=== PATIENT | female | born 1950 | race Caucasian/White ===

== ENCOUNTER → 2017-02-17 | Outpatient (CLI) | payer MEDICARE ==
[~2017-02-17] MED LIST: AMOX500C2 PO; BUSP10TA95 PO
--- NOTE | 2017-02-17 11:43 | Diagnostic Imaging Report ---
PROCEDURE: CT chest without contrast. TECHNIQUE: Multiple contiguous axial images were obtained through the chest without the use of intravenous contrast. INDICATION: COPD. COMPARISON: 06/11/2015 exam. FINDINGS: The lungs demonstrate no significant emphysema changes. The heart size is normal. No pericardial or pleural effusion. The thoracic aorta is normal in caliber. No mediastinal mass. No significantly enlarged lymph nodes in the mediastinum or axilla is seen. No definite hilar mass adjacent to the unopacified hilar vessels seen. Sections of the upper abdomen demonstrate no definite abnormality. There is suggestion of an old compression fracture of T12 vertebra. Degenerative changes and scoliosis in the thoracic spine is seen. IMPRESSION: No acute process. Dictated by: Dictated on workstation # [id number]
--- NOTE | 2017-02-19 15:36 | Diagnostic Imaging Report ---
Bilateral screening mammogram. The current study was also evaluated with a Computer Aided Detection (CAD) system. INDICATION: Screening. No current complaints stated on the questionnaire. COMPARISON: 06/11/2015. FINDINGS: The breasts are composed of heterogeneously dense parenchyma which may decrease mammographic sensitivity. There is no mass, architectural distortion or suspicious cluster of calcifications. Allowing for technique and positional differences, no suspicious change is seen. IMPRESSION: No significant change. ACR BI-RADS Category 2: Benign findings. Result letter will be mailed to the patient. Note: At least 10% of breast cancer is not imaged by mammography. Dictated on workstation # [id number]
== END ==
LOC: RAD 10:47
PROVIDERS: ATTEND Family Medicine
DX: J44.9 Chronic obstructive pulmonary disease, unspecified (principal); Z12.31 Encounter for screening mammogram for malignant neoplasm of breast
CPT/HCPCS: 71250; 77067

== ENCOUNTER → 2017-02-26 | Outpatient (CLI) | payer MEDICARE ==
--- NOTE | 2017-03-01 06:38 | ECHOCARDIOGRAPHY REPORT ---
DATE OF SERVICE: 02/26/2017 ORDERING PHYSICIAN: Dr. Duffy. PRIMARY PHYSICIAN: Dr. Robledo. CLINICAL DIAGNOSES: Shortness of breath, hypertension. MEASUREMENTS: LV diameter diastolic 4.3. IVS thickness diastolic 1, LVPW thickness diastolic 0.8. Aortic root 3.1. Left atrium 3.1. DESCRIPTION: Two dimensional echocardiography shows normal global left ventricular systolic function. Left ventricular ejection fraction is approximately 60%. Aortic, mitral and tricuspid valve leaflets show good leaflet excursion. Aortic valve is trileaflet. No significant pericardial effusion. Doppler imaging shows mild aortic and tricuspid regurgitation. There is no Doppler evidence of any significant valvular stenosis. Mitral inflow is suggestive of grade I diastolic dysfunction of the left ventricle. There is no evidence of any significant intracardiac shunt on this transthoracic echocardiographic study. Inferior vena cava appears mildly dilated but does exhibit inspiratory collapse. There is no evidence of significant intracardiac shunt on this transthoracic echocardiographic study. Pulmonary artery systolic pressure is estimated to be approximately 35 mmHg. CONCLUSIONS: 1. Normal global left ventricular ejection fraction approximately 60%. 2. Mild mitral and tricuspid regurgitation. 3. Mild diastolic dysfunction of left ventricle. 4. No evidence of any significant valvular stenosis. 5. Pulmonary artery systolic pressure is estimated at approximately 35 mmHg. Job ID: [id number] DocumentID: [id number] Dictated Date: 02/28/2017 15:15:25 Manager Of Exhibitions And Collections Date: 02/28/2017 19:34:18 Dictated By: GOSIA DUFFY MD, MA, FACP, FACC, MTDD
== END ==
LOC: CARD 13:43
PROVIDERS: ATTEND Internal Medicine Cardiovascular Disease
DX: I10 Essential (primary) hypertension (principal); R06.02 Shortness of breath; Z72.0 Tobacco use
CPT/HCPCS: 93306

== ENCOUNTER → 2017-03-02 | Outpatient (CLI) | payer MEDICARE ==
[~2017-03-02] MED LIST changes: +CATHETER FLUSH 10 ML SYR IV PRN; +REGADENOSON 0.4 MG/5 ML SYR (LEXISCAN) IV ONE
[2017-03-02 09:46] VITALS: BP 152/82
--- NOTE | 2017-03-03 11:31 | STRESS TEST ---
DATE OF SERVICE: 03/02/2017 RESTING AND POST REGADENOSON TECHNETIUM-99M TETROFOSMIN SPECT CT IMAGING ORDERING PHYSICIAN: Dr. Duffy. CLINICAL DIAGNOSES: Shortness of breath, hypertension. Baseline images were carried out after injection of 10.85 mCi of technetium-99m tetrofosmin. This was followed by 0.4 mg regadenoson and 31.3 mCi technetium-99m tetrofosmin for stress imaging. The electrocardiogram showed sinus rhythm with incomplete right bundle branch block throughout the study. The electrocardiogram did not change significantly with the regadenoson infusion. The patient did not report any significant symptoms. Review of images at rest and following stress indicates a small transient anterolateral perfusion defect. Gated images show normal global left ventricular systolic function with normal regional wall motion. Left ventricular ejection fraction is calculated to be 69%. Left ventricular end diastolic volume is 41 mL. TID is absent (0.99). CONCLUSIONS: 1. This study suggests a small amount of anterolateral ischemia. 2. Normal regional wall motion. 3. Normal global left ventricular systolic function with a calculated ejection fraction of 69%. 4. Normal left ventricular cavity size. Job ID: [id number] DocumentID: [id number] Dictated Date: 03/03/2017 09:26:48 Prototype Fabricator Date: 03/03/2017 10:11:56 Dictated By: GOSIA DUFFY MD, MA, FACP, FACC,
== END ==
LOC: CARD 08:07
PROVIDERS: ATTEND Internal Medicine Cardiovascular Disease
DX: I10 Essential (primary) hypertension (principal); R06.02 Shortness of breath; Z72.0 Tobacco use
CPT/HCPCS: 78452; 93017

== ENCOUNTER → 2017-03-03 | Outpatient (CLI) | payer MEDICARE ==
[~2017-03-03] MED LIST changes: -CATHETER FLUSH 10 ML SYR IV PRN; -REGADENOSON 0.4 MG/5 ML SYR (LEXISCAN) IV ONE; +RT-ALBUTEROL SULF 2.5 MG/3 ML PRE-MIX VIAL IH ONE
== END ==
LOC: RT 14:37
PROVIDERS: ATTEND Internal Medicine Cardiovascular Disease
DX: I10 Essential (primary) hypertension (principal); R06.02 Shortness of breath; Z72.0 Tobacco use
CPT/HCPCS: 94060; 94640; 94726; 94729

== ENCOUNTER 2017-03-16 06:59 | Day surgery (SDC) | payer MEDICARE ==
[~2017-03-16 06:59] MED LIST changes: -RT-ALBUTEROL SULF 2.5 MG/3 ML PRE-MIX VIAL IH ONE
[2017-03-16] MEDS ORDERED: HEParin (CATH LAB) 2,000 ML IV ONE (07:14)
[2017-03-16] MEDS ORDERED: NS IV 1000 ML 1,000 ML ONE (07:14)
[2017-03-16] MEDS ORDERED: NS IV 1000 ML 1,000 ML IV SCH ×2 (07:30→14:05)
[2017-03-16] MEDS ORDERED: ESCI10TA55 PO (09:16)
[2017-03-16] MEDS ORDERED: [UNRECOGNIZED DRUG - CODE] PO (09:16)
[2017-03-16] MEDS ORDERED: ASPI-983 PO (09:16)
[2017-03-16] MEDS ORDERED: LEG CRAMPS PO (09:16)
[2017-03-16] MEDS ORDERED: METO-270 PO (09:16)
[2017-03-16] MEDS ORDERED: CHOL20003 PO (09:16)
[2017-03-16] MEDS ORDERED: fentaNYL INJECTION 100 MCG/2 ML AMP ONE (11:56)
[2017-03-16] MEDS ORDERED: diphenhydrAMINE 50 MG/ML INJ (BENADRYL) ONE (11:56)
[2017-03-16] MEDS ORDERED: MIDAZOLAM 5 MG/5 ML (VERSED) VIAL ONE (11:56)
[2017-03-16] MEDS ORDERED: PATIENT MAY USE OWN MEDS, ALL PO SCH (14:15)
[2017-03-16] MEDS ORDERED: ASPI-999 PO (14:16)
[2017-03-16] MEDS ORDERED: ATOR40TA70 PO (14:16)
== END 2017-03-16 17:15 | disposition home or self-care (01) ==
DX: R06.02 Shortness of breath (principal); R94.39 Abnormal result of other cardiovascular function study; I25.10 Atherosclerotic heart disease of native coronary artery without angina pectoris; I10 Essential (primary) hypertension; Z79.899 Other long term (current) drug therapy; Z72.0 Tobacco use

== ENCOUNTER → 2019-02-09 | Outpatient (CLI) | payer MEDICARE ==
[~2019-02-09] MED LIST changes: +ASPI-983 PO; +ASPI-999 PO; +ATOR40TA70 PO; +CHOL20003 PO; +ESCI10TA55 PO; +LEG CRAMPS PO; +METO-387 PO; +[UNRECOGNIZED DRUG - CODE] PO
--- NOTE | 2019-02-09 11:16 | Diagnostic Imaging Report ---
PROCEDURE: MR imaging of the brain without contrast. TECHNIQUE: Multiplanar, multisequence MR imaging of the brain was performed without contrast. INDICATION: Headaches and dizziness. COMPARISON: No prior studies are available for comparison. FINDINGS: Ventricles and sulci are within normal limits. There is fairly significant periventricular and subcortical white matter signal abnormalities noted. This is likely on the basis of chronic microvascular ischemia. No sulcal effacement or midline shift is identified. There is no diffusion restriction. No acute intra-axial or extra-axial hemorrhage is seen. Normal expected flow-voids within the carotid siphons are identified. Corpus callosum is unremarkable. The sella and parasellar structures are unremarkable. IMPRESSION: Changes of chronic microvascular ischemia. The study is otherwise unremarkable. No acute feature is detected. Dictated by: Dictated on workstation # [id number]
== END ==
LOC: RAD 10:33
PROVIDERS: ATTEND Nurse Practitioner Family
DX: I67.82 Cerebral ischemia (principal); G50.0 Trigeminal neuralgia
CPT/HCPCS: 70551

== ENCOUNTER 2019-03-04 08:02 | Emergency (ER) | payer MEDICARE ==
[~2019-03-04] VITALS: Ht 157.5 cm; Wt 63.5 kg
[2019-03-04 09:04] LABS: BASOPHILS # (AUTO) 0.1 10^3/uL (0.0-0.1); BASOPHILS % (AUTO) 1 % (0-10); EOSINOPHILS # (AUTO) 0.4 10^3/uL (0.0-0.3); EOSINOPHILS % (AUTO) 3 % (0-10); HEMATOCRIT 39 % (35-52); HEMOGLOBIN 13.1 G/DL (11.5-16.0); LYMPHOCYTES # (AUTO) 2.8 X 10^3 (1.0-4.0); LYMPHOCYTES % (AUTO) 26 % (12-44); MEAN CORPUSCULAR HEMOGLOBIN 31 PG (25-34); MEAN CORPUSCULAR HGB CONC 33 G/DL (32-36); MEAN CORPUSCULAR VOLUME 94 FL (80-99); MEAN PLATELET VOLUME 9.1 FL (7.4-10.4); MONOCYTES # (AUTO) 0.8 X 10^3 (0.0-1.0); MONOCYTES % (AUTO) 7 % (0-12); NEUTROPHILS # (AUTO) 6.5 X 10^3 (1.8-7.8); NEUTROPHILS % (AUTO) 62 % (42-75); PLATELET COUNT 476 10^3/uL (130-400); WHITE BLOOD COUNT 10.6 10^3/uL (4.3-11.0)
[2019-03-04 09:21] LABS: BUN/CREATININE RATIO 23; CALCIUM 9.5 MG/DL (8.5-10.1); CARBON DIOXIDE 26 MMOL/L (21-32); CHLORIDE 98 MMOL/L (98-107); GFR ESTIMATED > 60; GLUCOSE 96 MG/DL (70-105); POTASSIUM 4.4 MMOL/L (3.6-5.0); SODIUM 133 MMOL/L (135-145)
--- NOTE | 2019-03-04 10:45 | NUR ---
Pt taken warm blanket. No other needs expressed at this time. Will continue to monitor.
--- NOTE | 2019-03-04 12:07 | Diagnostic Imaging Report ---
PROCEDURE: US right lower extremity venous. TECHNIQUE: Multiple real-time grayscale images were obtained over the right lower extremity in various projections. Additional spectral analysis and color Doppler duplex images were also obtained. INDICATION: Pain and swelling. FINDINGS: There is nonocclusive thrombus in the right popliteal vein. There is no flow seen in the proximal peroneal trunk. The more proximal venous system is widely patent. There are no abnormal fluid collections or masses. IMPRESSION: Nonocclusive deep venous thrombosis in the right popliteal vein extending into the peroneal trunk. Dictated by: Dictated on workstation # [id number]
[2019-03-04] MEDS ORDERED: APIXABAN 5 MG (ELIQUIS) TABLET PO ONE (12:45)
--- NOTE | 2019-03-04 12:45 | ED Lower Extremity ---
General Chief Complaint: Lower Extremity Stated Complaint: R LEG PAIN / SWELLING Nursing Triage Note: Pt to ED with c/o burning pain in the R leg for one and a half weeks. R leg tender to the touch. Pt describes pain as burning. Pt denies chest pain. Pt reports hx of blood clots. Nursing Sepsis Screen: No Definite Risk Source: patient Exam Limitations: no limitations History of Present Illness Date Seen by Provider: Mar 04, 2019 Time Seen by Provider: 08:46 Initial Comments This 69-year-old woman presents to the emergency room with complaints of 10 days of pain and swelling in the right calf. She has family history of DVT and is concerned about blood clots. The pain is a burning sensation. She denies any injury, recent travel, recent procedures, or sedentary lifestyle. She denies any shortness of breath or chest pain. She has had recent trigeminal neuralgia. She does smoke. Allergies and Home Medications Allergies Coded Allergies: No Known Drug Allergies (Unverified , 10/15/14) Home Medications Apixaban 5 Mg Tablet, 5 MG PO BID TAKE 2 TABLETS BID X 7 DAYS, THEN 1 TABLET BID Prescribed by: LUC DWYER on 03/04/19 1246 Aspirin 81 Mg Tab.chew, 81 MG PO DAILY Prescribed by: GOSIA ROWE on 03/16/17 1416 Atorvastatin Calcium 40 Mg Tablet, 40 MG PO DAILY Prescribed by: GOSIA ROWE on 03/16/17 1416 Cholecalciferol (Vitamin D3) 2,000 Unit Capsule, 2,000 UNIT PO HS, (Reported) Escitalopram Oxalate 10 Mg Tablet, 10 MG PO HS, (Reported) Metoprolol Succinate 25 Mg Tab.er.24h, 25 MG PO DAILY, (Reported) [Diphen/Phenyl] , 2 TAB PO DAILY, (Reported) [Leg Cramps] , 1 TAB PO DAILY, (Reported) Patient Home Medication List Home Medication List Reviewed: Yes Review of Systems Constitutional: no symptoms reported EENTM: see HPI Respiratory: no symptoms reported Cardiovascular: no symptoms reported Gastrointestinal: no symptoms reported Genitourinary: no symptoms reported : No Musculoskeletal: see HPI Skin: no symptoms reported Psychiatric/Neurological: No Symptoms Reported Past Oteeetj-Eypvjf-Scpuhm Hx Past Med/Social Hx: Reviewed and Corrections made Patient Social History Alcohol Use: Occasionally Uses Recreational Drug Use: No Smoking Status: Current Everyday Smoker Type Used: Electronic/Vapor 2nd Hand Smoke Exposure: Yes Recent Foreign Travel: No Contact w/Someone Who Travel: No Recent Infectious Disease Expo: No Immunizations Up To Date Date of Pneumonia Vaccine: Mar 16, 2014 Past Medical History Surgeries: Yes Hysterectomy Respiratory: Yes (tobaccoism) Cardiac: Yes Neurological: Yes (trigeminal neuralgia) Reproductive Disorders: No Sexually Transmitted Disease: No Gastrointestinal: No Musculoskeletal: No Endocrine: No HEENT: Yes (trigeminal neuralgia) Cancer: No Psychosocial: No Integumentary: No Blood Disorders: No Family Medical History Reviewed and Corrections made DVT/PE Physical Exam Vital Signs Vital Signs - First Documented 03/04/19 08:45 Temp 98.2 Pulse 69 Resp 18 B/P (MAP) 169/87 (114) Pulse Ox 95 O2 Delivery Room Air Capillary Refill : Less Than 3 Seconds Height, Weight, BMI Height: 5'2.00" Weight: 140lbs. 0.0oz. 63.237527nh; 24.1 BMI Method:Stated General Appearance: WD/WN, no apparent distress HEENT: PERRL/EOMI, normal ENT inspection Neck: normal inspection Cardiovascular: regular rate, rhythm, no edema, no murmur Respiratory: lungs clear, normal breath sounds, no respiratory distress, no accessory muscle use Legs: right leg other (tenderness in the right calf. There is a small area of ecchymosis and more concentrated tenderness toward the mid calf. 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4 FL Neutrophils (%) (Auto) 62 42-75 % Lymphocytes (%) (Auto) 26 12-44 % Monocytes (%) (Auto) 7 0-12 % Eosinophils (%) (Auto) 3 0-10 % Basophils (%) (Auto) 1 0-10 % Neutrophils # (Auto) 6.5 1.8-7.8 X 10^3 Lymphocytes # (Auto) 2.8 1.0-4.0 X 10^3 Monocytes # (Auto) 0.8 0.0-1.0 X 10^3 Eosinophils # (Auto) 0.4 H 0.0-0.3 10^3/uL Basophils # (Auto) 0.1 0.0-0.1 10^3/uL D-Dimer 5.38 H 0.00-0.49 UG/ML Sodium Level 133 L 135-145 MMOL/L Potassium Level 4.4 3.6-5.0 MMOL/L Chloride Level 98 98-107 MMOL/L Carbon Dioxide Level 26 21-32 MMOL/L Anion Gap 9 5-14 MMOL/L Blood Urea Nitrogen 18 7-18 MG/DL Creatinine 0.80 0.60-1.30 MG/DL Estimat Glomerular Filtration Rate > 60 BUN/Creatinine Ratio 23 Glucose Level 96 70-105 MG/DL Calcium Level 9.5 8.5-10.1 MG/DL C-Reactive Protein High Sensitivity 0.23 0.00-0.50 MG/DL My Orders Orders - LUC TAY MD Basic Metabolic Panel (03/04/19 08:51) Cbc With Automated Diff (03/04/19 08:51) Hs C Reactive Protein (03/04/19 08:51) Fibrin Degradation Products (03/04/19 08:51) Us Venous Lower Ext Rt (03/04/19 09:53) General/Regular (03/04/19 Lunch) Apixaban Tablet (Eliquis Tablet) (03/04/19 12:45) Vital Signs/I&O 03/04/19 03/04/19 08:45 13:05 Temp 98.2 98.2 Pulse 69 66 Resp 18 18 B/P (MAP) 169/87 (114) 149/81 (103) Pulse Ox 95 94 O2 Delivery Room Air Room Air Blood Pressure Mean: 114 Progress Progress Note : Progress Note D-dimer was significantly elevated. Ultrasound confirmed a DVT. Patient was started on Eliquis. Prescription was provided. Patient was encouraged to stop smoking. Diagnostic Imaging Diagonstic Imaging: Ultrasound Plain Films/CT/US/NM/MRI: leg Comments Ultrasound report reviewed. Please note there was also a [employer] report obtained. The [employer] report noted a nonocclusive thrombus as well as a nonocclusive thrombus. The in-house report only reports the nonocclusive thrombus. See report below: NAME: KURTIS CHONG [facility] REC#: [id number] PT STATUS: DEP ER : [id number] PHYSICIAN: LUC TAY MD ADMIT DATE: 03/04/19/ER Signed Date of Exam: 03/04/19 US VENOUS LOWER EXT RT PROCEDURE: US right lower extremity venous. TECHNIQUE: Multiple real-time grayscale images were obtained over the right lower extremity in various projections. Additional spectral analysis and color Doppler duplex images were also obtained. INDICATION: Pain and swelling. FINDINGS: There is nonocclusive thrombus in the right popliteal vein. There is no flow seen in the proximal peroneal trunk. The more proximal venous system is widely patent. There are no abnormal fluid collections or masses. IMPRESSION: Nonocclusive deep venous thrombosis in the right popliteal vein extending into the peroneal trunk. Dictated by: Dictated on workstation # [id number] Dict: 03/04/19 1204 Trans: 03/04/19 1406 Interpreted by: RODOLFO RODRIGUEZ MD Electronically signed by: RODOLFO RODRIGUEZ MD 03/04/19 1406 Departure Impression Primary Impression: Right leg DVT Qualified Codes: I82.441 - Acute embolism and thrombosis of right tibial vein Disposition: 01 HOME, SELF-CARE Condition: Improved Departure-Patient Inst. Decision time for Depature: 12:43 Referrals: JM MCDONALD MD (PCP/Family) Primary Care Physician Patient Instructions: Deep Vein Thrombosis (Blood Clots in the Legs) Add. Discharge Instructions: Elevate your leg as often as possible. Start your Eliquis this evening around 10:00 or 11:00 PM. Take is close to 12 hours apart as possible. Follow-up with your primary care provider soon as possible. Stop Eliquis and seek medical attention if you have any unusual or uncontrolled bleeding. Avoid activities that could cause serious trauma as risk of bleeding is increased while on Eliquis. Return to the emergency room if you have worsening symptoms or other problems or concerns. All discharge instructions reviewed with patient and/or family. Voiced understanding. Scripts Apixaban (Eliquis) 5 Mg Tablet 5 MG PO BID for 30 Days, #72 TAB TAKE 2 TABLETS BID X 7 DAYS, THEN 1 TABLET BID Prov: LUC TAY MD 03/04/19 Copy Copies To 1: JM MCDONALD MD Copies To 2: GOSIA ROWE MD [facility] LUC TAY MD Mar 04, 2019 12:45
[2019-03-04] MEDS ORDERED: APIX5TAB PO (12:46)
[2019-03-04 13:05] VITALS: BP 149/81
== END 2019-03-04 13:05 | disposition home or self-care (01) ==
LOC: EDUNIT# 08:02 → ER 08:03
DX: I82.401 Acute embolism and thrombosis of unspecified deep veins of right lower extremity (principal); F17.290 Nicotine dependence, other tobacco product, uncomplicated; Z90.710 Acquired absence of both cervix and uterus; Z79.01 Long term (current) use of anticoagulants; Z79.82 Long term (current) use of aspirin
CPT/HCPCS: 36415; 80048; 85025; 85379; 86141

== ENCOUNTER → 2019-04-07 | Outpatient (CLI) | payer MEDICARE ==
[~2019-04-07] MED LIST changes: +APIX5TAB PO
--- NOTE | 2019-04-07 12:10 | Diagnostic Imaging Report ---
Examination: Chest CT without contrast for lung cancer screening. History: 30-fkta-eneg history smoking. Findings: Comparison is 02/17/2017. There is a 3 mm left upper lobe pulmonary nodule (series 2, image 31). No edema or pneumonia. No suspicious nodules. No pleural effusion or pneumothorax. The left ventricle is mildly dilated. There are mild coronary artery calcifications. No axillary, supraclavicular or mediastinal lymphadenopathy. Limited views of the upper abdomen are unremarkable. There are no suspicious osseous lesions. Impression: 1. No suspicious pulmonary nodules. Lung rads category 2. Modifier: None. Dictated by: Dictated on workstation # [id number]
== END ==
LOC: RAD 04-03 13:40
PROVIDERS: ATTEND Family Medicine
DX: Z12.2 Encounter for screening for malignant neoplasm of respiratory organs (principal); F17.210 Nicotine dependence, cigarettes, uncomplicated

== ENCOUNTER → 2019-05-16 | Outpatient (CLI) | payer MEDICARE ==
[~2019-05-16] MED LIST changes: +CATHETER FLUSH 10 ML SYR IV PRN; +REGADENOSON 0.4 MG/5 ML SYR (LEXISCAN) IV ONE
[2019-05-16 08:48] VITALS: BP 135/69
[2019-05-16 09:00] VITALS: BP 126/75
[2019-05-16 09:03] VITALS: BP 166/66
--- NOTE | 2019-05-16 14:04 | STRESS TEST ---
DATE OF SERVICE: 05/16/2019 RESTING AND POST REGADENOSON TECHNETIUM-99M TETROFOSMIN SPECT CT IMAGING ORDERING PHYSICIAN: Dr. Duffy. PRIMARY PHYSICIAN: Dr. Dawn. CLINICAL DIAGNOSES: Coronary artery disease, hypertension, shortness of breath. Baseline images were carried out after injection of 10.95 mCi of technetium-99m Tetrofosmin. This was followed by 0.4 mg of Regadenoson and 29.7 mCi of technetium-99m Tetrofosmin for stress imaging. The electrocardiogram showed sinus rhythm with incomplete right bundle branch block at baseline. The electrocardiogram did not change significantly with Regadenoson infusion. The patient had a feeling of an upset stomach following Regadenoson infusion, which resolved in a few minutes. Overall, the patient tolerated the procedure well. Review of images at rest and following stress does not indicate any significant perfusion defects consistent with significant myocardial ischemia or infarction. Gated images showed normal global left ventricular systolic function with normal regional wall motion. Left ventricular ejection fraction is calculated to be 66%. Left ventricular end diastolic volume is 32 mL. TID is absent (1.09). CONCLUSIONS: 1. No evidence of any significant myocardial ischemia or infarction on this study. 2. Normal regional wall motion. 3. Normal global left ventricular systolic function with a calculated ejection fraction of 66%. Job ID: [id number] DocumentID: [id number] Dictated Date: 05/16/2019 13:30:11 Manager Utilization Management Date: 05/16/2019 14:04:26 Dictated By: GOSIA DUFFY MD, MA, FACP, FACC,
== END ==
LOC: CARD 07:10
PROVIDERS: ATTEND Internal Medicine Cardiovascular Disease
DX: I25.10 Atherosclerotic heart disease of native coronary artery without angina pectoris (principal); I10 Essential (primary) hypertension; G50.0 Trigeminal neuralgia; Z86.718 Personal history of other venous thrombosis and embolism
CPT/HCPCS: 78452; 93017

== ENCOUNTER 2020-04-16 05:42 | Outpatient (RCR) | payer MEDICARE ==
[~2020-04-16 05:42] MED LIST changes: -CATHETER FLUSH 10 ML SYR IV PRN; -METO-387 PO; +MTP25TSR PO; -REGADENOSON 0.4 MG/5 ML SYR (LEXISCAN) IV ONE
[2020-04-16] MEDS ORDERED: APIX2.5T PO (11:42)
[2020-04-16] MEDS ORDERED: METO-333 PO (11:42)
[2020-04-16] MEDS ORDERED: ATOR40TA70 PO (11:42)
[2020-04-16] MEDS ORDERED: CITA20TA9 PO (11:42)
[2020-04-16] MEDS ORDERED: CHOL20003 PO (11:42)
[2020-04-16] MEDS ORDERED: CALC-694 PO (11:42)
[2020-04-16] MEDS ORDERED: GABA-486 PO (11:42)
== END 2020-04-16 11:46 | disposition home or self-care (01) ==
LOC: PREOP 05:42
PROVIDERS: ATTEND Specialist
DX: Z01.818 Encounter for other preprocedural examination (principal); H25.12 Age-related nuclear cataract, left eye; Z20.828 Contact with and (suspected) exposure to other viral communicable diseases
CPT/HCPCS: 87635

== ENCOUNTER 2020-04-19 07:28 | Day surgery (SDC) | payer MEDICARE ==
[~2020-04-19] VITALS: Ht 157 cm; Wt 58.6 kg
[~2020-04-19 07:28] MED LIST changes: +APIX2.5T PO; +CALC-694 PO; +CITA20TA9 PO; +GABA-486 PO; +METO-333 PO
--- OUTSIDE RECORDS SUMMARY | 2020-04-19 07:34 | XMS REPORT | CCD ---
Author Author Michelle Lira Organization Elizabeth Robledo MD, [facility] Address [address] [place] [address] Phone Care Team Providers Care Manager Front Name Role Phone PP Unavailable CCM Unavailable Summary Purpose Interface Exchange Insurance Providers Payer name Policy type / Coverage type Covered constitution party ID Effective Begin Date Effective End Date WPS Medicare Part B Medicare Part B [id number] Unknown Family history Sister Diagnosis Age At Onset Heart Attack Unknown Hyperlipidemia Unknown Hypertension Unknown Daughter Diagnosis Age At Onset Arthritis Unknown Son Diagnosis Age At Onset Depression Unknown Social History Social History Element Codes Description Effective Dates Marital status Unknown M guillermo Kaden 03/03/2017 Number of children Unknown 3 06/06/[address]: 78527098 Current every day smoker 06/06/2015 Number of years using tobacco Unknown 10 - 20 06/06/2015 Number of cigarettes/day Unknown 10 (Half a pack) 06/06/[address]: 684251157 Never drinks alcohol 06/06/2015 Allergies, Adverse Reactions, Alerts Substance Reaction Codes Entered Date Inactivated Date Status * NO KNOWN DRUG EDMUND RGIES Unknown 03/03/2017 No Inactive Date Active Past Medical History Illness Codes Condition Status Onset Date Resolved Date Trigeminal neuralgia ICD-9: 350.1 ICD-10: G50.0 Active 2019 Unknown Headache ICD-9: 784.0 ICD-10: R51 Active 2019 Unknown Essential (primary) hypertension ICD-9: 401.1 ICD-10: I10 Active 03/03/2017 Unknown Varicose veins of le ft lower extremity with pain ICD-9: 454.8 ICD-10: I83.812 Active 06/30/2018 Unknown Generalized anxiety disorder ICD-9: 300.02 ICD-10: F41.1 Active 02/08/2017 Unknown Generalized anxiety disorder ICD-9: 300.00 ICD-10: F41.1 Active 08/05/2015 Unknown Chronic obstructive pulmonary disease with (acute) exacerbation ICD-9: 496 ICD-10: J44.1 Active 02/08/2017 Unknown Other seasonal aller gic rhinitis ICD-9: 477.9 ICD-10: J30.2 Active 08/05/2015 Unknown Encounter for immuni zation ICD-9: V06.6 ICD-10: Z23 Active 07/07/2015 Unknown Encounter for immuni zation ICD-9: V04.81 ICD-10: Z23 Active 07/07/2015 Unknown Encounter for immuni zation ICD-9: V03.82 ICD-10: Z23 Active 07/07/2015 Unknown Rectocele ICD-9: 618.04 ICD-10: N81.6 Active 07/07/2015 Unknown Altered bowel habits ICD-9: 787.99 Active 06/05/2015 Unknown Anxiety ICD-9: 300.00 Active 06/05/2015 Unknow n COPD (chronic obstru ctive pulmonary disease) ICD-9: 496 Active 06/05/2015 Unknown Myalgia ICD-9: 729.1 Active 06/05/2015 Unknow n Tobacco use ICD-9: 305.1 Active 06/05/2015 Unknow n Problems Condition Codes Effectiv e Dates Condition Status Trigeminal neuralgia ICD-9: 350.1 ICD-10: G50.0 2019 Active Headache ICD-9: 784.0 ICD-10: R51 2019 Active Essential (primary) hypertension ICD-9: 401.1 ICD-10: I10 03/03/2017 Active Varicose veins of le ft lower extremity with pain ICD-9: 454.8 ICD-10: I83.812 06/30/2018 Active Generalized anxiety disorder ICD-9: 300.02 ICD-10: F41.1 02/08/2017 Active Generalized anxiety disorder ICD-9: 300.00 ICD-10: F41.1 08/05/2015 Active Chronic obstructive pulmonary disease with (acute) exacerbation ICD-9: 496 ICD-10: J44.1 02/08/2017 Active Other seasonal aller gic rhinitis ICD-9: 477.9 ICD-10: J30.2 08/05/2015 Active Encounter for immuni zation ICD-9: V06.6 ICD-10: Z23 07/07/2015 Active Encounter for immuni zation ICD-9: V04.81 ICD-10: Z23 07/07/2015 Active Encounter for immuni zation ICD-9: V03.82 ICD-10: Z23 07/07/2015 Active Rectocele ICD-9: 618.04 ICD-10: N81.6 07/07/2015 Active Altered bowel habits ICD-9: 787.99 06/05/2015 Active Anxiety ICD-9: 300.00 06/05/2015 Active COPD (chronic obstru ctive pulmonary disease) ICD-9: 496 06/05/2015 Active Myalgia ICD-9: 729.1 06/05/2015 Active Tobacco use ICD-9: 305.1 06/05/2015 Active Medications Medication Codes Instruc tions Start Date Stop Date Sta tus Fill Instructions carbamazepine 100 mg chewable tablet RxNorm: 821698 1 Tablet(s) PO UD 02/14/2019 06/13/2019 Ac tive 1 q am and 2 q pm update RX carbamazepine 100 mg chewable tablet RxNorm: 349734 1 Tablet(s) PO BID 2019 02/13/2019 In active acyclovir 400 mg tablet RxNorm: 414101 1 Tablet(s) PO TID 2019 02/10/2019 Inactive Lipitor 40 mg tablet RxNorm: 282757 1 Tablet(s) PO daily 06/24/2018 06/18/2019 Active citalopram 20 mg tablet RxNorm: 315405 1 Tablet(s) PO daily 04/12/2018 04/06/2019 Active citalopram 10 mg tablet RxNorm: 397467 TAKE ONE TABLET BY MOUTH DAILY 04/11/2018 04/11/2018 In active citalopram 10 mg tablet RxNorm: 159267 TAKE ONE TABLET BY MOUTH DAILY 11/04/2017 04/02/2018 In active citalopram 10 mg tablet RxNorm: 208500 1 Tablet(s) PO daily 04/05/2017 10/31/2017 Inactive buspirone 15 mg tablet RxNorm: 838181 1/2 Tablet(s) PO QAM 03/03/2017 04/04/2017 Inactive Lexapro 10 mg tablet RxNorm: 279013 1 Tablet(s) PO QPM 03/03/2017 04/04/2017 Inactive buspirone 15 mg tablet RxNorm: 652080 TAKE ONE-HALF TABLET BY MOUTH TWO TIMES A DAY 11/23/2016 03/02/2017 Inactive buspirone 15 mg tablet RxNorm: 720996 TAKE ONE-HALF TABLET BY MOUTH TWO TIMES A DAY 06/04/2016 11/22/2016 Inactive buspirone 15 mg tablet RxNorm: 269372 TAKE ONE-HALF TABLET BY MOUTH TWO TIMES A DAY 04/13/2016 06/03/2016 Inactive buspirone 15 mg tablet RxNorm: 919484 TAKE ONE-HALF TABLET BY MOUTH TWO TIMES A DAY 01/13/2016 04/11/2016 Inactive Augmentin 500 mg-125 mg tablet RxNorm: 650002 1 Tablet(s) PO TID 10/22/2015 10/31/2015 Inactive Give with a probiotic Augmentin 500 mg-125 mg tablet RxNorm: 777792 1 Tablet(s) PO TID 10/22/2015 10/21/2015 Inactive Give with a probiotic buspirone 15 mg tablet RxNorm: 123732 1/2 Tablet(s) PO BID 09/17/2015 01/12/2016 Inactive Flonase Allergy Reli ef 50 mcg/actuation nasal spray,suspension RxNorm: 1-2 [place] NASAL daily 07/08/2015 10/05/2015 Inactive Miralax 17 gram oral powder packet RxNorm: 590120 1 packet PO daily 07/08/2015 01/31/2019 Inactive metoprolol succinate ER 25 mg tablet,extended release 24 hr RxNorm: 729564 1 Tablet(s) PO daily No Start Date Active Aspirin Low Dose 81 mg tablet,delayed release RxNorm: 877731 1 Tablet(s) PO daily No Start Date Active Vitamin D3 1,000 uni t tablet RxNorm: 572052 2 Tablet(s) PO daily No Start Date Active Lipitor 40 mg tablet RxNorm: 164437 1 Tablet(s) PO daily No Start Date 06/23/2018 Inactive buspirone 15 mg tablet RxNorm: 788688 1/2 Tablet(s) PO BID No Start Date 09/16/2015 Inactive Medication Administered No Medication Administered data Immunizations Vaccine Codes Date Status Influenza CVX: 141 07/08 completed Pneumococcal (Adult) CVX: 133 07/08/2015 completed Assessments Condition Codes Effectiv e Dates Trigeminal neuralgia ICD-10: G50.0 ICD-9: 350.1 02/14/2019 Headache ICD-10: R51 ICD-9: 784.0 02/06/2019 Varicose veins of left lower extremity with pain ICD-10: I83.812 ICD-9: 454.8 08/08/2018 Essential (primary) hypertension ICD -10: I10 ICD-9: 401.1 08/08/2018 Generalized anxiety disorder ICD-10: F41.1 ICD-9: 300.02 04/12/2018 Generalized anxiety disorder ICD-10: F41.1 ICD-9: 300.00 04/05/2017 Chronic obstructive pulmonary disease wi (acute) exacerbation ICD-10: J44.1 ICD-9: 496 02/08/2017 Other seasonal allergic rhinitis ICD -10: J30.2 ICD-9: 477.9 08/06/2015 Encounter for immunization ICD-10: Z 23 ICD-9: V04.81 07/08/2015 Rectocele ICD-10: N81.6 ICD-9: 618.04 07/08/2015 Encounter for immunization ICD-10: Z 23 ICD-9: V06.6 07/08/2015 Encounter for immunization ICD-10: Z 23 ICD-9: V03.82 07/08/2015 Altered bowel habits ICD-9: 787.99 06/06/2015 Myalgia ICD-9: 729.1 06/2015 Anxiety ICD-9: 300.00 COPD (chronic obstructive pulmonary disease) ICD-9: 496 06/06/2015 Tobacco use ICD-9: 305.1 06/06/2015 Reason For Visit Reason For Visit Effective Dates Notes earache 02/14/2019 earache 02/06/2019 earache 2019 knee pain 08/08/2018 knee pain 06/30/2018 anxiety 04/12/2018 swell ing anxiety 04/05/2017 anxiety 03/03/2017 fatigue 02/08/2017 Buspi frank constipation 08/06/2015 sinus congestion 07/08/2015 fatigue 06/06/2015 Results Observation Observation Code Item Item Code Result Date Comp Metabolic Qkw449 NA 134 mEq/L 2019 Comp Metabolic Tyf189 K 4.2 mEq/L 2019 Comp Metabolic Htx156 CL 99 mEq/L 2019 Comp Metabolic Cts910 CO2 29.0 mEq/L 2019 Comp Metabolic Plr488 AN ION GAP 10 2019 Comp Metabolic Inb043 GL UCOSE 114 mg/dL 2019 Comp Metabolic Wml820 Cr eat 0.8 mg/dL 2019 Comp Metabolic Uxf966 eG FR 81 ml/min/1.73m2 02/01 Comp Metabolic Hem360 BUN 15 mg/dL 2019 Comp Metabolic Shm549 B/ C Ratio 20.0 Ratio 2019 Comp Metabolic Chc303 CA LCIUM 8.8 mg/dL 2019 Comp Metabolic Hwg358 AL K PHOS 61 U/L 2019 Comp Metabolic Uyh872 T(SGOT) 29 U/L 2019 Comp Metabolic Smk558 AL T(SGPT) 25 U/L 2019 Comp Metabolic Gpn973 BI LI T 0.5 mg/dL 2019 Comp Metabolic Wad486 AL BUMIN 4.1 g/dL 2019 Comp Metabolic Spz392 TP RO 6.6 g/dL 2019 Comp Metabolic Usn071 GL OB 2.5 g/dL 2019 Comp Metabolic Gzx579 A/ G Ratio 1.7 Ratio 2019 Comp Metabolic Byu840 Os mo 270 mOsmo 2019 Cbc With Differential Ord2 WBC 8.76 K/ul 2019 Cbc With Differential Ord2 RBC 4.14 M/ul 2019 Cbc With Differential Ord2 HGB 13.1 g/dl 2019 Cbc With Differential Ord2 HCT 40.2 % 2019 Cbc With Differential Ord2 Neut% 60.3 % 2019 Cbc With Differential Ord2 MCV 97.1 fl 2019 Cbc With Differential Ord2 Lymph% 30.6 % 2019 Cbc With Differential Ord2 MCH 31.6 pg 2019 Cbc With Differential Ord2 Boyle% 6.7 % 2019 Cbc With Differential Ord2 MCHC 32.6 pg 2019 Cbc With Differential Ord2 Eos% 1.8 % 2019 Cbc With Differential Ord2 PLT 332 K/ul 2019 Cbc With Differential Ord2 Baso% 0.6 % 2019 Cbc With Differential Ord2 RDW 13.0 % 2019 Cbc With Differential Ord2 Neut ABS# 5.28 K/ul 2019 Cbc With Differential Ord2 Lymph ABS# 2.68 K/ul 2019 Cbc With Differential Ord2 Boyle ABS# 0.6 K/ul 2019 Cbc With Differential Ord2 Eos ABS# 0.2 K/ul 2019 Cbc With Differential Ord2 Baso ABS# 0.1 K/ul 2019 C-Reactive Protein Qnt Crqnt CRP 0.1 mg/dl 2019 Sed Rate Ord21 ESR 9 mm/hr 2019 Comp Metabolic Evq975 NA 139 mEq/L 02/08/2017 Comp Metabolic Dxb709 K 4.2 mEq/L 02/08/2017 Comp Metabolic Nza648 CL 104 mEq/L 02/08/2017 Comp Metabolic Ayw540 CO2 27.0 mEq/L 02/08/2017 Comp Metabolic Grv241 AN ION GAP 12 02/08/2017 Comp Metabolic Dcn169 GL UCOSE 87 mg/dL 02/08/2017 Comp Metabolic Edc410 Cr eat 0.8 mg/dL 02/08/2017 Comp Metabolic Pgi573 eG FR 71 ml/min/1.73m2 02/08 Comp Metabolic Vzo681 BUN 15 mg/dL 02/08/2017 Comp Metabolic Bgj514 B/ C Ratio 17.9 Ratio 02/08/2017 Comp Metabolic Pno551 CA LCIUM 9.1 mg/dL 02/08/2017 Comp Metabolic Vql314 AL K PHOS 60 U/L 02/08/2017 Comp Metabolic Tve885 T(SGOT) 23 U/L 02/08/2017 Comp Metabolic Gna763 AL T(SGPT) 14 U/L 02/08/2017 Comp Metabolic Zbn432 BI LI T 0.3 mg/dL 02/08/2017 Comp Metabolic Pxh405 AL BUMIN 4.1 g/dL 02/08/2017 Comp Metabolic Iyb477 TP RO 6.6 g/dL 02/08/2017 Comp Metabolic Dth586 GL OB 2.5 g/dL 02/08/2017 Comp Metabolic Kav179 A/ G Ratio 1.6 Ratio 02/08/2017 Comp Metabolic Dbj875 Os mo 278 mOsmo 02/08/2017 Cbc With Differential Ord2 WBC 8.60 K/ul 02/08/2017 Cbc With Differential Ord2 RBC 4.00 M/ul 02/08/2017 Cbc With Differential Ord2 HGB 12.9 g/dl 02/08/2017 Cbc With Differential Ord2 HCT 38.8 % 02/08/2017 Cbc With Differential Ord2 Neut% 55.2 % 02/08/2017 Cbc With Differential Ord2 MCV 97.0 fl 02/08/2017 Cbc With Differential Ord2 Lymph% 35.6 % 02/08/2017 Cbc With Differential Ord2 MCH 32.3 pg 02/08/2017 Cbc With Differential Ord2 Boyle% 7.2 % 02/08/2017 Cbc With Differential Ord2 MCHC 33.2 pg 02/08/2017 Cbc With Differential Ord2 Eos% 1.4 % 02/08/2017 Cbc With Differential Ord2 PLT 377 K/ul 02/08/2017 Cbc With Differential Ord2 Baso% 0.6 % 02/08/2017 Cbc With Differential Ord2 RDW 13.0 % 02/08/2017 Cbc With Differential Ord2 Neut ABS# 4.75 K/ul 02/08/2017 Cbc With Differential Ord2 Lymph ABS# 3.06 K/ul 02/08/2017 Cbc With Differential Ord2 Boyle ABS# 0.6 K/ul 02/08/2017 Cbc With Differential Ord2 Eos ABS# 0.1 K/ul 02/08/2017 Cbc With Differential Ord2 Baso ABS# 0.1 K/ul 02/08/2017 Lipid Ord30 CHOL 204 mg/dL 02/08/2017 Lipid Ord30 HDL 64.0 mg/dl 02/08/2017 Lipid Ord30 TRIG 68 mg/dL 02/08/2017 Lipid Ord30 LDL 126 mg/dL 02/08/2017 Lipid Ord30 C/HDL 3.2 Ratio 02/08/2017 Tsh Ord6 hTSH II 1.48 uIU/mL 02/08/2017 Vitamin D 25 Oh Qmn6707 VITAMIN D, 25 HYDROXY 33.86 ng/mL 06/07/2015 Tsh Ord6 hTSH II 1.62 uIU/mL 06/06/2015 Lipid Ord30 CHOL 209 mg/dL 06/06/2015 Lipid Ord30 HDL 67.0 mg/dl 06/06/2015 Lipid Ord30 TRIG 83 mg/dL 06/06/2015 Lipid Ord30 LDL 125 mg/dL 06/06/2015 Lipid Ord30 C/HDL 3.1 Ratio 06/06/2015 Cbc With Differential Ord2 WBC 8.0 K/uL 06/06/2015 Cbc With Differential Ord2 LYM 2.7 K/uL 06/06/2015 Cbc With Differential Ord2 LYM% 33.9 % 06/06/2015 Cbc With Differential Ord2 NEUT/GRAN 4.6 K/uL 06/06/2015 Cbc With Differential Ord2 NEUT/GRAN % 58.1 % 06/06/2015 Cbc With Differential Ord2 MID 0.6 K/uL 06/06/2015 Cbc With Differential Ord2 MID% 8.0 % 06/06/2015 Cbc With Differential Ord2 RBC 4.18 M/uL 06/06/2015 Cbc With Differential Ord2 HGB 13.2 g/dL 06/06/2015 Cbc With Differential Ord2 HCT 40.3 % 06/06/2015 Cbc With Differential Ord2 MCV 96 fL 06/06/2015 Cbc With Differential Ord2 MCH 32 pg 06/06/2015 Cbc With Differential Ord2 MCHC 33 g/dL 06/06/2015 Cbc With Differential Ord2 PLT 402 K/uL 06/06/2015 Cbc With Differential Ord2 RDW 12.8 % 06/06/2015 Comp Metabolic Hog708 NA 134 mEq/L 06/06/2015 Comp Metabolic Egu346 K 4.3 mEq/L 06/06/2015 Comp Metabolic Fqo118 CL 102 mEq/L 06/06/2015 Comp Metabolic Wzu938 CO2 27.0 mEq/L 06/06/2015 Comp Metabolic Bdw657 AN ION GAP 9 06/06/2015 Comp Metabolic Ipo980 GL UCOSE 95 mg/dL 06/06/2015 Comp Metabolic Dbo887 Cr eat 0.8 mg/dL 06/06/2015 Comp Metabolic Fvd301 eG FR 76 ml/min/1.73m2 06/06 Comp Metabolic Ndu543 BUN 14 mg/dL 06/06/2015 Comp Metabolic Dav112 B/ C Ratio 17.5 Ratio 06/06/2015 Comp Metabolic Zad272 CA LCIUM 9.6 mg/dL 06/06/2015 Comp Metabolic Xgo280 AL K PHOS 64 U/L 06/06/2015 Comp Metabolic Mqk837 T(SGOT) 27 U/L 06/06/2015 Comp Metabolic Cyu851 AL T(SGPT) 20 U/L 06/06/2015 Comp Metabolic Xwz727 BI LI T 0.3 mg/dL 06/06/2015 Comp Metabolic Wer329 AL BUMIN 4.3 g/dL 06/06/2015 Comp Metabolic Lux702 TP RO 6.8 g/dL 06/06/2015 Comp Metabolic Uxj039 GL OB 2.5 g/dL 06/06/2015 Comp Metabolic Xac558 A/ G Ratio 1.7 Ratio 06/06/2015 Comp Metabolic Dgq439 Os mo 269 mOsmo 06/06/2015 Review of Systems System Result Effective Dates Eyes eye tearing 019 Eyes No eye discharge Eyes No eye erythema Eyes No eye floaters Ears/Nose/Throat/Neck No dizziness 02/14/2019 Ears/Nose/Throat/Neck No cerumen 02/14/2019 Ears/Nose/Throat/Neck No cancer of h ead and neck 02/14/2019 Ears/Nose/Throat/Neck facial pain 02/14/2019 Ears/Nose/Throat/Neck No facial swelling 02/14/2019 Ears/Nose/Throat/Neck No headache 02/14/2019 Ears/Nose/Throat/Neck No facial weakness 02/14/2019 Ears/Nose/Throat/Neck No hearing loss 02/14/2019 Ears/Nose/Throat/Neck nasal allergies 02/14/2019 Ears/Nose/Throat/Neck nasal discharge 02/14/2019 Ears/Nose/Throat/Neck No epistaxis 02/14/2019 Ears/Nose/Throat/Neck No dysphagia 02/14/2019 Ears/Nose/Throat/Neck No dry mouth 02/14/2019 Ears/Nose/Throat/Neck No dental pain 02/14/2019 Ears/Nose/Throat/Neck No cosmetic deformit y 02/14/2019 Cardiovascular No chest pain/pressure 02/14/2019 Cardiovascular No dyspnea 02/14/2019 Cardiovascular No edema 02/14/2019 Cardiovascular No arrhythmia 02/14/2019 Cardiovascular No exercise intolerance 02/14/2019 Cardiovascular No fatigue 02/14/2019 Respiratory No chest congestion 02/14/2019 Respiratory No chest tightness 02/14/2019 Respiratory No cough Respiratory No dyspnea on exertion 02/14/2019 Gastrointestinal No abdominal pain 02/14/2019 Gastrointestinal No constipation 02/14/2019 Gastrointestinal No diarrhea 02/14/2019 Gastrointestinal No gas and bloating 02/14/2019 Genitourinary/Nephrology No dysuria 02/14/2019 Neurologic No aphasia Neurologic No ataxia Neurologic dizziness Neurologic No dyskinesia or tremor 02/14/2019 Neurologic No gait abnormality 02/14/2019 Neurologic No headache 0 02/14/2019 Neurologic hearing loss 02/14/2019 Neurologic No memory loss 02/14/2019 Neurologic No mental status change 02/14/2019 Neurologic pain, facial 02/14/2019 Neurologic No speech difficulties 02/14/2019 Neurologic No seizure Neurologic No neck pain 02/14/2019 Neurologic No weakness 0 02/14/2019 Neurologic No vision change 02/14/2019 Musculoskeletal No swelling 02/14/2019 Musculoskeletal No bone pain 02/14/2019 Musculoskeletal No joint complaint 02/14/2019 Musculoskeletal No muscle weakness 02/14/2019 Constitutional recent illness 02/06/2019 Constitutional No anorexia 02/06/2019 Constitutional No night sweats 02/06/2019 Constitutional No chills 02/06/2019 Constitutional No diaphoresis 02/06/2019 Constitutional fatigue 0 02/06/2019 Constitutional No fever 02/06/2019 Constitutional insomnia 02/06/2019 Constitutional No malaise 02/06/2019 Constitutional No weight loss 02/06/2019 Constitutional No weight gain 02/06/2019 Eyes No eye discharge Eyes No eye erythema Ears/Nose/Throat/Neck facial pain 02/06/2019 Ears/Nose/Throat/Neck headache 02/06/2019 Cardiovascular No chest pain/pressure 02/06/2019 Respiratory No cough Gastrointestinal No nausea 02/06/2019 Gastrointestinal No vomiting 02/06/2019 Musculoskeletal No joint complaint 02/06/2019 Dermatologic No rash Dermatologic No sores Neurologic No alteration of consciousness 02/06/2019 Neurologic headache 01/25 Neurologic pain, facial 02/06/2019 Psychiatric anxiety 01/25 Constitutional recent illness 2019 Constitutional No anorexia 2019 Constitutional No night sweats 2019 Constitutional No chills 2019 Constitutional No diaphoresis 2019 Constitutional fatigue 0 2019 Constitutional No fever 2019 Constitutional insomnia 2019 Constitutional No malaise 2019 Constitutional No weight loss 2019 Constitutional No weight gain 2019 Eyes No eye discharge Eyes No eye erythema 04/2019 Ears/Nose/Throat/Neck facial pain 2019 Ears/Nose/Throat/Neck headache 2019 Cardiovascular No chest pain/pressure 2019 Respiratory No cough 04/2019 Gastrointestinal No vomiting 2019 Gastrointestinal No nausea 2019 Dermatologic No rash 04/2019 Dermatologic No sores Neurologic No alteration of consciousness 2019 Neurologic headache 04/2019 Neurologic pain, facial 2019 Musculoskeletal No joint complaint 2019 Psychiatric anxiety 04/2019 Constitutional No recent illness 08/08/2018 Constitutional No chills 08/08/2018 Constitutional No diaphoresis 08/08/2018 Constitutional fatigue 1 10/08/2017 Constitutional No fever 08/08/2018 Eyes No eye discharge Eyes No eye erythema 08/2018 Ears/Nose/Throat/Neck No dizziness 08/08/2018 Ears/Nose/Throat/Neck No headache 08/08/2018 Ears/Nose/Throat/Neck No sore throat 08/08/2018 Ears/Nose/Throat/Neck No otalgia 08/08/2018 Cardiovascular No chest pain/pressure 08/08/2018 Cardiovascular No dyspnea 08/08/2018 Cardiovascular No edema 08/08/2018 Respiratory No productive sputum 08/08/2018 Respiratory No chest congestion 08/08/2018 Respiratory cigarette smoking 08/08/2018 Respiratory No cough 08/2018 Gastrointestinal No abdominal pain 08/08/2018 Gastrointestinal constipation 08/08/2018 Gastrointestinal No gas and bloating 08/08/2018 Musculoskeletal joint complaint 08/08/2018 Dermatologic No rash 08/2018 Neurologic No alteration of consciousness 08/08/2018 Hematologic/Lymphatic No abnormal bl eeding and bruising 08/08/2018 Constitutional No recent illness 06/30/2018 Constitutional No chills 06/30/2018 Constitutional No diaphoresis 06/30/2018 Constitutional fatigue 1 Constitutional No fever 06/30/2018 Eyes No eye discharge Eyes No eye erythema 12/2017 Ears/Nose/Throat/Neck No dizziness 06/30/2018 Ears/Nose/Throat/Neck No headache 06/30/2018 Ears/Nose/Throat/Neck nasal allergies 06/30/2018 Ears/Nose/Throat/Neck nasal discharge 06/30/2018 Ears/Nose/Throat/Neck No sore throat 06/30/2018 Ears/Nose/Throat/Neck No otalgia 06/30/2018 Ears/Nose/Throat/Neck sinus congestion 06/30/2018 Cardiovascular No chest pain/pressure 06/30/2018 Cardiovascular No dyspnea 06/30/2018 Cardiovascular No edema 06/30/2018 Respiratory No productive sputum 06/30/2018 Respiratory No chest congestion 06/30/2018 Respiratory cigarette smoking 06/30/2018 Respiratory No cough 12/2017 Gastrointestinal No abdominal pain 06/30/2018 Gastrointestinal constipation 06/30/2018 Gastrointestinal No gas and bloating 06/30/2018 Musculoskeletal joint complaint 06/30/2018 Dermatologic No rash 12/2017 Neurologic No alteration of consciousness 06/30/2018 Hematologic/Lymphatic No abnormal bl eeding and bruising 06/30/2018 Constitutional No recent illness 04/12/2018 Constitutional No anorexia 04/12/2018 Constitutional No night sweats 04/12/2018 Constitutional No chills 04/12/2018 Constitutional No diaphoresis 04/12/2018 Constitutional fatigue 0 04/12/2018 Constitutional No fever 04/12/2018 Constitutional No insomnia 04/12/2018 Constitutional No malaise 04/12/2018 Eyes No eye discharge Eyes No eye erythema Ears/Nose/Throat/Neck No dizziness 04/12/2018 Ears/Nose/Throat/Neck No headache 04/12/2018 Ears/Nose/Throat/Neck nasal allergies 04/12/2018 Ears/Nose/Throat/Neck nasal discharge 04/12/2018 Ears/Nose/Throat/Neck No sore throat 04/12/2018 Ears/Nose/Throat/Neck No otalgia 04/12/2018 Ears/Nose/Throat/Neck sinus congestion 04/12/2018 Cardiovascular No chest pain/pressure 04/12/2018 Cardiovascular No dyspnea 04/12/2018 Cardiovascular No edema 04/12/2018 Respiratory No productive sputum 04/12/2018 Respiratory No chest congestion 04/12/2018 Respiratory cigarette smoking 04/12/2018 Respiratory No cough Gastrointestinal No abdominal pain 04/12/2018 Gastrointestinal constipation 04/12/2018 Gastrointestinal gas and bloating 04/12/2018 Genitourinary/Nephrology No dysuria 04/12/2018 Genitourinary/Nephrology No pelvic pain 04/12/2018 Musculoskeletal joint complaint 04/12/2018 Dermatologic No rash Neurologic No alteration of consciousness 04/12/2018 Psychiatric anxiety 03/27 Psychiatric depression 0 04/12/2018 Endocrine No dry or coarse skin 04/12/2018 Constitutional No recent illness 04/05/2017 Constitutional No anorexia 04/05/2017 Constitutional No night sweats 04/05/2017 Constitutional No chills 04/05/2017 Constitutional No diaphoresis 04/05/2017 Constitutional fatigue 0 04/05/2017 Constitutional No fever 04/05/2017 Constitutional No insomnia 04/05/2017 Constitutional No malaise 04/05/2017 Eyes No eye discharge Eyes No eye erythema 06/2017 Ears/Nose/Throat/Neck No dizziness 04/05/2017 Ears/Nose/Throat/Neck No headache 04/05/2017 Ears/Nose/Throat/Neck nasal allergies 04/05/2017 Ears/Nose/Throat/Neck nasal discharge 04/05/2017 Ears/Nose/Throat/Neck No sore throat 04/05/2017 Ears/Nose/Throat/Neck No otalgia 04/05/2017 Ears/Nose/Throat/Neck sinus congestion 04/05/2017 Cardiovascular No chest pain/pressure 04/05/2017 Cardiovascular No dyspnea 04/05/2017 Cardiovascular No edema 04/05/2017 Respiratory No productive sputum 04/05/2017 Respiratory No chest congestion 04/05/2017 Respiratory cigarette smoking 04/05/2017 Respiratory No cough 06/2017 Gastrointestinal No abdominal pain 04/05/2017 Gastrointestinal constipation 04/05/2017 Gastrointestinal gas and bloating 04/05/2017 Genitourinary/Nephrology No dysuria 04/05/2017 Genitourinary/Nephrology No pelvic pain 04/05/2017 Musculoskeletal No joint complaint 04/05/2017 Dermatologic No rash 06/2017 Neurologic No alteration of consciousness 04/05/2017 Psychiatric anxiety 03/27 Psychiatric depression 0 04/05/2017 Constitutional No recent illness 03/03/2017 Constitutional No anorexia 03/03/2017 Constitutional No night sweats 03/03/2017 Constitutional No chills 03/03/2017 Constitutional No diaphoresis 03/03/2017 Constitutional fatigue 0 03/03/2017 Constitutional No fever 03/03/2017 Constitutional No insomnia 03/03/2017 Constitutional No malaise 03/03/2017 Eyes No eye discharge Eyes No eye erythema 03/2017 Ears/Nose/Throat/Neck No dizziness 03/03/2017 Ears/Nose/Throat/Neck No headache 03/03/2017 Ears/Nose/Throat/Neck nasal allergies 03/03/2017 Ears/Nose/Throat/Neck nasal discharge 03/03/2017 Ears/Nose/Throat/Neck No otalgia 03/03/2017 Ears/Nose/Throat/Neck sinus congestion 03/03/2017 Ears/Nose/Throat/Neck No sore throat 03/03/2017 Cardiovascular No chest pain/pressure 03/03/2017 Cardiovascular No dyspnea 03/03/2017 Cardiovascular No edema 03/03/2017 Respiratory No productive sputum 03/03/2017 Respiratory No chest congestion 03/03/2017 Respiratory cigarette smoking 03/03/2017 Respiratory No cough 03/2017 Gastrointestinal No abdominal pain 03/03/2017 Gastrointestinal constipation 03/03/2017 Gastrointestinal gas and bloating 03/03/2017 Genitourinary/Nephrology No dysuria 03/03/2017 Genitourinary/Nephrology No pelvic pain 03/03/2017 Musculoskeletal No joint complaint 03/03/2017 Dermatologic No rash 03/2017 Neurologic No alteration of consciousness 03/03/2017 Psychiatric anxiety 03/2017 Psychiatric depression 0 03/03/2017 Endocrine No dry or coarse skin 03/03/2017 Constitutional No recent illness 02/08/2017 Constitutional No anorexia 02/08/2017 Constitutional No night sweats 02/08/2017 Constitutional No chills 02/08/2017 Constitutional No diaphoresis 02/08/2017 Constitutional fatigue 0 02/08/2017 Constitutional No fever 02/08/2017 Constitutional insomnia 02/08/2017 Constitutional No malaise 02/08/2017 Eyes No eye discharge Eyes No eye erythema Ears/Nose/Throat/Neck No dizziness 02/08/2017 Ears/Nose/Throat/Neck No headache 02/08/2017 Ears/Nose/Throat/Neck nasal allergies 02/08/2017 Ears/Nose/Throat/Neck nasal discharge 02/08/2017 Cardiovascular No chest pain/pressure 02/08/2017 Cardiovascular No dyspnea 02/08/2017 Cardiovascular No edema 02/08/2017 Respiratory cigarette smoking 02/08/2017 Respiratory cough 2016 Genitourinary/Nephrology No dysuria 02/08/2017 Musculoskeletal myalgias 02/08/2017 Dermatologic No rash Neurologic No alteration of consciousness 02/08/2017 Psychiatric anxiety 01/25 Psychiatric depression 0 02/08/2017 Gastrointestinal No abdominal pain 02/08/2017 Constitutional No recent illness 08/06/2015 Constitutional No anorexia 08/06/2015 Constitutional No night sweats 08/06/2015 Constitutional No chills 08/06/2015 Constitutional No diaphoresis 08/06/2015 Constitutional fatigue 1 10/06/2014 Constitutional No fever 08/06/2015 Constitutional No insomnia 08/06/2015 Constitutional No malaise 08/06/2015 Constitutional No weight loss 08/06/2015 Constitutional No weight gain 08/06/2015 Eyes No eye discharge Eyes No eye erythema 06/2015 Ears/Nose/Throat/Neck No dizziness 08/06/2015 Ears/Nose/Throat/Neck No headache 08/06/2015 Ears/Nose/Throat/Neck nasal allergies 08/06/2015 Ears/Nose/Throat/Neck nasal discharge 08/06/2015 Ears/Nose/Throat/Neck No otalgia 08/06/2015 Ears/Nose/Throat/Neck sinus congestion 08/06/2015 Ears/Nose/Throat/Neck No sore throat 08/06/2015 Cardiovascular No chest pain/pressure 08/06/2015 Cardiovascular No dyspnea 08/06/2015 Cardiovascular No edema 08/06/2015 Respiratory No productive sputum 08/06/2015 Respiratory No chest congestion 08/06/2015 Respiratory cigarette smoking 08/06/2015 Respiratory No cough 06/2015 Gastrointestinal No abdominal pain 08/06/2015 Gastrointestinal gas and bloating 08/06/2015 Genitourinary/Nephrology No dysuria 08/06/2015 Genitourinary/Nephrology No pelvic pain 08/06/2015 Musculoskeletal No joint complaint 08/06/2015 Dermatologic No rash 06/2015 Neurologic No alteration of consciousness 08/06/2015 Psychiatric anxiety 07/28 Psychiatric depression 1 10/06/2014 Endocrine No dry or coarse skin 08/06/2015 Hematologic/Lymphatic No abnormal ec chymoses 08/06/2015 Gastrointestinal constipation 08/06/2015 Constitutional No recent illness 07/08/2015 Constitutional No anorexia 07/08/2015 Constitutional No night sweats 07/08/2015 Constitutional No fatigue 07/08/2015 Constitutional No diaphoresis 07/08/2015 Constitutional No chills 07/08/2015 Constitutional No fever 07/08/2015 Constitutional No insomnia 07/08/2015 Constitutional No malaise 07/08/2015 Constitutional No weight loss 07/08/2015 Constitutional No weight gain 07/08/2015 Eyes No eye erythema 08/2015 Eyes No eye discharge Ears/Nose/Throat/Neck No dizziness 07/08/2015 Ears/Nose/Throat/Neck No headache 07/08/2015 Ears/Nose/Throat/Neck nasal allergies 07/08/2015 Ears/Nose/Throat/Neck nasal discharge 07/08/2015 Ears/Nose/Throat/Neck No otalgia 07/08/2015 Ears/Nose/Throat/Neck sinus congestion 07/08/2015 Ears/Nose/Throat/Neck No sore throat 07/08/2015 Cardiovascular No chest pain/pressure 07/08/2015 Cardiovascular No dyspnea 07/08/2015 Cardiovascular No edema 07/08/2015 Respiratory No productive sputum 07/08/2015 Respiratory No chest congestion 07/08/2015 Respiratory No cough 08/2015 Gastrointestinal No abdominal pain 07/08/2015 Gastrointestinal constipation 07/08/2015 Gastrointestinal diarrhea 07/08/2015 Genitourinary/Nephrology No dysuria 07/08/2015 Genitourinary/Nephrology No pelvic pain 07/08/2015 Musculoskeletal No joint complaint 07/08/2015 Dermatologic No rash 08/2015 Neurologic No alteration of consciousness 07/08/2015 Psychiatric anxiety 06/27 Psychiatric depression 1 Respiratory cigarette smoking 07/08/2015 Endocrine No dry or coarse skin 07/08/2015 Hematologic/Lymphatic No abnormal ec chymoses 07/08/2015 Gastrointestinal gas and bloating 07/08/2015 Constitutional fatigue 0 06/06/2015 Gastrointestinal constipation 06/06/2015 Gastrointestinal diarrhea 06/06/2015 Psychiatric anxiety 05/28 Musculoskeletal myalgias 06/06/2015 Constitutional No recent illness 06/06/2015 Constitutional No anorexia 06/06/2015 Constitutional No night sweats 06/06/2015 Constitutional No chills 06/06/2015 Constitutional No diaphoresis 06/06/2015 Constitutional No fever 06/06/2015 Constitutional insomnia 06/06/2015 Constitutional No malaise 06/06/2015 Constitutional No weight loss 06/06/2015 Constitutional No weight gain 06/06/2015 Constitutional No obesity 06/06/2015 Eyes No eye discharge Eyes No eye erythema 06/2015 Ears/Nose/Throat/Neck No dizziness 06/06/2015 Ears/Nose/Throat/Neck No headache 06/06/2015 Ears/Nose/Throat/Neck nasal allergies 06/06/2015 Ears/Nose/Throat/Neck nasal discharge 06/06/2015 Cardiovascular No chest pain/pressure 06/06/2015 Cardiovascular No dyspnea 06/06/2015 Cardiovascular No edema 06/06/2015 Respiratory cigarette smoking 06/06/2015 Respiratory cough 2014 Genitourinary/Nephrology No dysuria 06/06/2015 Dermatologic No rash 06/2015 Neurologic No alteration of consciousness 06/06/2015 Psychiatric depression 0 06/06/2015 Endocrine No dry or coarse skin 06/06/2015 Hematologic/Lymphatic No abnormal bl eeding and bruising 06/06/2015 Physical Exam Exam Name System Name It em Name Status Result Effective Dates Notes Full Exam - General 1994 Constitutional general appearance Overall: well developed 02/14/2019 None Full Exam - General 1994 Constitutional general appearance Overall: in no acute distress 02/14/2019 None Full Exam - General 1994 Constitutional general appearance Overall: well nourished 02/14/2019 None Full Exam - Cardiology Ears/Nose/Throat teeth/gingiva/palate Teeth: wears dentures 02/14/2019 None Full Exam - Cardiology Ears/Nose/Throat oral mucosa Overall: oral mucosa clear 02/14/2019 None Full Exam - General 1994 Eyes conjunctiva/eyelids Overall: conjunctiva clear 02/14/2019 None Full Exam - General 1994 Eyes conjunctiva/eyelids Overall: cornea clear 02/14/2019 None Full Exam - General 1994 Eyes conjunctiva/eyelids Overall: eyelids normal 02/14/2019 None Full Exam - General 1994 Eyes pupils and irises Overall: pupils equal, round, reactive to light and accomodation 02/14/2019 None Full Exam - General 1994 Ears/Nose/Throat otoscopic exam Overall: external auditory canals clear 02/14/2019 None Full Exam - General 1994 Ears/Nose/Throat otoscopic exam Overall: tympanic membranes clear 02/14/2019 None Full Exam - General 1994 Ears/Nose/Throat oral cavity/pharynx/larynx Overall: oral mucosa clear 02/14/2019 None Full Exam - General 1994 Ears/Nose/Throat oral cavity/pharynx/larynx Overall: oropharyngeal mucosa clear 02/14/2019 None Full Exam - General 1994 Ears/Nose/Throat oral cavity/pharynx/larynx Overall: no masses 02/14/2019 None Full Exam - General 1994 Respiratory auscultation Overall: breath sounds clear bilaterally 02/14/2019 None Full Exam - General 1994 Respiratory respiratory effort/rhythm Overall: no retractions 02/14/2019 None Full Exam - General 1994 Respiratory respiratory effort/rhythm Overall: normal rate 02/14/2019 None Full Exam - General 1994 Cardiovascular extremities Overall: no clubbing 02/14/2019 None Full Exam - General 1994 Cardiovascular auscultation of heart Overall: regular rate 02/14/2019 None Full Exam - General 1994 Cardiovascular auscultation of heart Overall: normal heart sounds 02/14/2019 None Full Exam - General 1994 Cardiovascular auscultation of heart Overall: no murmurs 02/14/2019 None Full Exam - General 1994 Abdomen abdominal exam Overall: no tenderness 02/14/2019 None Full Exam - General 1994 Abdomen abdominal exam Overall: normal bowel sounds 02/14/2019 None Full Exam - General 1994 Lymphatic neck nodes Overall: anterior cervical chain benign 02/14/2019 None Full Exam - General 1994 Lymphatic neck nodes Overall: posterior cervical chain benign 02/14/2019 None Full Exam - General 1994 Musculoskeletal digits and nails Overall: no clubbing 02/14/2019 None Full Exam - General 1994 Integument inspection of skin Overall: few scattered moles, no gross abnormalities 02/14/2019 None Full Exam - General 1994 Neurologic cranial nerves Overall: crainial nerves 2 - 12 grossly intact 02/14/2019 None Full Exam - General 1994 Psychiatric orientation/consciousness Overall: oriented to person, place and time 02/14/2019 None Full Exam - General 1994 Psychiatric mood and affect Mood: anxious 02/14/2019 None Full Exam - General 1994 Constitutional general appearance Overall: well developed 02/06/2019 None Full Exam - General 1994 Constitutional general appearance Overall: well nourished 02/06/2019 None Full Exam - Cardiology Ears/Nose/Throat teeth/gingiva/palate Teeth: wears dentures 02/06/2019 None Full Exam - Cardiology Ears/Nose/Throat oral mucosa Overall: oral mucosa clear 02/06/2019 None Full Exam - General 1994 Eyes conjunctiva/eyelids Overall: conjunctiva clear 02/06/2019 None Full Exam - General 1994 Eyes conjunctiva/eyelids Overall: cornea clear 02/06/2019 None Full Exam - General 1994 Eyes conjunctiva/eyelids Overall: eyelids normal 02/06/2019 None Full Exam - General 1994 Eyes pupils and irises Overall: pupils equal, round, reactive to light and accomodation 02/06/2019 None Full Exam - General 1994 Ears/Nose/Throat otoscopic exam Overall: external auditory canals clear 02/06/2019 None Full Exam - General 1994 Ears/Nose/Throat otoscopic exam Overall: tympanic membranes clear 02/06/2019 None Full Exam - General 1994 Ears/Nose/Throat oral cavity/pharynx/larynx Overall: oral mucosa clear 02/06/2019 None Full Exam - General 1994 Ears/Nose/Throat oral cavity/pharynx/larynx Overall: oropharyngeal mucosa clear 02/06/2019 None Full Exam - General 1994 Ears/Nose/Throat oral cavity/pharynx/larynx Overall: no masses 02/06/2019 None Full Exam - General 1994 Respiratory auscultation Overall: breath sounds clear bilaterally 02/06/2019 None Full Exam - General 1994 Respiratory respiratory effort/rhythm Overall: no retractions 02/06/2019 None Full Exam - General 1994 Respiratory respiratory effort/rhythm Overall: normal rate 02/06/2019 None Full Exam - General 1994 Cardiovascular extremities Overall: no clubbing 02/06/2019 None Full Exam - General 1994 Cardiovascular auscultation of heart Overall: regular rate 02/06/2019 None Full Exam - General 1994 Cardiovascular auscultation of heart Overall: normal heart sounds 02/06/2019 None Full Exam - General 1994 Cardiovascular auscultation of heart Overall: no murmurs 02/06/2019 None Full Exam - General 1994 Abdomen abdominal exam Overall: no tenderness 02/06/2019 None Full Exam - General 1994 Abdomen abdominal exam Overall: normal bowel sounds 02/06/2019 None Full Exam - General 1994 Lymphatic neck nodes Overall: anterior cervical chain benign 02/06/2019 None Full Exam - General 1994 Lymphatic neck nodes Overall: posterior cervical chain benign 02/06/2019 None Full Exam - General 1994 Musculoskeletal digits and nails Overall: no clubbing 02/06/2019 None Full Exam - General 1994 Integument inspection of skin Overall: few scattered moles, no gross abnormalities 02/06/2019 None Full Exam - General 1994 Neurologic cranial nerves Overall: crainial nerves 2 - 12 grossly intact 02/06/2019 None Full Exam - General 1994 Psychiatric orientation/consciousness Overall: oriented to person, place and time 02/06/2019 None Full Exam - General 1994 Psychiatric mood and affect Mood: anxious 02/06/2019 None Full Exam - General 1994 Constitutional general appearance Overall: in no acute distress 02/06/2019 None Full Exam - General 1994 Constitutional general appearance Overall: well developed 2019 None Full Exam - General 1994 Constitutional general appearance Overall: well nourished 2019 None Full Exam - General 1994 Eyes conjunctiva/eyelids Overall: conjunctiva clear 2019 None Full Exam - General 1994 Eyes conjunctiva/eyelids Overall: cornea clear 2019 None Full Exam - General 1994 Eyes conjunctiva/eyelids Overall: eyelids normal 2019 None Full Exam - General 1994 Eyes pupils and irises Overall: pupils equal, round, reactive to light and accomodation 2019 None Full Exam - General 1994 Ears/Nose/Throat otoscopic exam Overall: external auditory canals clear 2019 None Full Exam - General 1994 Ears/Nose/Throat otoscopic exam Overall: tympanic membranes clear 2019 None Full Exam - General 1994 Ears/Nose/Throat oral cavity/pharynx/larynx Overall: oral mucosa clear 2019 None Full Exam - General 1994 Ears/Nose/Throat oral cavity/pharynx/larynx Overall: oropharyngeal mucosa clear 2019 None Full Exam - General 1994 Ears/Nose/Throat oral cavity/pharynx/larynx Overall: no masses 2019 None Full Exam - General 1994 Respiratory auscultation Overall: breath sounds clear bilaterally 2019 None Full Exam - General 1994 Respiratory respiratory effort/rhythm Overall: no retractions 2019 None Full Exam - General 1994 Respiratory respiratory effort/rhythm Overall: normal rate 2019 None Full Exam - General 1994 Cardiovascular extremities Overall: no clubbing 2019 None Full Exam - General 1994 Cardiovascular auscultation of heart Overall: regular rate 2019 None Full Exam - General 1994 Cardiovascular auscultation of heart Overall: normal heart sounds 2019 None Full Exam - General 1994 Cardiovascular auscultation of heart Overall: no murmurs 2019 None Full Exam - General 1994 Abdomen abdominal exam Overall: no tenderness 2019 None Full Exam - General 1994 Abdomen abdominal exam Overall: normal bowel sounds 2019 None Full Exam - General 1994 Lymphatic neck nodes Overall: anterior cervical chain benign 2019 None Full Exam - General 1994 Lymphatic neck nodes Overall: posterior cervical chain benign 2019 None Full Exam - General 1994 Musculoskeletal digits and nails Overall: no clubbing 2019 None Full Exam - General 1994 Integument inspection of skin Overall: few scattered moles, no gross abnormalities 2019 None Full Exam - General 1994 Neurologic cranial nerves Overall: crainial nerves 2 - 12 grossly intact 2019 None Full Exam - General 1994 Psychiatric orientation/consciousness Overall: oriented to person, place and time 2019 None Full Exam - General 1994 Psychiatric mood and affect Mood: anxious 2019 None Full Exam - Cardiology Ears/Nose/Throat oral mucosa Overall: oral mucosa clear 2019 None Full Exam - Cardiology Ears/Nose/Throat teeth/gingiva/palate Teeth: wears dentures 2019 None Full Exam - Cardiology Constitutional general appearance Evidence of Distress: in distress secondary to pain 2019 acute episodes of right sided facial pain lasting a few seconds Full Exam - General 1994 Constitutional general appearance Overall: well developed 08/08/2018 None Full Exam - General 1994 Constitutional general appearance Overall: in no acute distress 08/08/2018 None Full Exam - General 1994 Constitutional general appearance Overall: well nourished 08/08/2018 None Full Exam - General 1994 Eyes pupils and irises Overall: pupils equal, round, reactive to light and accomodation 08/08/2018 None Full Exam - General 1994 Ears/Nose/Throat oral cavity/pharynx/larynx Overall: oral mucosa clear 08/08/2018 None Full Exam - General 1994 Ears/Nose/Throat oral cavity/pharynx/larynx Overall: oropharyngeal mucosa clear 08/08/2018 None Full Exam - General 1994 Ears/Nose/Throat oral cavity/pharynx/larynx Overall: no masses 08/08/2018 None Full Exam - General 1994 Respiratory auscultation Overall: breath sounds clear bilaterally 08/08/2018 None Full Exam - General 1994 Respiratory respiratory effort/rhythm Overall: no retractions 08/08/2018 None Full Exam - General 1994 Respiratory respiratory effort/rhythm Overall: normal rate 08/08/2018 None Full Exam - General 1994 Cardiovascular extremities Overall: no clubbing 08/08/2018 None Full Exam - General 1994 Cardiovascular extremities Other findings: varicose veins 08/08/2018 left leg - medially tende r above knee --Improved Full Exam - General 1994 Cardiovascular auscultation of heart Overall: regular rate 08/08/2018 None Full Exam - General 1994 Cardiovascular auscultation of heart Overall: normal heart sounds 08/08/2018 None Full Exam - General 1994 Cardiovascular auscultation of heart Overall: no murmurs 08/08/2018 None Full Exam - General 1994 Musculoskeletal spine, ribs and pelvis Overall: spine benign 08/08/2018 None Full Exam - General 1994 Musculoskeletal spine, ribs and pelvis Overall: sacroiliac joint benign 08/08/2018 None Full Exam - General 1994 Musculoskeletal spine, ribs and pelvis Overall: good posture 08/08/2018 None Full Exam - General 1994 Musculoskeletal head and neck Overall: head atraumatic 08/08/2018 None Full Exam - General 1994 Musculoskeletal head and neck Overall: cervical spine benign 08/08/2018 None Full Exam - General 1994 Psychiatric orientation/consciousness Overall: oriented to person, place and time 08/08/2018 None Full Exam - General 1994 Psychiatric mood and affect Mood: anxious 08/08/2018 --Improved Full Exam - General 1994 Constitutional general appearance Overall: well developed 06/30/2018 None Full Exam - General 1994 Constitutional general appearance Overall: in no acute distress 06/30/2018 None Full Exam - General 1994 Constitutional general appearance Overall: well nourished 06/30/2018 None Full Exam - General 1994 Eyes pupils and irises Overall: pupils equal, round, reactive to light and accomodation 06/30/2018 None Full Exam - General 1994 Ears/Nose/Throat oral cavity/pharynx/larynx Overall: oral mucosa clear 06/30/2018 None Full Exam - General 1994 Ears/Nose/Throat oral cavity/pharynx/larynx Overall: oropharyngeal mucosa clear 06/30/2018 None Full Exam - General 1994 Ears/Nose/Throat oral cavity/pharynx/larynx Overall: no masses 06/30/2018 None Full Exam - General 1994 Respiratory auscultation Overall: breath sounds clear bilaterally 06/30/2018 None Full Exam - General 1994 Respiratory respiratory effort/rhythm Overall: no retractions 06/30/2018 None Full Exam - General 1994 Respiratory respiratory effort/rhythm Overall: normal rate 06/30/2018 None Full Exam - General 1994 Cardiovascular extremities Overall: no clubbing 06/30/2018 None Full Exam - General 1994 Cardiovascular auscultation of heart Overall: regular rate 06/30/2018 None Full Exam - General 1994 Cardiovascular auscultation of heart Overall: normal heart sounds 06/30/2018 None Full Exam - General 1994 Cardiovascular auscultation of heart Overall: no murmurs 06/30/2018 None Full Exam - General 1994 Musculoskeletal spine, ribs and pelvis Overall: spine benign 06/30/2018 None Full Exam - General 1994 Musculoskeletal spine, ribs and pelvis Overall: sacroiliac joint benign 06/30/2018 None Full Exam - General 1994 Musculoskeletal spine, ribs and pelvis Overall: good posture 06/30/2018 None Full Exam - General 1994 Musculoskeletal head and neck Overall: head atraumatic 06/30/2018 None Full Exam - General 1994 Musculoskeletal head and neck Overall: cervical spine benign 06/30/2018 None Full Exam - General 1994 Psychiatric orientation/consciousness Overall: oriented to person, place and time 06/30/2018 None Full Exam - General 1994 Psychiatric mood and affect Mood: anxious 06/30/2018 None Full Exam - General 1994 Cardiovascular extremities Other findings: varicose veins 06/30/2018 left leg - medially tende r above knee Full Exam - General 1994 Constitutional general appearance Overall: well developed 04/12/2018 None Full Exam - General 1994 Constitutional general appearance Overall: in no acute distress 04/12/2018 None Full Exam - General 1994 Constitutional general appearance Overall: well nourished 04/12/2018 None Full Exam - General 1994 Eyes conjunctiva/eyelids Overall: conjunctiva clear 04/12/2018 None Full Exam - General 1994 Eyes conjunctiva/eyelids Overall: cornea clear 04/12/2018 None Full Exam - General 1994 Eyes conjunctiva/eyelids Overall: eyelids normal 04/12/2018 None Full Exam - General 1994 Eyes pupils and irises Overall: pupils equal, round, reactive to light and accomodation 04/12/2018 None Full Exam - General 1994 Ears/Nose/Throat otoscopic exam Overall: external auditory canals clear 04/12/2018 None Full Exam - General 1994 Ears/Nose/Throat otoscopic exam Overall: tympanic membranes clear 04/12/2018 None Full Exam - General 1994 Ears/Nose/Throat oral cavity/pharynx/larynx Overall: oral mucosa clear 04/12/2018 None Full Exam - General 1994 Ears/Nose/Throat oral cavity/pharynx/larynx Overall: oropharyngeal mucosa clear 04/12/2018 None Full Exam - General 1994 Ears/Nose/Throat oral cavity/pharynx/larynx Overall: no masses 04/12/2018 None Full Exam - General 1994 Respiratory auscultation Overall: breath sounds clear bilaterally 04/12/2018 None Full Exam - General 1994 Respiratory respiratory effort/rhythm Overall: no retractions 04/12/2018 None Full Exam - General 1994 Respiratory respiratory effort/rhythm Overall: normal rate 04/12/2018 None Full Exam - General 1994 Cardiovascular extremities Overall: no clubbing 04/12/2018 None Full Exam - General 1994 Cardiovascular auscultation of heart Overall: regular rate 04/12/2018 None Full Exam - General 1994 Cardiovascular auscultation of heart Overall: normal heart sounds 04/12/2018 None Full Exam - General 1994 Cardiovascular auscultation of heart Overall: no murmurs 04/12/2018 None Full Exam - General 1994 Abdomen abdominal exam Overall: no tenderness 04/12/2018 None Full Exam - General 1994 Abdomen abdominal exam Overall: normal bowel sounds 04/12/2018 None Full Exam - General 1994 Neurologic cranial nerves Overall: crainial nerves 2 - 12 grossly intact 04/12/2018 None Full Exam - General 1994 Psychiatric orientation/consciousness Overall: oriented to person, place and time 04/12/2018 None Full Exam - General 1994 Psychiatric mood and affect Mood: anxious 04/12/2018 None Full Exam - General 1994 Musculoskeletal head and neck Overall: cervical spine benign 04/12/2018 None Full Exam - General 1994 Musculoskeletal head and neck Overall: head atraumatic 04/12/2018 None Full Exam - General 1994 Musculoskeletal spine, ribs and pelvis Overall: good posture 04/12/2018 None Full Exam - General 1994 Musculoskeletal spine, ribs and pelvis Overall: sacroiliac joint benign 04/12/2018 None Full Exam - General 1994 Musculoskeletal spine, ribs and pelvis Overall: spine benign 04/12/2018 None Full Exam - General 1994 Constitutional general appearance Overall: well developed 04/05/2017 None Full Exam - General 1994 Constitutional general appearance Overall: in no acute distress 04/05/2017 None Full Exam - General 1994 Constitutional general appearance Overall: well nourished 04/05/2017 None Full Exam - General 1994 Eyes conjunctiva/eyelids Overall: conjunctiva clear 04/05/2017 None Full Exam - General 1994 Eyes conjunctiva/eyelids Overall: cornea clear 04/05/2017 None Full Exam - General 1994 Eyes conjunctiva/eyelids Overall: eyelids normal 04/05/2017 None Full Exam - General 1994 Eyes pupils and irises Overall: pupils equal, round, reactive to light and accomodation 04/05/2017 None Full Exam - General 1994 Ears/Nose/Throat otoscopic exam Overall: external auditory canals clear 04/05/2017 None Full Exam - General 1994 Ears/Nose/Throat otoscopic exam Overall: tympanic membranes clear 04/05/2017 None Full Exam - General 1994 Ears/Nose/Throat oral cavity/pharynx/larynx Overall: oral mucosa clear 04/05/2017 None Full Exam - General 1994 Ears/Nose/Throat oral cavity/pharynx/larynx Overall: oropharyngeal mucosa clear 04/05/2017 None Full Exam - General 1994 Ears/Nose/Throat oral cavity/pharynx/larynx Overall: no masses 04/05/2017 None Full Exam - General 1994 Respiratory auscultation Overall: breath sounds clear bilaterally 04/05/2017 None Full Exam - General 1994 Respiratory respiratory effort/rhythm Overall: no retractions 04/05/2017 None Full Exam - General 1994 Respiratory respiratory effort/rhythm Overall: normal rate 04/05/2017 None Full Exam - General 1994 Cardiovascular extremities Overall: no clubbing 04/05/2017 None Full Exam - General 1994 Cardiovascular auscultation of heart Overall: regular rate 04/05/2017 None Full Exam - General 1994 Cardiovascular auscultation of heart Overall: normal heart sounds 04/05/2017 None Full Exam - General 1994 Cardiovascular auscultation of heart Overall: no murmurs 04/05/2017 None Full Exam - General 1994 Abdomen abdominal exam Overall: no tenderness 04/05/2017 None Full Exam - General 1994 Abdomen abdominal exam Overall: normal bowel sounds 04/05/2017 None Full Exam - General 1994 Neurologic cranial nerves Overall: crainial nerves 2 - 12 grossly intact 04/05/2017 None Full Exam - General 1994 Psychiatric orientation/consciousness Overall: oriented to person, place and time 04/05/2017 None Full Exam - General 1994 Psychiatric mood and affect Mood: anxious 04/05/2017 None Full Exam - General 1994 Constitutional general appearance Overall: well developed 03/03/2017 None Full Exam - General 1994 Constitutional general appearance Overall: in no acute distress 03/03/2017 None Full Exam - General 1994 Constitutional general appearance Overall: well nourished 03/03/2017 None Full Exam - General 1994 Eyes conjunctiva/eyelids Overall: conjunctiva clear 03/03/2017 None Full Exam - General 1994 Eyes conjunctiva/eyelids Overall: cornea clear 03/03/2017 None Full Exam - General 1994 Eyes conjunctiva/eyelids Overall: eyelids normal 03/03/2017 None Full Exam - General 1994 Eyes pupils and irises Overall: pupils equal, round, reactive to light and accomodation 03/03/2017 None Full Exam - General 1994 Ears/Nose/Throat otoscopic exam Overall: external auditory canals clear 03/03/2017 None Full Exam - General 1994 Ears/Nose/Throat otoscopic exam Overall: tympanic membranes clear 03/03/2017 None Full Exam - General 1994 Ears/Nose/Throat oral cavity/pharynx/larynx Overall: oral mucosa clear 03/03/2017 None Full Exam - General 1994 Ears/Nose/Throat oral cavity/pharynx/larynx Overall: oropharyngeal mucosa clear 03/03/2017 None Full Exam - General 1994 Ears/Nose/Throat oral cavity/pharynx/larynx Overall: no masses 03/03/2017 None Full Exam - General 1994 Respiratory auscultation Overall: breath sounds clear bilaterally 03/03/2017 None Full Exam - General 1994 Respiratory respiratory effort/rhythm Overall: no retractions 03/03/2017 None Full Exam - General 1994 Respiratory respiratory effort/rhythm Overall: normal rate 03/03/2017 None Full Exam - General 1994 Cardiovascular extremities Overall: no clubbing 03/03/2017 None Full Exam - General 1994 Cardiovascular auscultation of heart Overall: regular rate 03/03/2017 None Full Exam - General 1994 Cardiovascular auscultation of heart Overall: normal heart sounds 03/03/2017 None Full Exam - General 1994 Cardiovascular auscultation of heart Overall: no murmurs 03/03/2017 None Full Exam - General 1994 Abdomen abdominal exam Overall: no tenderness 03/03/2017 None Full Exam - General 1994 Abdomen abdominal exam Overall: normal bowel sounds 03/03/2017 None Full Exam - General 1994 Neurologic cranial nerves Overall: crainial nerves 2 - 12 grossly intact 03/03/2017 None Full Exam - General 1994 Psychiatric orientation/consciousness Overall: oriented to person, place and time 03/03/2017 None Full Exam - General 1994 Psychiatric mood and affect Mood: anxious 03/03/2017 None Full Exam - General 1994 Constitutional general appearance Overall: well developed 02/08/2017 None Full Exam - General 1994 Constitutional general appearance Overall: in no acute distress 02/08/2017 None Full Exam - General 1994 Constitutional general appearance Overall: well nourished 02/08/2017 None Full Exam - General 1994 Eyes conjunctiva/eyelids Overall: conjunctiva clear 02/08/2017 None Full Exam - General 1994 Eyes conjunctiva/eyelids Overall: cornea clear 02/08/2017 None Full Exam - General 1994 Eyes conjunctiva/eyelids Overall: eyelids normal 02/08/2017 None Full Exam - General 1994 Eyes pupils and irises Overall: pupils equal, round, reactive to light and accomodation 02/08/2017 None Full Exam - General 1994 Ears/Nose/Throat otoscopic exam Overall: external auditory canals clear 02/08/2017 None Full Exam - General 1994 Ears/Nose/Throat otoscopic exam Overall: tympanic membranes clear 02/08/2017 None Full Exam - General 1994 Ears/Nose/Throat oral cavity/pharynx/larynx Overall: oral mucosa clear 02/08/2017 None Full Exam - General 1994 Ears/Nose/Throat oral cavity/pharynx/larynx Overall: oropharyngeal mucosa clear 02/08/2017 None Full Exam - General 1994 Ears/Nose/Throat oral cavity/pharynx/larynx Overall: no masses 02/08/2017 None Full Exam - General 1994 Respiratory auscultation Overall: breath sounds clear bilaterally 02/08/2017 None Full Exam - General 1994 Respiratory respiratory effort/rhythm Overall: no retractions 02/08/2017 None Full Exam - General 1994 Respiratory respiratory effort/rhythm Overall: normal rate 02/08/2017 None Full Exam - General 1994 Cardiovascular extremities Overall: no clubbing 02/08/2017 None Full Exam - General 1994 Cardiovascular auscultation of heart Overall: regular rate 02/08/2017 None Full Exam - General 1994 Cardiovascular auscultation of heart Overall: normal heart sounds 02/08/2017 None Full Exam - General 1994 Cardiovascular auscultation of heart Overall: no murmurs 02/08/2017 None Full Exam - General 1994 Abdomen abdominal exam Overall: no tenderness 02/08/2017 None Full Exam - General 1994 Abdomen abdominal exam Overall: normal bowel sounds 02/08/2017 None Full Exam - General 1994 Lymphatic neck nodes Overall: anterior cervical chain benign 02/08/2017 None Full Exam - General 1994 Lymphatic neck nodes Overall: posterior cervical chain benign 02/08/2017 None Full Exam - General 1994 Integument inspection of skin Overall: few scattered moles, no gross abnormalities 02/08/2017 None Full Exam - General 1994 Neurologic cranial nerves Overall: crainial nerves 2 - 12 grossly intact 02/08/2017 None Full Exam - General 1994 Psychiatric orientation/consciousness Overall: oriented to person, place and time 02/08/2017 None Full Exam - General 1994 Psychiatric mood and affect Mood: anxious 02/08/2017 None Full Exam - General 1994 Constitutional general appearance Overall: well developed 08/06/2015 None Full Exam - General 1994 Constitutional general appearance Overall: in no acute distress 08/06/2015 None Full Exam - General 1994 Constitutional general appearance Overall: well nourished 08/06/2015 None Full Exam - General 1994 Eyes conjunctiva/eyelids Overall: conjunctiva clear 08/06/2015 None Full Exam - General 1994 Eyes conjunctiva/eyelids Overall: cornea clear 08/06/2015 None Full Exam - General 1994 Eyes conjunctiva/eyelids Overall: eyelids normal 08/06/2015 None Full Exam - General 1994 Eyes pupils and irises Overall: pupils equal, round, reactive to light and accomodation 08/06/2015 None Full Exam - General 1994 Ears/Nose/Throat otoscopic exam Overall: external auditory canals clear 08/06/2015 None Full Exam - General 1994 Ears/Nose/Throat otoscopic exam Overall: tympanic membranes clear 08/06/2015 None Full Exam - General 1994 Ears/Nose/Throat oral cavity/pharynx/larynx Overall: oral mucosa clear 08/06/2015 None Full Exam - General 1994 Ears/Nose/Throat oral cavity/pharynx/larynx Overall: oropharyngeal mucosa clear 08/06/2015 None Full Exam - General 1994 Ears/Nose/Throat oral cavity/pharynx/larynx Overall: no masses 08/06/2015 None Full Exam - General 1994 Respiratory auscultation Overall: breath sounds clear bilaterally 08/06/2015 None Full Exam - General 1994 Respiratory respiratory effort/rhythm Overall: no retractions 08/06/2015 None Full Exam - General 1994 Respiratory respiratory effort/rhythm Overall: normal rate 08/06/2015 None Full Exam - General 1994 Cardiovascular extremities Overall: no clubbing 08/06/2015 None Full Exam - General 1994 Cardiovascular auscultation of heart Overall: regular rate 08/06/2015 None Full Exam - General 1994 Cardiovascular auscultation of heart Overall: normal heart sounds 08/06/2015 None Full Exam - General 1994 Cardiovascular auscultation of heart Overall: no murmurs 08/06/2015 None Full Exam - General 1994 Abdomen abdominal exam Overall: no tenderness 08/06/2015 None Full Exam - General 1994 Abdomen abdominal exam Overall: normal bowel sounds 08/06/2015 None Full Exam - General 1994 Lymphatic neck nodes Overall: anterior cervical chain benign 08/06/2015 None Full Exam - General 1994 Lymphatic neck nodes Overall: posterior cervical chain benign 08/06/2015 None Full Exam - General 1994 Musculoskeletal digits and nails Overall: no clubbing 08/06/2015 None Full Exam - General 1994 Integument inspection of skin Overall: few scattered moles, no gross abnormalities 08/06/2015 None Full Exam - General 1994 Neurologic cranial nerves Overall: crainial nerves 2 - 12 grossly intact 08/06/2015 None Full Exam - General 1994 Psychiatric orientation/consciousness Overall: oriented to person, place and time 08/06/2015 None Full Exam - General 1994 Psychiatric mood and affect Mood: anxious 08/06/2015 None Full Exam - General 1994 Constitutional general appearance Overall: well developed 07/08/2015 None Full Exam - General 1994 Constitutional general appearance Overall: in no acute distress 07/08/2015 None Full Exam - General 1994 Constitutional general appearance Overall: well nourished 07/08/2015 None Full Exam - General 1994 Eyes conjunctiva/eyelids Overall: conjunctiva clear 07/08/2015 None Full Exam - General 1994 Eyes conjunctiva/eyelids Overall: cornea clear 07/08/2015 None Full Exam - General 1994 Eyes conjunctiva/eyelids Overall: eyelids normal 07/08/2015 None Full Exam - General 1994 Eyes pupils and irises Overall: pupils equal, round, reactive to light and accomodation 07/08/2015 None Full Exam - General 1994 Ears/Nose/Throat otoscopic exam Overall: external auditory canals clear 07/08/2015 None Full Exam - General 1994 Ears/Nose/Throat otoscopic exam Overall: tympanic membranes clear 07/08/2015 None Full Exam - General 1994 Ears/Nose/Throat oral cavity/pharynx/larynx Overall: oral mucosa clear 07/08/2015 None Full Exam - General 1994 Ears/Nose/Throat oral cavity/pharynx/larynx Overall: oropharyngeal mucosa clear 07/08/2015 None Full Exam - General 1994 Ears/Nose/Throat oral cavity/pharynx/larynx Overall: no masses 07/08/2015 None Full Exam - General 1994 Respiratory auscultation Overall: breath sounds clear bilaterally 07/08/2015 None Full Exam - General 1994 Respiratory respiratory effort/rhythm Overall: no retractions 07/08/2015 None Full Exam - General 1994 Respiratory respiratory effort/rhythm Overall: normal rate 07/08/2015 None Full Exam - General 1994 Cardiovascular extremities Overall: no clubbing 07/08/2015 None Full Exam - General 1994 Cardiovascular auscultation of heart Overall: regular rate 07/08/2015 None Full Exam - General 1994 Cardiovascular auscultation of heart Overall: normal heart sounds 07/08/2015 None Full Exam - General 1994 Cardiovascular auscultation of heart Overall: no murmurs 07/08/2015 None Full Exam - General 1994 Abdomen abdominal exam Overall: no tenderness 07/08/2015 None Full Exam - General 1994 Abdomen abdominal exam Overall: normal bowel sounds 07/08/2015 None Full Exam - General 1994 Lymphatic neck nodes Overall: anterior cervical chain benign 07/08/2015 None Full Exam - General 1994 Lymphatic neck nodes Overall: posterior cervical chain benign 07/08/2015 None Full Exam - General 1994 Musculoskeletal digits and nails Overall: no clubbing 07/08/2015 None Full Exam - General 1994 Integument inspection of skin Overall: few scattered moles, no gross abnormalities 07/08/2015 None Full Exam - General 1994 Neurologic cranial nerves Overall: crainial nerves 2 - 12 grossly intact 07/08/2015 None Full Exam - General 1994 Psychiatric orientation/consciousness Overall: oriented to person, place and time 07/08/2015 None Full Exam - General 1994 Psychiatric mood and affect Mood: anxious 07/08/2015 None Full Exam - General 1994 Genitourinary labia and vagina Vaginal tone: rectocele 07/08/2015 None Full Exam - General 1994 Constitutional general appearance Overall: well developed 06/06/2015 None Full Exam - General 1994 Constitutional general appearance Overall: in no acute distress 06/06/2015 None Full Exam - General 1994 Constitutional general appearance Overall: well nourished 06/06/2015 None Full Exam - General 1994 Psychiatric orientation/consciousness Overall: oriented to person, place and time 06/06/2015 None Full Exam - General 1994 Psychiatric mood and affect Mood: anxious 06/06/2015 None Full Exam - General 1994 Neurologic cranial nerves Overall: crainial nerves 2 - 12 grossly intact 06/06/2015 None Full Exam - General 1994 Integument inspection of skin Overall: few scattered moles, no gross abnormalities 06/06/2015 None Full Exam - General 1994 Musculoskeletal digits and nails Overall: no clubbing 06/06/2015 None Full Exam - General 1994 Lymphatic neck nodes Overall: anterior cervical chain benign 06/06/2015 None Full Exam - General 1994 Lymphatic neck nodes Overall: posterior cervical chain benign 06/06/2015 None Full Exam - General 1994 Abdomen abdominal exam Overall: no tenderness 06/06/2015 None Full Exam - General 1994 Abdomen abdominal exam Overall: normal bowel sounds 06/06/2015 None Full Exam - General 1994 Cardiovascular auscultation of heart Overall: regular rate 06/06/2015 None Full Exam - General 1994 Cardiovascular auscultation of heart Overall: normal heart sounds 06/06/2015 None Full Exam - General 1994 Cardiovascular auscultation of heart Overall: no murmurs 06/06/2015 None Full Exam - General 1994 Respiratory auscultation Overall: breath sounds clear bilaterally 06/06/2015 None Full Exam - General 1994 Respiratory respiratory effort/rhythm Overall: normal rate 06/06/2015 None Full Exam - General 1994 Respiratory respiratory effort/rhythm Overall: no retractions 06/06/2015 None Full Exam - General 1994 Cardiovascular extremities Overall: no clubbing 06/06/2015 None Full Exam - General 1994 Ears/Nose/Throat otoscopic exam Overall: tympanic membranes clear 06/06/2015 None Full Exam - General 1994 Ears/Nose/Throat otoscopic exam Overall: external auditory canals clear 06/06/2015 None Full Exam - General 1994 Ears/Nose/Throat oral cavity/pharynx/larynx Overall: oropharyngeal mucosa clear 06/06/2015 None Full Exam - General 1994 Ears/Nose/Throat oral cavity/pharynx/larynx Overall: no masses 06/06/2015 None Full Exam - General 1994 Ears/Nose/Throat oral cavity/pharynx/larynx Overall: oral mucosa clear 06/06/2015 None Full Exam - General 1994 Eyes conjunctiva/eyelids Overall: conjunctiva clear 06/06/2015 None Full Exam - General 1994 Eyes conjunctiva/eyelids Overall: eyelids normal 06/06/2015 None Full Exam - General 1994 Eyes conjunctiva/eyelids Overall: cornea clear 06/06/2015 None Full Exam - General 1994 Eyes pupils and irises Overall: pupils equal, round, reactive to light and accomodation 06/06/2015 None Procedures Procedure Codes Date TOBACCO-USE [employer] 3-[address]: 771600519 CPT-4: G0436 04/05/2017 TOBACCO-[employer] 3-[address]: 275205670 CPT-4: G0436 02/08/2017 ADMIN INFLUENZA VIRU S VAC Formatting Model/CDA Sections, Assigned to CPT-4: [id number] 07/08/2015 FLU VACC 4 LILIANA 3 YRS PLUS IM Formatting Model/CDA Sections, Assigned to SNOMED CT: 04481656 CPT-4: [id number] 07/08/2015 PNEUMOCOCCAL VACC 13 LILIANA IM Formatting Model/CDA Sections, Assigned to SNOMED CT: 75502472 CPT-4: [id number] 07/08/2015 TOBACCO-[employer] 3-[address]: 939956681 CPT-4: G0436 06/06/2015 Vital Signs Date Vital 02/14/2019 Blood Pressure 1: 138/82 Code: 8480-6 BMI: 26.7 Code: 49215-9 Heart Rate 1: 78 bpm Height: 5'2" SpO2: 96% Weight: 146 lbs 02/06/2019 Blood Pressure 1: 138/74 Code: 8480-6 BMI: 26.7 Code: 42522-7 Heart Rate 1: 69 bpm Height: 5'2" SpO2: 94% Weight: 146 lbs 2019 Blood Pressure 1: 136/82 Code: 8480-6 BMI: 26.7 Code: 11079-0 Heart Rate 1: 84 bpm Height: 5'2" SpO2: 93% Weight: 146 lbs 08/08/2018 Blood Pressure 1: 148/64 Code: 8480-6 BMI: 26.2 Code: 29431-2 Heart Rate 1: 69 bpm Height: 5'2" SpO2: 98% Weight: 143 lbs 06/30/2018 Blood Pressure 1: 136/76 Code: 8480-6 BMI: 26.2 Code: 28171-4 Heart Rate 1: 74 bpm Height: 5'2" SpO2: 94% Weight: 143 lbs 04/12/2018 Blood Pressure 1: 142/82 Code: 8480-6 BMI: 26.7 Code: 58040-5 Heart Rate 1: 63 bpm Height: 5'2" SpO2: 94% Weight: 146 lbs 04/05/2017 Blood Pressure 1: 124/70 Code: 8480-6 BMI: 24.1 Code: 16801-1 Heart Rate 1: 67 bpm Height: 5'2" SpO2: 94% Weight: 132 lbs 03/03/2017 Blood Pressure 1: 150/78 Code: 8480-6 BMI: 24.5 Code: 45282-3 Heart Rate 1: 58 bpm Height: 5'2" SpO2: 97% Weight: 134 lbs 02/08/2017 Blood Pressure 1: 156/78 Code: 8480-6 BMI: 24.5 Code: 11562-4 Heart Rate 1: 80 bpm Height: 5'2" SpO2: 95% Weight: 134 lbs 08/06/2015 Blood Pressure 1: 148/70 Code: 8480-6 BMI: 25.8 Code: 29263-7 Heart Rate 1: 84 bpm Height: 5'2" SpO2: 94% Weight: 141 lbs 07/08/2015 Blood Pressure 1: 144/62 Code: 8480-6 BMI: 25.1 Code: 18735-9 Heart Rate 1: 84 bpm Height: 5'2" SpO2: 94% Weight: 137 lbs 06/06/2015 Blood Pressure 1: 128/80 Code: 8480-6 BMI: 25.2 Code: 81236-9 Heart Rate 1: 69 bpm Height: 5'2" SpO2: 95% Weight: 138 lbs Functional Status No Functional Status data History of Present Illness Symptom Name Status Resu lt Effective Date Notes Location right ear 02/14/2019 None Quality sharp pain 02/14/2019 None Quality stabbing 02/14/2019 None Onset and Resolution g radual in onset 02/14/2019 None Severity moderate 02/14/2019 None Frequency of Episodes increasing 02/14/2019 None Length of Episodes _ d ays 02/14/2019 None Triggers no known trig gers 02/14/2019 None Onset of Symptom 3 wee ks ago 02/14/2019 None Location right ear 02/06/2019 None Quality sharp pain 02/06/2019 None Quality stabbing 02/06/2019 None Onset and Resolution g radual in onset 02/06/2019 None Severity moderate 02/06/2019 None Frequency of Episodes increasing 02/06/2019 None Length of Episodes _ d ays 02/06/2019 None Triggers no known trig gers 02/06/2019 None Onset of Symptom 2 wee ks ago 02/06/2019 None Location right ear 2019 None Quality stabbing 2019 None Quality sharp pain 2019 None Onset and Resolution g radual in onset 2019 None Onset of Symptom 6 day s ago 2019 None Severity moderate 2019 None Frequency of Episodes increasing 2019 None Length of Episodes _ d ays 2019 None Triggers no known trig gers 2019 None knee pain Location on th e left 08/08/2018 None knee pain Quality interm ittent 08/08/2018 None knee pain Onset of Symptom 1 weeks ago 08/08/2018 None knee pain Frequency of Episodes daily 08/08/2018 None knee pain Pertinent Findings Denies decreased range of motion 08/08/2018 None knee pain Pertinent Findings Denies limping 08/08/2018 None knee pain Pertinent Findings Denies pain with movement 08/08/2018 None knee pain Pertinent Findings Denies swelling 08/08/2018 None knee pain Location on th e left 06/30/2018 None knee pain Quality interm ittent 06/30/2018 None knee pain Onset of Symptom 1 weeks ago 06/30/2018 None knee pain Frequency of Episodes daily 06/30/2018 None knee pain Pertinent Findings Denies decreased range of motion 06/30/2018 None knee pain Pertinent Findings Denies limping 06/30/2018 None knee pain Pertinent Findings Denies pain with movement 06/30/2018 None knee pain Pertinent Findings Denies swelling 06/30/2018 None anxiety Quality intermit tent 04/12/2018 None anxiety Onset and Resolution ongoing 04/12/2018 None anxiety Alleviating Factors medication 04/12/2018 None hip pain Location on the left 04/12/2018 None hip pain Quality catches 04/12/2018 None hip pain Quality popping 04/12/2018 None anxiety Quality intermit tent 04/05/2017 None anxiety Onset and Resolution ongoing 04/05/2017 None anxiety Alleviating Factors medication 04/05/2017 None anxiety Quality intermit tent 03/03/2017 None anxiety Onset and Resolution ongoing 03/03/2017 None anxiety Alleviating Factors medication 03/03/2017 None medication follow up Location oral intake 02/08/2017 None medication follow up Additional Comments medication use 02/08/2017 None medication follow up Additional Comments medication: Buspirone 02/08/2017 None fatigue Limitation on Activities moderately limits activities 02/08/2017 None fatigue Onset of Symptom 6 months ago 02/08/2017 None fatigue Frequency of Episodes weekly 02/08/2017 None fatigue Triggers stress 02/08/2017 None fatigue Pertinent Findings dizziness 02/08/2017 None fatigue Onset and Resolution ongoing 02/08/2017 None constipation Quality int ermittent 08/06/2015 None constipation Onset and Resolution ongoing 08/06/2015 takes a laxative when xiomy lly constipated anxiety Onset and Resolution ongoing 08/06/2015 None constipation Severity mi ld 08/06/2015 None constipation Frequency of Episodes unchanged 08/06/2015 None constipation Triggers no known associated factors 08/06/2015 None constipation Pertinent Findings Denies edema 08/06/2015 None sinus congestion Onset and Resolution ongoing 07/08/2015 None sinus congestion Onset of Symptom 1 years ago 07/08/2015 None sinus congestion Severity moderate 07/08/2015 None sinus congestion Frequency of Episodes daily 07/08/2015 None sinus congestion Timing of Episodes all day long 07/08/2015 None sinus congestion Triggers no known associated factors 07/08/2015 None sinus congestion Pertinent Findings cough 07/08/2015 None sinus congestion Location on both sides 07/08/2015 None sinus congestion Quality fullness 07/08/2015 None constipation Quality int ermittent 07/08/2015 None constipation Onset and Resolution ongoing 07/08/2015 takes a laxative when xiomy lly constipated diarrhea Quality intermi ttent 07/08/2015 None diarrhea Onset and Resolution ongoing 07/08/2015 None anxiety Onset and Resolution ongoing 07/08/2015 None fatigue Limitation on Activities moderately limits activities 06/06/2015 None fatigue Onset of Symptom 6 months ago 06/06/2015 None fatigue Frequency of Episodes weekly 06/06/2015 None fatigue Timing of Episodes no specific time 06/06/2015 None fatigue Triggers stress 06/06/2015 None fatigue Alleviating Factors rest 06/06/2015 None fatigue Exacerbating Factors stress 06/06/2015 None fatigue Pertinent Findings dizziness 06/06/2015 None fatigue Quality improving 06/06/2015 None fatigue Onset and Resolution ongoing 06/06/2015 None anxiety Quality agitation 06/06/2015 None anxiety Onset and Resolution ongoing 06/06/2015 None anxiety Onset of Symptom 3 months ago 06/06/2015 None anxiety Limitation on Activities moderately limits activities 06/06/2015 None anxiety Frequency of Episodes daily 06/06/2015 None anxiety Triggers no know n associated factors 06/06/2015 None anxiety Pertinent Findings restlessness 06/06/2015 None myalgias Location on bot h legs 06/06/2015 None myalgias Onset and Resolution sudden in onset 06/06/2015 None myalgias Onset and Resolution ongoing 06/06/2015 None myalgias Onset of Symptom during adulthood 06/06/2015 None myalgias Frequency of Episodes weekly 06/06/2015 None myalgias Triggers no kno wn associated factors 06/06/2015 None myalgias Pertinent Findings stiffness 06/06/2015 None cough Onset and Resolution ongoing 06/06/2015 None cough Triggers post nasa l drip 06/06/2015 None cough Triggers change of seasons 06/06/2015 None cough Alleviating Factors OTC medications 06/06/2015 None cough Pertinent Findings nasal congestion 06/06/2015 None diarrhea Quality intermi ttent 06/06/2015 None diarrhea Onset and Resolution ongoing 06/06/2015 None constipation Quality int ermittent 06/06/2015 None constipation Onset and Resolution ongoing 06/06/2015 None constipation Triggers no known associated factors 06/06/2015 None constipation Pertinent Findings bloating 06/06/2015 None diarrhea Quality loose 06/06/2015 None diarrhea Triggers no kno wn associated factors 06/06/2015 None Advance Directives No Advance Directive data Encounters Encounter Performer Loca tion Codes Date ([id number]) [id number] EST. P ATIENT, LEVEL III Diagnosis: Trigeminal neuralgia[ICD10: G50.0] Carol Robledo MD, [facility] CPT-4: 43730 02/14/2019 ([id number]) 69279 EST. P ATIENT, LEVEL III Diagnosis: Headache[ICD10: R51] Diagnosis: Trigeminal neuralgia[ICD10: G50.0] Carol Robledo MD, [facility] CPT-4: 59121 02/06/2019 ([id number]) 18661 EST. P ATIENT, LEVEL IV Diagnosis: Headache[ICD10: R51] Diagnosis: Trigeminal neuralgia[ICD10: G50.0] Carol Robledo MD, [facility] CPT-4: 17297 2019 ([id number]) 12865 EST. P ATIENT, LEVEL III Diagnosis: Essential (primary) hypertension[ICD10: I10] Diagnosis: Varicose veins of left lower extremity with pain[ICD10: I83.812] Elizabeth Robledo MD, [facility] CPT-4: 38790 08/08/2018 ([id number]) 93223 EST. P ATIENT, LEVEL III Diagnosis: Varicose veins of left lower extremity with pain[ICD10: I83.812] Elizabeth Robledo MD, [facility] CPT-4: 90195 06/30/2018 ([id number]) 95433 EST. P ATIENT, LEVEL IV Diagnosis: Essential (primary) hypertension[ICD10: I10] Diagnosis: Generalized anxiety disorder[ICD10: F41.1] Elizabeth Robledo MD, C CPT-4: 33507 04/12/2018 ([id number]) 97240 EST. P ATIENT, LEVEL III Diagnosis: Generalized anxiety disorder[ICD10: F41.1] Elizabeth Robledo MD, C CPT-4: 10049 04/05/2017 ([id number]) 38064 EST. P ATIENT, LEVEL III Diagnosis: Generalized anxiety disorder[ICD10: F41.1] Diagnosis: Essential (primary) hypertension[ICD10: I10] Elizabeth Robledo MD, C CPT-4: 79042 03/03/2017 ([id number]) 22975 EST. P ATIENT, LEVEL IV Diagnosis: Generalized anxiety disorder[ICD10: F41.1] Diagnosis: Chronic obstructive pulmonary disease with (acute) exacerbation[ICD10: J44.1] Elizabeth Robledo MD, [facility] CPT-4: 11667 02/08/2017 ([id number]) 34803 EST. P ATIENT, LEVEL III Diagnosis: Generalized anxiety disorder[ICD10: F41.1] Diagnosis: Other seasonal allergic rhinitis[ICD10: J30.2] Carol Robledo MD, [facility] CPT-4: 58323 08/06/2015 ([id number]) 46955 EST. P ATIENT, LEVEL IV Diagnosis: Generalized anxiety disorder[ICD10: F41.1] Diagnosis: Other seasonal allergic rhinitis[ICD10: J30.2] Diagnosis: Rectocele[ICD10: N81.6] Carol Robledo MD, [facility] CPT-4: 71829 07/08/2015 ([id number]) OFFICE [facility] - LEVEL 4 Diagnosis: COPD (chronic obstructive pulmonary disease)[ICD9: 496] Diagnosis: Tobacco use[ICD9: 305.1] Diagnosis: Myalgia[ICD9: 729.1] Diagnosis: Anxiety[ICD9: 300.00] Diagnosis: Altered bowel habits[ICD9: 787.99] Carol Robledo MD, [facility] CPT-4: 84537 06/06/2015 Plan of Care Planned Activity Notes C odes Status Date Visit Plan: Trigeminal neuralgia -s ymptoms improved -still having some pain at night -increase carbamazepine to 2 pills in the evening - monitor symptoms and call if uncontrolled- follow up in 1 month, sooner if needed. 02/14/2019 Appointment: Carol Lira WPtel: [address] [place], [place] [phone] (30 min) Complex 02/14/2019 Patient Education: Patient Medication Summary Completed 02/14/2019 Appointment: Carol Lira WPtel: [address] [place], [place] [phone] (30 min) Complex 02/13/2019 Visit Plan: Headache -secondary to trigeminal neuralgia- symptoms improved -will continue to monitor closely -no change in medications - patient is scheduled for CT scan this week -follow up in 1 week, sooner if needed. 02/06/2019 Appointment: Carol Lira WPtel: [address] [phone] (15 min) Moderate 02/06/2019 Patient Education: Patient Medication Summary Completed 02/06/2019 Visit Plan: Trigeminal neuralgia -f acial pain -will check labs and MRI brain to rule out secondary causes -rx for carbamazepine provided and instructed on use -return on Wednesday -patient verbalized understanding of plan. 2019 Appointment: Carol Lira WPtel: [phone] (30 min) Complex 2019 Patient Education: Patient Medication Summary Completed 2019 Appointment: Elizabeth Robledo WPtel: [facility] (15 min) Moderate 12/27/2018 Visit Plan: Hypertension - well con trolled - continue with current medications, continue with no added salt diet. Pt has been encouraged to exercise daily. The pt has been advised to call the office if there are any acute concerns about change in blood pressure readings at home. Varcose veins of legs - improved with compression. 08/08/2018 Appointment: Elizabeth Robledo WPtel: [address] [facility] (15 min) Moderate 08/08/2018 Patient Education: Patient Medication Summary Completed 08/08/2018 Visit Plan: Varicose Veins - recomm ended thigh-high compression, elevation of lower legs while seated. Pt to consider treatment for varicose veins with vein specialist. Pt advised as follows: full dose aspirin e very day x 1 week and then go back to baby aspirin - if the pain does not improve or if the pain worsens, then call JAKUB so that we can see you 06/30/2018 Appointment: Elizabeth Robledo WPtel: [address] [phone] (15 min) Moderate 06/30/2018 Patient Education: Patient Medication Summary Completed 06/30/2018 Patient Education: Varicose Veins Completed 06/30/2018 Visit Plan: Hypertension - well con trolled - continue with current medications, continue with no added salt diet. Pt has been encouraged to exercise daily. The pt has been advised to call the office if there are any acute concerns about change in blood pressure readings at home. Depression - uncontrolled - Pt has been counseled about the diagnosis of depression, the potential causes, and risks associated with the diagnosis. The pt denies suicidal ideation, or plans. The patient has been counseled about treatment options, and understands the risks associated with treatment of depression, as well as the risks associated with NOT treating the depression. I believe the pt will benefit from medical intervention and an antidepressant has been appropriately prescribed for this patient. Increase citalopram 04/12/2018 Appointment: Elizabeth Robledo WPtel: [facility] (15 min) Moderate 04/12/2018 Patient Education: Patient Medication Summary Completed 04/12/2018 Appointment: Elizabeth Robledo WPtel: [facility] (15 min) Moderate 04/07/2018 Appointment: Elizabeth Robledo WPtel: [address] [place], [place] [address] (15 min) Moderate 05/03/2017 Visit Plan: Anxiety - the patient h as uncontrolled anxiety and will benefit from an SSRI on a daily basis to attempt control of the symptoms of anxiety (tachycardia, overwhelming sensations, stress, insomnia, et c). I also believe that the patient will benefit from very low dose of prn benzodiazepine. Pt is aware of the risks and benefits of treatment with the above medications. 04/05/2017 Appointment: Elizabeth Robledo WPtel: [facility]66[facility] (15 min) Moderate 04/05/2017 Patient Education: Patient Medication Summary Completed 04/05/2017 Patient Education: Smoking and Tobacco Addiction Completed 04/05/2017 Visit Plan: Hypertension - uncontro lled - the patient's medications have been modified as documented in the visit note. The patient has been counseled to cut back on salt in diet for a no added salt diet, low fat d iet, start an exercise program with low weight bearing exercises and higher aerobic activity for heart health. The patient is to check blood pressure readings as an outpatient and either fax, call, or email the readings to the office next week for practitioner to review. The pt is to call for acute concerns. Pt seeing Semiconductor Processing Technician - defer treatment to him at this time as he has an extensive work-up pending. Generalized anxiety disorder - uncontrolled symptoms - decrease the buspirone to 1/2 pill in the morning. start on lexapro 10mg at bedtime 03/03/2017 Appointment: Elizabeth Robledo WPtel: [address] [facility] (15 min) Moderate 03/03/2017 Patient Education: Patient Medication Summary Completed 03/03/2017 Patient Education: Smoking and Tobacco Addiction Completed 03/03/2017 Visit Plan: Hypertension - well con trolled - continue with current medications, continue with no added salt diet. Pt has been encouraged to exercise daily. The pt has been advised to call the office if there are any acute concerns about change in blood pressure readings at home. Anxiety - the patient has uncontrolled anxiety and will benefit from an increased dose of buspar in an attempt control of the symptoms of anxiety (tachycardia, overwhelming sensations, stress, insomnia, etc). Pt is aware of the risks and benefits of treatment with the above medications. COPD - check ct of chest 02/08/2017 Visit Plan: Hypertension - well con trolled - continue with current medications, continue with no added salt diet. Pt has been encouraged to exercise daily. The pt has been advised to call the office if there are any acute concerns about change in blood pressure readings at home. Anxiety - the patient has uncontrolled anxiety and will benefit from an increased dose of buspar in an attempt control of the symptoms of anxiety (tachycardia, overwhelming sensations, stress, insomnia, etc). Pt is aware of the risks and benefits of treatment with the above medications. COPD - check ct of chest 02/08/2017 Appointment: Elizabeth Robledo WPtel: [address] [facility] (15 min) Moderate 02/08/2017 Patient Education: Patient Medication Summary Completed 02/08/2017 Patient Education: Smoking and Tobacco Addiction Completed 02/08/2017 Appointment: Pankaj Carol WPtel: [address] [place], [place] [phone] (15 min) Moderate 04/28/2016 Visit Plan: Chronic anxiety-symptom s fairly well controlled- no change in treatment-instructed patient to call if symptoms become uncontrolled Uvwgqewee-xddpnbv-arr zyrtec or haroon and take daily Gqluwzqgqwgt-obtixmz-bb change in treatment 08/06/2015 Appointment: (30 min) Complex 08/06/2015 Patient Education: Patient Medication Summary Completed 08/06/2015 Visit Plan: Chronic anxiety - the p t has symptoms of chronic anxiety and depression that have been fairly well controlled since the last office visit. The pt has expected periods of exacerbation with abatement of the symptoms with change in situational exposure. No change in current medications. Allergies - chronic - recommended pt to use allergy medication as prescribed. Pt has been counseled as to the appropriate use of the medication. Pt to call if allergy symptoms are not controlled with the medication. If using nasal spray, instructions as follows: Nasal spray- use twice daily, one spray per nostril twice daily, after 30 minutes, rinse out nose with saline spray.. Use opposite hand per nostril to spray in the nasal steroid allergy spray. Rectocele-increase fiber-start miralax and increase po fluids 07/08/2015 Visit Plan: Chronic anxiety - the p t has symptoms of chronic anxiety and depression that have been fairly well controlled since the last office visit. The pt has expected periods of exacerbation with abatement of the symptoms with change in situational exposure. No change in current medications. Allergies - chronic - recommended pt to use allergy medication as prescribed. Pt has been counseled as to the appropriate use of the medication. Pt to call if allergy symptoms are not controlled with the medication. If using nasal spray, instructions as follows: Nasal spray- use twice daily, one spray per nostril twice daily, after 30 minutes, rinse out nose with saline spray.. Use opposite hand per nostril to spray in the nasal steroid allergy spray. Rectocele-increase fiber-start miralax and increase po fluids 07/08/2015 Visit Plan: Chronic anxiety - the p t has symptoms of chronic anxiety and depression that have been fairly well controlled since the last office visit. The pt has expected periods of exacerbation with abatement of the symptoms with change in situational exposure. No change in current medications. Allergies - chronic - recommended pt to use allergy medication as prescribed. Pt has been counseled as to the appropriate use of the medication. Pt to call if allergy symptoms are not controlled with the medication. If using nasal spray, instructions as follows: Nasal spray- use twice daily, one spray per nostril twice daily, after 30 minutes, rinse out nose with saline spray.. Use opposite hand per nostril to spray in the nasal steroid allergy spray. Rectocele-increase fiber-start miralax and increase po fluids 07/08/2015 Appointment: (30 min) Complex 07/08/2015 Patient Education: Patient Medication Summary Completed 07/08/2015 Visit Plan: Tobacco use-scheduled C T scan of chest Constipation/Diarrhea-recommend PROBIOTIC TWICE DAILY Chronic Depression and anxiety - the pt has symptoms of chronic anxiety and depression that have been fairly well controlled since the last office visit. The pt has expected periods of exacerbation with abatement of the symptoms with change in situational exposure. No change in current medications. Myalgias-check labs 06/06/2015 Appointment: (S) New Patient 06/06/2015 Patient Education: Patient Medication Summary Completed 06/06/2015 Patient Education: Smoking and Tobacco Addiction Completed 06/06/2015 Instructions Comment change the buspirone to 15mg - 1/2 pill in the morning, 1/2 pill at noon, and a full pill at night. . Hypertension - well controlled - rayna nue with current medications, continue with no added salt diet. Pt has been encouraged to exercise daily. The pt has been advised to call the office if there are any acute concerns about change in blood pressure readings at home. Anxiety - the patient has uncontrolled anxiety and will benefit from an increased dose of buspar in an attempt control of the symptoms of anxiety (tachycardia, overwhelming sensations, stress, insomnia, etc). Pt is aware of the risks and benefits of treatment with the above medications. COPD - check ct of chest change the buspirone to 15mg - 1/2 pill in the morning, 1/2 pill at noon, and a full pill at night. . Hypertension - well controlled - rayna nue with current medications, continue with no added salt diet. Pt has been encouraged to exercise daily. The pt has been advised to call the office if there are any acute concerns about change in blood pressure readings at home. Anxiety - the patient has uncontrolled anxiety and will benefit from an increased dose of buspar in an attempt control of the symptoms of anxiety (tachycardia, overwhelming sensations, stress, insomnia, etc). Pt is aware of the risks and benefits of treatment with the above medications. COPD - check ct of chest . Chronic anxiety-sy mptoms fairly well controlled-no change in treatment-instructed patient to call if symptoms become uncontrolled Itqcyaetq-fqtcgyc-gft zyrtec or haroon and take daily Kgndmizvxbwy-fjpwury-sr change in treatment PROBIOTIC TWICE SARWAT Y-ALIGN YOU CAN GET HAROON FOR YOUR ALLERGIES MIRALAX DAILY-CUT BACK TO EVERY OTHER DAY FOR DIARRHEA/LOOSE STOOLS INFLUENZA/PNEUMONIA 13 TODAY IN THE OFFICE . Chronic anxiety - the pt has symptoms of chronic anxiety and depression that have been fairly well controlled since the last office visit. The pt has expected periods of exacerbation with abatement of the symptoms with change in situational exposure. No change in current medications. Allergies - chronic - recommended pt to use allergy medication as prescribed. Pt has been counseled as to the appropriate use of the medication. Pt to call if allergy symptoms are not controlled with the medication. If using nasal spray, instructions as follows: Nasal spray- use twice daily, one spray per nostril twice daily, after 30 minutes, rinse out nose with saline spray.. Use opposite hand per nostril to spray in the nasal steroid allergy spray. Rectocele-increase fiber-start miralax and increase po fluids PROBIOTIC TWICE SARWAT Y-ALIGN YOU CAN GET HAROON FOR YOUR ALLERGIES MIRALAX DAILY-CUT BACK TO EVERY OTHER DAY FOR DIARRHEA/LOOSE STOOLS INFLUENZA/PNEUMONIA 13 TODAY IN THE OFFICE . Chronic anxiety - the pt has symptoms of chronic anxiety and depression that have been fairly well controlled since the last office visit. The pt has expected periods of exacerbation with abatement of the symptoms with change in situational exposure. No change in current medications. Allergies - chronic - recommended pt to use allergy medication as prescribed. Pt has been counseled as to the appropriate use of the medication. Pt to call if allergy symptoms are not controlled with the medication. If using nasal spray, instructions as follows: Nasal spray- use twice daily, one spray per nostril twice daily, after 30 minutes, rinse out nose with saline spray.. Use opposite hand per nostril to spray in the nasal steroid allergy spray. Rectocele-increase fiber-start miralax and increase po fluids PROBIOTIC TWICE SARWAT Y-ALIGN YOU CAN GET HAROON FOR YOUR ALLERGIES MIRALAX DAILY-CUT BACK TO EVERY OTHER DAY FOR DIARRHEA/LOOSE STOOLS INFLUENZA/PNEUMONIA 13 TODAY IN THE OFFICE . Chronic anxiety - the pt has symptoms of chronic anxiety and depression that have been fairly well controlled since the last office visit. The pt has expected periods of exacerbation with abatement of the symptoms with change in situational exposure. No change in current medications. Allergies - chronic - recommended pt to use allergy medication as prescribed. Pt has been counseled as to the appropriate use of the medication. Pt to call if allergy symptoms are not controlled with the medication. If using nasal spray, instructions as follows: Nasal spray- use twice daily, one spray per nostril twice daily, after 30 minutes, rinse out nose with saline spray.. Use opposite hand per nostril to spray in the nasal steroid allergy spray. Rectocele-increase fiber-start miralax and increase po fluids . Hypertension - wel l controlled - continue with current medications, continue with no added salt diet. Pt has been encouraged to exercise daily. The pt has been advised to call the office if there are any acute concerns about change in blood pressure readings at home. Depression - uncontrolled - Pt has been counseled about the diagnosis of depression, the potential causes, and risks associated with the diagnosis. The pt denies suicidal ideation, or plans. The patient has been counseled about treatment options, and understands the risks associated with treatment of depression, as well as the risks associated with NOT treating the depression. I believe the pt will benefit from medical intervention and an antidepressant has been appropriately prescribed for this patient. Increase citalopram . Anxiety - the matilda ent has uncontrolled anxiety and will benefit from an SSRI on a daily basis to attempt control of the symptoms of anxiety (tachycardia, overwhelming sensations, stress, insomnia, etc). I also believe that the patient will benefit from very low dose of prn benzodiazepine. Pt is aware of the risks and benefits of treatment with the above medications. RECOMMEND PROBIOTIC TWICE DAILY TO HELP REGULATE STOOLS [employer], [employer] ARE SOME OF THE BRANDS OF PROBIOTICS REPEAT CAT SCAN OF CHEST-ORDER MAMMOGRAM . Tobacco use-scheduled CT scan of chest Constipation/Diarrhea-recommend PROBIOTIC TWICE DAILY Chronic Depression and anxiety - the pt has symptoms of chronic anxiety and depression that have been fairly well controlled since the last office visit. The pt has expected periods of exacerbation with abatement of the symptoms with change in situational exposure. No change in current medications. Myalgias-check labs CHECK LABS MRI BRAIN CARBAMAZEPINE 100MG TWICE DEAILY ACYCLOVIR THREE TIMES DAILY . Trigeminal neuralgia -facial pain -katerin l check labs and MRI brain to rule out secondary causes -rx for carbamazepine provided and instructed on use -return on Wednesday -patient verbalized understanding of plan. . Headache -secondar y to trigeminal neuralgia- symptoms improved -will continue to monitor closely -no change in medications -patient is scheduled for CT scan this week -follow up in 1 week, sooner if needed. . Hypertension - wel l controlled - continue with current medications, continue with no added salt diet. Pt has been encouraged to exercise daily. The pt has been advised to call the office if there are any acute concerns about change in blood pressure readings at home. Varcose veins of legs - improved with compression. full dose aspirin ev juani day x 1 week and then goback to baby aspirin - if the pain does not improve or if the pain worsens, then call JAKUB so that we can see you . Varicose Veins - recommended thigh-hig h compression, elevation of lower legs while seated. Pt to consider treatment for varicose veins with vein specialist. Pt advised as follows: full dose aspirin every day x 1 week and then go back to baby aspirin - if the pain does not improve or if the pain worsens, then call JAKUB so that we can see you decrease the buspiro ne to 1/2 pill in the morning. start on lexapro 10mg at bedtime . Hypertension - uncontrolled - the matilda ent's medications have been modified as documented in the visit note. The patient has been counseled to cut back on salt in diet for a no added salt diet, low fat diet, start an exercise program with low weight bearing exercises and higher aerobic activity for heart health. The patient is to check blood pressure readings as an outpatient and either fax, call, or email the readings to the office next week for practitioner to review. The pt is to call for acute concerns. Pt seeing Semiconductor Processing Technician - defer treatment to him at this time as he has an extensive work-up pending. Generalized anxiety disorder - uncontrolled symptoms - decrease the buspirone to 1/2 pill in the morning. start on lexapro 10mg at bedtime . Trigeminal neuralg ia -symptoms improved -still having some pain at night -increase carbamazepine to 2 pills in the evening -monitor symptoms and call if uncontrolled- follow up in 1 month, sooner if needed.
--- OUTSIDE RECORDS SUMMARY | 2020-04-19 07:35 | XMS REPORT | CCD ---
Author Author Michelle Lira Organization Elizabeth Robledo MD, [facility] Address [address] [place] [address] Phone Care Team Providers Care Sound Effects Person Name Role Phone PP Unavailable CCM Unavailable Summary Purpose Interface Exchange Insurance Providers Payer name Policy type / Coverage type Covered constitution party ID Effective Begin Date Effective End Date WPS Medicare Part B Medicare Part B [id number] Unknown Family history Sister Diagnosis Age At Onset Heart Attack Unknown Hyperlipidemia Unknown Hypertension Unknown Daughter Diagnosis Age At Onset Arthritis Unknown Son Diagnosis Age At Onset Depression Unknown Social History Social History Element Codes Description Effective Dates Marital status Unknown M guillermo Kaden 03/03/2017 Number of children Unknown 3 06/06/[address]: 10970945 Current every day smoker 06/06/2015 Number of years using tobacco Unknown 10 - 20 06/06/2015 Number of cigarettes/day Unknown 10 (Half a pack) 06/06/[address]: 037715817 Never drinks alcohol 06/06/2015 Allergies, Adverse Reactions, [...] Instructions carbamazepine 100 mg chewable tablet RxNorm: 834450 1 Tablet(s) PO UD 02/14/2019 06/13/2019 Ac tive 1 q am and 2 q pm update RX carbamazepine 100 mg chewable tablet RxNorm: 637072 1 Tablet(s) PO BID 2019 02/13/2019 In active acyclovir 400 mg tablet RxNorm: 640022 1 Tablet(s) PO TID 2019 02/10/2019 Inactive Lipitor 40 mg tablet RxNorm: 025508 1 Tablet(s) PO daily 06/24/2018 06/18/2019 Active citalopram 20 mg tablet RxNorm: 242046 1 Tablet(s) PO daily 04/12/2018 04/06/2019 Active citalopram 10 mg tablet RxNorm: 267682 TAKE ONE TABLET BY MOUTH DAILY 04/11/2018 04/11/2018 In active citalopram 10 mg tablet RxNorm: 645535 TAKE ONE TABLET BY MOUTH DAILY 11/04/2017 04/02/2018 In active citalopram 10 mg tablet RxNorm: 762434 1 Tablet(s) PO daily 04/05/2017 10/31/2017 Inactive buspirone 15 mg tablet RxNorm: 553930 1/2 Tablet(s) PO QAM 03/03/2017 04/04/2017 Inactive Lexapro 10 mg tablet RxNorm: 828412 1 Tablet(s) PO QPM 03/03/2017 04/04/2017 Inactive buspirone 15 mg tablet RxNorm: 527903 TAKE ONE-HALF TABLET BY MOUTH TWO TIMES A DAY 11/23/2016 03/02/2017 Inactive buspirone 15 mg tablet RxNorm: 608934 TAKE ONE-HALF TABLET BY MOUTH TWO TIMES A DAY 06/04/2016 11/22/2016 Inactive buspirone 15 mg tablet RxNorm: 122132 TAKE ONE-HALF TABLET BY MOUTH TWO TIMES A DAY 04/13/2016 06/03/2016 Inactive buspirone 15 mg tablet RxNorm: 105026 TAKE ONE-HALF TABLET BY MOUTH TWO TIMES A DAY 01/13/2016 04/11/2016 Inactive Augmentin 500 mg-125 mg tablet RxNorm: 698343 1 Tablet(s) PO TID 10/22/2015 10/31/2015 Inactive Give with a probiotic Augmentin 500 mg-125 mg tablet RxNorm: 082028 1 Tablet(s) PO TID 10/22/2015 10/21/2015 Inactive Give with a probiotic buspirone 15 mg tablet RxNorm: 561380 1/2 Tablet(s) PO BID 09/17/2015 01/12/2016 Inactive Flonase Allergy Reli ef 50 mcg/actuation nasal spray,suspension RxNorm: 1-2 [place] NASAL daily 07/08/2015 10/05/2015 Inactive Miralax 17 gram oral powder packet RxNorm: 785552 1 packet PO daily 07/08/2015 01/31/2019 Inactive metoprolol succinate ER 25 mg tablet,extended release 24 hr RxNorm: 895568 1 Tablet(s) PO daily No Start Date Active Aspirin Low Dose 81 mg tablet,delayed release RxNorm: 274668 1 Tablet(s) PO daily No Start Date Active Vitamin D3 1,000 uni t tablet RxNorm: 128732 2 Tablet(s) PO daily No Start Date Active Lipitor 40 mg tablet RxNorm: 711910 1 Tablet(s) PO daily No Start Date 06/23/2018 Inactive buspirone 15 mg tablet RxNorm: 130366 1/2 Tablet(s) PO BID No Start Date [...] Item Item Code Result Date Comp Metabolic Krq085 NA 134 mEq/L 2019 Comp Metabolic Gnn414 K 4.2 mEq/L 2019 Comp Metabolic Yta995 CL 99 mEq/L 2019 Comp Metabolic Vng195 CO2 29.0 mEq/L 2019 Comp Metabolic Imh414 AN ION GAP 10 2019 Comp Metabolic Epu393 GL UCOSE 114 mg/dL 2019 Comp Metabolic Cnc251 Cr eat 0.8 mg/dL 2019 Comp Metabolic Erm760 eG FR 81 ml/min/1.73m2 02/01 Comp Metabolic Jto997 BUN 15 mg/dL 2019 Comp Metabolic Vww667 B/ C Ratio 20.0 Ratio 2019 Comp Metabolic Whz093 CA LCIUM 8.8 mg/dL 2019 Comp Metabolic Apt483 AL K PHOS 61 U/L 2019 Comp Metabolic Awy813 T(SGOT) 29 U/L 2019 Comp Metabolic Yaq894 AL T(SGPT) 25 U/L 2019 Comp Metabolic Gfo246 BI LI T 0.5 mg/dL 2019 Comp Metabolic Hdy967 AL BUMIN 4.1 g/dL 2019 Comp Metabolic Ekp899 TP RO 6.6 g/dL 2019 Comp Metabolic Tbr954 GL OB 2.5 g/dL 2019 Comp Metabolic Bpn958 A/ G Ratio 1.7 Ratio 2019 Comp Metabolic Fcm700 Os mo 270 mOsmo 2019 Cbc With [...] 31.6 pg 2019 Cbc With Differential Ord2 Estill% 6.7 % 2019 Cbc With Differential Ord2 [...] 2.68 K/ul 2019 Cbc With Differential Ord2 Estill ABS# 0.6 K/ul 2019 Cbc With Differential Ord2 Eos ABS# 0.2 K/ul 2019 Cbc With Differential Ord2 Baso ABS# 0.1 K/ul 2019 C-Reactive Protein Qnt Crqnt CRP 0.1 mg/dl 2019 Sed Rate Ord21 ESR 9 mm/hr 2019 Comp Metabolic Gkv373 NA 139 mEq/L 02/08/2017 Comp Metabolic Cqo390 K 4.2 mEq/L 02/08/2017 Comp Metabolic Lwr771 CL 104 mEq/L 02/08/2017 Comp Metabolic Yub359 CO2 27.0 mEq/L 02/08/2017 Comp Metabolic Hlh720 AN ION GAP 12 02/08/2017 Comp Metabolic Ooj872 GL UCOSE 87 mg/dL 02/08/2017 Comp Metabolic Eiq299 Cr eat 0.8 mg/dL 02/08/2017 Comp Metabolic Rwv366 eG FR 71 ml/min/1.73m2 02/08 Comp Metabolic Nhc465 BUN 15 mg/dL 02/08/2017 Comp Metabolic Mqu034 B/ C Ratio 17.9 Ratio 02/08/2017 Comp Metabolic Vvy948 CA LCIUM 9.1 mg/dL 02/08/2017 Comp Metabolic Yes670 AL K PHOS 60 U/L 02/08/2017 Comp Metabolic Lco669 T(SGOT) 23 U/L 02/08/2017 Comp Metabolic Ugx205 AL T(SGPT) 14 U/L 02/08/2017 Comp Metabolic Eab005 BI LI T 0.3 mg/dL 02/08/2017 Comp Metabolic Smb614 AL BUMIN 4.1 g/dL 02/08/2017 Comp Metabolic Zbt557 TP RO 6.6 g/dL 02/08/2017 Comp Metabolic Ahi773 GL OB 2.5 g/dL 02/08/2017 Comp Metabolic Elb203 A/ G Ratio 1.6 Ratio 02/08/2017 Comp Metabolic Vgm541 Os mo 278 mOsmo 02/08/2017 Cbc With [...] 32.3 pg 02/08/2017 Cbc With Differential Ord2 Estill% 7.2 % 02/08/2017 Cbc With Differential Ord2 [...] 3.06 K/ul 02/08/2017 Cbc With Differential Ord2 Estill ABS# 0.6 K/ul 02/08/2017 Cbc With Differential Ord2 Eos ABS# 0.1 K/ul 02/08/2017 Cbc With Differential Ord2 Baso ABS# 0.1 K/ul 02/08/2017 Lipid Ord30 CHOL 204 mg/dL 02/08/2017 Lipid Ord30 HDL 64.0 mg/dl 02/08/2017 Lipid Ord30 TRIG 68 mg/dL 02/08/2017 Lipid Ord30 LDL 126 mg/dL 02/08/2017 Lipid Ord30 C/HDL 3.2 Ratio 02/08/2017 Tsh Ord6 hTSH II 1.48 uIU/mL 02/08/2017 Vitamin D 25 Oh Qqx6503 VITAMIN D, 25 HYDROXY 33.86 ng/mL 06/07/2015 [...] Ord2 RDW 12.8 % 06/06/2015 Comp Metabolic Iov832 NA 134 mEq/L 06/06/2015 Comp Metabolic Vpr423 K 4.3 mEq/L 06/06/2015 Comp Metabolic Oya463 CL 102 mEq/L 06/06/2015 Comp Metabolic Jsm747 CO2 27.0 mEq/L 06/06/2015 Comp Metabolic Zhg658 AN ION GAP 9 06/06/2015 Comp Metabolic Fnh549 GL UCOSE 95 mg/dL 06/06/2015 Comp Metabolic Sct393 Cr eat 0.8 mg/dL 06/06/2015 Comp Metabolic Wtl293 eG FR 76 ml/min/1.73m2 06/06 Comp Metabolic Mmp665 BUN 14 mg/dL 06/06/2015 Comp Metabolic Euw328 B/ C Ratio 17.5 Ratio 06/06/2015 Comp Metabolic Cdm887 CA LCIUM 9.6 mg/dL 06/06/2015 Comp Metabolic Bzw103 AL K PHOS 64 U/L 06/06/2015 Comp Metabolic Lzx725 T(SGOT) 27 U/L 06/06/2015 Comp Metabolic Got624 AL T(SGPT) 20 U/L 06/06/2015 Comp Metabolic Xnq513 BI LI T 0.3 mg/dL 06/06/2015 Comp Metabolic Lpb652 AL BUMIN 4.3 g/dL 06/06/2015 Comp Metabolic Imx857 TP RO 6.8 g/dL 06/06/2015 Comp Metabolic Qva296 GL OB 2.5 g/dL 06/06/2015 Comp Metabolic Ess718 A/ G Ratio 1.7 Ratio 06/06/2015 Comp Metabolic Pmm671 Os mo 269 mOsmo 06/06/2015 Review of [...] 06/06/2015 None Procedures Procedure Codes Date TOBACCO-USE CORRECTIONAL 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 LIEUTENANT 3-[address]: 598518200 CPT-4: G0436 04/05/2017 TOBACCO-USE CORRECTIONAL SUPERVISOR LIEUTENANT 3-[address]: 636279255 CPT-4: G0436 02/08/2017 ADMIN INFLUENZA VIRU S VAC Formatting Model/CDA Sections, Assigned to CPT-4: E5922Fgohtyx 07/08/2015 FLU VACC 4 LILIANA 3 YRS PLUS IM Formatting Model/CDA Sections, Assigned to SNOMED CT: 87418906 CPT-4: 89271Yfnhxiq 07/08/2015 PNEUMOCOCCAL VACC 13 LILIANA IM Formatting Model/CDA Sections, Assigned to SNOMED CT: 69878860 CPT-4: 05575Taxvkfa 07/08/2015 TOBACCO-USE CORRECTIONAL SUPERVISOR LIEUTENANT 3-[address]: 973460623 CPT-4: G0436 06/06/2015 Vital Signs Date Vital 02/14/2019 Blood Pressure 1: 138/82 Code: 8480-6 BMI: 26.7 Code: 10366-6 Heart Rate 1: 78 bpm Height: 5'2" SpO2: 96% Weight: 146 lbs 02/06/2019 Blood Pressure 1: 138/74 Code: 8480-6 BMI: 26.7 Code: 72009-6 Heart Rate 1: 69 bpm Height: 5'2" SpO2: 94% Weight: 146 lbs 2019 Blood Pressure 1: 136/82 Code: 8480-6 BMI: 26.7 Code: 82187-1 Heart Rate 1: 84 bpm Height: 5'2" SpO2: 93% Weight: 146 lbs 08/08/2018 Blood Pressure 1: 148/64 Code: 8480-6 BMI: 26.2 Code: 24319-4 Heart Rate 1: 69 bpm Height: 5'2" SpO2: 98% Weight: 143 lbs 06/30/2018 Blood Pressure 1: 136/76 Code: 8480-6 BMI: 26.2 Code: 64803-4 Heart Rate 1: 74 bpm Height: 5'2" SpO2: 94% Weight: 143 lbs 04/12/2018 Blood Pressure 1: 142/82 Code: 8480-6 BMI: 26.7 Code: 39574-1 Heart Rate 1: 63 bpm Height: 5'2" SpO2: 94% Weight: 146 lbs 04/05/2017 Blood Pressure 1: 124/70 Code: 8480-6 BMI: 24.1 Code: 73191-1 Heart Rate 1: 67 bpm Height: 5'2" SpO2: 94% Weight: 132 lbs 03/03/2017 Blood Pressure 1: 150/78 Code: 8480-6 BMI: 24.5 Code: 74883-2 Heart Rate 1: 58 bpm Height: 5'2" SpO2: 97% Weight: 134 lbs 02/08/2017 Blood Pressure 1: 156/78 Code: 8480-6 BMI: 24.5 Code: 30152-6 Heart Rate 1: 80 bpm Height: 5'2" SpO2: 95% Weight: 134 lbs 08/06/2015 Blood Pressure 1: 148/70 Code: 8480-6 BMI: 25.8 Code: 09169-1 Heart Rate 1: 84 bpm Height: 5'2" SpO2: 94% Weight: 141 lbs 07/08/2015 Blood Pressure 1: 144/62 Code: 8480-6 BMI: 25.1 Code: 25548-3 Heart Rate 1: 84 bpm Height: 5'2" SpO2: 94% Weight: 137 lbs 06/06/2015 Blood Pressure 1: 128/80 Code: 8480-6 BMI: 25.2 Code: 76050-8 Heart Rate 1: 69 bpm Height: 5'2" [...] Encounters Encounter Performer Loca tion Codes Date ([id number]) [id number] EST. P ATIENT, LEVEL III Diagnosis: Trigeminal neuralgia[ICD10: G50.0] Carol Robledo MD, [facility] CPT-4: 60105 02/14/2019 ([id number]) 76452 EST. P ATIENT, LEVEL III Diagnosis: Headache[ICD10: R51] Diagnosis: Trigeminal neuralgia[ICD10: G50.0] Carol Robledo MD, [facility] CPT-4: 98229 02/06/2019 ([id number]) 34363 EST. P ATIENT, LEVEL IV Diagnosis: Headache[ICD10: R51] Diagnosis: Trigeminal neuralgia[ICD10: G50.0] Carol Robledo MD, [facility] CPT-4: 86291 2019 ([id number]) 71211 EST. P ATIENT, LEVEL III Diagnosis: Essential (primary) hypertension[ICD10: I10] Diagnosis: Varicose veins of left lower extremity with pain[ICD10: I83.812] Elizabeth Robledo MD, [facility] CPT-4: 48850 08/08/2018 ([id number]) 28209 EST. P ATIENT, LEVEL III Diagnosis: Varicose veins of left lower extremity with pain[ICD10: I83.812] Elizabeth Robledo MD, [facility] CPT-4: 94251 06/30/2018 ([id number]) 79848 EST. P ATIENT, LEVEL IV Diagnosis: Essential (primary) hypertension[ICD10: I10] Diagnosis: Generalized anxiety disorder[ICD10: F41.1] Elizabeth Robledo MD, [facility] CPT-4: 63630 04/12/2018 ([id number]) 65818 EST. P ATIENT, LEVEL III Diagnosis: Generalized anxiety disorder[ICD10: F41.1] Elizabeth Robledo MD, [facility] CPT-4: 05561 04/05/2017 ([id number]) 17947 EST. P ATIENT, LEVEL III Diagnosis: Generalized anxiety disorder[ICD10: F41.1] Diagnosis: Essential (primary) hypertension[ICD10: I10] Elizabeth Robledo MD, [facility] CPT-4: 05897 03/03/2017 ([id number]) 56485 EST. P ATIENT, LEVEL IV Diagnosis: Generalized anxiety disorder[ICD10: F41.1] Diagnosis: Chronic obstructive pulmonary disease with (acute) exacerbation[ICD10: J44.1] Elizabeth Robledo MD, [facility] CPT-4: 60766 02/08/2017 ([id number]) 59452 EST. P ATIENT, LEVEL III Diagnosis: Generalized anxiety disorder[ICD10: F41.1] Diagnosis: Other seasonal allergic rhinitis[ICD10: J30.2] [facility] CPT-4: 70398 08/06/2015 ([id number]) 89525 EST. P ATIENT, LEVEL IV Diagnosis: Generalized anxiety disorder[ICD10: F41.1] Diagnosis: Other seasonal allergic rhinitis[ICD10: J30.2] Diagnosis: Rectocele[ICD10: N81.6] [facility] CPT-4: 32996 07/08/2015 ([id number]) OFFICE [facility] - LEVEL 4 Diagnosis: COPD (chronic obstructive pulmonary disease)[ICD9: 496] Diagnosis: Tobacco use[ICD9: 305.1] Diagnosis: Myalgia[ICD9: 729.1] Diagnosis: Anxiety[ICD9: 300.00] Diagnosis: Altered bowel habits[ICD9: 787.99] Carol Robledo MD, [facility] CPT-4: 65265 06/06/2015 Plan of Care Planned Activity Notes C odes Status Date Visit Plan: Trigeminal neuralgia -s ymptoms improved -still having some pain at night -increase carbamazepine to 2 pills in the evening - monitor symptoms and call if uncontrolled- follow up in 1 month, sooner if needed. 02/14/2019 Patient Education: Patient Medication Summary Completed 02/14/2019 Appointment: Carol Lira WPtel: [address] [place], [place] [id number] (30 min) [facility] 02/13/2019 Visit Plan: Headache -secondary to trigeminal neuralgia- symptoms improved -will continue to monitor closely -no change in medications - patient is scheduled for CT scan this week -follow up in 1 week, sooner if needed. 02/06/2019 Appointment: Carol Lira WPtel: [phone] [facility] (15 min) Moderate 02/06/2019 Patient Education: Patient Medication Summary Completed 02/06/2019 Visit Plan: Trigeminal neuralgia -f acial pain -will check labs and MRI brain to rule out secondary causes -rx for carbamazepine provided and instructed on use -return on Wednesday -patient verbalized understanding of plan. 2019 Appointment: Carol Lira WPtel: [facility] (30 min) Complex 2019 Patient Education: Patient Medication Summary Completed 2019 Appointment: Elizabeth Robledo WPtel: [facility] (15 min) Moderate 12/27/2018 Visit Plan: [...] with compression. 08/08/2018 Appointment: Elizabeth Robledo WPtel: [facility] (15 min) Moderate 08/08/2018 Patient Education: [...] see you 06/30/2018 Appointment: Elizabeth Robledo WPtel: [facility] (15 min) Moderate 06/30/2018 Patient Education: [...] Increase citalopram 04/12/2018 Appointment: Elizabeth Robledo WPtel: [phone] [facility] (15 min) Moderate 04/12/2018 Patient Education: Patient Medication Summary Completed 04/12/2018 Appointment: Elizabeth Robledo WPtel: [phone] [facility] (15 min) Moderate 04/07/2018 Appointment: Elizabeth Robledo WPtel: [phone] [facility] (15 min) Moderate 05/03/2017 Visit Plan: Anxiety [...] above medications. 04/05/2017 Appointment: Elizabeth Robledo WPtel: [phone] [facility] (15 min) Moderate 04/05/2017 Patient Education: Patient [...] to call for acute concerns. Pt seeing Policy And Planning Manager - defer treatment to him at this time as he has an extensive work-up pending. Generalized anxiety disorder - uncontrolled symptoms - decrease the buspirone to 1/2 pill in the morning. start on lexapro 10mg at bedtime 03/03/2017 Appointment: [facility]el[phone] [facility] (15 min) Moderate 03/03/2017 Patient Education: Patient [...] 02/08/2017 Visit Plan: Hypertension - well con monikalled - continue with current medications, continue with [...] of chest 02/08/2017 Appointment: [facility]Ptel[facility] [phone] [facility] [place] (15 min) Moderate 02/08/2017 Patient Education: Patient Medication Summary Completed 02/08/2017 Patient Education: Smoking and Tobacco Addiction Completed 02/08/2017 Appointment: [facility]el[phone] [place] (15 min) Moderate 04/28/2016 Visit Plan: Chronic anxiety-symptom s fairly well controlled- no change in treatment-instructed patient to call if symptoms become uncontrolled Dpinnkbhw-hrplony-lec zyrtec or haroon and take daily Ijcezbjlrtcc-lubhnzp-xw change in treatment 08/06/2015 Appointment: (30 min) [...] patient to call if symptoms become uncontrolled Ptewvmxcj-ioshrlr-kvm zyrtec or haroon and take daily Kazbmhoojwof-svsgxdc-do change in treatment PROBIOTIC TWICE SARWAT Y-ALIGN [...] PROBIOTIC TWICE DAILY TO HELP REGULATE STOOLS [employer], [employer], [employer] ARE SOME OF THE BRANDS OF PROBIOTICS [...] to call for acute concerns. Pt seeing Policy And Planning Manager - defer treatment to him at this [...]
--- OUTSIDE RECORDS SUMMARY | 2020-04-19 07:35 | XMS REPORT | CCD ---
Author Author Michelle Lira Organization Elizabeth Robledo MD, [facility] Address [address] [place] [address] Phone Care Team Providers Care Assayer Name Role Phone PP Unavailable CCM Unavailable Summary Purpose Interface Exchange Insurance Providers Payer name Policy type / Coverage type Covered constitution party ID Effective Begin Date Effective End Date WPS Medicare Part B Medicare Part B [id number] Unknown Family history Sister Diagnosis Age At Onset Heart Attack Unknown Hyperlipidemia Unknown Hypertension Unknown Daughter Diagnosis Age At Onset Arthritis Unknown Son Diagnosis Age At Onset Depression Unknown Social History Social History Element Codes Description Effective Dates Marital status Unknown M guillermo Kaden 03/03/2017 Number of children Unknown 3 06/06/[address]: 04197835 Current every day smoker 06/06/2015 Number of years using tobacco Unknown 10 - 20 06/06/2015 Number of cigarettes/day Unknown 10 (Half a pack) 06/06/[address]: 265239694 Never drinks alcohol 06/06/2015 Allergies, Adverse Reactions, Alerts Substance Reaction Codes Entered Date Inactivated Date Status * NO KNOWN DRUG EDMUND RGIES Unknown 03/03/2017 No Inactive Date Active Past Medical History Illness Codes Condition Status Onset Date Resolved Date Headache ICD-9: 784.0 ICD-10: R51 Active 2019 Unknown Trigeminal neuralgia ICD-9: 350.1 ICD-10: G50.0 Active 2019 Unknown Essential (primary) hypertension ICD-9: [...] Condition Codes Effectiv e Dates Condition Status Headache ICD-9: 784.0 ICD-10: R51 2019 Active Trigeminal neuralgia ICD-9: 350.1 ICD-10: G50.0 2019 Active Essential (primary) hypertension ICD-9: 401.1 [...] Instructions carbamazepine 100 mg chewable tablet RxNorm: 996836 1 Tablet(s) PO BID 2019 05/31/2019 Ac tive acyclovir 400 mg tablet RxNorm: 336269 1 Tablet(s) PO TID 2019 02/10/2019 Active Lipitor 40 mg tablet RxNorm: 749780 1 Tablet(s) PO daily 06/24/2018 06/18/2019 Active citalopram 20 mg tablet RxNorm: 263635 1 Tablet(s) PO daily 04/12/2018 04/06/2019 Active citalopram 10 mg tablet RxNorm: 176487 TAKE ONE TABLET BY MOUTH DAILY 04/11/2018 04/11/2018 In active citalopram 10 mg tablet RxNorm: 099066 TAKE ONE TABLET BY MOUTH DAILY 11/04/2017 04/02/2018 In active citalopram 10 mg tablet RxNorm: 376885 1 Tablet(s) PO daily 04/05/2017 10/31/2017 Inactive buspirone 15 mg tablet RxNorm: 950950 1/2 Tablet(s) PO QAM 03/03/2017 04/04/2017 Inactive Lexapro 10 mg tablet RxNorm: 099333 1 Tablet(s) PO QPM 03/03/2017 04/04/2017 Inactive buspirone 15 mg tablet RxNorm: 680354 TAKE ONE-HALF TABLET BY MOUTH TWO TIMES A DAY 11/23/2016 03/02/2017 Inactive buspirone 15 mg tablet RxNorm: 312331 TAKE ONE-HALF TABLET BY MOUTH TWO TIMES A DAY 06/04/2016 11/22/2016 Inactive buspirone 15 mg tablet RxNorm: 777925 TAKE ONE-HALF TABLET BY MOUTH TWO TIMES A DAY 04/13/2016 06/03/2016 Inactive buspirone 15 mg tablet RxNorm: 275227 TAKE ONE-HALF TABLET BY MOUTH TWO TIMES A DAY 01/13/2016 04/11/2016 Inactive Augmentin 500 mg-125 mg tablet RxNorm: 476592 1 Tablet(s) PO TID 10/22/2015 10/31/2015 Inactive Give with a probiotic Augmentin 500 mg-125 mg tablet RxNorm: 549066 1 Tablet(s) PO TID 10/22/2015 10/21/2015 Inactive Give with a probiotic buspirone 15 mg tablet RxNorm: 624759 1/2 Tablet(s) PO BID 09/17/2015 01/12/2016 Inactive Flonase Allergy Reli ef 50 mcg/actuation nasal spray,suspension RxNorm: 1-2 [place] NASAL daily 07/08/2015 10/05/2015 Inactive Miralax 17 gram oral powder packet RxNorm: 328296 1 packet PO daily 07/08/2015 01/31/2019 Inactive metoprolol succinate ER 25 mg tablet,extended release 24 hr RxNorm: 821461 1 Tablet(s) PO daily No Start Date Active Aspirin Low Dose 81 mg tablet,delayed release RxNorm: 291051 1 Tablet(s) PO daily No Start Date Active Vitamin D3 1,000 uni t tablet RxNorm: 870821 2 Tablet(s) PO daily No Start Date Active Lipitor 40 mg tablet RxNorm: 159080 1 Tablet(s) PO daily No Start Date 06/23/2018 Inactive buspirone 15 mg tablet RxNorm: 886343 1/2 Tablet(s) PO BID No Start Date 09/16/2015 Inactive Medication Administered No Medication Administered data Immunizations Vaccine Codes Date Status Influenza CVX: 141 07/08 completed Pneumococcal (Adult) CVX: 133 07/08/2015 completed Assessments Condition Codes Effectiv e Dates Headache ICD-10: R51 ICD-9: 784.0 02/06/2019 Trigeminal neuralgia ICD-10: G50.0 ICD-9: 350.1 02/06/2019 Varicose veins of left lower extremity with pain ICD-10: I83.812 ICD-9: 454.8 08/08/2018 Essential (primary) hypertension ICD -10: I10 ICD-9: 401.1 08/08/2018 Generalized anxiety disorder ICD-10: F41.1 ICD-9: 300.02 04/12/2018 Generalized anxiety disorder ICD-10: F41.1 ICD-9: 300.00 04/05/2017 Chronic obstructive pulmonary disease wi th (acute) exacerbation ICD-10: J44.1 ICD-9: 496 02/08/2017 [...] Reason For Visit Effective Dates Notes earache 02/06/2019 earache 2019 knee pain 08/08/2018 knee pain 06/30/2018 anxiety 04/12/2018 swell ing anxiety 04/05/2017 anxiety 03/03/2017 fatigue 02/08/2017 Buspi frank constipation 08/06/2015 sinus congestion 07/08/2015 fatigue 06/06/2015 Results Observation Observation Code Item Item Code Result Date Comp Metabolic Tpy844 NA 134 mEq/L 2019 Comp Metabolic Zsz022 K 4.2 mEq/L 2019 Comp Metabolic Swi838 CL 99 mEq/L 2019 Comp Metabolic Wrl000 CO2 29.0 mEq/L 2019 Comp Metabolic Wql334 AN ION GAP 10 2019 Comp Metabolic Ygr608 GL UCOSE 114 mg/dL 2019 Comp Metabolic Dox506 Cr eat 0.8 mg/dL 2019 Comp Metabolic Dyc191 eG FR 81 ml/min/1.73m2 02/01 Comp Metabolic Slj443 BUN 15 mg/dL 2019 Comp Metabolic Jcb714 B/ C Ratio 20.0 Ratio 2019 Comp Metabolic Npv025 CA LCIUM 8.8 mg/dL 2019 Comp Metabolic Kqn800 AL K PHOS 61 U/L 2019 Comp Metabolic Pud105 T(SGOT) 29 U/L 2019 Comp Metabolic Uwl868 AL T(SGPT) 25 U/L 2019 Comp Metabolic Aiw335 BI LI T 0.5 mg/dL 2019 Comp Metabolic Qrw117 AL BUMIN 4.1 g/dL 2019 Comp Metabolic Ten595 TP RO 6.6 g/dL 2019 Comp Metabolic Lkr911 GL OB 2.5 g/dL 2019 Comp Metabolic Joh229 A/ G Ratio 1.7 Ratio 2019 Comp Metabolic Ogv512 Os mo 270 mOsmo 2019 Cbc With [...] 31.6 pg 2019 Cbc With Differential Ord2 [place]% 6.7 % 2019 Cbc With Differential Ord2 [...] 2.68 K/ul 2019 Cbc With Differential Ord2 [place] ABS# 0.6 K/ul 2019 Cbc With Differential Ord2 Eos ABS# 0.2 K/ul 2019 Cbc With Differential Ord2 Baso ABS# 0.1 K/ul 2019 C-Reactive Protein Qnt Crqnt CRP 0.1 mg/dl 2019 Sed Rate Ord21 ESR 9 mm/hr 2019 Comp Metabolic Bpo901 NA 139 mEq/L 02/08/2017 Comp Metabolic Uzx939 K 4.2 mEq/L 02/08/2017 Comp Metabolic Hsv470 CL 104 mEq/L 02/08/2017 Comp Metabolic Nwx629 CO2 27.0 mEq/L 02/08/2017 Comp Metabolic Vhr200 AN ION GAP 12 02/08/2017 Comp Metabolic Xfg812 GL UCOSE 87 mg/dL 02/08/2017 Comp Metabolic Pot386 Cr eat 0.8 mg/dL 02/08/2017 Comp Metabolic Nlr186 eG FR 71 ml/min/1.73m2 02/08 Comp Metabolic Tzg033 BUN 15 mg/dL 02/08/2017 Comp Metabolic Tzv437 B/ C Ratio 17.9 Ratio 02/08/2017 Comp Metabolic Kqv931 CA LCIUM 9.1 mg/dL 02/08/2017 Comp Metabolic Vck272 AL K PHOS 60 U/L 02/08/2017 Comp Metabolic Bne325 T(SGOT) 23 U/L 02/08/2017 Comp Metabolic Xhc082 AL T(SGPT) 14 U/L 02/08/2017 Comp Metabolic Mtf001 BI LI T 0.3 mg/dL 02/08/2017 Comp Metabolic Ivk413 AL BUMIN 4.1 g/dL 02/08/2017 Comp Metabolic Gba989 TP RO 6.6 g/dL 02/08/2017 Comp Metabolic Fjn295 GL OB 2.5 g/dL 02/08/2017 Comp Metabolic Yqo183 A/ G Ratio 1.6 Ratio 02/08/2017 Comp Metabolic Gvp098 Os mo 278 mOsmo 02/08/2017 Cbc With [...] 32.3 pg 02/08/2017 Cbc With Differential Ord2 [place]% 7.2 % 02/08/2017 Cbc With Differential Ord2 [...] 3.06 K/ul 02/08/2017 Cbc With Differential Ord2 [place] ABS# 0.6 K/ul 02/08/2017 Cbc With Differential Ord2 Eos ABS# 0.1 K/ul 02/08/2017 Cbc With Differential Ord2 Baso ABS# 0.1 K/ul 02/08/2017 Lipid Ord30 CHOL 204 mg/dL 02/08/2017 Lipid Ord30 HDL 64.0 mg/dl 02/08/2017 Lipid Ord30 TRIG 68 mg/dL 02/08/2017 Lipid Ord30 LDL 126 mg/dL 02/08/2017 Lipid Ord30 C/HDL 3.2 Ratio 02/08/2017 Tsh Ord6 hTSH II 1.48 uIU/mL 02/08/2017 Vitamin D 25 Oh Kxw8066 VITAMIN D, 25 HYDROXY 33.86 ng/mL 06/07/2015 [...] Ord2 RDW 12.8 % 06/06/2015 Comp Metabolic Iet693 NA 134 mEq/L 06/06/2015 Comp Metabolic Zor910 K 4.3 mEq/L 06/06/2015 Comp Metabolic Ssx743 CL 102 mEq/L 06/06/2015 Comp Metabolic Pew416 CO2 27.0 mEq/L 06/06/2015 Comp Metabolic Fgw620 AN ION GAP 9 06/06/2015 Comp Metabolic Erj584 GL UCOSE 95 mg/dL 06/06/2015 Comp Metabolic Eze036 Cr eat 0.8 mg/dL 06/06/2015 Comp Metabolic Caw529 eG FR 76 ml/min/1.73m2 06/06 Comp Metabolic Kzh230 BUN 14 mg/dL 06/06/2015 Comp Metabolic Bgi428 B/ C Ratio 17.5 Ratio 06/06/2015 Comp Metabolic Xmr031 CA LCIUM 9.6 mg/dL 06/06/2015 Comp Metabolic Oir039 AL K PHOS 64 U/L 06/06/2015 Comp Metabolic Hsk271 T(SGOT) 27 U/L 06/06/2015 Comp Metabolic Tog613 AL T(SGPT) 20 U/L 06/06/2015 Comp Metabolic Qka421 BI LI T 0.3 mg/dL 06/06/2015 Comp Metabolic Koq561 AL BUMIN 4.3 g/dL 06/06/2015 Comp Metabolic Zxi468 TP RO 6.8 g/dL 06/06/2015 Comp Metabolic Mzi617 GL OB 2.5 g/dL 06/06/2015 Comp Metabolic Dml697 A/ G Ratio 1.7 Ratio 06/06/2015 Comp Metabolic Ktg920 Os mo 269 mOsmo 06/06/2015 Review of Systems System Result Effective Dates Constitutional recent illness 02/06/2019 Constitutional No anorexia [...] masses 06/06/2015 None Full Exam - General 1995 Ears/Nose/Throat oral cavity/pharynx/larynx Overall: oral mucosa clear [...] 06/06/2015 None Procedures Procedure Codes Date TOBACCO-USE CARVER HAND 3-[address]: 270887494 CPT-4: G0436 04/05/2017 TOBACCO-USE CARVER HAND 3-[address]: 728092408 CPT-4: G0436 02/08/2017 ADMIN INFLUENZA VIRU S VAC Formatting Model/CDA Sections, Assigned to CPT-4: [id number] 07/08/2015 FLU VACC 4 LILIANA 3 YRS PLUS IM Formatting Model/CDA Sections, Assigned to SNOMED CT: 27956738 CPT-4: 89483Wsftlfz 07/08/2015 PNEUMOCOCCAL VACC 13 LILIANA IM Formatting Model/CDA Sections, Assigned to SNOMED CT: 48577415 CPT-4: 97866Wqhblcw 07/08/2015 TOBACCO-USE CARVER HAND 3-[address]: 268018839 CPT-4: G0436 06/06/2015 Vital Signs Date Vital 02/06/2019 Blood Pressure 1: 138/74 Code: 8480-6 BMI: 26.7 Code: 32789-2 Heart Rate 1: 69 bpm Height: 5'2" SpO2: 94% Weight: 146 lbs 2019 Blood Pressure 1: 136/82 Code: 8480-6 BMI: 26.7 Code: 11704-5 Heart Rate 1: 84 bpm Height: 5'2" SpO2: 93% Weight: 146 lbs 08/08/2018 Blood Pressure 1: 148/64 Code: 8480-6 BMI: 26.2 Code: 11171-2 Heart Rate 1: 69 bpm Height: 5'2" SpO2: 98% Weight: 143 lbs 06/30/2018 Blood Pressure 1: 136/76 Code: 8480-6 BMI: 26.2 Code: 99613-5 Heart Rate 1: 74 bpm Height: 5'2" SpO2: 94% Weight: 143 lbs 04/12/2018 Blood Pressure 1: 142/82 Code: 8480-6 BMI: 26.7 Code: 97013-1 Heart Rate 1: 63 bpm Height: 5'2" SpO2: 94% Weight: 146 lbs 04/05/2017 Blood Pressure 1: 124/70 Code: 8480-6 BMI: 24.1 Code: 29540-5 Heart Rate 1: 67 bpm Height: 5'2" SpO2: 94% Weight: 132 lbs 03/03/2017 Blood Pressure 1: 150/78 Code: 8480-6 BMI: 24.5 Code: 62842-7 Heart Rate 1: 58 bpm Height: 5'2" SpO2: 97% Weight: 134 lbs 02/08/2017 Blood Pressure 1: 156/78 Code: 8480-6 BMI: 24.5 Code: 54151-3 Heart Rate 1: 80 bpm Height: 5'2" SpO2: 95% Weight: 134 lbs 08/06/2015 Blood Pressure 1: 148/70 Code: 8480-6 BMI: 25.8 Code: 53253-2 Heart Rate 1: 84 bpm Height: 5'2" SpO2: 94% Weight: 141 lbs 07/08/2015 Blood Pressure 1: 144/62 Code: 8480-6 BMI: 25.1 Code: 45395-1 Heart Rate 1: 84 bpm Height: 5'2" SpO2: 94% Weight: 137 lbs 06/06/2015 Blood Pressure 1: 128/80 Code: 8480-6 BMI: 25.2 Code: 28386-8 Heart Rate 1: 69 bpm Height: 5'2" SpO2: 95% Weight: 138 lbs Functional Status No Functional Status data History of Present Illness Symptom Name Status Resu lt Effective Date Notes Location right ear 02/06/2019 None Quality sharp [...] Encounters Encounter Performer Loca tion Codes Date ([id number]) 88547 EST. P ATIENT, LEVEL III Diagnosis: Headache[ICD10: R51] Diagnosis: Trigeminal neuralgia[ICD10: G50.0] Carol Robledo MD, [facility] CPT-4: 84433 02/06/2019 ([id number]) 30908 EST. P ATIENT, LEVEL IV Diagnosis: Headache[ICD10: R51] Diagnosis: Trigeminal neuralgia[ICD10: G50.0] Carol Robledo MD, [facility] CPT-4: 12776 2019 ([id number]) 13652 EST. P ATIENT, LEVEL III Diagnosis: Essential (primary) hypertension[ICD10: I10] Diagnosis: Varicose veins of left lower extremity with pain[ICD10: I83.812] Elizabeth Robledo MD, [facility] CPT-4: 29199 08/08/2018 ([id number]) 43214 EST. P ATIENT, LEVEL III Diagnosis: Varicose veins of left lower extremity with pain[ICD10: I83.812] Elizabeth Robledo MD, [facility] CPT-4: 16461 06/30/2018 ([id number]) 59856 EST. P ATIENT, LEVEL IV Diagnosis: Essential (primary) hypertension[ICD10: I10] Diagnosis: Generalized anxiety disorder[ICD10: F41.1] Elizabeth Robledo MD, [facility] CPT-4: 64915 04/12/2018 ([id number]) 28109 EST. P ATIENT, LEVEL III Diagnosis: Generalized anxiety disorder[ICD10: F41.1] Elizabeth Robledo MD, C CPT-4: 46789 04/05/2017 ([id number]) 95537 EST. P ATIENT, LEVEL III Diagnosis: Generalized anxiety disorder[ICD10: F41.1] Diagnosis: Essential (primary) hypertension[ICD10: I10] Elizabeth Robledo MD, C CPT-4: 16396 03/03/2017 ([id number]) 28275 EST. P ATIENT, LEVEL IV Diagnosis: Generalized anxiety disorder[ICD10: F41.1] Diagnosis: Chronic obstructive pulmonary disease with (acute) exacerbation[ICD10: J44.1] Elizabeth Robledo MD, [facility] CPT-4: 72242 02/08/2017 ([id number]) 64068 EST. P ATIENT, LEVEL III Diagnosis: Generalized anxiety disorder[ICD10: F41.1] Diagnosis: Other seasonal allergic rhinitis[ICD10: J30.2] Carol Robledo MD, [facility] CPT-4: 17411 08/06/2015 ([id number]) 47159 EST. P ATIENT, LEVEL IV Diagnosis: Generalized anxiety disorder[ICD10: F41.1] Diagnosis: Other seasonal allergic rhinitis[ICD10: J30.2] Diagnosis: Rectocele[ICD10: N81.6] Carol Robledo MD, [facility] CPT-4: 81810 07/08/2015 ([id number]) OFFICE NANCI Russell [facility] LEVEL 4 Diagnosis: COPD (chronic obstructive pulmonary disease)[ICD9: 496] Diagnosis: Tobacco use[ICD9: 305.1] Diagnosis: Myalgia[ICD9: 729.1] Diagnosis: Anxiety[ICD9: 300.00] Diagnosis: Altered bowel habits[ICD9: 787.99] Carol Robledo MD, [facility] CPT-4: 05079 06/06/2015 Plan of Care Planned Activity Notes C odes Status Date Visit Plan: Headache -secondary to trigeminal neuralgia- symptoms improved -will continue to monitor closely -no change in medications - patient is scheduled for CT scan this week -follow up in 1 week, sooner if needed. 02/06/2019 Appointment: Carol Lira WPtel: [address] [place], [place] [phone] (15 min) Moderate 02/06/2019 Patient Education: Patient Medication Summary Completed 02/06/2019 Visit Plan: Trigeminal neuralgia -f acial pain -will check labs and MRI brain to rule out secondary causes -rx for carbamazepine provided and instructed on use -return on Wednesday -patient verbalized understanding of plan. 2019 Appointment: Carol Lira WPtel: [facility] [place] (30 min) Complex 2019 Patient Education: Patient Medication Summary Completed 2019 Appointment: Elizabeth Robledo WPtel: [address] [facility] [address] (15 min) Moderate 12/27/2018 Visit Plan: Hypertension [...] with compression. 08/08/2018 Appointment: Elizabeth Robledo WPtel: [address] [facility] [address] (15 min) Moderate 08/08/2018 Patient Education: Patient [...] see you 06/30/2018 Appointment: [facility] [address] [facility] [place] (15 min) Moderate 06/30/2018 Patient Education: Patient [...] for this patient. Increase citalopram 04/12/2018 Appointment: Venkat Elizabeth WPtel: [address] [facility] [address] (15 min) Moderate 04/12/2018 Patient Education: Patient Medication Summary Completed 04/12/2018 Appointment: Elizabeth Robledo WPtel: [address] [facility] [address] (15 min) Moderate 04/07/2018 Appointment: Elizabeth Robledo WPtel: [address] [facility] [address] (15 min) Moderate 05/03/2017 Visit Plan: Anxiety [...] above medications. 04/05/2017 Appointment: Elizabeth Robledo WPtel: [facility] (15 min) Moderate 04/05/2017 Patient Education: Patient [...] to call for acute concerns. Pt seeing Hoop Driving Machine Operator - defer treatment to him at this time as he has an extensive work-up pending. Generalized anxiety disorder - uncontrolled symptoms - decrease the buspirone to 1/2 pill in the morning. start on lexapro 10mg at bedtime 03/03/2017 Appointment: Elizabeth Robledo WPtel: [facility] [address] (15 min) Moderate 03/03/2017 Patient Education: Patient [...] of chest 02/08/2017 Appointment: Elizabeth Robledo WPtel: [facility] (15 min) Moderate 02/08/2017 Patient Education: Patient Medication Summary Completed 02/08/2017 Patient Education: Smoking and Tobacco Addiction Completed 02/08/2017 Appointment: Carol Lira WPtel: [facility] [place] (15 min) Moderate 04/28/2016 Visit Plan: Chronic anxiety-symptom s fairly well controlled- no change in treatment-instructed patient to call if symptoms become uncontrolled Zxqobkcqq-yqbvobl-zsy zyrtec or haroon and take daily Ylxobklpmizf-nrkzogn-sa change in treatment 08/06/2015 Appointment: (30 min) [...] patient to call if symptoms become uncontrolled Bgwzhebbv-eqsqvph-tjy zyrtec or haroon and take daily Cnniaaosoetg-kthfhsk-lo change in treatment PROBIOTIC TWICE SARWAT Y-ALIGN [...] TWICE DAILY TO HELP REGULATE STOOLS JORDON [employer] [facility] ARE SOME OF THE BRANDS OF PROBIOTICS [...] to call for acute concerns. Pt seeing Hoop Driving Machine Operator - defer treatment to him at this time as he has an extensive work-up pending. Generalized anxiety disorder - uncontrolled symptoms - decrease the buspirone to 1/2 pill in the morning. start on lexapro 10mg at bedtime
--- OUTSIDE RECORDS SUMMARY | 2020-04-19 07:36 | XMS REPORT | CCD ---
Author Author Michelle Lira Organization Elizabeth Robledo MD, [facility] Address [address] [place] [address] Phone Care Team Providers Care Applicator Sprayer Name Role Phone PP Unavailable CCM Unavailable Summary Purpose Interface Exchange Insurance Providers Payer name Policy type / Coverage type Covered democrat ID Effective Begin Date Effective End Date WPS Medicare Part B Medicare Part B [id number] Unknown Family history Sister Diagnosis Age At Onset Heart Attack Unknown Hyperlipidemia Unknown Hypertension Unknown Daughter Diagnosis Age At Onset Arthritis Unknown Son Diagnosis Age At Onset Depression Unknown Social History Social History Element Codes Description Effective Dates Marital status Unknown M guillermo Kaden 03/03/2017 Number of children Unknown 3 06/06/[address]: 94021365 Current every day smoker 06/06/2015 Number of years using tobacco Unknown 10 - 20 06/06/2015 Number of cigarettes/day Unknown 10 (Half a pack) 06/06/[address]: 772277657 Never drinks alcohol 06/06/2015 Allergies, Adverse Reactions, [...] Instructions carbamazepine 100 mg chewable tablet RxNorm: 961863 1 Tablet(s) PO BID 2019 05/31/2019 Ac tive acyclovir 400 mg tablet RxNorm: 041866 1 Tablet(s) PO TID 2019 02/10/2019 Active Lipitor 40 mg tablet RxNorm: 448460 1 Tablet(s) PO daily 06/24/2018 06/18/2019 Active citalopram 20 mg tablet RxNorm: 599732 1 Tablet(s) PO daily 04/12/2018 04/06/2019 Active citalopram 10 mg tablet RxNorm: 872052 TAKE ONE TABLET BY MOUTH DAILY 04/11/2018 04/11/2018 In active citalopram 10 mg tablet RxNorm: 560416 TAKE ONE TABLET BY MOUTH DAILY 11/04/2017 04/02/2018 In active citalopram 10 mg tablet RxNorm: 708027 1 Tablet(s) PO daily 04/05/2017 10/31/2017 Inactive buspirone 15 mg tablet RxNorm: 635228 1/2 Tablet(s) PO QAM 03/03/2017 04/04/2017 Inactive Lexapro 10 mg tablet RxNorm: 954069 1 Tablet(s) PO QPM 03/03/2017 04/04/2017 Inactive buspirone 15 mg tablet RxNorm: 424760 TAKE ONE-HALF TABLET BY MOUTH TWO TIMES A DAY 11/23/2016 03/02/2017 Inactive buspirone 15 mg tablet RxNorm: 585695 TAKE ONE-HALF TABLET BY MOUTH TWO TIMES A DAY 06/04/2016 11/22/2016 Inactive buspirone 15 mg tablet RxNorm: 602531 TAKE ONE-HALF TABLET BY MOUTH TWO TIMES A DAY 04/13/2016 06/03/2016 Inactive buspirone 15 mg tablet RxNorm: 241351 TAKE ONE-HALF TABLET BY MOUTH TWO TIMES A DAY 01/13/2016 04/11/2016 Inactive Augmentin 500 mg-125 mg tablet RxNorm: 982750 1 Tablet(s) PO TID 10/22/2015 10/31/2015 Inactive Give with a probiotic Augmentin 500 mg-125 mg tablet RxNorm: 550706 1 Tablet(s) PO TID 10/22/2015 10/21/2015 Inactive Give with a probiotic buspirone 15 mg tablet RxNorm: 149995 1/2 Tablet(s) PO BID 09/17/2015 01/12/2016 Inactive Flonase Allergy Reli ef 50 mcg/actuation nasal spray,suspension RxNorm: 1-2 [place] NASAL daily 07/08/2015 10/05/2015 Inactive Miralax 17 gram oral powder packet RxNorm: 724747 1 packet PO daily 07/08/2015 01/31/2019 Inactive metoprolol succinate ER 25 mg tablet,extended release 24 hr RxNorm: 846771 1 Tablet(s) PO daily No Start Date Active Aspirin Low Dose 81 mg tablet,delayed release RxNorm: 379486 1 Tablet(s) PO daily No Start Date Active Vitamin D3 1,000 uni t tablet RxNorm: 963062 2 Tablet(s) PO daily No Start Date Active Lipitor 40 mg tablet RxNorm: 361261 1 Tablet(s) PO daily No Start Date 06/23/2018 Inactive buspirone 15 mg tablet RxNorm: 309203 1/2 Tablet(s) PO BID No Start Date [...] Item Item Code Result Date Comp Metabolic Wqx556 NA 134 mEq/L 2019 Comp Metabolic Ivu347 K 4.2 mEq/L 2019 Comp Metabolic Lyy682 CL 99 mEq/L 2019 Comp Metabolic Tcg086 CO2 29.0 mEq/L 2019 Comp Metabolic Uhw989 AN ION GAP 10 2019 Comp Metabolic Bul094 GL UCOSE 114 mg/dL 2019 Comp Metabolic Ggb555 Cr eat 0.8 mg/dL 2019 Comp Metabolic Fey434 eG FR 81 ml/min/1.73m2 02/01 Comp Metabolic Zvf549 BUN 15 mg/dL 2019 Comp Metabolic Agd942 B/ C Ratio 20.0 Ratio 2019 Comp Metabolic Rhz458 CA LCIUM 8.8 mg/dL 2019 Comp Metabolic Fjl795 AL K PHOS 61 U/L 2019 Comp Metabolic Nxi832 T(SGOT) 29 U/L 2019 Comp Metabolic Euh857 AL T(SGPT) 25 U/L 2019 Comp Metabolic Ign417 BI LI T 0.5 mg/dL 2019 Comp Metabolic Neu046 AL BUMIN 4.1 g/dL 2019 Comp Metabolic Gyr170 TP RO 6.6 g/dL 2019 Comp Metabolic Xuf866 GL OB 2.5 g/dL 2019 Comp Metabolic Nsz556 A/ G Ratio 1.7 Ratio 2019 Comp Metabolic Fce868 Os mo 270 mOsmo 2019 Cbc With [...] 31.6 pg 2019 Cbc With Differential Ord2 [place]% 6.7 % 2019 Cbc With Differential Ord2 [...] 2.68 K/ul 2019 Cbc With Differential Ord2 [place] ABS# 0.6 K/ul 2019 Cbc With Differential Ord2 Eos ABS# 0.2 K/ul 2019 Cbc With Differential Ord2 Baso ABS# 0.1 K/ul 2019 C-Reactive Protein Qnt Crqnt CRP 0.1 mg/dl 2019 Sed Rate Ord21 ESR 9 mm/hr 2019 Comp Metabolic Gfm928 NA 139 mEq/L 02/08/2017 Comp Metabolic Wff808 K 4.2 mEq/L 02/08/2017 Comp Metabolic Vet089 CL 104 mEq/L 02/08/2017 Comp Metabolic Lnq218 CO2 27.0 mEq/L 02/08/2017 Comp Metabolic Bkz734 AN ION GAP 12 02/08/2017 Comp Metabolic Jmq182 GL UCOSE 87 mg/dL 02/08/2017 Comp Metabolic Iqo168 Cr eat 0.8 mg/dL 02/08/2017 Comp Metabolic Zpe647 eG FR 71 ml/min/1.73m2 02/08 Comp Metabolic Wvo835 BUN 15 mg/dL 02/08/2017 Comp Metabolic Wjo092 B/ C Ratio 17.9 Ratio 02/08/2017 Comp Metabolic Cdl201 CA LCIUM 9.1 mg/dL 02/08/2017 Comp Metabolic Ftj488 AL K PHOS 60 U/L 02/08/2017 Comp Metabolic Odr357 T(SGOT) 23 U/L 02/08/2017 Comp Metabolic Ims458 AL T(SGPT) 14 U/L 02/08/2017 Comp Metabolic Yvd890 BI LI T 0.3 mg/dL 02/08/2017 Comp Metabolic Osa192 AL BUMIN 4.1 g/dL 02/08/2017 Comp Metabolic Vto251 TP RO 6.6 g/dL 02/08/2017 Comp Metabolic Zjx459 GL OB 2.5 g/dL 02/08/2017 Comp Metabolic Dox061 A/ G Ratio 1.6 Ratio 02/08/2017 Comp Metabolic Vjr437 Os mo 278 mOsmo 02/08/2017 Cbc With [...] 32.3 pg 02/08/2017 Cbc With Differential Ord2 [place]% 7.2 % 02/08/2017 Cbc With Differential Ord2 [...] 3.06 K/ul 02/08/2017 Cbc With Differential Ord2 [place] ABS# 0.6 K/ul 02/08/2017 Cbc With Differential Ord2 Eos ABS# 0.1 K/ul 02/08/2017 Cbc With Differential Ord2 Baso ABS# 0.1 K/ul 02/08/2017 Lipid Ord30 CHOL 204 mg/dL 02/08/2017 Lipid Ord30 HDL 64.0 mg/dl 02/08/2017 Lipid Ord30 TRIG 68 mg/dL 02/08/2017 Lipid Ord30 LDL 126 mg/dL 02/08/2017 Lipid Ord30 C/HDL 3.2 Ratio 02/08/2017 Tsh Ord6 hTSH II 1.48 uIU/mL 02/08/2017 Vitamin D 25 Oh Evw4490 VITAMIN D, 25 HYDROXY 33.86 ng/mL 06/07/2015 [...] Ord2 RDW 12.8 % 06/06/2015 Comp Metabolic Dju144 NA 134 mEq/L 06/06/2015 Comp Metabolic Avm228 K 4.3 mEq/L 06/06/2015 Comp Metabolic Gwd028 CL 102 mEq/L 06/06/2015 Comp Metabolic Ski051 CO2 27.0 mEq/L 06/06/2015 Comp Metabolic Uct917 AN ION GAP 9 06/06/2015 Comp Metabolic Xdh715 GL UCOSE 95 mg/dL 06/06/2015 Comp Metabolic Sao534 Cr eat 0.8 mg/dL 06/06/2015 Comp Metabolic Qru469 eG FR 76 ml/min/1.73m2 06/06 Comp Metabolic Zww863 BUN 14 mg/dL 06/06/2015 Comp Metabolic Hde461 B/ C Ratio 17.5 Ratio 06/06/2015 Comp Metabolic Qwr378 CA LCIUM 9.6 mg/dL 06/06/2015 Comp Metabolic Xij660 AL K PHOS 64 U/L 06/06/2015 Comp Metabolic Xqm334 T(SGOT) 27 U/L 06/06/2015 Comp Metabolic Lip920 AL T(SGPT) 20 U/L 06/06/2015 Comp Metabolic Mdf358 BI LI T 0.3 mg/dL 06/06/2015 Comp Metabolic Nfl852 AL BUMIN 4.3 g/dL 06/06/2015 Comp Metabolic Azw495 TP RO 6.8 g/dL 06/06/2015 Comp Metabolic Dro490 GL OB 2.5 g/dL 06/06/2015 Comp Metabolic Xys517 A/ G Ratio 1.7 Ratio 06/06/2015 Comp Metabolic Nmj886 Os mo 269 mOsmo 06/06/2015 Review of [...] 06/06/2015 None Procedures Procedure Codes Date TOBACCO-USE RN CARDIAC REHAB 3-[address]: 365396417 CPT-4: G0436 04/05/2017 TOBACCO-USE RN CARDIAC REHAB 3-[address]: 119191576 CPT-4: G0436 02/08/2017 ADMIN INFLUENZA VIRU S VAC Formatting Model/CDA Sections, Assigned to CPT-4: [id number] 07/08/2015 FLU VACC 4 LILIANA 3 YRS PLUS IM Formatting Model/CDA Sections, Assigned to SNOMED CT: 06106198 CPT-4: 09629Hhrxvtz 07/08/2015 PNEUMOCOCCAL VACC 13 LILIANA IM Formatting Model/CDA Sections, Assigned to SNOMED CT: 67760752 CPT-4: 76058Fpcblba 07/08/2015 TOBACCO-USE RN CARDIAC REHAB 3-[address]: 463511379 CPT-4: G0436 06/06/2015 Vital Signs Date Vital 02/06/2019 Blood Pressure 1: 138/74 Code: 8480-6 BMI: 26.7 Code: 88587-4 Heart Rate 1: 69 bpm Height: 5'2" SpO2: 94% Weight: 146 lbs 2019 Blood Pressure 1: 136/82 Code: 8480-6 BMI: 26.7 Code: 52882-0 Heart Rate 1: 84 bpm Height: 5'2" SpO2: 93% Weight: 146 lbs 08/08/2018 Blood Pressure 1: 148/64 Code: 8480-6 BMI: 26.2 Code: 55663-2 Heart Rate 1: 69 bpm Height: 5'2" SpO2: 98% Weight: 143 lbs 06/30/2018 Blood Pressure 1: 136/76 Code: 8480-6 BMI: 26.2 Code: 41943-1 Heart Rate 1: 74 bpm Height: 5'2" SpO2: 94% Weight: 143 lbs 04/12/2018 Blood Pressure 1: 142/82 Code: 8480-6 BMI: 26.7 Code: 27270-6 Heart Rate 1: 63 bpm Height: 5'2" SpO2: 94% Weight: 146 lbs 04/05/2017 Blood Pressure 1: 124/70 Code: 8480-6 BMI: 24.1 Code: 90750-5 Heart Rate 1: 67 bpm Height: 5'2" SpO2: 94% Weight: 132 lbs 03/03/2017 Blood Pressure 1: 150/78 Code: 8480-6 BMI: 24.5 Code: 41683-2 Heart Rate 1: 58 bpm Height: 5'2" SpO2: 97% Weight: 134 lbs 02/08/2017 Blood Pressure 1: 156/78 Code: 8480-6 BMI: 24.5 Code: 70271-3 Heart Rate 1: 80 bpm Height: 5'2" SpO2: 95% Weight: 134 lbs 08/06/2015 Blood Pressure 1: 148/70 Code: 8480-6 BMI: 25.8 Code: 79881-2 Heart Rate 1: 84 bpm Height: 5'2" SpO2: 94% Weight: 141 lbs 07/08/2015 Blood Pressure 1: 144/62 Code: 8480-6 BMI: 25.1 Code: 26812-0 Heart Rate 1: 84 bpm Height: 5'2" SpO2: 94% Weight: 137 lbs 06/06/2015 Blood Pressure 1: 128/80 Code: 8480-6 BMI: 25.2 Code: 36116-8 Heart Rate 1: 69 bpm Height: 5'2" [...] Encounters Encounter Performer Loca tion Codes Date ([id number]) [id number] EST. P ATIENT, LEVEL III Diagnosis: Headache[ICD10: R51] Diagnosis: Trigeminal neuralgia[ICD10: G50.0] Carol Robledo MD, [facility] CPT-4: 92743 02/06/2019 ([id number]) 21496 EST. P ATIENT, LEVEL IV Diagnosis: Headache[ICD10: R51] Diagnosis: Trigeminal neuralgia[ICD10: G50.0] Carol Robledo MD, [facility] CPT-4: 99679 2019 ([id number]) 68005 EST. P ATIENT, LEVEL III Diagnosis: Essential (primary) hypertension[ICD10: I10] Diagnosis: Varicose veins of left lower extremity with pain[ICD10: I83.812] Elizabeth Robledo MD, [facility] CPT-4: 24996 08/08/2018 ([id number]) 32166 EST. P ATIENT, LEVEL III Diagnosis: Varicose veins of left lower extremity with pain[ICD10: I83.812] Elizabeth Robledo MD, [facility] CPT-4: 02074 06/30/2018 ([id number]) 98840 EST. P ATIENT, LEVEL IV Diagnosis: Essential (primary) hypertension[ICD10: I10] Diagnosis: Generalized anxiety disorder[ICD10: F41.1] Elizabeth Robledo MD, [facility] CPT-4: 73831 04/12/2018 ([id number]) 43772 EST. P ATIENT, LEVEL III Diagnosis: Generalized anxiety disorder[ICD10: F41.1] Elizabeth Robledo MD, C CPT-4: 06601 04/05/2017 ([id number]) 40908 EST. P ATIENT, LEVEL III Diagnosis: Generalized anxiety disorder[ICD10: F41.1] Diagnosis: Essential (primary) hypertension[ICD10: I10] Elizabeth Robledo MD, C CPT-4: 90141 03/03/2017 ([id number]) 67086 EST. P ATIENT, LEVEL IV Diagnosis: Generalized anxiety disorder[ICD10: F41.1] Diagnosis: Chronic obstructive pulmonary disease with (acute) exacerbation[ICD10: J44.1] Elizabeth Robledo MD, [facility] CPT-4: 81581 02/08/2017 ([id number]) 64800 EST. P ATIENT, LEVEL III Diagnosis: Generalized anxiety disorder[ICD10: F41.1] Diagnosis: Other seasonal allergic rhinitis[ICD10: J30.2] Carol Robledo MD, [facility] CPT-4: 99851 08/06/2015 ([id number]) 75331 EST. P ATIENT, LEVEL IV Diagnosis: Generalized anxiety disorder[ICD10: F41.1] Diagnosis: Other seasonal allergic rhinitis[ICD10: J30.2] Diagnosis: Rectocele[ICD10: N81.6] Carol Robledo MD, [facility] CPT-4: 39439 07/08/2015 ([id number]) OFFICE [facility] - LEVEL 4 Diagnosis: COPD (chronic obstructive pulmonary disease)[ICD9: 496] Diagnosis: Tobacco use[ICD9: 305.1] Diagnosis: Myalgia[ICD9: 729.1] Diagnosis: Anxiety[ICD9: 300.00] Diagnosis: Altered bowel habits[ICD9: 787.99] Carol Robledo MD, [facility] CPT-4: 57011 06/06/2015 Plan of Care Planned Activity Notes C odes Status Date Visit Plan: Headache -secondary to trigeminal neuralgia- symptoms improved -will continue to monitor closely -no change in medications - patient is scheduled for CT scan this week -follow up in 1 week, sooner if needed. 02/06/2019 Patient Education: Patient Medication Summary Completed 02/06/2019 Visit Plan: Trigeminal neuralgia -f acial pain -will check labs and MRI brain to rule out secondary causes -rx for carbamazepine provided and instructed on use -return on Wednesday -patient verbalized understanding of plan. 2019 Appointment: Carol Lira WPtel: [address] [place], [place] [phone] (30 min) [facility] 2019 Patient Education: Patient Medication Summary Completed 2019 Appointment: Elizabeth Robledo WPtel: [phone] [facility] (15 min) Moderate 12/27/2018 Visit Plan: Hypertension [...] with compression. 08/08/2018 Appointment: Elizabeth Robledo WPtel: [phone] [facility] (15 min) Moderate 08/08/2018 Patient Education: [...] see you 06/30/2018 Appointment: Elizabeth Robledo WPtel: [facility] (15 min) Moderate 06/30/2018 Patient Education: [...] Increase citalopram 04/12/2018 Appointment: Elizabeth Robledo WPtel: [phone] [facility] [place] (15 min) Moderate 04/12/2018 Patient Education: Patient Medication Summary Completed 04/12/2018 Appointment: Elizabeth Robledo WPtel: [phone] [facility] [place] (15 min) Moderate 04/07/2018 Appointment: [phone] (15 min) Moderate 05/03/2017 Visit Plan: Anxiety [...] above medications. 04/05/2017 Appointment: Elizabeth Robledo WPtel: [phone] [facility] (15 min) Moderate 04/05/2017 Patient Education: [...] to call for acute concerns. Pt seeing Skin Piler - defer treatment to him at this time as he has an extensive work-up pending. Generalized anxiety disorder - uncontrolled symptoms - decrease the buspirone to 1/2 pill in the morning. start on lexapro 10mg at bedtime 03/03/2017 Appointment: [phone] (15 min) Moderate 03/03/2017 Patient Education: Patient [...] chest 02/08/2017 Appointment: [phone] (15 min) Moderate 02/08/2017 Patient Education: Patient Medication Summary Completed 02/08/2017 Patient Education: Smoking and Tobacco Addiction Completed 02/08/2017 Appointment: Carol Lira WPtel[phone] (15 min) Moderate 04/28/2016 Visit Plan: Chronic anxiety-symptom s fairly well controlled- no change in treatment-instructed patient to call if symptoms become uncontrolled Ljexkndrq-hjmfmsu-oij zyrtec or haroon and take daily Toumhnzuqvrz-gtvrjjo-bf change in treatment 08/06/2015 Appointment: (30 min) [...] patient to call if symptoms become uncontrolled Fvlmllezb-fjqdsaw-bnd zyrtec or haroon and take daily Vaaolxmmrcrh-dqtjyyy-pp change in treatment PROBIOTIC TWICE SARWAT Y-ALIGN [...] PROBIOTIC TWICE DAILY TO HELP REGULATE STOOLS ALIGN, [employer] ARE SOME OF THE BRANDS OF PROBIOTICS [...] to call for acute concerns. Pt seeing Skin Piler - defer treatment to him at this time as he has an extensive work-up pending. Generalized anxiety disorder - uncontrolled symptoms - decrease the buspirone to 1/2 pill in the morning. start on lexapro 10mg at bedtime
--- OUTSIDE RECORDS SUMMARY | 2020-04-19 07:37 | XMS REPORT | CCD ---
Author Author Michelle Lira Organization Elizabeth Robledo MD, [facility] Address [address] [place] [address] Phone Care Team Providers Care Cutting Inspector Name Role Phone PP Unavailable CCM Unavailable Summary Purpose Interface Exchange Insurance Providers Payer name Policy type / Coverage type Covered constitution party ID Effective Begin Date Effective End Date WPS Medicare Part B Medicare Part B [id number] Unknown Family history Sister Diagnosis Age At Onset Heart Attack Unknown Hyperlipidemia Unknown Hypertension Unknown Daughter Diagnosis Age At Onset Arthritis Unknown Son Diagnosis Age At Onset Depression Unknown Social History Social History Element Codes Description Effective Dates Marital status Unknown M guillermo Kaden 03/03/2017 Number of children Unknown 3 06/06/[address]: 96606927 Current every day smoker 06/06/2015 Number of years using tobacco Unknown 10 - 20 06/06/2015 Number of cigarettes/day Unknown 10 (Half a pack) 06/06/[address]: 016129172 Never drinks alcohol 06/06/2015 Allergies, Adverse Reactions, [...] Instructions carbamazepine 100 mg chewable tablet RxNorm: 452618 1 Tablet(s) PO BID 2019 05/31/2019 Ac tive acyclovir 400 mg tablet RxNorm: 854283 1 Tablet(s) PO TID 2019 02/10/2019 Active Lipitor 40 mg tablet RxNorm: 011172 1 Tablet(s) PO daily 06/24/2018 06/18/2019 Active citalopram 20 mg tablet RxNorm: 074470 1 Tablet(s) PO daily 04/12/2018 04/06/2019 Active citalopram 10 mg tablet RxNorm: 451253 TAKE ONE TABLET BY MOUTH DAILY 04/11/2018 04/11/2018 In active citalopram 10 mg tablet RxNorm: 508200 TAKE ONE TABLET BY MOUTH DAILY 11/04/2017 04/02/2018 In active citalopram 10 mg tablet RxNorm: 471860 1 Tablet(s) PO daily 04/05/2017 10/31/2017 Inactive buspirone 15 mg tablet RxNorm: 525683 1/2 Tablet(s) PO QAM 03/03/2017 04/04/2017 Inactive Lexapro 10 mg tablet RxNorm: 751304 1 Tablet(s) PO QPM 03/03/2017 04/04/2017 Inactive buspirone 15 mg tablet RxNorm: 984914 TAKE ONE-HALF TABLET BY MOUTH TWO TIMES A DAY 11/23/2016 03/02/2017 Inactive buspirone 15 mg tablet RxNorm: 472562 TAKE ONE-HALF TABLET BY MOUTH TWO TIMES A DAY 06/04/2016 11/22/2016 Inactive buspirone 15 mg tablet RxNorm: 844452 TAKE ONE-HALF TABLET BY MOUTH TWO TIMES A DAY 04/13/2016 06/03/2016 Inactive buspirone 15 mg tablet RxNorm: 941146 TAKE ONE-HALF TABLET BY MOUTH TWO TIMES A DAY 01/13/2016 04/11/2016 Inactive Augmentin 500 mg-125 mg tablet RxNorm: 851158 1 Tablet(s) PO TID 10/22/2015 10/31/2015 Inactive Give with a probiotic Augmentin 500 mg-125 mg tablet RxNorm: 448974 1 Tablet(s) PO TID 10/22/2015 10/21/2015 Inactive Give with a probiotic buspirone 15 mg tablet RxNorm: 499527 1/2 Tablet(s) PO BID 09/17/2015 01/12/2016 Inactive Flonase Allergy Reli ef 50 mcg/actuation nasal spray,suspension RxNorm: 1-2 [place]ta NASAL daily 07/08/2015 10/05/2015 Inactive Miralax 17 gram oral powder packet RxNorm: 938570 1 packet PO daily 07/08/2015 01/31/2019 Inactive metoprolol succinate ER 25 mg tablet,extended release 24 hr RxNorm: 660219 1 Tablet(s) PO daily No Start Date Active Aspirin Low Dose 81 mg tablet,delayed release RxNorm: 299148 1 Tablet(s) PO daily No Start Date Active Vitamin D3 1,000 uni t tablet RxNorm: 214473 2 Tablet(s) PO daily No Start Date Active Lipitor 40 mg tablet RxNorm: 382548 1 Tablet(s) PO daily No Start Date 06/23/2018 Inactive buspirone 15 mg tablet RxNorm: 901439 1/2 Tablet(s) PO BID No Start Date 09/16/2015 Inactive Medication Administered No Medication Administered data Immunizations Vaccine Codes Date Status Influenza CVX: 141 07/08 completed Pneumococcal (Adult) CVX: 133 07/08/2015 completed Assessments Condition Codes Effectiv e Dates Trigeminal neuralgia ICD-10: G50.0 ICD-9: 350.1 2019 Headache ICD-10: R51 ICD-9: 784.0 2019 Varicose veins of left lower extremity with [...] Reason For Visit Effective Dates Notes earache 2019 knee pain 08/08/2018 knee pain 06/30/2018 anxiety 04/12/2018 swell ing anxiety 04/05/2017 anxiety 03/03/2017 fatigue 02/08/2017 Buspi frank constipation 08/06/2015 sinus congestion 07/08/2015 fatigue 06/06/2015 Results Observation Observation Code Item Item Code Result Date Comp Metabolic Bsw846 NA 134 mEq/L 2019 Comp Metabolic Bht603 K 4.2 mEq/L 2019 Comp Metabolic Inn410 CL 99 mEq/L 2019 Comp Metabolic Wfc667 CO2 29.0 mEq/L 2019 Comp Metabolic Fkk060 AN ION GAP 10 2019 Comp Metabolic Oxh464 GL UCOSE 114 mg/dL 2019 Comp Metabolic Dlf078 Cr eat 0.8 mg/dL 2019 Comp Metabolic Mjr322 eG FR 81 ml/min/1.73m2 02/01 Comp Metabolic Sby586 BUN 15 mg/dL 2019 Comp Metabolic Xrn783 B/ C Ratio 20.0 Ratio 2019 Comp Metabolic Ytz711 CA LCIUM 8.8 mg/dL 2019 Comp Metabolic Isd225 AL K PHOS 61 U/L 2019 Comp Metabolic Euw494 T(SGOT) 29 U/L 2019 Comp Metabolic Pdm225 AL T(SGPT) 25 U/L 2019 Comp Metabolic Tfh439 BI LI T 0.5 mg/dL 2019 Comp Metabolic Tsc063 AL BUMIN 4.1 g/dL 2019 Comp Metabolic Fbe196 TP RO 6.6 g/dL 2019 Comp Metabolic Xvg002 GL OB 2.5 g/dL 2019 Comp Metabolic Prm244 A/ G Ratio 1.7 Ratio 2019 Comp Metabolic Ifw555 Os mo 270 mOsmo 2019 Cbc With [...] 31.6 pg 2019 Cbc With Differential Ord2 Webb% 6.7 % 2019 Cbc With Differential Ord2 [...] 2.68 K/ul 2019 Cbc With Differential Ord2 Webb ABS# 0.6 K/ul 2019 Cbc With Differential Ord2 Eos ABS# 0.2 K/ul 2019 Cbc With Differential Ord2 Baso ABS# 0.1 K/ul 2019 C-Reactive Protein Qnt Crqnt CRP 0.1 mg/dl 2019 Sed Rate Ord21 ESR 9 mm/hr 2019 Comp Metabolic Pyb041 NA 139 mEq/L 02/08/2017 Comp Metabolic Cyt086 K 4.2 mEq/L 02/08/2017 Comp Metabolic Ceh462 CL 104 mEq/L 02/08/2017 Comp Metabolic Wjf876 CO2 27.0 mEq/L 02/08/2017 Comp Metabolic Mgm247 AN ION GAP 12 02/08/2017 Comp Metabolic Rip978 GL UCOSE 87 mg/dL 02/08/2017 Comp Metabolic Ouy992 Cr eat 0.8 mg/dL 02/08/2017 Comp Metabolic Ogz236 eG FR 71 ml/min/1.73m2 02/08 Comp Metabolic Yef268 BUN 15 mg/dL 02/08/2017 Comp Metabolic Akx652 B/ C Ratio 17.9 Ratio 02/08/2017 Comp Metabolic Eet494 CA LCIUM 9.1 mg/dL 02/08/2017 Comp Metabolic Vhj043 AL K PHOS 60 U/L 02/08/2017 Comp Metabolic Qop826 T(SGOT) 23 U/L 02/08/2017 Comp Metabolic Uqj490 AL T(SGPT) 14 U/L 02/08/2017 Comp Metabolic Rhu614 BI LI T 0.3 mg/dL 02/08/2017 Comp Metabolic Iro378 AL BUMIN 4.1 g/dL 02/08/2017 Comp Metabolic Rzb638 TP RO 6.6 g/dL 02/08/2017 Comp Metabolic Mdl862 GL OB 2.5 g/dL 02/08/2017 Comp Metabolic Gao689 A/ G Ratio 1.6 Ratio 02/08/2017 Comp Metabolic Cty629 Os mo 278 mOsmo 02/08/2017 Cbc With [...] 32.3 pg 02/08/2017 Cbc With Differential Ord2 Webb% 7.2 % 02/08/2017 Cbc With Differential Ord2 [...] 3.06 K/ul 02/08/2017 Cbc With Differential Ord2 Webb ABS# 0.6 K/ul 02/08/2017 Cbc With Differential Ord2 Eos ABS# 0.1 K/ul 02/08/2017 Cbc With Differential Ord2 Baso ABS# 0.1 K/ul 02/08/2017 Lipid Ord30 CHOL 204 mg/dL 02/08/2017 Lipid Ord30 HDL 64.0 mg/dl 02/08/2017 Lipid Ord30 TRIG 68 mg/dL 02/08/2017 Lipid Ord30 LDL 126 mg/dL 02/08/2017 Lipid Ord30 C/HDL 3.2 Ratio 02/08/2017 Tsh Ord6 hTSH II 1.48 uIU/mL 02/08/2017 Vitamin D 25 Oh Dim9507 VITAMIN D, 25 HYDROXY 33.86 ng/mL 06/07/2015 [...] Ord2 RDW 12.8 % 06/06/2015 Comp Metabolic Grc166 NA 134 mEq/L 06/06/2015 Comp Metabolic Mae745 K 4.3 mEq/L 06/06/2015 Comp Metabolic Mro959 CL 102 mEq/L 06/06/2015 Comp Metabolic Wfh173 CO2 27.0 mEq/L 06/06/2015 Comp Metabolic Qpr296 AN ION GAP 9 06/06/2015 Comp Metabolic Cht990 GL UCOSE 95 mg/dL 06/06/2015 Comp Metabolic Qvg383 Cr eat 0.8 mg/dL 06/06/2015 Comp Metabolic Vua810 eG FR 76 ml/min/1.73m2 06/06 Comp Metabolic Hqg514 BUN 14 mg/dL 06/06/2015 Comp Metabolic Uau596 B/ C Ratio 17.5 Ratio 06/06/2015 Comp Metabolic Tvu378 CA LCIUM 9.6 mg/dL 06/06/2015 Comp Metabolic Jro851 AL K PHOS 64 U/L 06/06/2015 Comp Metabolic Ujo168 T(SGOT) 27 U/L 06/06/2015 Comp Metabolic Iuf972 AL T(SGPT) 20 U/L 06/06/2015 Comp Metabolic Mpv148 BI LI T 0.3 mg/dL 06/06/2015 Comp Metabolic Itr401 AL BUMIN 4.3 g/dL 06/06/2015 Comp Metabolic Lpz048 TP RO 6.8 g/dL 06/06/2015 Comp Metabolic Ine385 GL OB 2.5 g/dL 06/06/2015 Comp Metabolic Pkb459 A/ G Ratio 1.7 Ratio 06/06/2015 Comp Metabolic Jws871 Os mo 269 mOsmo 06/06/2015 Review of Systems System Result Effective Dates Constitutional recent illness 2019 Constitutional No anorexia [...] No alteration of consciousness 2019 Neurologic headache 050 04/2019 Neurologic pain, facial 2019 Musculoskeletal No joint complaint 2019 Psychiatric anxiety 050 04/2019 Constitutional No recent illness 08/08/2018 Constitutional [...] No alteration of consciousness 03/03/2017 Psychiatric anxiety 0603/2017 Psychiatric depression 0 03/03/2017 Endocrine No dry [...] 06/06/2015 None Procedures Procedure Codes Date TOBACCO-USE DEPARTMENT OPERATIONS MANAGER 3-[address]: 518460575 CPT-4: G0436 04/05/2017 TOBACCO-USE DEPARTMENT OPERATIONS MANAGER 3-[address]: 590110053 CPT-4: G0436 02/08/2017 ADMIN INFLUENZA VIRU S VAC Formatting Model/CDA Sections, Assigned to CPT-4: C4738Egasubx 07/08/2015 FLU VACC 4 LILIANA 3 YRS PLUS IM Formatting Model/CDA Sections, Assigned to SNOMED CT: 22041196 CPT-4: 43716Xyvhywr 07/08/2015 PNEUMOCOCCAL VACC 13 LILIANA IM Formatting Model/CDA Sections, Assigned to SNOMED CT: 84567810 CPT-4: 51660Czxmqvg 07/08/2015 TOBACCO-USE DEPARTMENT OPERATIONS MANAGER 3-[address]: 053030868 CPT-4: G0436 06/06/2015 Vital Signs Date Vital 2019 Blood Pressure 1: 136/82 Code: 8480-6 BMI: 26.7 Code: 06806-3 Heart Rate 1: 84 bpm Height: 5'2" SpO2: 93% Weight: 146 lbs 08/08/2018 Blood Pressure 1: 148/64 Code: 8480-6 BMI: 26.2 Code: 83005-4 Heart Rate 1: 69 bpm Height: 5'2" SpO2: 98% Weight: 143 lbs 06/30/2018 Blood Pressure 1: 136/76 Code: 8480-6 BMI: 26.2 Code: 97430-8 Heart Rate 1: 74 bpm Height: 5'2" SpO2: 94% Weight: 143 lbs 04/12/2018 Blood Pressure 1: 142/82 Code: 8480-6 BMI: 26.7 Code: 82954-5 Heart Rate 1: 63 bpm Height: 5'2" SpO2: 94% Weight: 146 lbs 04/05/2017 Blood Pressure 1: 124/70 Code: 8480-6 BMI: 24.1 Code: 48027-4 Heart Rate 1: 67 bpm Height: 5'2" SpO2: 94% Weight: 132 lbs 03/03/2017 Blood Pressure 1: 150/78 Code: 8480-6 BMI: 24.5 Code: 43052-3 Heart Rate 1: 58 bpm Height: 5'2" SpO2: 97% Weight: 134 lbs 02/08/2017 Blood Pressure 1: 156/78 Code: 8480-6 BMI: 24.5 Code: 96126-4 Heart Rate 1: 80 bpm Height: 5'2" SpO2: 95% Weight: 134 lbs 08/06/2015 Blood Pressure 1: 148/70 Code: 8480-6 BMI: 25.8 Code: 28834-0 Heart Rate 1: 84 bpm Height: 5'2" SpO2: 94% Weight: 141 lbs 07/08/2015 Blood Pressure 1: 144/62 Code: 8480-6 BMI: 25.1 Code: 75810-9 Heart Rate 1: 84 bpm Height: 5'2" SpO2: 94% Weight: 137 lbs 06/06/2015 Blood Pressure 1: 128/80 Code: 8480-6 BMI: 25.2 Code: 29072-8 Heart Rate 1: 69 bpm Height: 5'2" SpO2: 95% Weight: 138 lbs Functional Status No Functional Status data History of Present Illness Symptom Name Status Resu lt Effective Date Notes Location right ear 2019 None Quality stabbing [...] Encounters Encounter Performer Loca tion Codes Date ([id number]) 20854 EST. P ATIENT, LEVEL IV Diagnosis: Headache[ICD10: R51] Diagnosis: Trigeminal neuralgia[ICD10: G50.0] [facility] CPT-4: 89803 2019 ([id number]) 09799 EST. P ATIENT, LEVEL III Diagnosis: Essential (primary) hypertension[ICD10: I10] Diagnosis: Varicose veins of left lower extremity with pain[ICD10: I83.812] Elizabeth Robledo MD, [facility] CPT-4: 17651 08/08/2018 ([id number]) 08866 EST. P ATIENT, LEVEL III Diagnosis: Varicose veins of left lower extremity with pain[ICD10: I83.812] Elizabeth Robledo MD, [facility] CPT-4: 74101 06/30/2018 ([id number]) 61085 EST. P ATIENT, LEVEL IV Diagnosis: Essential (primary) hypertension[ICD10: I10] Diagnosis: Generalized anxiety disorder[ICD10: F41.1] Elizabeth Robledo MD, [facility] CPT-4: 77656 04/12/2018 ([id number]) 54416 EST. P ATIENT, LEVEL III Diagnosis: Generalized anxiety disorder[ICD10: F41.1] Elizabeth Robledo MD, [facility] CPT-4: 10182 04/05/2017 ([id number]) 20566 EST. P ATIENT, LEVEL III Diagnosis: Generalized anxiety disorder[ICD10: F41.1] Diagnosis: Essential (primary) hypertension[ICD10: I10] [facility] CPT-4: 79245 03/03/2017 ([id number]) 78792 EST. P ATIENT, LEVEL IV Diagnosis: Generalized anxiety disorder[ICD10: F41.1] Diagnosis: Chronic obstructive pulmonary disease with (acute) exacerbation[ICD10: J44.1] Elizabeth Robledo MD, [facility] CPT-4: 66040 02/08/2017 ([id number]) 10267 EST. P ATIENT, LEVEL III Diagnosis: Generalized anxiety disorder[ICD10: F41.1] Diagnosis: Other seasonal allergic rhinitis[ICD10: J30.2] Carol Robledo MD, [facility] CPT-4: 47771 08/06/2015 ([id number]) 41424 EST. P ATIENT, LEVEL IV Diagnosis: Generalized anxiety disorder[ICD10: F41.1] Diagnosis: Other seasonal allergic rhinitis[ICD10: J30.2] Diagnosis: Rectocele[ICD10: N81.6] [facility] CPT-4: 05692 07/08/2015 ([id number]) OFFICE VISI , [facility] - LEVEL 4 Diagnosis: COPD (chronic obstructive pulmonary disease)[ICD9: 496] Diagnosis: Tobacco use[ICD9: 305.1] Diagnosis: Myalgia[ICD9: 729.1] Diagnosis: Anxiety[ICD9: 300.00] Diagnosis: Altered bowel habits[ICD9: 787.99] [facility] CPT-4: 54027 06/06/2015 Plan of Care Planned Activity Notes C odes Status Date Visit Plan: Trigeminal neuralgia -f acial pain -will check labs and MRI brain to rule out secondary causes -rx for carbamazepine provided and instructed on use -return on Wednesday -patient verbalized understanding of plan. 2019 Patient Education: Patient Medication Summary Completed 2019 Appointment: Elizabeth Robledo WPtel: [address] [place], [place] [address] (15 min) Moderate 12/27/2018 Visit [...] with compression. 08/08/2018 Appointment: Elizabeth Robledo WPtel: [address] [place], [place] [id number] (15 min) Moderate 08/08/2018 Patient Education: Patient [...] see you 06/30/2018 Appointment: Elizabeth Robledo WPtel: [facility] (15 min) Moderate 06/30/2018 Patient Education: [...] Increase citalopram 04/12/2018 Appointment: Elizabeth Robledo WPtel: [facility] (15 min) Moderate 04/12/2018 Patient Education: Patient Medication Summary Completed 04/12/2018 Appointment: Elizabeth Robledo WPtel: [facility] (15 min) Moderate 04/07/2018 Appointment: Elizabeth Robledo WPtel: [facility] (15 min) Moderate 05/03/2017 Visit Plan: [...] above medications. 04/05/2017 Appointment: Elizabeth Robledo WPtel: [facility] (15 min) Moderate 04/05/2017 Patient Education: [...] to call for acute concerns. Pt seeing Product Support Sales Representative - defer treatment to him at this time as he has an extensive work-up pending. Generalized anxiety disorder - uncontrolled symptoms - decrease the buspirone to 1/2 pill in the morning. start on lexapro 10mg at bedtime 03/03/2017 Appointment: Elizabeth Robledo WPtel: [address] [facility] (15 min) Moderate 03/03/2017 Patient Education: Patient [...] chest 02/08/2017 Appointment: Elizabeth Robledo WPtel: [address] [facility] [place] (15 min) Moderate 02/08/2017 Patient Education: Patient Medication Summary Completed 02/08/2017 Patient Education: Smoking and Tobacco Addiction Completed 02/08/2017 [facility] [facility] (15 min) Moderate 04/28/2016 Visit Plan: Chronic anxiety-symptom s fairly well controlled- no change in treatment-instructed patient to call if symptoms become uncontrolled Wubbiorig-etkegei-egc zyrtec or haroon and take daily Txsfkhazjmkn-mmkejhe-rn change in treatment 08/06/2015 Appointment: (30 min) [...] patient to call if symptoms become uncontrolled Rpcptffrp-ywyfwjt-msz zyrtec or haroon and take daily Qytxpgohswfk-zafebem-rx change in treatment PROBIOTIC TWICE SARWAT Y-ALIGN [...] PROBIOTIC TWICE DAILY TO HELP REGULATE STOOLS LEANN [employer] SOME OF THE BRANDS OF PROBIOTICS [...] Wednesday -patient verbalized understanding of plan. . Hypertension - wel l controlled - [...] to call for acute concerns. Pt seeing Product Support Sales Representative - defer treatment to him at this time as he has an extensive work-up pending. Generalized anxiety disorder - uncontrolled symptoms - decrease the buspirone to 1/2 pill in the morning. start on lexapro 10mg at bedtime
--- OUTSIDE RECORDS SUMMARY | 2020-04-19 07:38 | XMS REPORT | CCD ---
Author Author Michelle Lira Organization Elizabeth Robledo MD, [facility] Address [address] [place] [address] Phone Care Team Providers Care Guest Services Attendant Name Role Phone PP Unavailable CCM Unavailable Summary Purpose Interface Exchange Insurance Providers Payer name Policy type / Coverage type Covered green party ID Effective Begin Date Effective End Date WPS Medicare Part B Medicare Part B [id number] Unknown Family history Sister Diagnosis Age At Onset Heart Attack Unknown Hyperlipidemia Unknown Hypertension Unknown Daughter Diagnosis Age At Onset Arthritis Unknown Son Diagnosis Age At Onset Depression Unknown Social History Social History Element Codes Description Effective Dates Marital status Unknown M guillermo Kaden 03/03/2017 Number of children Unknown 3 06/06/[address]: 73006269 Current every day smoker 06/06/2015 Number of years using tobacco Unknown 10 - 20 06/06/2015 Number of cigarettes/day Unknown 10 (Half a pack) 06/06/[address]: 217797196 Never drinks alcohol 06/06/2015 Allergies, Adverse Reactions, [...] Instructions carbamazepine 100 mg chewable tablet RxNorm: 939735 1 Tablet(s) PO BID 2019 05/31/2019 Ac tive acyclovir 400 mg tablet RxNorm: 984120 1 Tablet(s) PO TID 2019 02/10/2019 Active Lipitor 40 mg tablet RxNorm: 201345 1 Tablet(s) PO daily 06/24/2018 06/18/2019 Active citalopram 20 mg tablet RxNorm: 072174 1 Tablet(s) PO daily 04/12/2018 04/06/2019 Active citalopram 10 mg tablet RxNorm: 111370 TAKE ONE TABLET BY MOUTH DAILY 04/11/2018 04/11/2018 In active citalopram 10 mg tablet RxNorm: 181834 TAKE ONE TABLET BY MOUTH DAILY 11/04/2017 04/02/2018 In active citalopram 10 mg tablet RxNorm: 953487 1 Tablet(s) PO daily 04/05/2017 10/31/2017 Inactive buspirone 15 mg tablet RxNorm: 794006 1/2 Tablet(s) PO QAM 03/03/2017 04/04/2017 Inactive Lexapro 10 mg tablet RxNorm: 363432 1 Tablet(s) PO QPM 03/03/2017 04/04/2017 Inactive buspirone 15 mg tablet RxNorm: 496149 TAKE ONE-HALF TABLET BY MOUTH TWO TIMES A DAY 11/23/2016 03/02/2017 Inactive buspirone 15 mg tablet RxNorm: 392570 TAKE ONE-HALF TABLET BY MOUTH TWO TIMES A DAY 06/04/2016 11/22/2016 Inactive buspirone 15 mg tablet RxNorm: 922889 TAKE ONE-HALF TABLET BY MOUTH TWO TIMES A DAY 04/13/2016 06/03/2016 Inactive buspirone 15 mg tablet RxNorm: 616165 TAKE ONE-HALF TABLET BY MOUTH TWO TIMES A DAY 01/13/2016 04/11/2016 Inactive Augmentin 500 mg-125 mg tablet RxNorm: 507230 1 Tablet(s) PO TID 10/22/2015 10/31/2015 Inactive Give with a probiotic Augmentin 500 mg-125 mg tablet RxNorm: 044098 1 Tablet(s) PO TID 10/22/2015 10/21/2015 Inactive Give with a probiotic buspirone 15 mg tablet RxNorm: 197417 1/2 Tablet(s) PO BID 09/17/2015 01/12/2016 Inactive Flonase Allergy Reli ef 50 mcg/actuation nasal spray,suspension RxNorm: 1-2 [place] NASAL daily 07/08/2015 10/05/2015 Inactive Miralax 17 gram oral powder packet RxNorm: 136201 1 packet PO daily 07/08/2015 01/31/2019 Inactive metoprolol succinate ER 25 mg tablet,extended release 24 hr RxNorm: 195815 1 Tablet(s) PO daily No Start Date Active Aspirin Low Dose 81 mg tablet,delayed release RxNorm: 967235 1 Tablet(s) PO daily No Start Date Active Vitamin D3 1,000 uni t tablet RxNorm: 027757 2 Tablet(s) PO daily No Start Date Active Lipitor 40 mg tablet RxNorm: 308410 1 Tablet(s) PO daily No Start Date 06/23/2018 Inactive buspirone 15 mg tablet RxNorm: 457922 1/2 Tablet(s) PO BID No Start Date [...] Item Item Code Result Date Comp Metabolic Vto248 NA 134 mEq/L 2019 Comp Metabolic Xog640 K 4.2 mEq/L 2019 Comp Metabolic Kio828 CL 99 mEq/L 2019 Comp Metabolic Acs849 CO2 29.0 mEq/L 2019 Comp Metabolic Rkv028 AN ION GAP 10 2019 Comp Metabolic Tzy855 GL UCOSE 114 mg/dL 2019 Comp Metabolic Cmo596 Cr eat 0.8 mg/dL 2019 Comp Metabolic Bqb096 eG FR 81 ml/min/1.73m2 02/01 Comp Metabolic Xti970 BUN 15 mg/dL 2019 Comp Metabolic Boe718 B/ C Ratio 20.0 Ratio 2019 Comp Metabolic Nap931 CA LCIUM 8.8 mg/dL 2019 Comp Metabolic Kui683 AL K PHOS 61 U/L 2019 Comp Metabolic Ahb923 T(SGOT) 29 U/L 2019 Comp Metabolic Tfe667 AL T(SGPT) 25 U/L 2019 Comp Metabolic Fjm639 BI LI T 0.5 mg/dL 2019 Comp Metabolic Ypl377 AL BUMIN 4.1 g/dL 2019 Comp Metabolic Dwk888 TP RO 6.6 g/dL 2019 Comp Metabolic Igq823 GL OB 2.5 g/dL 2019 Comp Metabolic Kcz178 A/ G Ratio 1.7 Ratio 2019 Comp Metabolic Ilj150 Os mo 270 mOsmo 2019 Cbc With [...] 31.6 pg 2019 Cbc With Differential Ord2 [place]% 6.7 % 2019 Cbc With Differential Ord2 [...] 2.68 K/ul 2019 Cbc With Differential Ord2 [place] ABS# 0.6 K/ul 2019 Cbc With Differential Ord2 Eos ABS# 0.2 K/ul 2019 Cbc With Differential Ord2 Baso ABS# 0.1 K/ul 2019 C-Reactive Protein Qnt Crqnt CRP 0.1 mg/dl 2019 Comp Metabolic Fve850 NA 139 mEq/L 02/08/2017 Comp Metabolic Mgx395 K 4.2 mEq/L 02/08/2017 Comp Metabolic Mmd947 CL 104 mEq/L 02/08/2017 Comp Metabolic Jvm691 CO2 27.0 mEq/L 02/08/2017 Comp Metabolic Jay086 AN ION GAP 12 02/08/2017 Comp Metabolic Tub854 GL UCOSE 87 mg/dL 02/08/2017 Comp Metabolic Frq914 Cr eat 0.8 mg/dL 02/08/2017 Comp Metabolic Zza768 eG FR 71 ml/min/1.73m2 02/08 Comp Metabolic Wys068 BUN 15 mg/dL 02/08/2017 Comp Metabolic Ozg601 B/ C Ratio 17.9 Ratio 02/08/2017 Comp Metabolic Mnh262 CA LCIUM 9.1 mg/dL 02/08/2017 Comp Metabolic Qtw041 AL K PHOS 60 U/L 02/08/2017 Comp Metabolic Bto667 T(SGOT) 23 U/L 02/08/2017 Comp Metabolic Hbz944 AL T(SGPT) 14 U/L 02/08/2017 Comp Metabolic Obj101 BI LI T 0.3 mg/dL 02/08/2017 Comp Metabolic Ahf091 AL BUMIN 4.1 g/dL 02/08/2017 Comp Metabolic Fai015 TP RO 6.6 g/dL 02/08/2017 Comp Metabolic Jdt100 GL OB 2.5 g/dL 02/08/2017 Comp Metabolic Sne977 A/ G Ratio 1.6 Ratio 02/08/2017 Comp Metabolic Epf480 Os mo 278 mOsmo 02/08/2017 Cbc With [...] 32.3 pg 02/08/2017 Cbc With Differential Ord2 [place]% 7.2 % 02/08/2017 Cbc With Differential Ord2 [...] 3.06 K/ul 02/08/2017 Cbc With Differential Ord2 [place] ABS# 0.6 K/ul 02/08/2017 Cbc With Differential Ord2 Eos ABS# 0.1 K/ul 02/08/2017 Cbc With Differential Ord2 Baso ABS# 0.1 K/ul 02/08/2017 Lipid Ord30 CHOL 204 mg/dL 02/08/2017 Lipid Ord30 HDL 64.0 mg/dl 02/08/2017 Lipid Ord30 TRIG 68 mg/dL 02/08/2017 Lipid Ord30 LDL 126 mg/dL 02/08/2017 Lipid Ord30 C/HDL 3.2 Ratio 02/08/2017 Tsh Ord6 hTSH II 1.48 uIU/mL 02/08/2017 Vitamin D 25 Oh Unw0011 VITAMIN D, 25 HYDROXY 33.86 ng/mL 06/07/2015 [...] Ord2 RDW 12.8 % 06/06/2015 Comp Metabolic Qle022 NA 134 mEq/L 06/06/2015 Comp Metabolic Dde722 K 4.3 mEq/L 06/06/2015 Comp Metabolic Qsh822 CL 102 mEq/L 06/06/2015 Comp Metabolic Qdz883 CO2 27.0 mEq/L 06/06/2015 Comp Metabolic Rym937 AN ION GAP 9 06/06/2015 Comp Metabolic Gnb916 GL UCOSE 95 mg/dL 06/06/2015 Comp Metabolic Wud723 Cr eat 0.8 mg/dL 06/06/2015 Comp Metabolic Zxj062 eG FR 76 ml/min/1.73m2 06/06 Comp Metabolic Ozs530 BUN 14 mg/dL 06/06/2015 Comp Metabolic Hju435 B/ C Ratio 17.5 Ratio 06/06/2015 Comp Metabolic Lqr461 CA LCIUM 9.6 mg/dL 06/06/2015 Comp Metabolic Vzr869 AL K PHOS 64 U/L 06/06/2015 Comp Metabolic Toc764 T(SGOT) 27 U/L 06/06/2015 Comp Metabolic Fbm602 AL T(SGPT) 20 U/L 06/06/2015 Comp Metabolic Kgz907 BI LI T 0.3 mg/dL 06/06/2015 Comp Metabolic Ybs627 AL BUMIN 4.3 g/dL 06/06/2015 Comp Metabolic Buu951 TP RO 6.8 g/dL 06/06/2015 Comp Metabolic Wln253 GL OB 2.5 g/dL 06/06/2015 Comp Metabolic Akv501 A/ G Ratio 1.7 Ratio 06/06/2015 Comp Metabolic Pas548 Os mo 269 mOsmo 06/06/2015 Review of [...] clear 04/05/2017 None Full Exam - General 1995 Ears/Nose/Throat oral cavity/pharynx/larynx Overall: oropharyngeal mucosa clear [...] 06/06/2015 None Procedures Procedure Codes Date 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 3-[address]: 527843495 CPT-4: G0436 04/05/2017 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 3-[address]: 831712320 CPT-4: G0436 02/08/2017 ADMIN INFLUENZA VIRU S VAC Formatting Model/CDA Sections, Assigned to CPT-4: F7171Ubcwfzq 07/08/2015 FLU VACC 4 LILIANA 3 YRS PLUS IM Formatting Model/CDA Sections, Assigned to SNOMED CT: 38119593 CPT-4: 33144Ueajeoi 07/08/2015 PNEUMOCOCCAL VACC 13 LILIANA IM Formatting Model/CDA Sections, Assigned to SNOMED CT: 69075189 CPT-4: 55149Pzdpoif 07/08/2015 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 3-[address]: 157746566 CPT-4: G0436 06/06/2015 Vital Signs Date Vital 2019 Blood Pressure 1: 136/82 Code: 8480-6 BMI: 26.7 Code: 38967-2 Heart Rate 1: 84 bpm Height: 5'2" SpO2: 93% Weight: 146 lbs 08/08/2018 Blood Pressure 1: 148/64 Code: 8480-6 BMI: 26.2 Code: 24481-0 Heart Rate 1: 69 bpm Height: 5'2" SpO2: 98% Weight: 143 lbs 06/30/2018 Blood Pressure 1: 136/76 Code: 8480-6 BMI: 26.2 Code: 17865-9 Heart Rate 1: 74 bpm Height: 5'2" SpO2: 94% Weight: 143 lbs 04/12/2018 Blood Pressure 1: 142/82 Code: 8480-6 BMI: 26.7 Code: 65377-5 Heart Rate 1: 63 bpm Height: 5'2" SpO2: 94% Weight: 146 lbs 04/05/2017 Blood Pressure 1: 124/70 Code: 8480-6 BMI: 24.1 Code: 67110-4 Heart Rate 1: 67 bpm Height: 5'2" SpO2: 94% Weight: 132 lbs 03/03/2017 Blood Pressure 1: 150/78 Code: 8480-6 BMI: 24.5 Code: 59091-8 Heart Rate 1: 58 bpm Height: 5'2" SpO2: 97% Weight: 134 lbs 02/08/2017 Blood Pressure 1: 156/78 Code: 8480-6 BMI: 24.5 Code: 37906-3 Heart Rate 1: 80 bpm Height: 5'2" SpO2: 95% Weight: 134 lbs 08/06/2015 Blood Pressure 1: 148/70 Code: 8480-6 BMI: 25.8 Code: 60539-0 Heart Rate 1: 84 bpm Height: 5'2" SpO2: 94% Weight: 141 lbs 07/08/2015 Blood Pressure 1: 144/62 Code: 8480-6 BMI: 25.1 Code: 81422-8 Heart Rate 1: 84 bpm Height: 5'2" SpO2: 94% Weight: 137 lbs 06/06/2015 Blood Pressure 1: 128/80 Code: 8480-6 BMI: 25.2 Code: 75164-5 Heart Rate 1: 69 bpm Height: 5'2" [...] Encounters Encounter Performer Loca tion Codes Date ([id number]) [id number] EST. P ATIENT, LEVEL IV Diagnosis: Headache[ICD10: R51] Diagnosis: Trigeminal neuralgia[ICD10: G50.0] Carol Robledo MD, [facility] CPT-4: 79882 2019 ([id number]) 93650 EST. P ATIENT, LEVEL III Diagnosis: Essential (primary) hypertension[ICD10: I10] Diagnosis: Varicose veins of left lower extremity with pain[ICD10: I83.812] Elizabeth Robledo MD, [facility] CPT-4: 62267 08/08/2018 ([id number]) 78441 EST. P ATIENT, LEVEL III Diagnosis: Varicose veins of left lower extremity with pain[ICD10: I83.812] Elizabeth Robledo MD, [facility] CPT-4: 33242 06/30/2018 ([id number]) 18850 EST. P ATIENT, LEVEL IV Diagnosis: Essential (primary) hypertension[ICD10: I10] Diagnosis: Generalized anxiety disorder[ICD10: F41.1] Elizabeth Robledo MD, [facility] CPT-4: 00285 04/12/2018 ([id number]) 93668 EST. P ATIENT, LEVEL III Diagnosis: Generalized anxiety disorder[ICD10: F41.1] Elizabeth Robledo MD, [facility] CPT-4: 66881 04/05/2017 ([id number]) 83964 EST. P ATIENT, LEVEL III Diagnosis: Generalized anxiety disorder[ICD10: F41.1] Diagnosis: Essential (primary) hypertension[ICD10: I10] Elizabeth Robledo MD, [facility] CPT-4: 03734 03/03/2017 ([id number]) 45143 EST. P ATIENT, LEVEL IV Diagnosis: Generalized anxiety disorder[ICD10: F41.1] Diagnosis: Chronic obstructive pulmonary disease with (acute) exacerbation[ICD10: J44.1] Elizabeth Robledo MD, [facility] CPT-4: 25076 02/08/2017 ([id number]) 67912 EST. P ATIENT, LEVEL III Diagnosis: Generalized anxiety disorder[ICD10: F41.1] Diagnosis: Other seasonal allergic rhinitis[ICD10: J30.2] Carol Robledo MD, [facility] CPT-4: 10006 08/06/2015 ([id number]) 35329 EST. P ATIENT, LEVEL IV Diagnosis: Generalized anxiety disorder[ICD10: F41.1] Diagnosis: Other seasonal allergic rhinitis[ICD10: J30.2] Diagnosis: Rectocele[ICD10: N81.6] [facility] CPT-4: 91605 07/08/2015 ([id number]) OFFICE NANCI Russell [facility] - LEVEL 4 Diagnosis: COPD (chronic obstructive pulmonary disease)[ICD9: 496] Diagnosis: Tobacco use[ICD9: 305.1] Diagnosis: Myalgia[ICD9: 729.1] Diagnosis: Anxiety[ICD9: 300.00] Diagnosis: Altered bowel habits[ICD9: 787.99] [facility] CPT-4: 50006 06/06/2015 Plan of Care Planned Activity Notes C odes Status Date Visit Plan: Trigeminal neuralgia -f acial pain -will check labs and MRI brain to rule out secondary causes -rx for carbamazepine provided and instructed on use -return on Wednesday -patient verbalized understanding of plan. 2019 Patient Education: Patient Medication Summary Completed 2019 Care Plan: Sed Rate Pending 2019 Appointment: Elizabeth Robledo WPtel: [phone] [facility] (15 min) Moderate 12/27/2018 Visit Plan: [...] with compression. 08/08/2018 Appointment: Elizabeth Robledo WPtel: [phone] [facility] (15 min) Moderate 08/08/2018 Patient Education: [...] see you 06/30/2018 Appointment: Elizabeth Robledo WPtel: [phone] [facility] (15 min) Moderate 06/30/2018 Patient Education: [...] Increase citalopram 04/12/2018 Appointment: Elizabeth Robledo WPtel: [facility] (15 min) Moderate 04/12/2018 Patient Education: Patient Medication Summary Completed 04/12/2018 Appointment: Elizabeth Robledo WPtel: [facility]5 [facility] (15 min) Moderate 04/07/2018 Appointment: Elizabeth Robledo WPtel: [address] [place], [place] [phone] (15 min) Moderate 05/03/2017 Visit Plan: Anxiety [...] above medications. 04/05/2017 Appointment: Elizabeth Robledo WPtel: [facility]6 [facility] (15 min) Moderate 04/05/2017 Patient Education: [...] to call for acute concerns. Pt seeing Special Education Science Teacher - defer treatment to him at this time as he has an extensive work-up pending. Generalized anxiety disorder - uncontrolled symptoms - decrease the buspirone to 1/2 pill in the morning. start on lexapro 10mg at bedtime 03/03/2017 Appointment: Elizabeth Robledo WPtel: [phone] [facility] (15 min) Moderate 03/03/2017 Patient Education: [...] chest 02/08/2017 [phone] [place] ([facility] min) Moderate 02/08/2017 Patient Education: Patient Medication Summary Completed 02/08/2017 Patient Education: Smoking and Tobacco Addiction Completed 02/08/2017 [phone] (15 min) Moderate 04/28/2016 Visit Plan: Chronic anxiety-symptom s fairly well controlled- no change in treatment-instructed patient to call if symptoms become uncontrolled Uxeiowpin-nwdxhau-xuc zyrtec or haroon and take daily Tknznfdkihny-oshohcs-ei change in treatment 08/06/2015 Appointment: (30 min) [...] patient to call if symptoms become uncontrolled Ightkgfps-rldneya-xlx zyrtec or haroon and take daily Okxgvrkvzmip-vgqefsa-su change in treatment PROBIOTIC TWICE SARWAT Y-ALIGN [...] TWICE DAILY TO HELP REGULATE STOOLS JORDON [employer] ARE SOME OF THE BRANDS OF PROBIOTICS [...] to call for acute concerns. Pt seeing Special Education Science Teacher - defer treatment to him at this time as he has an extensive work-up pending. Generalized anxiety disorder - uncontrolled symptoms - decrease the buspirone to 1/2 pill in the morning. start on lexapro 10mg at bedtime
--- OUTSIDE RECORDS SUMMARY | 2020-04-19 07:39 | XMS REPORT | CCD ---
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 Name Role Phone PP Unavailable CCM Unavailable Summary Purpose Interface Exchange Insurance Providers Payer name Policy type / Coverage type Covered green party ID Effective Begin Date Effective End Date WPS Medicare Part B Medicare Part B [id number] Unknown Unknown Family history Sister Diagnosis Age At Onset Heart Attack Unknown Hyperlipidemia Unknown Hypertension Unknown Daughter Diagnosis Age At Onset Arthritis Unknown Son Diagnosis Age At Onset Depression Unknown Social History Social History Element Codes Description Effective Dates Marital status Unknown M rickyaamir Kaden 03/03/2017 Number of children Unknown 3 06/06/[address]: 28206712 Current every day smoker 06/06/2015 Number of years using tobacco Unknown 10 - 20 06/06/2015 Number of cigarettes/day Unknown 10 (Half a pack) 06/06/[address]: 163411755 Never drinks alcohol 06/06/2015 Allergies, Adverse Reactions, Alerts Allergies, Adverse Reactions, Alerts data not found Past Medical History Illness Codes Condition Status Onset Date Resolved Date Essential (primary) hypertension ICD-9: 401.1 ICD-10: I10 Active 03/03/2017 Unknown Generalized anxiety disorder ICD-9: 300.00 ICD-10: F41.1 Active 08/05/2015 Unknown Chronic obstructive pulmonary disease with (acute) exacerbation ICD-9: 496 ICD-10: J44.1 Active 02/08/2017 Unknown Generalized anxiety disorder ICD-9: 300.02 ICD-10: F41.1 Active 02/08/2017 Unknown Other seasonal aller gic [...] Condition Codes Effectiv e Dates Condition Status Essential (primary) hypertension ICD-9: 401.1 ICD-10: I10 03/03/2017 Active Generalized anxiety disorder ICD-9: 300.00 ICD-10: F41.1 08/05/2015 Active Chronic obstructive pulmonary disease with (acute) exacerbation ICD-9: 496 ICD-10: J44.1 02/08/2017 Active Generalized anxiety disorder ICD-9: 300.02 ICD-10: F41.1 02/08/2017 Active Other seasonal aller gic rhinitis [...] Date Stop Date Sta tus Fill Instructions buspirone 15 mg tablet RxNorm: 512512 1/2 Tablet(s) PO QAM 03/03/2017 07/30/2017 Active Lexapro 10 mg tablet RxNorm: 756821 1 Tablet(s) PO QPM 03/03/2017 06/30/2017 Active buspirone 15 mg tablet RxNorm: 638786 TAKE ONE-HALF TABLET BY MOUTH TWO TIMES A DAY 11/23/2016 03/02/2017 Inactive buspirone 15 mg tablet RxNorm: 108408 TAKE ONE-HALF TABLET BY MOUTH TWO TIMES A DAY 06/04/2016 11/22/2016 Inactive buspirone 15 mg tablet RxNorm: 478206 TAKE ONE-HALF TABLET BY MOUTH TWO TIMES A DAY 04/13/2016 06/03/2016 Inactive buspirone 15 mg tablet RxNorm: 159092 TAKE ONE-HALF TABLET BY MOUTH TWO TIMES A DAY 01/13/2016 04/11/2016 Inactive Augmentin 500 mg-125 mg tablet RxNorm: 102377 1 Tablet(s) PO TID 10/22/2015 10/31/2015 Inactive Give with a probiotic Augmentin 500 mg-125 mg tablet RxNorm: 171604 1 Tablet(s) PO TID 10/22/2015 10/21/2015 Inactive Give with a probiotic buspirone 15 mg tablet RxNorm: 155032 1/2 Tablet(s) PO BID 09/17/2015 01/12/2016 Inactive Flonase Allergy Reli ef 50 mcg/actuation nasal spray,suspension RxNorm: 1-2 [place] NASAL daily 07/08/2015 10/05/2015 Inactive Miralax 17 gram oral powder packet RxNorm: 656888 1 packet PO daily 07/08/2015 10/05/2015 Inactive metoprolol succinate ER 25 mg tablet,extended release 24 hr RxNorm: 882416 1 Tablet(s) PO daily No Start Date Active Aspirin Low Dose 81 mg tablet,delayed release RxNorm: 034938 1 Tablet(s) PO daily No Start Date Active Vitamin D3 1,000 uni t tablet RxNorm: 812430 2 Tablet(s) PO daily No Start Date Active buspirone 15 mg tablet RxNorm: 424630 1/2 Tablet(s) PO BID No Start Date 09/16/2015 Inactive Medication Administered No Medication Administered data Immunizations Vaccine Codes Date Status Influenza CVX: 141 07/08 completed Pneumococcal (Adult) CVX: 133 07/08/2015 completed Assessments Condition Codes Effectiv e Dates Essential (primary) hypertension ICD -10: I10 ICD-9: 401.1 03/03/2017 Generalized anxiety disorder ICD-10: F41.1 ICD-9: 300.00 03/03/2017 Chronic obstructive pulmonary disease wi th (acute) [...] Visit Reason For Visit Effective Dates Notes anxiety 03/03/2017 fatigue 02/08/2017 Buspi frank constipation 08/06/2015 sinus congestion 07/08/2015 fatigue 06/06/2015 Results Observation Observation Code Item Item Code Result Date Comp Metabolic Uus943 NA 139 mEq/L 02/08/2017 Comp Metabolic Qfr898 K 4.2 mEq/L 02/08/2017 Comp Metabolic Kxi803 CL 104 mEq/L 02/08/2017 Comp Metabolic Rvr956 CO2 27.0 mEq/L 02/08/2017 Comp Metabolic Eky638 AN ION GAP 12 02/08/2017 Comp Metabolic Lbb958 GL UCOSE 87 mg/dL 02/08/2017 Comp Metabolic Veg853 Cr eat 0.8 mg/dL 02/08/2017 Comp Metabolic Qmt466 eG FR 71 ml/min/1.73m2 02/08 Comp Metabolic Ouz921 BUN 15 mg/dL 02/08/2017 Comp Metabolic Jbi389 B/ C Ratio 17.9 Ratio 02/08/2017 Comp Metabolic Ejq899 CA LCIUM 9.1 mg/dL 02/08/2017 Comp Metabolic Fck663 AL K PHOS 60 U/L 02/08/2017 Comp Metabolic Nht427 T(SGOT) 23 U/L 02/08/2017 Comp Metabolic Kjr771 AL T(SGPT) 14 U/L 02/08/2017 Comp Metabolic Pzw063 BI LI T 0.3 mg/dL 02/08/2017 Comp Metabolic Bbw421 AL BUMIN 4.1 g/dL 02/08/2017 Comp Metabolic Aie716 TP RO 6.6 g/dL 02/08/2017 Comp Metabolic Rob752 GL OB 2.5 g/dL 02/08/2017 Comp Metabolic Ixd352 A/ G Ratio 1.6 Ratio 02/08/2017 Comp Metabolic Qut651 Os mo 278 mOsmo 02/08/2017 Cbc With [...] 32.3 pg 02/08/2017 Cbc With Differential Ord2 [place]% 7.2 % 02/08/2017 Cbc With Differential Ord2 MCHC 33.2 pg 02/08/2017 Cbc With Differential Ord2 Eos% 1.4 % 02/08/2017 Cbc With Differential Ord2 Baso% 0.6 % 02/08/2017 Cbc With Differential Ord2 PLT 377 K/ul 02/08/2017 Cbc With Differential Ord2 RDW 13.0 % 02/08/2017 Cbc With Differential Ord2 Neut ABS# 4.75 K/ul 02/08/2017 Cbc With Differential Ord2 Lymph ABS# 3.06 K/ul 02/08/2017 Cbc With Differential Ord2 [place] ABS# 0.6 K/ul 02/08/2017 Cbc With Differential Ord2 Eos ABS# 0.1 K/ul 02/08/2017 Cbc With Differential Ord2 Baso ABS# 0.1 K/ul 02/08/2017 Lipid Ord30 CHOL 204 mg/dL 02/08/2017 Lipid Ord30 HDL 64.0 mg/dl 02/08/2017 Lipid Ord30 TRIG 68 mg/dL 02/08/2017 Lipid Ord30 LDL 126 mg/dL 02/08/2017 Lipid Ord30 C/HDL 3.2 Ratio 02/08/2017 Tsh Ord6 hTSH II 1.48 uIU/mL 02/08/2017 Vitamin D 25 Oh Vxr4851 VITAMIN D, 25 HYDROXY 33.86 ng/mL 06/07/2015 [...] Ord2 RDW 12.8 % 06/06/2015 Comp Metabolic Vvw563 NA 134 mEq/L 06/06/2015 Comp Metabolic Gfs068 K 4.3 mEq/L 06/06/2015 Comp Metabolic Ugl173 CL 102 mEq/L 06/06/2015 Comp Metabolic Hlz467 CO2 27.0 mEq/L 06/06/2015 Comp Metabolic Otc570 AN ION GAP 9 06/06/2015 Comp Metabolic Wez857 GL UCOSE 95 mg/dL 06/06/2015 Comp Metabolic Cgo754 Cr eat 0.8 mg/dL 06/06/2015 Comp Metabolic Ddu444 eG FR 76 ml/min/1.73m2 06/06 Comp Metabolic Cbj327 BUN 14 mg/dL 06/06/2015 Comp Metabolic Smp960 B/ C Ratio 17.5 Ratio 06/06/2015 Comp Metabolic Ifx678 CA LCIUM 9.6 mg/dL 06/06/2015 Comp Metabolic Ixh357 AL K PHOS 64 U/L 06/06/2015 Comp Metabolic Nsb708 T(SGOT) 27 U/L 06/06/2015 Comp Metabolic Tyv931 AL T(SGPT) 20 U/L 06/06/2015 Comp Metabolic Oxd443 BI LI T 0.3 mg/dL 06/06/2015 Comp Metabolic Kcm470 AL BUMIN 4.3 g/dL 06/06/2015 Comp Metabolic Lbz663 TP RO 6.8 g/dL 06/06/2015 Comp Metabolic Zje262 GL OB 2.5 g/dL 06/06/2015 Comp Metabolic Wup905 A/ G Ratio 1.7 Ratio 06/06/2015 Comp Metabolic Mvp262 Os mo 269 mOsmo 06/06/2015 Review of Systems System Result Effective Dates Constitutional No recent illness 03/03/2017 Constitutional No [...] 06/06/2015 None Procedures Procedure Codes Date 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-[address]: 196387288 CPT-4: [id number] 02/08/2017 ADMIN INFLUENZA VIRU S VAC Formatting Model/CDA Sections, Assigned to CPT-4: A6449Tvybdcg 07/08/2015 FLU VACC 4 LILIANA 3 YRS PLUS IM Formatting Model/CDA Sections, Assigned to SNOMED CT: 22048459 CPT-4: 01097Ehldfuz 07/08/2015 PNEUMOCOCCAL VACC 13 LILIANA IM Formatting Model/CDA Sections, Assigned to SNOMED CT: 58312306 CPT-4: 48868Ugtdlnz 07/08/2015 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-[address]: 723647530 CPT-4: Q1913Rxfaomy 06/06/2015 Vital Signs Date Vital 03/03/2017 Blood Pressure 1: 150/78 Code: 8480-6 BMI: 24.5 Code: 58160-8 Heart Rate 1: 58 bpm Height: 5'2" SpO2: 97% Weight: 134 lbs 02/08/2017 Blood Pressure 1: 156/78 Code: 8480-6 BMI: 24.5 Code: 67668-0 Heart Rate 1: 80 bpm Height: 5'2" SpO2: 95% Weight: 134 lbs 08/06/2015 Blood Pressure 1: 148/70 Code: 8480-6 BMI: 25.8 Code: 77707-1 Heart Rate 1: 84 bpm Height: 5'2" SpO2: 94% Weight: 141 lbs 07/08/2015 Blood Pressure 1: 144/62 Code: 8480-6 BMI: 25.1 Code: 78072-7 Heart Rate 1: 84 bpm Height: 5'2" SpO2: 94% Weight: 137 lbs 06/06/2015 Blood Pressure 1: 128/80 Code: 8480-6 BMI: 25.2 Code: 32637-6 Heart Rate 1: 69 bpm Height: 5'2" SpO2: 95% Weight: 138 lbs Functional Status No Functional Status data History of Present Illness Symptom Name Status Resu lt Effective Date Notes anxiety Quality intermit tent 03/03/2017 None anxiety [...] Encounters Encounter Performer Loca tion Codes Date ([id number]) [id number] EST. P ATIENT, LEVEL III Diagnosis: Generalized anxiety disorder[ICD10: F41.1] Diagnosis: Essential (primary) hypertension[ICD10: I10] Elizabeth Robledo MD, [facility] CPT-4: 97507 03/03/2017 ([id number]) 34507 EST. P ATIENT, LEVEL IV Diagnosis: Generalized anxiety disorder[ICD10: F41.1] Diagnosis: Chronic obstructive pulmonary disease with (acute) exacerbation[ICD10: J44.1] Elizabeth Robledo MD, [facility] CPT-4: 35769 02/08/2017 ([id number]) 21887 EST. P ATIENT, LEVEL III Diagnosis: Generalized anxiety disorder[ICD10: F41.1] Diagnosis: Other seasonal allergic rhinitis[ICD10: J30.2] Carol Robledo MD, [facility] CPT-4: 05345 08/06/2015 ([id number]) 51114 EST. P ATIENT, LEVEL IV Diagnosis: Generalized anxiety disorder[ICD10: F41.1] Diagnosis: Other seasonal allergic rhinitis[ICD10: J30.2] Diagnosis: Rectocele[ICD10: N81.6] Carol Robledo MD, [facility] CPT-4: 91554 07/08/2015 ([id number]) OFFICE VISI , [facility] - LEVEL 4 Diagnosis: COPD (chronic obstructive pulmonary disease)[ICD9: 496] Diagnosis: Tobacco use[ICD9: 305.1] Diagnosis: Myalgia[ICD9: 729.1] Diagnosis: Anxiety[ICD9: 300.00] Diagnosis: Altered bowel habits[ICD9: 787.99] Carol Robledo MD, [facility] CPT-4: 84405 06/06/2015 Plan of Care Planned Activity Notes C odes Status Date Visit Plan: Hypertension - uncontrolled - the patient's medications have been modified [...] the office next week for practitioner to review.The pt is to call for acute concerns.Pt seeing [employer] - defer treatment to him at this time as he has an extensive work-up pending.Generalized anxiety disorder - uncontrolled symptoms - decrease the buspirone to 1/2 pill in the morning.start on lexapro 10mg at bedtime 03/03/2017 Patient Education: Patient Medication Summary Completed 03/03/2017 Patient Education: Smoking and Tobacco Addiction Completed 03/03/2017 Visit Plan: Hypertension - well controll ed - continue with current medications, continue with no added salt diet. Pt has been encouraged to exercise daily.The pt has been advised to call the office if there are any acute concerns about change in blood pressure readings at home.Anxiety - the patient has uncontrolled anxiety and will benefit from an increased dose of buspar in an attempt control of the symptoms of anxiety (tachycardia, overwhelming sensations, stress, insomnia, etc). Pt is aware of the risks and benefits of treatment with the above medications.COPD - check ct of chest 02/08/2017 Visit Plan: Hypertension - well controll ed - continue with current medications, continue with no added salt diet. Pt has been encouraged to exercise daily.The pt has been advised to call the office if there are any acute concerns about change in blood pressure readings at home.Anxiety - the patient has uncontrolled anxiety and will benefit from an increased dose of buspar in an attempt control of the symptoms of anxiety (tachycardia, overwhelming sensations, stress, insomnia, etc). Pt is aware of the risks and benefits of treatment with the above medications.COPD - check ct of chest 02/08/2017 [facility] [phone] [id number] [place] (15 min) Moderate 02/08/2017 Patient Education: Patient Medication Summary Completed 02/08/2017 Patient Education: Smoking and Tobacco Addiction Completed 02/08/2017 [facility]: [facility] [phone] [facility] [place] (15 min) Moderate 04/28/2016 Visit Plan: Chronic anxiety-symptoms lizz rly well controlled-no change in treatment-instructed patient to call if symptoms become uncontrolled Faiwbduqq-bydheau-wxo zyrtec or zoraida and take daily Uysnyjnwpikd-gykaacl-oh change in treatment 08/06/2015 Appointment: (30 min) Complex 08/06/2015 Patient Education: Patient Medication Summary Completed 08/06/2015 Visit Plan: Chronic anxiety - the pt has symptoms of chronic anxiety and depression that have been fairly well controlled since the last office visit. The pt has expected periods of exacerbation with abatement of the symptoms with change in situational exposure. No change in current medications.Allergies - chronic - recommended pt to use allergy medication as prescribed. Pt has been counseled as to the appropriate use of the medication. Pt to call if allergy symptoms are not controlled with the medication.If using nasal spray, instructions as follows: Nasal spray- use twice daily, one spray per nostril twice daily, after 30 minutes, rinse out nose with saline spray.. Use opposite hand per nostril to spray in the nasal steroid allergy spray.Rectocele-increase fiber-start miralax and increase po fluids 07/08/2015 Visit Plan: Chronic anxiety - the pt has symptoms of chronic anxiety and depression that have been fairly well controlled since the last office visit. The pt has expected periods of exacerbation with abatement of the symptoms with change in situational exposure. No change in current medications.Allergies - chronic - recommended pt to use allergy medication as prescribed. Pt has been counseled as to the appropriate use of the medication. Pt to call if allergy symptoms are not controlled with the medication.If using nasal spray, instructions as follows: Nasal spray- use twice daily, one spray per nostril twice daily, after 30 minutes, rinse out nose with saline spray.. Use opposite hand per nostril to spray in the nasal steroid allergy spray.Rectocele-increase fiber-start miralax and increase po fluids 07/08/2015 Visit Plan: Chronic anxiety - the pt has symptoms of chronic anxiety and depression that have been fairly well controlled since the last office visit. The pt has expected periods of exacerbation with abatement of the symptoms with change in situational exposure. No change in current medications.Allergies - chronic - recommended pt to use allergy medication as prescribed. Pt has been counseled as to the appropriate use of the medication. Pt to call if allergy symptoms are not controlled with the medication.If using nasal spray, instructions as follows: Nasal spray- use twice daily, one spray per nostril twice daily, after 30 minutes, rinse out nose with saline spray.. Use opposite hand per nostril to spray in the nasal steroid allergy spray.Rectocele-increase fiber-start miralax and increase po fluids 07/08/2015 Appointment: (30 min) Complex 07/08/2015 Patient Education: Patient Medication Summary Completed 07/08/2015 Visit Plan: Tobacco use-scheduled CT sca n of chest Constipation/Diarrhea- recommend PROBIOTIC TWICE DAILY Chronic Depression and anxiety - the pt has symptoms of chronic anxiety and depression that have been fairly well controlled since the last office visit. The pt has expected periods of exacerbation with abatement of the symptoms with change in situational exposure. No change in current medications.Myalgias-check labs 06/06/2015 Appointment: (S) New Patient 06/06/2015 [...] patient to call if symptoms become uncontrolled Nocmqzzyr-rejgwfl-wdq zyrtec or zoraida and take daily Davniyatepug-kqkgdwx-qs change in treatment PROBIOTIC TWICE SARWAT Y-ALIGN YOU CAN GET ZORAIDA FOR YOUR ALLERGIES MIRALAX DAILY-CUT BACK TO [...] PROBIOTIC TWICE SARWAT Y-ALIGN YOU CAN GET ZORAIDA FOR YOUR ALLERGIES MIRALAX DAILY-CUT BACK TO [...] PROBIOTIC TWICE SARWAT Y-ALIGN YOU CAN GET ZORAIDA FOR YOUR ALLERGIES MIRALAX DAILY-CUT BACK TO [...] Rectocele-increase fiber-start miralax and increase po fluids RECOMMEND PROBIOTIC TWICE DAILY TO HELP REGULATE STOOLS [employer] ARE SOME OF THE BRANDS OF PROBIOTICS [...] No change in current medications. Myalgias-check labs decrease the buspiro ne to 1/2 pill [...] to call for acute concerns. Pt seeing [employer] - defer treatment to him at this time as he has an extensive work-up pending. Generalized anxiety disorder - uncontrolled symptoms - decrease the buspirone to 1/2 pill in the morning. start on lexapro 10mg at bedtime
--- OUTSIDE RECORDS SUMMARY | 2020-04-19 07:39 | XMS REPORT | CCD ---
Author Author Michelle Lira Organization Elizabeth Robledo MD, [facility] Address [address] [place] [address] Phone Care Team Providers Care Family Partner Name Role Phone PP Unavailable CCM Unavailable Summary Purpose Interface Exchange Insurance Providers Payer name Policy type / Coverage type Covered green party ID Effective Begin Date Effective End Date WPS Medicare Part B Medicare Part B [id number] Unknown Unknown Family history Sister Diagnosis Age At Onset Heart Attack Unknown Hyperlipidemia Unknown Hypertension Unknown Daughter Diagnosis Age At Onset Arthritis Unknown Son Diagnosis Age At Onset Depression Unknown Social History Social History Element Codes Description Effective Dates Marital status Unknown M guillermo Kaden 03/03/2017 Number of children Unknown 3 06/06/[address]: 19262033 Current every day smoker 06/06/2015 Number of years using tobacco Unknown 10 - 20 06/06/2015 Number of cigarettes/day Unknown 10 (Half a pack) 06/06/[address]: 966579857 Never drinks alcohol 06/06/2015 Allergies, Adverse Reactions, Alerts Allergies, Adverse Reactions, Alerts data not found Past Medical History Illness Codes Condition Status Onset Date Resolved Date Generalized anxiety disorder ICD-9: 300.00 ICD-10: F41.1 Active 08/05/2015 Unknown Essential (primary) hypertension ICD-9: 401.1 ICD-10: I10 Active 03/03/2017 Unknown Chronic obstructive pulmonary disease with (acute) exacerbation ICD-9: 496 ICD-10: J44.1 Active 02/08/2017 Unknown Generalized anxiety disorder ICD-9: 300.02 ICD-10: F41.1 Active 02/08/2017 Unknown Other seasonal aller gic rhinitis ICD-9: 477.9 ICD-10: J30.2 Active 08/05/2015 Unknown Encounter for immuni zation ICD-9: V06.6 ICD-10: Z23 Active 07/07/2015 Unknown Encounter for immuni zation ICD-9: V03.82 ICD-10: Z23 Active 07/07/2015 Unknown Encounter for immuni zation ICD-9: V04.81 ICD-10: Z23 Active 07/07/2015 Unknown Rectocele ICD-9: 618.04 ICD-10: N81.6 Active 07/07/2015 Unknown Altered bowel habits ICD-9: 787.99 Active 06/05/2015 Unknown Anxiety ICD-9: 300.00 Active 06/05/2015 Unknow n COPD (chronic obstru ctive pulmonary disease) ICD-9: 496 Active 06/05/2015 Unknown Myalgia ICD-9: 729.1 Active 06/05/2015 Unknow n Tobacco use ICD-9: 305.1 Active 06/05/2015 Unknow n Problems Condition Codes Effectiv e Dates Condition Status Generalized anxiety disorder ICD-9: 300.00 ICD-10: F41.1 08/05/2015 Active Essential (primary) hypertension ICD-9: 401.1 ICD-10: I10 03/03/2017 Active Chronic obstructive pulmonary disease with (acute) exacerbation ICD-9: 496 ICD-10: J44.1 02/08/2017 Active Generalized anxiety disorder ICD-9: 300.02 ICD-10: F41.1 02/08/2017 Active Other seasonal aller gic rhinitis ICD-9: 477.9 ICD-10: J30.2 08/05/2015 Active Encounter for immuni zation ICD-9: V06.6 ICD-10: Z23 07/07/2015 Active Encounter for immuni zation ICD-9: V03.82 ICD-10: Z23 07/07/2015 Active Encounter for immuni zation ICD-9: V04.81 ICD-10: Z23 07/07/2015 Active Rectocele ICD-9: 618.04 ICD-10: N81.6 07/07/2015 Active Altered bowel habits ICD-9: 787.99 06/05/2015 Active Anxiety ICD-9: 300.00 06/05/2015 Active COPD (chronic obstru ctive pulmonary disease) ICD-9: 496 06/05/2015 Active Myalgia ICD-9: 729.1 06/05/2015 Active Tobacco use ICD-9: 305.1 06/05/2015 Active Medications Medication Codes Instruc tions Start Date Stop Date Sta tus Fill Instructions citalopram 10 mg tablet RxNorm: 684514 1 Tablet(s) PO daily 04/05/2017 10/31/2017 Active buspirone 15 mg tablet RxNorm: 868033 1/2 Tablet(s) PO QAM 03/03/2017 04/04/2017 Inactive Lexapro 10 mg tablet RxNorm: 854202 1 Tablet(s) PO QPM 03/03/2017 04/04/2017 Inactive buspirone 15 mg tablet RxNorm: 627740 TAKE ONE-HALF TABLET BY MOUTH TWO TIMES A DAY 11/23/2016 03/02/2017 Inactive buspirone 15 mg tablet RxNorm: 146638 TAKE ONE-HALF TABLET BY MOUTH TWO TIMES A DAY 06/04/2016 11/22/2016 Inactive buspirone 15 mg tablet RxNorm: 468456 TAKE ONE-HALF TABLET BY MOUTH TWO TIMES A DAY 04/13/2016 06/03/2016 Inactive buspirone 15 mg tablet RxNorm: 026094 TAKE ONE-HALF TABLET BY MOUTH TWO TIMES A DAY 01/13/2016 04/11/2016 Inactive Augmentin 500 mg-125 mg tablet RxNorm: 840593 1 Tablet(s) PO TID 10/22/2015 10/31/2015 Inactive Give with a probiotic Augmentin 500 mg-125 mg tablet RxNorm: 148165 1 Tablet(s) PO TID 10/22/2015 10/21/2015 Inactive Give with a probiotic buspirone 15 mg tablet RxNorm: 343519 1/2 Tablet(s) PO BID 09/17/2015 01/12/2016 Inactive Flonase Allergy Reli ef 50 mcg/actuation nasal spray,suspension RxNorm: 1-2 [place] NASAL daily 07/08/2015 10/05/2015 Inactive Miralax 17 gram oral powder packet RxNorm: 456291 1 packet PO daily 07/08/2015 10/05/2015 Inactive metoprolol succinate ER 25 mg tablet,extended release 24 hr RxNorm: 879684 1 Tablet(s) PO daily No Start Date Active Lipitor 40 mg tablet RxNorm: 895320 1 Tablet(s) PO daily No Start Date Active Aspirin Low Dose 81 mg tablet,delayed release RxNorm: 349475 1 Tablet(s) PO daily No Start Date Active Vitamin D3 1,000 uni t tablet RxNorm: 186999 2 Tablet(s) PO daily No Start Date Active buspirone 15 mg tablet RxNorm: 075797 1/2 Tablet(s) PO BID No Start Date 09/16/2015 Inactive Medication Administered No Medication Administered data Immunizations Vaccine Codes Date Status Influenza CVX: 141 07/08 completed Pneumococcal (Adult) CVX: 133 07/08/2015 completed Assessments Condition Codes Effectiv e Dates Generalized anxiety disorder ICD-10: F41.1 ICD-9: 300.00 04/05/2017 Essential (primary) hypertension ICD -10: I10 ICD-9: 401.1 03/03/2017 Chronic obstructive pulmonary disease wi th [...] Reason For Visit Effective Dates Notes anxiety 04/05/2017 anxiety 03/03/2017 fatigue 02/08/2017 Buspi frank constipation 08/06/2015 sinus congestion 07/08/2015 fatigue 06/06/2015 Results Observation Observation Code Item Item Code Result Date Comp Metabolic Rty256 NA 139 mEq/L 02/08/2017 Comp Metabolic Wil637 K 4.2 mEq/L 02/08/2017 Comp Metabolic Vkq302 CL 104 mEq/L 02/08/2017 Comp Metabolic Apm054 CO2 27.0 mEq/L 02/08/2017 Comp Metabolic Lbv497 AN ION GAP 12 02/08/2017 Comp Metabolic Obs448 GL UCOSE 87 mg/dL 02/08/2017 Comp Metabolic Tti274 Cr eat 0.8 mg/dL 02/08/2017 Comp Metabolic Aqo255 eG FR 71 ml/min/1.73m2 02/08 Comp Metabolic Bqu645 BUN 15 mg/dL 02/08/2017 Comp Metabolic Eoj236 B/ C Ratio 17.9 Ratio 02/08/2017 Comp Metabolic Wnc368 CA LCIUM 9.1 mg/dL 02/08/2017 Comp Metabolic Lty476 AL K PHOS 60 U/L 02/08/2017 Comp Metabolic Zhz258 T(SGOT) 23 U/L 02/08/2017 Comp Metabolic Iof478 AL T(SGPT) 14 U/L 02/08/2017 Comp Metabolic Baa169 BI LI T 0.3 mg/dL 02/08/2017 Comp Metabolic Dir187 AL BUMIN 4.1 g/dL 02/08/2017 Comp Metabolic Xvy606 TP RO 6.6 g/dL 02/08/2017 Comp Metabolic Fpv034 GL OB 2.5 g/dL 02/08/2017 Comp Metabolic Sww778 A/ G Ratio 1.6 Ratio 02/08/2017 Comp Metabolic Uhx086 Os mo 278 mOsmo 02/08/2017 Cbc With [...] 32.3 pg 02/08/2017 Cbc With Differential Ord2 [place]% 7.2 % 02/08/2017 Cbc With Differential Ord2 [...] 3.06 K/ul 02/08/2017 Cbc With Differential Ord2 [place] ABS# 0.6 K/ul 02/08/2017 Cbc With Differential Ord2 Eos ABS# 0.1 K/ul 02/08/2017 Cbc With Differential Ord2 Baso ABS# 0.1 K/ul 02/08/2017 Lipid Ord30 CHOL 204 mg/dL 02/08/2017 Lipid Ord30 HDL 64.0 mg/dl 02/08/2017 Lipid Ord30 TRIG 68 mg/dL 02/08/2017 Lipid Ord30 LDL 126 mg/dL 02/08/2017 Lipid Ord30 C/HDL 3.2 Ratio 02/08/2017 Tsh Ord6 hTSH II 1.48 uIU/mL 02/08/2017 Vitamin D 25 Oh Vhn4372 VITAMIN D, 25 HYDROXY 33.86 ng/mL 06/07/2015 [...] Ord2 RDW 12.8 % 06/06/2015 Comp Metabolic Aky568 NA 134 mEq/L 06/06/2015 Comp Metabolic Uvn325 K 4.3 mEq/L 06/06/2015 Comp Metabolic Xco056 CL 102 mEq/L 06/06/2015 Comp Metabolic Zmr131 CO2 27.0 mEq/L 06/06/2015 Comp Metabolic Rjp849 AN ION GAP 9 06/06/2015 Comp Metabolic Bsk885 GL UCOSE 95 mg/dL 06/06/2015 Comp Metabolic Zvi237 Cr eat 0.8 mg/dL 06/06/2015 Comp Metabolic Kxn856 eG FR 76 ml/min/1.73m2 06/06 Comp Metabolic Zee172 BUN 14 mg/dL 06/06/2015 Comp Metabolic Vwl141 B/ C Ratio 17.5 Ratio 06/06/2015 Comp Metabolic Jpa819 CA LCIUM 9.6 mg/dL 06/06/2015 Comp Metabolic Daj716 AL K PHOS 64 U/L 06/06/2015 Comp Metabolic Vhl093 T(SGOT) 27 U/L 06/06/2015 Comp Metabolic Tqm978 AL T(SGPT) 20 U/L 06/06/2015 Comp Metabolic Ngq789 BI LI T 0.3 mg/dL 06/06/2015 Comp Metabolic Lqi050 AL BUMIN 4.3 g/dL 06/06/2015 Comp Metabolic Fgb205 TP RO 6.8 g/dL 06/06/2015 Comp Metabolic Ljp431 GL OB 2.5 g/dL 06/06/2015 Comp Metabolic Xoj947 A/ G Ratio 1.7 Ratio 06/06/2015 Comp Metabolic Mdi845 Os mo 269 mOsmo 06/06/2015 Review of Systems System Result Effective Dates Constitutional No recent illness 04/05/2017 Constitutional No [...] 06/06/2015 None Procedures Procedure Codes Date 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 3-[address]: 856674565 CPT-4: L3118Rgcfdhb 04/05/2017 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 3-[address]: 232970914 CPT-4: E1434Cvrhxow 02/08/2017 ADMIN INFLUENZA VIRU S VAC Formatting Model/CDA Sections, Assigned to CPT-4: S9850Ucixwts 07/08/2015 FLU VACC 4 LILIANA 3 YRS PLUS IM Formatting Model/CDA Sections, Assigned to SNOMED CT: 37755232 CPT-4: 88318Hhqmlek 07/08/2015 PNEUMOCOCCAL VACC 13 LILIANA IM Formatting Model/CDA Sections, Assigned to SNOMED CT: 57536536 CPT-4: 19995Ipiqzxa 07/08/2015 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 3-[address]: 260446651 CPT-4: G5644Bmvraey 06/06/2015 Vital Signs Date Vital 04/05/2017 Blood Pressure 1: 124/70 Code: 8480-6 BMI: 24.1 Code: 53846-2 Heart Rate 1: 67 bpm Height: 5'2" SpO2: 94% Weight: 132 lbs 03/03/2017 Blood Pressure 1: 150/78 Code: 8480-6 BMI: 24.5 Code: 69623-6 Heart Rate 1: 58 bpm Height: 5'2" SpO2: 97% Weight: 134 lbs 02/08/2017 Blood Pressure 1: 156/78 Code: 8480-6 BMI: 24.5 Code: 12616-3 Heart Rate 1: 80 bpm Height: 5'2" SpO2: 95% Weight: 134 lbs 08/06/2015 Blood Pressure 1: 148/70 Code: 8480-6 BMI: 25.8 Code: 77786-0 Heart Rate 1: 84 bpm Height: 5'2" SpO2: 94% Weight: 141 lbs 07/08/2015 Blood Pressure 1: 144/62 Code: 8480-6 BMI: 25.1 Code: 86202-4 Heart Rate 1: 84 bpm Height: 5'2" SpO2: 94% Weight: 137 lbs 06/06/2015 Blood Pressure 1: 128/80 Code: 8480-6 BMI: 25.2 Code: 48192-2 Heart Rate 1: 69 bpm Height: 5'2" SpO2: 95% Weight: 138 lbs Functional Status No Functional Status data History of Present Illness Symptom Name Status Resu lt Effective Date Notes anxiety Quality intermit tent 04/05/2017 None anxiety [...] Encounters Encounter Performer Loca tion Codes Date ([id number]) 15320 EST. P ATIENT, LEVEL III Diagnosis: Generalized anxiety disorder[ICD10: F41.1] Elizabeth Robledo MD, [facility] CPT-4: 71949 04/05/2017 ([id number]) 25259 EST. P ATIENT, LEVEL III Diagnosis: Generalized anxiety disorder[ICD10: F41.1] Diagnosis: Essential (primary) hypertension[ICD10: I10] Elizabeth Robledo MD, [facility] CPT-4: 16090 03/03/2017 ([id number]) 64718 EST. P ATIENT, LEVEL IV Diagnosis: Generalized anxiety disorder[ICD10: F41.1] Diagnosis: Chronic obstructive pulmonary disease with (acute) exacerbation[ICD10: J44.1] Elizabeth Robledo MD, [facility] CPT-4: 36854 02/08/2017 ([id number]) 29852 EST. P ATIENT, LEVEL III Diagnosis: Generalized anxiety disorder[ICD10: F41.1] Diagnosis: Other seasonal allergic rhinitis[ICD10: J30.2] Carol Robledo MD, [facility] CPT-4: 93465 08/06/2015 ([id number]) 24297 EST. P ATIENT, LEVEL IV Diagnosis: Generalized anxiety disorder[ICD10: F41.1] Diagnosis: Other seasonal allergic rhinitis[ICD10: J30.2] Diagnosis: Rectocele[ICD10: N81.6] Carol Robledo MD, [facility] CPT-4: 93535 07/08/2015 ([id number]) OFFICE VISI TJOANIE - LEVEL 4 Diagnosis: COPD (chronic obstructive pulmonary disease)[ICD9: 496] Diagnosis: Tobacco use[ICD9: 305.1] Diagnosis: Myalgia[ICD9: 729.1] Diagnosis: Anxiety[ICD9: 300.00] Diagnosis: Altered bowel habits[ICD9: 787.99] [facility] CPT-4: 06993 06/06/2015 Plan of Care Planned Activity Notes C odes Status Date Visit Plan: Anxiety - the patient has un controlled anxiety and will benefit from an SSRI on a daily basis to attempt control of the symptoms of anxiety (tachycardia, overwhelming sensations, stress, insomnia, etc). I also believe that the patient will benefit from very low dose of prn benzodiazepine. Pt is aware of the risks and benefits of treatment with the above medications. 2016 Patient Education: Patient Medication Summary Completed 04/05/2017 Patient Education: Smoking and Tobacco Addiction Completed 04/05/2017 Visit Plan: Hypertension - uncontrolled - the [...] is to call for acute concerns.Pt seeing Marketing Regional Consultant - defer treatment to him at this time as he has an extensive work-up pending.Generalized anxiety disorder - uncontrolled symptoms - decrease the buspirone to 1/2 pill in the morning.start on lexapro 10mg at bedtime 03/03/2017 Appointment: Elizabeth Robledo WPtel: [address] [place], [place] [id number] (15 min) Moderate 03/03/2017 Patient Education: Patient [...] of chest 02/08/2017 Appointment: Elizabeth Robledo WPtel: [phone] [id number] (15 min) Moderate 02/08/2017 Patient Education: Patient Medication Summary Completed 02/08/2017 Patient Education: Smoking and Tobacco Addiction Completed 02/08/2017 Appointment: Carol Lira WPtel: [facility] [place][note 2[place] [phone] (15 min) Moderate 04/28/2016 Visit Plan: Chronic anxiety-symptoms lizz rly well controlled-no change in treatment-instructed patient to call if symptoms become uncontrolled Drsqjzjme-qnazclg-qja zyrtec or haroon and take daily Aciazditllbo-pyotzbp-zz change in treatment 08/06/2015 Appointment: (30 min) [...] patient to call if symptoms become uncontrolled Dzqxdnytd-imsycks-prn zyrtec or haroon and take daily Fzzqvarqzgew-abpdkgt-ts change in treatment PROBIOTIC TWICE SARWAT Y-ALIGN [...] fiber-start miralax and increase po fluids . Anxiety - the matilda ent has [...] TWICE DAILY TO HELP REGULATE STOOLS [employer] ARE SOME OF THE BRANDS OF PROBIOTICS [...] to call for acute concerns. Pt seeing Marketing Regional Consultant - defer treatment to him at this time as he has an extensive work-up pending. Generalized anxiety disorder - uncontrolled symptoms - decrease the buspirone to 1/2 pill in the morning. start on lexapro 10mg at bedtime
--- OUTSIDE RECORDS SUMMARY | 2020-04-19 07:40 | XMS REPORT | CCD ---
Author Author Michelle Lira Organization Elizabeth Robledo MD, [facility] Address [address] [place] [address] Phone Care Team Providers Care Commercial Real Estate Attorney Name Role Phone PP Unavailable CCM Unavailable Summary Purpose Interface Exchange Insurance Providers Payer name Policy type / Coverage type Covered libertarian ID Effective Begin Date Effective End Date WPS Medicare Part B Medicare Part B [id number] Unknown Family history Sister Diagnosis Age At Onset Heart Attack Unknown Hyperlipidemia Unknown Hypertension Unknown Daughter Diagnosis Age At Onset Arthritis Unknown Son Diagnosis Age At Onset Depression Unknown Social History Social History Element Codes Description Effective Dates Marital status Unknown M guillermo Kaden 03/03/2017 Number of children Unknown 3 06/06/[address]: 63003687 Current every day smoker 06/06/2015 Number of years using tobacco Unknown 10 - 20 06/06/2015 Number of cigarettes/day Unknown 10 (Half a pack) 06/06/[address]: 413704485 Never drinks alcohol 06/06/2015 Allergies, Adverse Reactions, [...] Date Stop Date Sta tus Fill Instructions Lipitor 40 mg tablet RxNorm: 738355 1 Tablet(s) PO daily 06/24/2018 06/18/2019 Active citalopram 20 mg tablet RxNorm: 487079 1 Tablet(s) PO daily 04/12/2018 04/06/2019 Active citalopram 10 mg tablet RxNorm: 839572 TAKE ONE TABLET BY MOUTH DAILY 04/11/2018 04/11/2018 In active citalopram 10 mg tablet RxNorm: 194536 TAKE ONE TABLET BY MOUTH DAILY 11/04/2017 04/02/2018 In active citalopram 10 mg tablet RxNorm: 797253 1 Tablet(s) PO daily 04/05/2017 10/31/2017 Inactive buspirone 15 mg tablet RxNorm: 398573 1/2 Tablet(s) PO QAM 03/03/2017 04/04/2017 Inactive Lexapro 10 mg tablet RxNorm: 418475 1 Tablet(s) PO QPM 03/03/2017 04/04/2017 Inactive buspirone 15 mg tablet RxNorm: 652151 TAKE ONE-HALF TABLET BY MOUTH TWO TIMES A DAY 11/23/2016 03/02/2017 Inactive buspirone 15 mg tablet RxNorm: 822630 TAKE ONE-HALF TABLET BY MOUTH TWO TIMES A DAY 06/04/2016 11/22/2016 Inactive buspirone 15 mg tablet RxNorm: 822848 TAKE ONE-HALF TABLET BY MOUTH TWO TIMES A DAY 04/13/2016 06/03/2016 Inactive buspirone 15 mg tablet RxNorm: 461160 TAKE ONE-HALF TABLET BY MOUTH TWO TIMES A DAY 01/13/2016 04/11/2016 Inactive Augmentin 500 mg-125 mg tablet RxNorm: 460137 1 Tablet(s) PO TID 10/22/2015 10/31/2015 Inactive Give with a probiotic Augmentin 500 mg-125 mg tablet RxNorm: 379685 1 Tablet(s) PO TID 10/22/2015 10/21/2015 Inactive Give with a probiotic buspirone 15 mg tablet RxNorm: 471865 1/2 Tablet(s) PO BID 09/17/2015 01/12/2016 Inactive Flonase Allergy Reli ef 50 mcg/actuation nasal spray,suspension RxNorm: 1-2 [place] NASAL daily 07/08/2015 10/05/2015 Inactive Miralax 17 gram oral powder packet RxNorm: 139776 1 packet PO daily 07/08/2015 10/05/2015 Inactive metoprolol succinate ER 25 mg tablet,extended release 24 hr RxNorm: 930105 1 Tablet(s) PO daily No Start Date Active Aspirin Low Dose 81 mg tablet,delayed release RxNorm: 523062 1 Tablet(s) PO daily No Start Date Active Vitamin D3 1,000 uni t tablet RxNorm: 044710 2 Tablet(s) PO daily No Start Date Active Lipitor 40 mg tablet RxNorm: 856072 1 Tablet(s) PO daily No Start Date 06/23/2018 Inactive buspirone 15 mg tablet RxNorm: 584117 1/2 Tablet(s) PO BID No Start Date 09/16/2015 Inactive Medication Administered No Medication Administered data Immunizations Vaccine Codes Date Status Influenza CVX: 141 07/08 completed Pneumococcal (Adult) CVX: 133 07/08/2015 completed Assessments Condition Codes Effectiv e Dates Varicose veins of left lower extremity with [...] Visit Reason For Visit Effective Dates Notes knee pain 08/08/2018 knee pain 06/30/2018 anxiety 04/12/2018 swell ing anxiety 04/05/2017 anxiety 03/03/2017 fatigue 02/08/2017 Buspi frank constipation 08/06/2015 sinus congestion 07/08/2015 fatigue 06/06/2015 Results Observation Observation Code Item Item Code Result Date Comp Metabolic Rrz813 NA 139 mEq/L 02/08/2017 Comp Metabolic Sqg452 K 4.2 mEq/L 02/08/2017 Comp Metabolic Tut910 CL 104 mEq/L 02/08/2017 Comp Metabolic Rjx680 CO2 27.0 mEq/L 02/08/2017 Comp Metabolic Tdq587 AN ION GAP 12 02/08/2017 Comp Metabolic Xcg740 GL UCOSE 87 mg/dL 02/08/2017 Comp Metabolic Cvl282 Cr eat 0.8 mg/dL 02/08/2017 Comp Metabolic Kqj622 eG FR 71 ml/min/1.73m2 02/08 Comp Metabolic Zrz400 BUN 15 mg/dL 02/08/2017 Comp Metabolic Bgv489 B/ C Ratio 17.9 Ratio 02/08/2017 Comp Metabolic Mlw627 CA LCIUM 9.1 mg/dL 02/08/2017 Comp Metabolic Uqc265 AL K PHOS 60 U/L 02/08/2017 Comp Metabolic Rgz011 T(SGOT) 23 U/L 02/08/2017 Comp Metabolic Lps244 AL T(SGPT) 14 U/L 02/08/2017 Comp Metabolic Jvb195 BI LI T 0.3 mg/dL 02/08/2017 Comp Metabolic Nyo982 AL BUMIN 4.1 g/dL 02/08/2017 Comp Metabolic Qtc730 TP RO 6.6 g/dL 02/08/2017 Comp Metabolic Ezz319 GL OB 2.5 g/dL 02/08/2017 Comp Metabolic Jby194 A/ G Ratio 1.6 Ratio 02/08/2017 Comp Metabolic Kfh168 Os mo 278 mOsmo 02/08/2017 Cbc With [...] 32.3 pg 02/08/2017 Cbc With Differential Ord2 [place]% 7.2 % 02/08/2017 Cbc With Differential Ord2 [...] 3.06 K/ul 02/08/2017 Cbc With Differential Ord2 [place] ABS# 0.6 K/ul 02/08/2017 Cbc With Differential Ord2 Eos ABS# 0.1 K/ul 02/08/2017 Cbc With Differential Ord2 Baso ABS# 0.1 K/ul 02/08/2017 Lipid Ord30 CHOL 204 mg/dL 02/08/2017 Lipid Ord30 HDL 64.0 mg/dl 02/08/2017 Lipid Ord30 TRIG 68 mg/dL 02/08/2017 Lipid Ord30 LDL 126 mg/dL 02/08/2017 Lipid Ord30 C/HDL 3.2 Ratio 02/08/2017 Tsh Ord6 hTSH II 1.48 uIU/mL 02/08/2017 Vitamin D 25 Oh Jzt3179 VITAMIN D, 25 HYDROXY 33.86 ng/mL 06/07/2015 [...] Ord2 RDW 12.8 % 06/06/2015 Comp Metabolic Psu234 NA 134 mEq/L 06/06/2015 Comp Metabolic Ifk888 K 4.3 mEq/L 06/06/2015 Comp Metabolic Qck537 CL 102 mEq/L 06/06/2015 Comp Metabolic Yzu654 CO2 27.0 mEq/L 06/06/2015 Comp Metabolic Kcx926 AN ION GAP 9 06/06/2015 Comp Metabolic Rpr343 GL UCOSE 95 mg/dL 06/06/2015 Comp Metabolic Aef381 Cr eat 0.8 mg/dL 06/06/2015 Comp Metabolic Zfe616 eG FR 76 ml/min/1.73m2 06/06 Comp Metabolic Uxa889 BUN 14 mg/dL 06/06/2015 Comp Metabolic Fua180 B/ C Ratio 17.5 Ratio 06/06/2015 Comp Metabolic Sdj466 CA LCIUM 9.6 mg/dL 06/06/2015 Comp Metabolic Agu462 AL K PHOS 64 U/L 06/06/2015 Comp Metabolic Yia760 T(SGOT) 27 U/L 06/06/2015 Comp Metabolic Ltc045 AL T(SGPT) 20 U/L 06/06/2015 Comp Metabolic Gmp360 BI LI T 0.3 mg/dL 06/06/2015 Comp Metabolic Cwm769 AL BUMIN 4.3 g/dL 06/06/2015 Comp Metabolic Yyn596 TP RO 6.8 g/dL 06/06/2015 Comp Metabolic Gnl658 GL OB 2.5 g/dL 06/06/2015 Comp Metabolic Yvu451 A/ G Ratio 1.7 Ratio 06/06/2015 Comp Metabolic Mfr358 Os mo 269 mOsmo 06/06/2015 Review of Systems System Result Effective Dates Constitutional No recent illness 08/08/2018 Constitutional No [...] No alteration of consciousness 03/03/2017 Psychiatric anxiety 06/03/2017 Psychiatric depression 0 03/03/2017 Endocrine No dry [...] 06/06/2015 None Procedures Procedure Codes Date TOBACCO-USE WOLF HUNTER 3-[address]: 081142394 CPT-4: G0436 04/05/2017 TOBACCO-USE WOLF HUNTER 3-[address]: 877164089 CPT-4: G0436 02/08/2017 ADMIN INFLUENZA VIRU S VAC Formatting Model/CDA Sections, Assigned to CPT-4: G3028Hcoiqkd 07/08/2015 FLU VACC 4 LILIANA 3 YRS PLUS IM Formatting Model/CDA Sections, Assigned to SNOMED CT: 76830128 CPT-4: 00553Uhzzrtw 07/08/2015 PNEUMOCOCCAL VACC 13 LILIANA IM Formatting Model/CDA Sections, Assigned to SNOMED CT: 22600207 CPT-4: 66118Ohbgfub 07/08/2015 TOBACCO-USE WOLF HUNTER 3-[address]: 368616512 CPT-4: G0436 06/06/2015 Vital Signs Date Vital 08/08/2018 Blood Pressure 1: 148/64 Code: 8480-6 BMI: 26.2 Code: 44762-0 Heart Rate 1: 69 bpm Height: 5'2" SpO2: 98% Weight: 143 lbs 06/30/2018 Blood Pressure 1: 136/76 Code: 8480-6 BMI: 26.2 Code: 14666-2 Heart Rate 1: 74 bpm Height: 5'2" SpO2: 94% Weight: 143 lbs 04/12/2018 Blood Pressure 1: 142/82 Code: 8480-6 BMI: 26.7 Code: 54772-6 Heart Rate 1: 63 bpm Height: 5'2" SpO2: 94% Weight: 146 lbs 04/05/2017 Blood Pressure 1: 124/70 Code: 8480-6 BMI: 24.1 Code: 01821-3 Heart Rate 1: 67 bpm Height: 5'2" SpO2: 94% Weight: 132 lbs 03/03/2017 Blood Pressure 1: 150/78 Code: 8480-6 BMI: 24.5 Code: 07460-2 Heart Rate 1: 58 bpm Height: 5'2" SpO2: 97% Weight: 134 lbs 02/08/2017 Blood Pressure 1: 156/78 Code: 8480-6 BMI: 24.5 Code: 19142-8 Heart Rate 1: 80 bpm Height: 5'2" SpO2: 95% Weight: 134 lbs 08/06/2015 Blood Pressure 1: 148/70 Code: 8480-6 BMI: 25.8 Code: 03131-8 Heart Rate 1: 84 bpm Height: 5'2" SpO2: 94% Weight: 141 lbs 07/08/2015 Blood Pressure 1: 144/62 Code: 8480-6 BMI: 25.1 Code: 10507-1 Heart Rate 1: 84 bpm Height: 5'2" SpO2: 94% Weight: 137 lbs 06/06/2015 Blood Pressure 1: 128/80 Code: 8480-6 BMI: 25.2 Code: 56673-1 Heart Rate 1: 69 bpm Height: 5'2" SpO2: 95% Weight: 138 lbs Functional Status No Functional Status data History of Present Illness Symptom Name Status Resu lt Effective Date Notes knee pain Location on th e left [...] Encounters Encounter Performer Loca tion Codes Date ([id number]) 23261 EST. P ATIENT, LEVEL III Diagnosis: Essential (primary) hypertension[ICD10: I10] Diagnosis: Varicose veins of left lower extremity with pain[ICD10: I83.812] Elizabeth Robledo MD, [facility] CPT-4: 79474 08/08/2018 ([id number]) 14870 EST. P ATIENT, LEVEL III Diagnosis: Varicose veins of left lower extremity with pain[ICD10: I83.812] Elizabeth Robledo MD, [facility] CPT-4: 15012 06/30/2018 ([id number]) 53675 EST. P ATIENT, LEVEL IV Diagnosis: Essential (primary) hypertension[ICD10: I10] Diagnosis: Generalized anxiety disorder[ICD10: F41.1] Elizabeth Robledo MD, [facility] CPT-4: 03288 04/12/2018 ([id number]) 94983 EST. P ATIENT, LEVEL III Diagnosis: Generalized anxiety disorder[ICD10: F41.1] Elizabeth Robledo MD, [facility] CPT-4: 68682 04/05/2017 ([id number]) 18508 EST. P ATIENT, LEVEL III Diagnosis: Generalized anxiety disorder[ICD10: F41.1] Diagnosis: Essential (primary) hypertension[ICD10: I10] Elizabeth Robledo MD, [facility] CPT-4: 93168 03/03/2017 ([id number]) 46013 EST. P ATIENT, LEVEL IV Diagnosis: Generalized anxiety disorder[ICD10: F41.1] Diagnosis: Chronic obstructive pulmonary disease with (acute) exacerbation[ICD10: J44.1] Elizabeth Robledo MD, [facility] CPT-4: 50497 02/08/2017 ([id number]) 35615 EST. P ATIENT, LEVEL III Diagnosis: Generalized anxiety disorder[ICD10: F41.1] Diagnosis: Other seasonal allergic rhinitis[ICD10: J30.2] Carol Robledo MD, [facility] CPT-4: 81359 08/06/2015 ([id number]) 09517 EST. P ATIENT, LEVEL IV Diagnosis: Generalized anxiety disorder[ICD10: F41.1] Diagnosis: Other seasonal allergic rhinitis[ICD10: J30.2] Diagnosis: Rectocele[ICD10: N81.6] Carol [facility]led[facility] CPT-4: 11562 07/08/2015 ([id number]) OFFICE [facility] - LEVEL 4 Diagnosis: COPD (chronic obstructive pulmonary disease)[ICD9: 496] Diagnosis: Tobacco use[ICD9: 305.1] Diagnosis: Myalgia[ICD9: 729.1] Diagnosis: Anxiety[ICD9: 300.00] Diagnosis: Altered bowel habits[ICD9: 787.99] Carol Robledo MD, [facility] CPT-4: 48445 06/06/2015 Plan of Care Planned Activity Notes C odes Status Date Visit Plan: Hypertension - well con trolled - continue with current medications, continue with no added salt diet. Pt has been encouraged to exercise daily. The pt has been advised to call the office if there are any acute concerns about change in blood pressure readings at home. Varcose veins of legs - improved with compression. 08/08/2018 Patient Education: Patient Medication Summary Completed [...] see you 06/30/2018 Appointment: Elizabeth Robledo WPtel: [address] [place], [place] [id number] (15 min) Moderate 06/30/2018 Patient Education: Patient [...] Increase citalopram 04/12/2018 Appointment: Elizabeth Robledo WPtel: [address] [facility] [place] (15 min) Moderate 04/12/2018 Patient Education: Patient Medication Summary Completed 04/12/2018 Appointment: Elizabeth Robledo WPtel: [phone] [facility] [place] (15 min) Moderate 04/07/2018 Appointment: Elizabeth Robledo WPtel: [address] [facility] [place] (15 min) Moderate 05/03/2017 Visit Plan: Anxiety [...] medications. 04/05/2017 Appointment: Elizabeth Robledo WPtel: [address] [facility] (15 min) Moderate 04/05/2017 Patient Education: Patient [...] to call for acute concerns. Pt seeing Skilled Trades Teacher - defer treatment to him at this time as he has an extensive work-up pending. Generalized anxiety disorder - uncontrolled symptoms - decrease the buspirone to 1/2 pill in the morning. start on lexapro 10mg at bedtime 03/03/2017 Appointment: Elizabeth Robledo WPtel: [phone] [facility] [place] (15 min) Moderate 03/03/2017 Patient Education: Patient [...] of chest 02/08/2017 [facility]ment[facility] ([facility] min) Moderate 02/08/2017 Patient Education: Patient Medication Summary Completed 02/08/2017 Patient Education: Smoking and Tobacco Addiction Completed 02/08/2017 [facility]ment[phone] (15 min) Moderate 04/28/2016 Visit Plan: Chronic anxiety-symptom s fairly well controlled- no change in treatment-instructed patient to call if symptoms become uncontrolled Icvfahedk-ksuceut-cdg zyrtec or haroon and take daily Jvvwbyeothmw-sgdtqal-uj change in treatment 08/06/2015 Appointment: (30 min) [...] patient to call if symptoms become uncontrolled Tzwtkkqoe-cyeeoah-yxe zyrtec or haroon and take daily Ozkiwxojulqk-xrorcra-gy change in treatment PROBIOTIC TWICE SARWAT Y-ALIGN [...] TWICE DAILY TO HELP REGULATE STOOLS JORDON Seafarers CV ARE SOME OF THE BRANDS OF PROBIOTICS [...] No change in current medications. Myalgias-check labs . Hypertension - wel l controlled - [...] to call for acute concerns. Pt seeing Skilled Trades Teacher - defer treatment to him at this time as he has an extensive work-up pending. Generalized anxiety disorder - uncontrolled symptoms - decrease the buspirone to 1/2 pill in the morning. start on lexapro 10mg at bedtime
--- OUTSIDE RECORDS SUMMARY | 2020-04-19 07:40 | XMS REPORT | CCD ---
Author Author Michelle Lira Organization Elizabeth Robledo MD, [facility] Address [address] [place] [address] Phone Care Team Providers Care Field Technical Specialist Name Role Phone PP Unavailable CCM Unavailable Summary Purpose Interface Exchange Insurance Providers Payer name Policy type / Coverage type Covered republican ID Effective Begin Date Effective End Date WPS Medicare Part B Medicare Part B [id number] Unknown Unknown Family history Sister Diagnosis Age At Onset Heart Attack Unknown Hyperlipidemia Unknown Hypertension Unknown Daughter Diagnosis Age At Onset Arthritis Unknown Son Diagnosis Age At Onset Depression Unknown Social History Social History Element Codes Description Effective Dates Marital status Unknown M guillermo Kaden 03/03/2017 Number of children Unknown 3 06/06/[address]: 48212073 Current every day smoker 06/06/2015 Number of years using tobacco Unknown 10 - 20 06/06/2015 Number of cigarettes/day Unknown 10 (Half a pack) 06/06/[address]: 556275157 Never drinks alcohol 06/06/2015 Allergies, Adverse Reactions, [...] Fill Instructions citalopram 10 mg tablet RxNorm: 964463 TAKE ONE TABLET BY MOUTH DAILY 11/04/2017 04/02/2018 Ac tive citalopram 10 mg tablet RxNorm: 547537 1 Tablet(s) PO daily 04/05/2017 10/31/2017 Inactive buspirone 15 mg tablet RxNorm: 525847 1/2 Tablet(s) PO QAM 03/03/2017 04/04/2017 Inactive Lexapro 10 mg tablet RxNorm: 947789 1 Tablet(s) PO QPM 03/03/2017 04/04/2017 Inactive buspirone 15 mg tablet RxNorm: 411266 TAKE ONE-HALF TABLET BY MOUTH TWO TIMES A DAY 11/23/2016 03/02/2017 Inactive buspirone 15 mg tablet RxNorm: 697075 TAKE ONE-HALF TABLET BY MOUTH TWO TIMES A DAY 06/04/2016 11/22/2016 Inactive buspirone 15 mg tablet RxNorm: 723565 TAKE ONE-HALF TABLET BY MOUTH TWO TIMES A DAY 04/13/2016 06/03/2016 Inactive buspirone 15 mg tablet RxNorm: 381477 TAKE ONE-HALF TABLET BY MOUTH TWO TIMES A DAY 01/13/2016 04/11/2016 Inactive Augmentin 500 mg-125 mg tablet RxNorm: 888519 1 Tablet(s) PO TID 10/22/2015 10/31/2015 Inactive Give with a probiotic Augmentin 500 mg-125 mg tablet RxNorm: 156917 1 Tablet(s) PO TID 10/22/2015 10/21/2015 Inactive Give with a probiotic buspirone 15 mg tablet RxNorm: 165818 1/2 Tablet(s) PO BID 09/17/2015 01/12/2016 Inactive Flonase Allergy Reli ef 50 mcg/actuation nasal spray,suspension RxNorm: 1-2 [place] NASAL daily 07/08/2015 10/05/2015 Inactive Miralax 17 gram oral powder packet RxNorm: 481065 1 packet PO daily 07/08/2015 10/05/2015 Inactive metoprolol succinate ER 25 mg tablet,extended release 24 hr RxNorm: 720248 1 Tablet(s) PO daily No Start Date Active Lipitor 40 mg tablet RxNorm: 088180 1 Tablet(s) PO daily No Start Date Active Aspirin Low Dose 81 mg tablet,delayed release RxNorm: 167914 1 Tablet(s) PO daily No Start Date Active Vitamin D3 1,000 uni t tablet RxNorm: 405398 2 Tablet(s) PO daily No Start Date Active buspirone 15 mg tablet RxNorm: 799736 1/2 Tablet(s) PO BID No Start Date [...] Item Item Code Result Date Comp Metabolic Kls168 NA 139 mEq/L 02/08/2017 Comp Metabolic Xdv247 K 4.2 mEq/L 02/08/2017 Comp Metabolic Lrz680 CL 104 mEq/L 02/08/2017 Comp Metabolic Hpe607 CO2 27.0 mEq/L 02/08/2017 Comp Metabolic Ppj479 AN ION GAP 12 02/08/2017 Comp Metabolic Ujl382 GL UCOSE 87 mg/dL 02/08/2017 Comp Metabolic Niy626 Cr eat 0.8 mg/dL 02/08/2017 Comp Metabolic Jor911 eG FR 71 ml/min/1.73m2 02/08 Comp Metabolic Zqy277 BUN 15 mg/dL 02/08/2017 Comp Metabolic Kyf035 B/ C Ratio 17.9 Ratio 02/08/2017 Comp Metabolic Mxv376 CA LCIUM 9.1 mg/dL 02/08/2017 Comp Metabolic Amc348 AL K PHOS 60 U/L 02/08/2017 Comp Metabolic Wdk553 T(SGOT) 23 U/L 02/08/2017 Comp Metabolic Kyg829 AL T(SGPT) 14 U/L 02/08/2017 Comp Metabolic Zsr438 BI LI T 0.3 mg/dL 02/08/2017 Comp Metabolic Gst443 AL BUMIN 4.1 g/dL 02/08/2017 Comp Metabolic Frm525 TP RO 6.6 g/dL 02/08/2017 Comp Metabolic Kmr983 GL OB 2.5 g/dL 02/08/2017 Comp Metabolic Dnu009 A/ G Ratio 1.6 Ratio 02/08/2017 Comp Metabolic Fra689 Os mo 278 mOsmo 02/08/2017 Cbc With Differential Ord2 WBC 8.60 K/ul 02/08/2017 Cbc With Differential Ord2 RBC 4.00 M/ul 02/08/2017 Cbc With Differential Ord2 HGB 12.9 g/dl 02/08/2017 Cbc With Differential Ord2 Neut% 55.2 % 02/08/2017 Cbc With Differential Ord2 HCT 38.8 % 02/08/2017 Cbc With Differential Ord2 MCV 97.0 fl 02/08/2017 Cbc With Differential Ord2 Lymph% 35.6 % 02/08/2017 Cbc With Differential Ord2 MCH 32.3 pg 02/08/2017 Cbc With Differential Ord2 Christian% 7.2 % 02/08/2017 Cbc With Differential Ord2 [...] 3.06 K/ul 02/08/2017 Cbc With Differential Ord2 Christian ABS# 0.6 K/ul 02/08/2017 Cbc With Differential Ord2 Eos ABS# 0.1 K/ul 02/08/2017 Cbc With Differential Ord2 Baso ABS# 0.1 K/ul 02/08/2017 Tsh Ord6 hTSH II 1.48 uIU/mL 02/08/2017 Lipid Ord30 CHOL 204 mg/dL 02/08/2017 Lipid Ord30 HDL 64.0 mg/dl 02/08/2017 Lipid Ord30 TRIG 68 mg/dL 02/08/2017 Lipid Ord30 LDL 126 mg/dL 02/08/2017 Lipid Ord30 C/HDL 3.2 Ratio 02/08/2017 Vitamin D 25 Oh Not0214 VITAMIN D, 25 HYDROXY 33.86 ng/mL 06/07/2015 [...] Ord2 RDW 12.8 % 06/06/2015 Comp Metabolic Bif991 NA 134 mEq/L 06/06/2015 Comp Metabolic Obp093 K 4.3 mEq/L 06/06/2015 Comp Metabolic Oxb456 CL 102 mEq/L 06/06/2015 Comp Metabolic Rsz040 CO2 27.0 mEq/L 06/06/2015 Comp Metabolic Awo550 AN ION GAP 9 06/06/2015 Comp Metabolic Ijk397 GL UCOSE 95 mg/dL 06/06/2015 Comp Metabolic Eyc265 Cr eat 0.8 mg/dL 06/06/2015 Comp Metabolic Iha974 eG FR 76 ml/min/1.73m2 06/06 Comp Metabolic Tvv756 BUN 14 mg/dL 06/06/2015 Comp Metabolic Ncf109 B/ C Ratio 17.5 Ratio 06/06/2015 Comp Metabolic Eqo284 CA LCIUM 9.6 mg/dL 06/06/2015 Comp Metabolic Glx854 AL K PHOS 64 U/L 06/06/2015 Comp Metabolic Uqq209 T(SGOT) 27 U/L 06/06/2015 Comp Metabolic Ztj470 AL T(SGPT) 20 U/L 06/06/2015 Comp Metabolic Sqg911 BI LI T 0.3 mg/dL 06/06/2015 Comp Metabolic Bkb304 AL BUMIN 4.3 g/dL 06/06/2015 Comp Metabolic Hrq351 TP RO 6.8 g/dL 06/06/2015 Comp Metabolic Vvb318 GL OB 2.5 g/dL 06/06/2015 Comp Metabolic Feo031 A/ G Ratio 1.7 Ratio 06/06/2015 Comp Metabolic Aoo970 Os mo 269 mOsmo 06/06/2015 Review of [...] clear 06/06/2015 None Full Exam - General 1995 Ears/Nose/Throat oral cavity/pharynx/larynx Overall: oropharyngeal mucosa clear 06/06/2015 None Full Exam - General 1995 Ears/Nose/Throat oral cavity/pharynx/larynx Overall: no masses 06/06/2015 [...] 06/06/2015 None Procedures Procedure Codes Date TOBACCO-USE HE[employer] SAFETY SPECIALIST 3-[address]: 201670881 CPT-4: G0436 04/05/2017 TOBACCO-USE HEALTH SAFETY SPECIALIST 3-[address]: 564662790 CPT-4: G0436 02/08/2017 ADMIN INFLUENZA VIRU S VAC Formatting Model/CDA Sections, Assigned to CPT-4: [id number] 07/08/2015 FLU VACC 4 LILIANA 3 YRS PLUS IM Formatting Model/CDA Sections, Assigned to SNOMED CT: 39771178 CPT-4: 42136Whspeiu 07/08/2015 PNEUMOCOCCAL VACC 13 LILIANA IM Formatting Model/CDA Sections, Assigned to SNOMED CT: 35123852 CPT-4: 25939Anepmdz 07/08/2015 TOBACCO-USE HEALTH SAFETY SPECIALIST 3-[address]: 170255196 CPT-4: G0436 06/06/2015 Vital Signs Date Vital 04/05/2017 Blood Pressure 1: 124/70 Code: 8480-6 BMI: 24.1 Code: 70246-6 Heart Rate 1: 67 bpm Height: 5'2" SpO2: 94% Weight: 132 lbs 03/03/2017 Blood Pressure 1: 150/78 Code: 8480-6 BMI: 24.5 Code: 97091-5 Heart Rate 1: 58 bpm Height: 5'2" SpO2: 97% Weight: 134 lbs 02/08/2017 Blood Pressure 1: 156/78 Code: 8480-6 BMI: 24.5 Code: 42603-1 Heart Rate 1: 80 bpm Height: 5'2" SpO2: 95% Weight: 134 lbs 08/06/2015 Blood Pressure 1: 148/70 Code: 8480-6 BMI: 25.8 Code: 27211-2 Heart Rate 1: 84 bpm Height: 5'2" SpO2: 94% Weight: 141 lbs 07/08/2015 Blood Pressure 1: 144/62 Code: 8480-6 BMI: 25.1 Code: 10754-0 Heart Rate 1: 84 bpm Height: 5'2" SpO2: 94% Weight: 137 lbs 06/06/2015 Blood Pressure 1: 128/80 Code: 8480-6 BMI: 25.2 Code: 25104-1 Heart Rate 1: 69 bpm Height: 5'2" [...] Encounters Encounter Performer Loca tion Codes Date ([id number]) [id number] EST. P ATIENT, LEVEL III Diagnosis: Generalized anxiety disorder[ICD10: F41.1] Elizabeth Robledo MD, [facility] CPT-4: 40196 04/05/2017 ([id number]) [id number] EST. P ATIENT, LEVEL III Diagnosis: Generalized anxiety disorder[ICD10: F41.1] Diagnosis: Essential (primary) hypertension[ICD10: I10] Elizabeth Robledo MD, [facility] CPT-4: 68364 03/03/2017 ([id number]) [id number] EST. P ATIENT, LEVEL IV Diagnosis: Generalized anxiety disorder[ICD10: F41.1] Diagnosis: Chronic obstructive pulmonary disease with (acute) exacerbation[ICD10: J44.1] Elizabeth Robledo MD, [facility] CPT-4: 51191 02/08/2017 ([id number]) 11695 EST. P ATIENT, LEVEL III Diagnosis: Generalized anxiety disorder[ICD10: F41.1] Diagnosis: Other seasonal allergic rhinitis[ICD10: J30.2] Carol Robledo MD, [facility] CPT-4: 05004 08/06/2015 ([id number]) [id number] EST. P ATIENT, LEVEL IV Diagnosis: Generalized anxiety disorder[ICD10: F41.1] Diagnosis: Other seasonal allergic rhinitis[ICD10: J30.2] Diagnosis: Rectocele[ICD10: N81.6] Carol Robledo MD, [facility] CPT-4: 99141 07/08/2015 ([id number]) OFFICE JOANIE DUNLAP LEVEL 4 Diagnosis: COPD (chronic obstructive pulmonary disease)[ICD9: 496] Diagnosis: Tobacco use[ICD9: 305.1] Diagnosis: Myalgia[ICD9: 729.1] Diagnosis: Anxiety[ICD9: 300.00] Diagnosis: Altered bowel habits[ICD9: 787.99] Carol Robledo MD, [facility] CPT-4: 51498 06/06/2015 Plan of Care Planned Activity Notes C odes Status Date Appointment: Elizabeth Robledo WPtel: [phone] [facility] [place] (15 min) Moderate 05/03/2017 Appointment: Elizabeth Robledo WPtel: [phone] [facility] [place] (15 min) Moderate 04/05/2017 Patient Education: Patient Medication Summary Completed 04/05/2017 Patient Education: Smoking and Tobacco Addiction Completed 04/05/2017 [phone] [place] ([facility] min) Moderate 03/03/2017 Patient Education: Patient Medication Summary Completed 03/03/2017 Patient Education: Smoking and Tobacco Addiction Completed 03/03/2017 App[facility]ment: [phone] [facility] [place] (15 min) Moderate 02/08/2017 Patient Education: Patient Medication Summary Completed 02/08/2017 Patient Education: Smoking and Tobacco Addiction Completed 02/08/2017 [facility] [phone] [facility] [place] (15 min) Moderate 04/28/2016 Appointment: (30 min) Complex 08/06/2015 Patient Education: Patient Medication Summary Completed 08/06/2015 Appointment: (30 min) Complex 07/08/2015 Patient Education: Patient Medication Summary Completed 07/08/2015 Appointment: (S) New Patient 06/06/2015 Patient Education: Patient Medication Summary Completed 06/06/2015 Patient Education: Smoking and Tobacco Addiction Completed 06/06/2015 Instructions No Instructions
--- OUTSIDE RECORDS SUMMARY | 2020-04-19 07:41 | XMS REPORT | Continuity of Care Document ---
Author Organization Unknown Address Unknown Phone Unavailable Allergies Active Description Code Type Severity Reaction Onset Reported/Identified Relationship to Patient Clinical Status Yes NO KNOWN DRUG ALLERGIES UNKNOWN UNKNOWN Yes No Known Drug Allergies [id number] Drug Allergy Unknown N/A 10/15/2014 Medications There is no data. Problems Date Dx Coded Attending Type Code Diagnosis Diagnosed By 02/09/2011 Ot 346.90 02/09/2011 Ot 784.0 10/15/2014 CHANDRA PAGAN, ANTONIA Jain Ot 461.9 ACUTE SINUSITIS NOS 10/15/2014 ANTONIA ARTIS MD Ot 786.2 COUGH 10/15/2014 Ot 305.1 10/15/2014 Ot 518.89 10/15/2014 Ot 786.05 10/15/2014 Ot V76.12 10/15/2014 Ot 518.89 10/15/2014 Ot V81.5 10/15/2014 Ot 518.89 10/15/2014 Ot 733.90 10/15/2014 Ot V76.12 10/15/2014 Ot V82.81 10/15/2014 JOSE ALFREDO EUBANKS MD Ot 786.2 10/15/2014 JOSE ALFREDO EUBANKS MD Ot 786.50 10/15/2014 JOSE ALFREDO EUBANKS MD Ot V76.12 10/15/2014 RIDINGSÁNGEL C SLASHER Ot 719.45 10/15/2014 RIDINGSSHAYLAÁNGEL C SLASHER Ot 729.5 02/07/2015 Ot 305.1 02/07/2015 Ot 518.89 02/07/2015 Ot 786.05 02/07/2015 Ot V76.12 02/07/2015 Ot 518.89 02/07/2015 Ot V81.5 02/07/2015 Ot 518.89 02/07/2015 Ot 733.90 02/07/2015 Ot V76.12 02/07/2015 Ot V82.81 02/07/2015 JOSE ALFREDO EUBANKS MD Ot 786.2 02/07/2015 RAIMUNDO PAGAN, JOSE ALFREDO Palafox Ot 786.50 02/07/2015 RAIMUNDO PAGAN, JOSE ALFREDO Palafox Ot V76.12 02/07/2015 RIDINGS, ÁNGEL C SLASHER Ot 719.45 02/07/2015 RIDINGS, ÁNGEL C SLASHER Ot 729.5 02/07/2015 RIDINGS, ÁNGEL C SLASHER Ot 719.45 02/07/2015 RIDINGS, ÁNGEL C SLASHER Ot 729.5 06/11/2015 Ot 518.89 06/11/2015 Ot 733.90 06/11/2015 Ot V76.12 06/11/2015 Ot V82.81 06/11/2015 RAIMUNDO PAGAN, JOSE ALFREDO [place] Ot 786.2 06/11/2015 RAIMUNDO PAGAN, JOSE ALFREDO Palafox Ot 786.50 06/11/2015 RAIMUNDO PAGAN, JOSE ALFREDO Palafox Ot V76.12 06/11/2015 RIDINGS, ÁNGEL C SLASHER Ot 719.45 06/11/2015 RIDINGS, ÁNGEL C SLASHER Ot 729.5 07/03/2015 DAVID VILLARREAL CRATE REPAIRER Ot 305.1 07/03/2015 DAVID VILLARREAL CRATE REPAIRER Ot 496 07/03/2015 DAVID VILLARREAL CRATE REPAIRER Ot 737.30 07/03/2015 DAVID VILLARREAL CRATE REPAIRER Ot V76.12 03/18/2016 INGRAM DO, JENNA L Ot F17.2 10 NICOTINE DEPENDENCE, CIGARETTES, UNCOMPL 03/18/2016 INGRAM DO, JENNA L Ot M20.1 1 HALLUX VALGUS (ACQUIRED), RIGHT FOOT 03/18/2016 INGRAM DO, JENNA L Ot R25.2 CRAMP AND SPASM 03/19/2016 INGRAM DO, JENNA L Ot F17.2 10 NICOTINE DEPENDENCE, CIGARETTES, UNCOMPL 03/19/2016 INGRAM DO, JENNA L Ot M20.1 1 HALLUX VALGUS (ACQUIRED), RIGHT FOOT 03/19/2016 INGRAM DO, JENNA L Ot R25.2 CRAMP AND SPASM 03/20/2016 INGRAM DO, JENNA L Ot F17.2 10 NICOTINE DEPENDENCE, CIGARETTES, UNCOMPL 03/20/2016 INGRAM DO, JENNA L Ot M20.1 1 HALLUX VALGUS (ACQUIRED), RIGHT FOOT 03/20/2016 INGRAM DO, JENNA L Ot R25.2 CRAMP AND SPASM 02/16/2017 JM MCDONALD MD Ot Z12.31 ENCNTR SCREEN MAMMOGRAM FOR MALIGNANT NE 02/18/2017 JM MCDONALD MD Ot J44.9 CHRONIC OBSTRUCTIVE PULMONARY DISEASE, U 02/18/2017 JM MCDONALD MD Ot Z12.31 ENCNTR SCREEN MAMMOGRAM FOR MALIGNANT NE 02/23/2017 JM MCDONALD MD Ot J44.9 CHRONIC OBSTRUCTIVE PULMONARY DISEASE, U 02/23/2017 JM MCDONALD MD Ot Z12.31 ENCNTR SCREEN MAMMOGRAM FOR MALIGNANT NE 02/23/2017 JM MCDONALD MD Ot J44.9 CHRONIC OBSTRUCTIVE PULMONARY DISEASE, U 02/23/2017 JM MCDONALD MD Ot Z12.31 ENCNTR SCREEN MAMMOGRAM FOR MALIGNANT NE 02/26/2017 JM MCDONALD MD Ot J44.9 CHRONIC OBSTRUCTIVE PULMONARY DISEASE, U 02/26/2017 JM MCDONALD MD Ot Z12.31 ENCNTR SCREEN MAMMOGRAM FOR MALIGNANT NE 03/01/2017 JAE PAGAN FACFranko, ALI FACP CCDS Ot I10 ESSENTIAL (PRIMARY) HYPERTENSION 03/01/2017 JAE PAGAN FACC, ALI FACP CCDS Ot R06.02 SHORTNESS OF BREATH 03/01/2017 JAE PAGAN FACC, ALI FACP CCDS Ot Z72.0 TOBACCO USE 03/03/2017 JAE PAGAN FACC, ALI FACP CCDS Ot I10 ESSENTIAL (PRIMARY) HYPERTENSION 03/03/2017 JAE PAGAN FACC, ALI FACP CCDS Ot R06.02 SHORTNESS OF BREATH 03/03/2017 JAE PAGAN FACC, ALI FACP CCDS Ot Z72.0 TOBACCO USE 03/10/2017 JM MCDONALD MD Ot J44.9 CHRONIC OBSTRUCTIVE PULMONARY DISEASE, U 03/10/2017 JM MCDONALD MD Ot Z12.31 ENCNTR SCREEN MAMMOGRAM FOR MALIGNANT NE 03/16/2017 JAE PAGAN FACC, ALI FACP CCDS Ot I10 ESSENTIAL (PRIMARY) HYPERTENSION 03/16/2017 JAE QUEZADAC, ALI FACP CCDS Ot I25.10 ATHSCL HEART DISEASE OF [place] CORONARY 03/16/2017 JAE QUEZADAC, ALI FACP CCDS Ot R06.02 SHORTNESS OF BREATH 03/16/2017 JAE PAGAN FACC, ALI FACP CCDS Ot R94.39 ABNORMAL RESULT OF OTHER CARDIOVASCULAR 03/16/2017 JAE QUEZADAC, ALI FACP CCDS Ot Z72.0 TOBACCO USE 03/16/2017 JAE PAGAN FACC, ALI FACP CCDS Ot Z79.899 OTHER RIGGING LOFT REPAIRER (CURRENT) DRUG THERAPY 03/19/2017 JAE QUEZADAC, ALI FACP CCDS Ot I10 ESSENTIAL (PRIMARY) HYPERTENSION 03/19/2017 [facility]AN [facility], ALI FACP CCDS Ot I25.10 ATHSCL HEART DISEASE OF [place] CORONARY 03/19/2017 JAE PAGAN FACC, ALI FACP CCDS Ot R06.02 SHORTNESS OF BREATH 03/19/2017 JAE QUEZADAC, ALI FACP CCDS Ot R94.39 ABNORMAL RESULT OF OTHER CARDIOVASCULAR 03/19/2017 JAE PAGAN FACC, ALI FACP CCDS Ot Z72.0 TOBACCO USE 03/19/2017 JAE PAGAN [facility], ALI FACP CCDS Ot Z79.899 OTHER ASSISTED (CURRENT) DRUG THERAPY 03/23/2017 JAE PAGAN FACC, ALI FACP CCDS Ot I10 ESSENTIAL (PRIMARY) HYPERTENSION 03/23/2017 JAE PAGAN FACC, ALI FACP CCDS Ot R06.02 SHORTNESS OF BREATH 03/23/2017 JAE QUEZADA, ALI FACP CCDS Ot Z72.0 TOBACCO USE 03/23/2017 JAE PAGAN FACC, ALI FACP CCDS Ot I10 ESSENTIAL (PRIMARY) HYPERTENSION 03/23/2017 JAE QUEZADA, ALI FACP CCDS Ot R06.02 SHORTNESS OF BREATH 03/23/2017 JAE PAGAN [facility], ALI FACP CCDS Ot Z72.0 TOBACCO USE 03/25/2017 JAE PAGAN FACC, ALI FACP CCDS Ot I10 ESSENTIAL (PRIMARY) HYPERTENSION 03/25/2017 JAE QUEZADAC, ALI FACP CCDS Ot R06.02 SHORTNESS OF BREATH 03/25/2017 JAE QUEZADAC, ALI FACP CCDS Ot Z72.0 TOBACCO USE 02/09/2019 DAVID VILLARREAL Ot 305.1 TOBACCO USE DISORDER 02/09/2019 DAVID VILLARREAL CRATE REPAIRER Ot 496 CHR AIRWAY OBSTRUCT NEC 02/09/2019 DAVID VILLARREAL CRATE REPAIRER Ot 737.30 IDIOPATHIC SCOLIOSIS 02/09/2019 DAVID VILLARREAL CRATE REPAIRER Ot V76.12 OTH SCREEN MAMMO-MALIGN NEOPLASM OF [place] 02/09/2019 HARRY PAGAN, JM Skinner Ot J44.9 CHRONIC OBSTRUCTIVE PULMONARY DISEASE, U 02/09/2019 HARRY PAGAN, JM Skinner Ot Z12.31 ENCNTR SCREEN MAMMOGRAM FOR MALIGNANT NE 02/09/2019 JAE PAGAN FACC, ALI FACP CCDS Ot I10 ESSENTIAL (PRIMARY) HYPERTENSION 02/09/2019 JAE PAGAN FACC, ALI FACP CCDS Ot R06.02 SHORTNESS OF BREATH 02/09/2019 JAE PAGAN FAC, ALI FACP CCDS Ot Z72.0 TOBACCO USE 02/09/2019 JAE PAGAN FACC, ALI FACP CCDS Ot I10 ESSENTIAL (PRIMARY) HYPERTENSION 02/09/2019 JAE PAGAN FACC, ALI FACP CCDS Ot R06.02 SHORTNESS OF BREATH 02/09/2019 JAE PAGAN FAC, ALI FACP CCDS Ot Z72.0 TOBACCO USE 02/09/2019 JAE PAGAN FACC, ALI FACP CCDS Ot I10 ESSENTIAL (PRIMARY) HYPERTENSION 02/09/2019 JAE PAGAN [facility], ALI FACP CCDS Ot R06.02 SHORTNESS OF BREATH 02/09/2019 JAE PAGAN FAC, ALI FACP CCDS Ot Z72.0 TOBACCO USE 02/10/2019 DAVID VILLARREAL CRATE REPAIRER Ot 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 02/10/2019 DAVID VILLARREAL CRATE REPAIRER Ot I67.82 CEREBRAL ISCHEMIA 03/02/2019 DAVID VILLARREAL CRATE REPAIRER Ot 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 03/02/2019 DAVID VILLARREAL CRATE REPAIRER Ot 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 CEREBRAL ISCHEMIA 03/04/2019 MAGGI PAGAN, LUC Russell Ot F17.290 NICOTINE DEPENDENCE, OTHER TOBACCO PRODU 03/04/2019 MAGGI PAGAN, LUC Russell Ot I82.401 ACUTE EMBOLISM AND THOMBOS UNSP DEEP VEI 03/04/2019 MAGGI PAGAN, LUC Russell Ot M79.89 OTHER SPECIFIED SOFT TISSUE DISORDERS 03/04/2019 LUC TAY MD Ot Z79.01 RIGGING LOFT REPAIRER (CURRENT) USE OF ANTICOAGULANT 03/04/2019 LUC TAY MD Ot Z79.82 ASSISTED (CURRENT) USE OF ASPIRIN 03/04/2019 LUC TAY MD Ot Z90.710 ACQUIRED ABSENCE OF BOTH CERVIX AND UTER 03/08/2019 LUC TAY MD Ot F17.290 NICOTINE DEPENDENCE, OTHER TOBACCO PRODU 03/08/2019 LUC TAY MD Ot I82.401 ACUTE EMBOLISM AND THOMBOS UNSP DEEP VEI 03/08/2019 LUC TAY MD, Ot M79.89 OTHER SPECIFIED SOFT TISSUE DISORDERS 03/08/2019 LUC TAY MD, Ot Z79.01 ASSISTED (CURRENT) USE OF ANTICOAGULANT 03/08/2019 LUC TAY MD, Ot Z79.82 ASSISTED (CURRENT) USE OF ASPIRIN 03/08/2019 LUC TAY MD Ot Z90.710 ACQUIRED ABSENCE OF BOTH CERVIX AND UTER 04/03/2019 LA JEAN MD Ot Z87.891 PERSONAL HISTORY OF NICOTINE DEPENDENCE 04/12/2019 LA JEAN MD Ot F17.210 NICOTINE DEPENDENCE, CIGARETTES, UNCOMPL 04/12/2019 LA JEAN MD Ot Z12 .2 ENCNTR SCREEN FOR MALIGNANT NEOPLASM OF 05/01/2019 LA JEAN MD Ot F17.210 NICOTINE DEPENDENCE, CIGARETTES, UNCOMPL 05/01/2019 LA JEAN MD Ot Z12 .2 ENCNTR SCREEN FOR MALIGNANT NEOPLASM OF 06/08/2019 JAE PAGAN FACC, GOSIA FACP CCDS Ot 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 06/08/2019 JAE PAGAN FACFranko, ALI FACP CCDS Ot I10 ESSENTIAL (PRIMARY) HYPERTENSION 06/08/2019 JAE PAGAN FACC, ALI FACP CCDS Ot I25.10 ATHSCL HEART DISEASE OF [place] CORONARY 06/08/2019 JAE PAGAN FACC, ALI FACP CCDS Ot Z86.718 PERSONAL HISTORY OF OTHER VENOUS THROMBO Procedures There is no data. Results Test Result Range Automated blood complete blood count (he mogram) panel - 03/16/17 07:30 Blood leukocytes automated count (number/volume) 8.3 10*3/uL 4.3-11.0 Blood erythrocytes automated count (number/volume) 4.17 10*6/uL 4.35-5.85 Venous blood hemoglobin measurement (mass/volume) 13.1 g/dL 11.5-16.0 Blood hematocrit (volume fraction) 40 % 35-52 Automated erythrocyte mean corpuscular volume 95 [ foz_us] 80-99 Automated erythrocyte mean corpuscular h emoglobin (mass per erythrocyte) 31 pg 25-34 Automated erythrocyte mean corpuscular h emoglobin concentration measurement (mass/volume) 33 g/dL 32-36 Automated erythrocyte distribution width ratio 13. 0 % 10.0- 14.5 Automated blood platelet count (count/volume) 325 10*3/uL 130-400 Automated blood platelet mean volume measurement 10.1 [foz_us] 7.4-10.4 PT panel in platelet poor plasma by coag ulation assay - 03/16/17 07:30 Prothrombin time (PT) in platelet poor plasma by coagu lation assay 12.6 s 12.2-14.7 INR in platelet poor plasma or blood by coagulation as say 1.0 0.8-1.4 Activated partial thromboplastin time (a PTT) in platelet poor plasma bycoagulation assay - 03/16/17 07:30 Activated partial thromboplastin time (a PTT) in platelet poor plasma bycoagulation assay 32 s 24-35 Comprehensive metabolic panel - 03/16/17 07:30 Serum or plasma sodium measurement (moles/volume) 139 mmol/L 135-145 Serum or plasma potassium measurement (moles/volume) 4.4 mmol/L 3.6-5.0 Serum or plasma chloride measurement (moles/volume) 104 mmol/L 98-107 Carbon dioxide 27 mmol/L 21-32 Serum or plasma anion gap determination (moles/volume) 8 mmol/L 5-14 Serum or plasma urea nitrogen measurement (mass/volume ) 16 mg/dL 7-18 Serum or plasma creatinine measurement (mass/volume) 0.94 mg/dL 0.60-1.30 Serum or plasma urea nitrogen/creatinine mass ratio 17 0-20 Serum or plasma creatinine measurement w ith calculation of estimated glomerular filtration rate 59 NRG Serum or plasma glucose measurement (mass/volume) 93 mg/dL 70-105 Serum or plasma calcium measurement (mass/volume) 9.3 mg/dL 8.5-10.1 Serum or plasma total bilirubin measurement (mass/volu me) 0.6 mg/dL 0.1-1.0 Serum or plasma alkaline phosphatase monica surement (enzymatic activity/volume) 61 U/L 40-136 Serum or plasma aspartate aminotransfera se measurement (enzymatic activity/volume) 22 U/L 5-34 Serum or plasma alanine aminotransferase measurement (enzymatic activity/volume) 13 U/L 0-55 Serum or plasma protein measurement (mass/volume) 6.9 g/dL 6.4-8.2 Serum or plasma albumin measurement (mass/volume) 4.0 g/dL 3.2-4.5 Lipid 1996 panel - 03/16/17 07:30 Serum or plasma triglyceride measurement (mass/volume) 102 mg/dL <150 Serum or plasma cholesterol measurement (mass/volume) 196 mg/dL < 200 Serum or plasma cholesterol in HDL measurement (mass/v olume) 55 mg/dL 40-60 Cholesterol in LDL [mass/volume] in serum or plasma by direct assay 121 mg/dL 1-129 Serum or plasma cholesterol in VLDL measurement (mass/ volume) 20 mg/dL 5-40 Methicillin resistant Staphylococcus aur eus (MRSA) screening culture - 03/16/17 07:30 Methicillin resistant Staphylococcus aureus (MRSA) scr eening culture NEG NRG Complete blood count (CBC) with automate d white blood cell (WBC) differential - 03/04/19 08:55 Blood leukocytes automated count (number/volume) 10.6 10*3/uL 4.3-11.0 Blood erythrocytes automated count (number/volume) 4.17 10*6/uL 4.35-5.85 Venous blood hemoglobin measurement (mass/volume) 13.1 g/dL 11.5-16.0 Blood hematocrit (volume fraction) 39 % 35-52 Automated erythrocyte mean corpuscular volume 94 [ foz_us] 80-99 Automated erythrocyte mean corpuscular h emoglobin (mass per erythrocyte) 31 pg 25-34 Automated erythrocyte mean corpuscular h emoglobin concentration measurement (mass/volume) 33 g/dL 32-36 Automated erythrocyte distribution width ratio 13. 0 % 10.0- 14.5 Automated blood platelet count (count/volume) 476 10*3/uL 130-400 Automated blood platelet mean volume measurement 9.1 [foz_us] 7.4-10.4 Automated blood neutrophils/100 leukocytes 62 % 42-75 Automated blood lymphocytes/100 leukocytes 26 % 12-44 Blood monocytes/100 leukocytes 7 % 0-12 Automated blood eosinophils/100 leukocytes 3 % 0-10 Automated blood basophils/100 leukocytes 1 % 0-10 Blood neutrophils automated count (number/volume) 6.5 10*3 1.8-7.8 Blood lymphocytes automated count (number/volume) 2.8 10*3 1.0-4.0 Blood monocytes automated count (number/volume) 0. 8 10*3 0.0-1.0 Automated eosinophil count 0.4 10*3/uL 0 .0-0.3 Automated blood basophil count (count/volume) 0.1 10*3/uL 0.0-0.1 Whole blood basic metabolic panel - 05/15 08:55 Serum or plasma sodium measurement (moles/volume) 133 mmol/L 135-145 Serum or plasma potassium measurement (moles/volume) 4.4 mmol/L 3.6-5.0 Serum or plasma chloride measurement (moles/volume) 98 mmol/L 98-107 Carbon dioxide 26 mmol/L 21-32 Serum or plasma anion gap determination (moles/volume) 9 mmol/L 5-14 Serum or plasma urea nitrogen measurement (mass/volume ) 18 mg/dL 7-18 Serum or plasma creatinine measurement (mass/volume) 0.80 mg/dL 0.60-1.30 Serum or plasma urea nitrogen/creatinine mass ratio 23 NRG Serum or plasma creatinine measurement w ith calculation of estimated glomerular filtration rate > NRG Serum or plasma glucose measurement (mass/volume) 96 mg/dL 70-105 Serum or plasma calcium measurement (mass/volume) 9.5 mg/dL 8.5-10.1 Serum or plasma C reactive protein measu rement (mass/volume) - 03/04/19 08:55 Serum or plasma C reactive protein measurement (mass/v olume) 0.23 mg/dL 0.00-0.50 Fibrin D-dimer FEU measurement in platel et poor plasma (mass/volume) - 03/04/19 08:55 Fibrin D-dimer FEU measurement in platelet poor plasma (mass/volume) 5.38 ug/mL 0.00-0.49 Thyroid Stimulating Hormone - 03/27/19 0 9:08 TSH 0.94 mIU/mL 0.32-5.00 Urinalysis - 03/28/19 10:08 Icotest N/A Negative Urine Volume Urine Volume Sufficient (10mL) Urine-Appearance Clear Clear Urine-Bacteria Negative Urine-Bilirubin Negative Negative Urine-Blood Trace Negative Urine-Color Yellow Colorless-[place] ow Urine-Epithelial Cells 0-5/HPF Urine-Glucose Negative Negative Urine-Ketones Negative Negative Urine-Leukocytes Negative Negative Urine-Nitrite Negative Negative Urine-Other Urine Saved if Culture Need ed (48hrs from time of collection) Urine-pH 6.0 5-8.5 Urine-Protein Negative Negative Urine-RBC Negative Urine-Specific [place] 1.010 1.000-1 .030 Urine-WBC Negative Urobilinogen 0.2 0.2-1.0 Comprehensive Metabolic Panel - 06/07/19 10:40 Albumin 4.2 g/dL 3.6-5.1 ALP 67 U/L 35-130 ALT 21 U/L 6-45 Anion Gap 13 6-14 AST 25 U/L 2-40 BUN 17 mg/dL 5-25 Calcium 10.0 mg/dL 8.3-10.4 Chloride 102 mmol/L 95-114 CO2 26 mEq/L 22-33 Creat 0.82 mg/dL 0.50-1.50 eGFR 69 mL/min/1.73m2 >59 Globulin 2.3 g/dL 2.3-3.5 Glucose 91 mg/dL 70-110 Osmo 282 280-295 Potassium 4.5 mmol/L 3.5-5.3 Sodium 136 mmol/L 134-148 TBil 0.6 mg/dL 0.2-1.2 TP 6.5 g/dL 6.0-8.3 Venous Thromb. Patients on VKA - 9 10:40 Homocysteine 10.4 umol/L APTT 26.0 sec APTT 1:1 DRAGLINE OPERATOR TNP sec APTT 1:1 Saline TNP sec DRVVT Screen Seconds 33.3 sec DRVVT Confirm Seconds TNP sec DRVVT Ratio TNP ratio Hexagonal Phospholipid Neutral 0 sec Anticardiolipin Ab, IgG <10 GPL Anticardiolipin Ab, IgM 21 MPL Beta-2 Glycoprotein I, IgG <10 SGU Beta-2 Glycoprotein I, IgM 18 SMU Beta-2 Glycoprotein I, IgA <10 RODRIGUE Factor VIII Activity 108 % Protein S Antigen, Total 45 % Protein C Antigen 88 % LAC Interpretation Comment Factor VII Antigen 113 % Protein S Ag/FVII Ag Ratio 0.4 ratio Protein C Ag/FVII Ag Ratio 0.8 ratio Antithrombin Activity, Plasma 95 % Act. Prt C Resist w/FV Defic. 2.6 ratio Factor II Gene Mutation Result Comment Interpretation: Comment Methodology: Comment Comments: Comment Protein S Panel - 06/20/19 12:48 Protein S, Free 25 % 57-157 Protein S, Total 51 % 60-150 Protein S-Functional 42 % 63-140 Encounters ACCT No. Visit Date/Time Discharge Status Pt. Type Provider Facility Loc./Unit Complaint [id number] 01/15/2020 09:46:00 01/15/2020 23:59 :00 DIS Outpatient La Jean [id number] 07/21/2019 13:41:00 07/21/2019 23:59: 00 DIS Outpatient La Jean [id number] 06/07/2019 10:18:00 06/07/2019 23:59: 00 DIS Outpatient DANIEL CLEMENT [id number] 05/12/2019 09:15:00 05/12/2019 23:59: 00 DIS Outpatient La Jean [id number] 03/27/2019 09:04:00 03/27/2019 23:59: 00 DIS Outpatient La Jean [id number] 06/23/2019 13:06:00 Document Registration [id number] 06/19/2019 05:06:00 Document Registration [id number] 08/12/2017 09:45:33 08/12/2017 23:59:5 9 CLS Outpatient [id number] 04/16/2020 05:42:00 020 11:46:00 DIS Outpatient VIRGINIA GRIGSBY MD [facility] PREOP CATARACT LEFT EYE [id number] 05/16/2019 07:10:00 019 23:59:59 CLS Outpatient JAE PAGAN FACC, GOSIA QUEZADAP CC DS [facility] CARD CAD,HTN,SOB [id number] 04/07/2019 10:05:00 019 23:59:59 CLS Outpatient MIRANDA PAGAN, LA Skinner [facility] RAD SCREENING [id number] 03/04/2019 08:03:00 019 13:05:00 DIS Emergency MAGGI PAGAN, LUC Russell [facility] ER R LEG PAIN / SW ELLING [id number] 02/09/2019 10:33:00 019 23:59:59 CLS Outpatient DAVID VILLARREAL [facility] RAD HEADACHE [id number] 08/08/2018 14:54:00 018 23:59:59 CLS Preadmit JM MCDONALD MD [facility] RAD SCREENING [id number] 03/16/2017 06:59:00 017 17:15:00 DIS Outpatient JAE PAGAN FACC, ALI FACP CC DS [facility] CATH ABNORMAL ST RESS TEST [id number] 03/03/2017 14:37:00 017 23:59:59 CLS Outpatient JAE PAGAN FACC, ALI FACP CC DS [facility] RT HTN I10,SOB R06.02 [id number] 03/02/2017 08:07:00 017 23:59:59 CLS Outpatient JAE PAGAN FACC, ALI FACP CC DS [facility] CARD HTN I10,SOB R06.02 [id number] 02/26/2017 13:43:00 017 23:59:59 CLS Outpatient JAE PAGAN FACC, ALI FACP CC DS [facility] CARD HTN I10,SOB R06.02 [id number] 02/17/2017 10:47:00 017 23:59:59 CLS Outpatient JM MCDONALD MD [facility] RAD COPD [id number] 03/18/2016 16:39:00 016 17:46:00 DIS Emergency JENNA INGRAM DO L [facility] ER RIGHT FOOT PAIN [id number] 06/11/2015 14:44:00 015 23:59:59 CLS Outpatient VILLARREALDAVID CRATE REPAIRER [facility] RAD SCREENING,COPD, TOBBACO USE [id number] 12/21/2014 11:58:00 015 23:59:59 CLS Preadmit JOSE ALFREDO EUBANKS MD [facility] REHAB [id number] 10/15/2014 07:18:00 015 08:02:00 DIS Emergency CHANDRA PAGAN, ANTONIA Jain [facility] ER SINUS CONGESTIO N/COUGH [id number] 04/27/2013 10:51:00 013 23:59:59 CLS Outpatient ÁNGEL BECERRA SLASHER [facility] RAD [id number] 03/16/2013 08:17:00 013 23:59:59 CLS Outpatient JOSE ALFREDO EUBANKS MD [facility] RAD [id number] 04/19/2020 10:15:00 P EN Preadmit VIRGINIA GRIGSBY MD [facility] SDC CATARACT LEFT EYE [id number] 10/15/2014 08:40:00 Document Registration [id number] 03/13/2011 09:07:00 Document Registration [id number] 02/19/2011 08:41:00 Document Registration [id number] 02/09/2011 03:40:00 Document Registration [id number] 12/03/2009 08:55:00 Document Registration [id number] 12/02/2009 09:34:00 Document Registration
[2020-04-19 08:10] VITALS: BP 149/57
[2020-04-19] MEDS ORDERED: POVIDONE (BETADINE) OPHTH SOLN 5% 30 ML OP ONE (08:15)
[2020-04-19] MEDS ORDERED: MOXIFLOXACIN OPHTH SOLN 5 MG/ML 0.3 ML SYRINGE OP ONE (08:15)
[2020-04-19] MEDS ORDERED: LIDOCAINE PF 1% 2 ML VIAL IR PRN (08:15)
[2020-04-19] MEDS ORDERED: TIMOLOL MALEATE 0.5% 5 ML (TIMOPTIC) BTL OU PRN (08:15)
[2020-04-19] MEDS: TETRACAINE 0.5% OPHTH SOLN 4 ML BTL (SINGLE DOSE ONLY) OU PRN ×4 (08:19→08:48)
[2020-04-19] MEDS: PHENYLEPHRINE 10% OPHTH (NEO-SYN) 5 ML BTL OU SCH ×3 (08:30→08:48)
[2020-04-19] MEDS: CYCLOPENTOLATE 1% (CYCLOGYL) 2 ML DROPS OP SCH ×3 (08:30→08:48)
--- NOTE | 2020-04-19 09:16 | Ophthalmologist Pre-Op Note ---
Pre-Operative Progress Note H&P Reviewed The H&P was reviewed, patient examined and no changes noted. Date H&P Reviewed: Apr 19, 2020 Time H&P Reviewed: 09:16 Pre-Op Dx Cataract, Left Eye VIRGINIA GRIGSBY MD Apr 19, 2020 09:16
[2020-04-19] MEDS ORDERED: MIDAZOLAM 2 MG/2 ML (VERSED) VIAL ONE (09:19)
[2020-04-19] MEDS ORDERED: acetaZOLAMIDE ER 500 MG CAP (DIAMOX SEQUELS) PO ONE (09:30)
--- NOTE | 2020-04-19 09:42 | Ophthalmology Operative Report ---
Cataract removal/placement IOL PREOPERATIVE DIAGNOSIS: Cataract Left Eye POSTOPERATIVE DIAGNOSIS: Cataract Left Eye PROCEDURE: Cataract removal and placement of posterior chamber implant, left eye SURGEON: Elfego Grigsby ANESTHESIA: Topical with sedation COMPLICATIONS: None ESTIMATED BLOOD LOSS: Minimal DESCRIPTION OF PROCEDURE: After proper informed consent was obtained, the patient, a 70 female, was taken to the Operating Room and the left eye was anesthetized with tetracaine. The left eye was then prepped and draped in the usual manner. A wire lid speculum was placed. A paracentesis was made at the left hand position. Preservative free lidocaine was injected into the anterior chamber followed by viscoelastic. A clear corneal incision was made in the temporal position. A capsulorrhexis was preformed and the central nuclear and cortical material were removed. The posterior capsule was polished and an Jagdeep 21.5 [id number] was placed into the capsular bag. The residual viscoelastic was aspirated and balanced saline solution was injected into the anterior chamber. Moxifloxacin was injected into the anterior chamber. The wound was checked and found to be water tight. The patient tolerated the procedure well without complications. ELFEGO GRIGSBY MD Apr 19, 2020 09:42
[2020-04-19 10:28] VITALS: BP 156/70
--- NOTE | 2020-04-19 12:27 | Anesthesia-General Post-Op ---
MAC Patient Condition Mental Status/LOC: Same as Preop Cardiovascular: Satisfactory Nausea/Vomiting: Absent Respiratory: Satisfactory Pain: Controlled Complications: Absent Post Op Complications Complications None Follow Up Care/Instructions Patient Instructions None needed. Anesthesiology Discharge Order Discharge Order Patient is doing well, no complaints, stable vital signs, no apparent adverse anesthesia problems. No complications reported per nursing. KODY BLANCAS CRNA Apr 19, 2020 12:27
== END 2020-04-19 10:29 | disposition home or self-care (01) ==
LOC: SDC 07:28
PROVIDERS: ATTEND Specialist
DX: H25.12 Age-related nuclear cataract, left eye (principal); I10 Essential (primary) hypertension; F32.9 Major depressive disorder, single episode, unspecified; E78.00 Pure hypercholesterolemia, unspecified; M19.90 Unspecified osteoarthritis, unspecified site; F17.210 Nicotine dependence, cigarettes, uncomplicated; Z79.899 Other long term (current) drug therapy

== ENCOUNTER 2020-04-30 05:48 | Outpatient (CLI) | payer MEDICARE ==
[~2020-04-30] VITALS: Ht 154 cm; Wt 58.6 kg
== END 2020-04-30 14:23 | disposition home or self-care (01) ==
LOC: PREOP 05:48 → EDSTATUS 14:00 → PREOP 14:23
PROVIDERS: ATTEND Specialist
DX: Z01.818 Encounter for other preprocedural examination (principal)

== ENCOUNTER 2020-05-03 07:05 | Day surgery (SDC) | payer MEDICARE ==
[~2020-05-03] VITALS: Ht 157.5 cm; Wt 58.6 kg
[2020-05-03 07:10] VITALS: BP 157/79
[2020-05-03] MEDS ORDERED: MOXIFLOXACIN OPHTH SOLN 5 MG/ML 0.3 ML SYRINGE OP ONE (07:15)
[2020-05-03] MEDS ORDERED: POVIDONE (BETADINE) OPHTH SOLN 5% 30 ML OP ONE (07:15)
[2020-05-03] MEDS ORDERED: LIDOCAINE PF 1% 2 ML VIAL IR PRN (07:15)
[2020-05-03] MEDS ORDERED: MIDAZOLAM 2 MG/2 ML (VERSED) VIAL ONE (07:15)
[2020-05-03] MEDS ORDERED: TIMOLOL MALEATE 0.5% 5 ML (TIMOPTIC) BTL OU PRN (07:15)
--- OUTSIDE RECORDS SUMMARY | 2020-05-03 07:23 | XMS REPORT | Continuity of Care Document ---
Author Organization Unknown Address Unknown Phone Unavailable Allergies Active Description Code Type Severity Reaction Onset Reported/Identified Relationship to Patient Clinical Status Yes NO KNOWN DRUG ALLERGIES UNKNOWN UNKNOWN Yes No Known Drug Allergies [id number] Drug Allergy Unknown N/A 10/15/2014 Medications There is no data. Problems Date Dx Coded Attending Type Code Diagnosis Diagnosed By 08/26/1145 SEB PAGAN, VIRGINIA Mitchell Ot H25.12 AGE-RELATED NUCLEAR CATARACT, LEFT EYE 08/26/1145 VIRGINIA GRIGSBY MD Ot Z01.818 ENCOUNTER FOR OTHER PREPROCEDURAL EXAMIN 08/26/1145 VIRGINIA GRIGSBY MD Ot Z20.828 CONTACT W AND EXPOSURE TO OTH VIRAL COMM 02/09/2011 Ot 346.90 02/09/2011 Ot 784.0 10/15/2014 CHANDRA PAGAN, ANTONIA Jain Ot 461.9 ACUTE SINUSITIS NOS 10/15/2014 CHANDRA PAGAN, ANTONIA Jain Ot 786.2 COUGH 10/15/2014 Ot 305.1 10/15/2014 Ot 518.89 10/15/2014 Ot 786.05 10/15/2014 Ot V76.12 10/15/2014 Ot 518.89 10/15/2014 Ot V81.5 10/15/2014 Ot 518.89 10/15/2014 Ot 733.90 10/15/2014 Ot V76.12 10/15/2014 Ot V82.81 10/15/2014 JOSE ALFREDO EUBANKS MD Ot 786.2 10/15/2014 RAIMUNDO PAGAN, JOSE ALFREDO Palafox Ot 786.50 10/15/2014 JOSE ALFREDO EUBANKS MD Ot V76.12 10/15/2014 ÁNGEL BECERRA DIVISION SERVICE MANAGER Ot 719.45 10/15/2014 ÁNGEL BECERRA C DIVISION SERVICE MANAGER Ot 729.5 02/07/2015 Ot 305.1 02/07/2015 Ot 518.89 02/07/2015 Ot 786.05 02/07/2015 Ot V76.12 02/07/2015 Ot 518.89 02/07/2015 Ot V81.5 02/07/2015 Ot 518.89 02/07/2015 Ot 733.90 02/07/2015 Ot V76.12 02/07/2015 Ot V82.81 02/07/2015 RAIMUNDO PAGAN, JOSE ALFREDO Palafox Ot 786.2 02/07/2015 RAIMUNDO PAGAN, JOSE ALFREDO Palafox Ot 786.50 02/07/2015 RAIMUNDO PAGAN, JOSE ALFREDO Palafox Ot V76.12 02/07/2015 RIDINGS, ÁNGEL C DIVISION SERVICE MANAGER Ot 719.45 02/07/2015 RIDINGS, ÁNGEL C DIVISION SERVICE MANAGER Ot 729.5 02/07/2015 RIDINGS, ÁNGEL C DIVISION SERVICE MANAGER Ot 719.45 02/07/2015 RIDINGS, ÁNGEL C DIVISION SERVICE MANAGER Ot 729.5 06/11/2015 Ot 518.89 06/11/2015 Ot 733.90 06/11/2015 Ot V76.12 06/11/2015 Ot V82.81 06/11/2015 RAIMUNDO PAGAN, JOSE ALFREDO Palafox Ot 786.2 06/11/2015 RAIMUNDO PAGAN, JOSE ALFREDO Palafox Ot 786.50 06/11/2015 RAIMUNDO PAGAN, JOSE ALFREDO Palafox Ot V76.12 06/11/2015 RIDINGS, ÁNGEL C DIVISION SERVICE MANAGER Ot 719.45 06/11/2015 RIDINGS, ÁNGEL C DIVISION SERVICE MANAGER Ot 729.5 07/03/2015 DAVID VILLARREAL COMPLAINT CLERK Ot 305.1 07/03/2015 DAVID VILLARREAL COMPLAINT CLERK Ot 496 07/03/2015 DAVID VILLARREAL COMPLAINT CLERK Ot 737.30 07/03/2015 DAVID VILLARREAL COMPLAINT CLERK Ot V76.12 03/18/2016 INGRAM DO, JENNA L [...] MAMMOGRAM FOR MALIGNANT NE 03/01/2017 JAE PAGAN FACC, ALI FACP CCDS [...] J44.9 CHRONIC OBSTRUCTIVE PULMONARY DISEASE, U 03/10/2017 HARRY PAGAN, JM Skinner Ot Z12.31 ENCNTR SCREEN MAMMOGRAM FOR MALIGNANT NE 03/16/2017 JAE PAGAN FACC, ALI FACP CCDS Ot I10 ESSENTIAL (PRIMARY) HYPERTENSION 03/16/2017 JAE PAGAN FACC, ALI FACP CCDS Ot I25.10 ATHSCL HEART DISEASE OF [place] CORONARY 03/16/2017 JAE QUEZADAC, ALI FACP CCDS Ot R06.02 SHORTNESS OF BREATH 03/16/2017 JAE QUEZADAC, ALI FACP CCDS Ot R94.39 ABNORMAL RESULT OF OTHER CARDIOVASCULAR 03/16/2017 JAE QUEZADAC, ALI FACP CCDS Ot Z72.0 TOBACCO USE 03/16/2017 JAE PAGAN FACC, ALI FACP CCDS Ot Z79.899 OTHER DIVISION SERVICE MANAGER (CURRENT) DRUG THERAPY 03/19/2017 JAE PAGAN FACC, ALI FACP CCDS Ot I10 ESSENTIAL (PRIMARY) HYPERTENSION 03/19/2017 JAE PAGAN FACC, ALI FACP CCDS Ot I25.10 ATHSCL HEART DISEASE OF [place] CORONARY 03/19/2017 JAE PAGAN FACC, ALI FACP CCDS Ot R06.02 SHORTNESS OF BREATH 03/19/2017 JAE PGAAN FACC, ALI FACP CCDS Ot R94.39 ABNORMAL RESULT OF OTHER CARDIOVASCULAR 03/19/2017 JAE PAGAN FACC, ALI FACP CCDS Ot Z72.0 TOBACCO USE 03/19/2017 JAE PAGAN FACC, ALI FACP CCDS Ot Z79.899 OTHER DIVISION SERVICE MANAGER (CURRENT) DRUG THERAPY 03/23/2017 JAE PAGAN FACC, ALI FACP CCDS Ot I10 ESSENTIAL (PRIMARY) HYPERTENSION 03/23/2017 JAE PAGAN FACC, ALI FACP CCDS Ot R06.02 SHORTNESS OF BREATH 03/23/2017 JAE PAGAN FACC, ALI FACP CCDS Ot Z72.0 TOBACCO USE 03/23/2017 JAE PAGAN FACC, ALI FACP CCDS Ot I10 ESSENTIAL (PRIMARY) HYPERTENSION 03/23/2017 JAE PAGAN FACC, ALI FACP CCDS Ot R06.02 SHORTNESS OF BREATH 03/23/2017 JAE PAGAN FACC, ALI FACP CCDS Ot Z72.0 TOBACCO USE 03/25/2017 JAE PAGAN FACC, ALI FACP CCDS Ot I10 ESSENTIAL (PRIMARY) HYPERTENSION 03/25/2017 JAE PAGAN [facility], ALI FACP CCDS Ot R06.02 SHORTNESS OF BREATH 03/25/2017 JAE QUEZADA, ALI FACP CCDS Ot Z72.0 TOBACCO USE 02/09/2019 DAVID VILLARREAL COMPLAINT CLERK Ot 305.1 TOBACCO USE DISORDER 02/09/2019 DAVID VILLARREAL COMPLAINT CLERK Ot 496 CHR AIRWAY OBSTRUCT NEC 02/09/2019 DAVID VILLARREAL COMPLAINT CLERK Ot 737.30 IDIOPATHIC SCOLIOSIS 02/09/2019 DAVID VILLARREAL COMPLAINT CLERK Ot V76.12 OTH SCREEN MAMMO-MALIGN NEOPLASM OF [place] 02/09/2019 HARRY PAGAN, JM Skinner Ot J44.9 CHRONIC OBSTRUCTIVE PULMONARY DISEASE, U 02/09/2019 JM MCDONALD MD Ot Z12.31 ENCNTR SCREEN MAMMOGRAM FOR MALIGNANT NE 02/09/2019 JAE PAGAN [facility], ALI FACP CCDS Ot I10 ESSENTIAL (PRIMARY) HYPERTENSION 02/09/2019 JAE PAGAN [facility], ALI FACP CCDS Ot R06.02 SHORTNESS OF BREATH 02/09/2019 JAE PAGAN [facility], ALI FACP CCDS Ot Z72.0 TOBACCO USE 02/09/2019 JAE PAGAN [facility], ALI FACP CCDS Ot I10 ESSENTIAL (PRIMARY) HYPERTENSION 02/09/2019 JAE PAGAN [facility], ALI FACP CCDS Ot R06.02 SHORTNESS OF BREATH 02/09/2019 JAE PAGAN [facility], ALI FACP CCDS Ot Z72.0 TOBACCO USE 02/09/2019 JAE PAGAN [facility], ALI FACP CCDS Ot I10 ESSENTIAL (PRIMARY) HYPERTENSION 02/09/2019 JAE PAGAN [facility], ALI FACP CCDS Ot R06.02 SHORTNESS OF BREATH 02/09/2019 JAE PAGAN [facility], ALI FACP CCDS Ot Z72.0 TOBACCO USE 02/10/2019 DAVID VILLARREAL COMPLAINT CLERK Ot 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 02/10/2019 DAVID VILLARREAL COMPLAINT CLERK Ot I67.82 CEREBRAL ISCHEMIA 03/02/2019 DAVID VILLARREAL COMPLAINT CLERK Ot 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 03/02/2019 DAVID VILLARREAL COMPLAINT CLERK Ot I67.82 CEREBRAL ISCHEMIA 03/04/2019 LUC TAY MD Ot F17.290 NICOTINE DEPENDENCE, OTHER TOBACCO PRODU 03/04/2019 LUC TAY MD Ot I82.401 ACUTE EMBOLISM AND THOMBOS UNSP DEEP VEI 03/04/2019 LUC TAY MD Ot M79.89 OTHER SPECIFIED SOFT TISSUE DISORDERS 03/04/2019 LUC TAY MD Ot Z79.01 DIVISION SERVICE MANAGER (CURRENT) USE OF ANTICOAGULANT 03/04/2019 LUC TAY MD Ot Z79.82 DIVISION SERVICE MANAGER (CURRENT) USE OF ASPIRIN 03/04/2019 LUC TAY MD Ot Z90.710 ACQUIRED ABSENCE OF BOTH CERVIX AND UTER 03/08/2019 LUC TAY MD Ot F17.290 NICOTINE DEPENDENCE, OTHER TOBACCO PRODU 03/08/2019 LUC TAY MD Ot I82.401 ACUTE EMBOLISM AND THOMBOS UNSP DEEP VEI 03/08/2019 LUC TAY MD Ot M79.89 OTHER SPECIFIED SOFT TISSUE DISORDERS 03/08/2019 LUC TAY MD Ot Z79.01 SNF (CURRENT) USE OF ANTICOAGULANT 03/08/2019 LUC TAY MD Ot Z79.82 DIVISION SERVICE MANAGER (CURRENT) USE OF ASPIRIN 03/08/2019 LUC TAY [...] FOR MALIGNANT NEOPLASM OF 06/08/2019 JAE PAGAN FAC, ALI FACP CCDS Ot 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 06/08/2019 JAE PAGAN FACC, ALI FACP CCDS Ot I10 ESSENTIAL (PRIMARY) HYPERTENSION 06/08/2019 JAE PAGAN [facility], GOSIA FACP CCDS Ot I25.10 ATHSCL HEART DISEASE OF [place] CORONARY 06/08/2019 JAE PAGAN [facility], ALI FACP CCDS Ot Z86.718 PERSONAL HISTORY OF OTHER VENOUS THROMBO 04/19/2020 CHERELLEDAVID COMPLAINT CLERK Ot 305.1 TOBACCO USE DISORDER 04/19/2020 CHERELLEDAVID Vivienne COMPLAINT CLERK Ot 496 CHR AIRWAY OBSTRUCT NEC 04/19/2020 CHERELLE DAVID M COMPLAINT CLERK Ot 737.30 IDIOPATHIC SCOLIOSIS 04/19/2020 CHERELLEDAVID COMPLAINT CLERK Ot V76.12 OTH SCREEN MAMMO-MALIGN NEOPLASM OF [place] 04/19/2020 HARRY PAGAN, JM Skinner Ot J44.9 CHRONIC OBSTRUCTIVE PULMONARY DISEASE, U 04/19/2020 HARRY PAGAN, JM Skinner Ot Z12.31 ENCNTR SCREEN MAMMOGRAM FOR MALIGNANT NE 04/19/2020 JAE PAGAN [facility], ALI FACP CCDS Ot I10 ESSENTIAL (PRIMARY) HYPERTENSION 04/19/2020 JAE PAGAN [facility], ALI FACP CCDS Ot R06.02 SHORTNESS OF BREATH 04/19/2020 JAE PAGAN [facility], ALI FACP CCDS Ot Z72.0 TOBACCO USE 04/19/2020 JAE PAGAN [facility], ALI FACP CCDS Ot I10 ESSENTIAL (PRIMARY) HYPERTENSION 04/19/2020 JAE PAGAN [facility], ALI FACP CCDS Ot R06.02 SHORTNESS OF BREATH 04/19/2020 JAE PAGAN [facility], ALI FACP CCDS Ot Z72.0 TOBACCO USE 04/19/2020 JAE PAGAN [facility], ALI FACP CCDS Ot I10 ESSENTIAL (PRIMARY) HYPERTENSION 04/19/2020 JAE PAGAN [facility], ALI FACP CCDS Ot R06.02 SHORTNESS OF BREATH 04/19/2020 JAE PAGAN [facility], ALI FACP CCDS Ot Z72.0 TOBACCO USE 04/19/2020 DAVID VILLARREAL COMPLAINT CLERK Ot 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 04/19/2020 DAVID VILLARREAL COMPLAINT CLERK Ot I67.82 CEREBRAL ISCHEMIA 04/19/2020 LA JEAN MD Ot F17.210 NICOTINE DEPENDENCE, CIGARETTES, UNCOMPL 04/19/2020 LA JEAN MD Ot Z12 .2 ENCNTR SCREEN FOR MALIGNANT NEOPLASM OF 04/19/2020 JAE PAGAN [facility] 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 04/19/2020 JAE PAGAN [facility], [facility] I10 ESSENTIAL (PRIMARY) HYPERTENSION 04/19/2020 [facility] Ot I25.10 ATHSCL HEART DISEASE OF [place] CORONARY 04/19/2020 JAE PAGAN [facility], [facility] Z86.718 PERSONAL HISTORY OF OTHER VENOUS THROMBO 04/19/2020 SEB PAGAN, VIRGINIA Mitchell Ot E78.00 PURE HYPERCHOLESTEROLEMIA, UNSPECIFIED 04/19/2020 SEB PAGAN, VIRGINIA L Ot F17.210 NICOTINE DEPENDENCE, CIGARETTES, UNCOMPL 04/19/2020 SEB PAGAN, VIRGINIA Mitchell Ot F32 .9 MAJOR DEPRESSIVE DISORDER, SINGLE EPISOD 04/19/2020 SEB PAGAN, VIRGINIA L Ot H25.12 AGE-RELATED NUCLEAR CATARACT, LEFT EYE 04/19/2020 SEB PAGAN, VIRGINIA Mitchell Ot I10 ESSENTIAL (PRIMARY) HYPERTENSION 04/19/2020 SEB PAGAN, VIRGINIA Mitchell Ot M19.90 UNSPECIFIED OSTEOARTHRITIS, UNSPECIFIED 04/19/2020 SEB PAGAN, VIRGINIA L Ot Z79.899 OTHER DIVISION SERVICE MANAGER (CURRENT) DRUG THERAPY 04/23/2020 SEB PAGAN, VIRGINIA Mitchell Ot E78.00 PURE HYPERCHOLESTEROLEMIA, UNSPECIFIED 04/23/2020 SEB PAGAN, VIRGINIA L Ot F17.210 NICOTINE DEPENDENCE, CIGARETTES, UNCOMPL 04/23/2020 SEB PAGAN, VIRGINIA Mitchell Ot F32 .9 MAJOR DEPRESSIVE DISORDER, SINGLE EPISOD 04/23/2020 SEB PAGAN, VIRGINIA L Ot H25.12 AGE-RELATED NUCLEAR CATARACT, LEFT EYE 04/23/2020 SEB PAGAN, VIRGINIA Mitchell Ot I10 ESSENTIAL (PRIMARY) HYPERTENSION 04/23/2020 SEB PAGAN, VIRGINIA Mitchell Ot M19.90 UNSPECIFIED OSTEOARTHRITIS, UNSPECIFIED 04/23/2020 SEB PAGAN, VIRGINIA Mitchell Ot Z79.899 OTHER SNF (CURRENT) DRUG THERAPY 04/25/2020 SEB PAGAN, VIRGINIA Mitchell Ot E78.00 PURE HYPERCHOLESTEROLEMIA, UNSPECIFIED 04/25/2020 SEB PAGAN, VIRGINIA L Ot F17.210 NICOTINE DEPENDENCE, CIGARETTES, UNCOMPL 04/25/2020 SEB PAGAN, VIRGINIA Mitchell Ot F32 .9 MAJOR DEPRESSIVE DISORDER, SINGLE EPISOD 04/25/2020 SEB PAGAN, VIRGINIA Mitchell Ot H25.12 AGE-RELATED NUCLEAR CATARACT, LEFT EYE 04/25/2020 SEB PAGAN, VIRGINIA Mitchell Ot I10 ESSENTIAL (PRIMARY) HYPERTENSION 04/25/2020 SEB PAGAN, VIRGINIA Mitchell Ot M19.90 UNSPECIFIED OSTEOARTHRITIS, UNSPECIFIED 04/25/2020 SEB PAGAN, VIRGINIA Mitchell Ot Z79.899 OTHER DIVISION SERVICE MANAGER (CURRENT) DRUG THERAPY Procedures There is no data. Results Test [...] Negative Urine-Blood Trace Negative Urine-Color Yellow Colorless-Lt. [place] ow Urine-Epithelial Cells 0-5/HPF Urine-Glucose Negative Negative Urine-Ketones Negative Negative Urine-Leukocytes Negative Negative Urine-Nitrite Negative Negative Urine-Other Urine Saved if Culture Need ed (48hrs from time of collection) Urine-pH 6.0 5-8.5 Urine-Protein Negative Negative Urine-RBC Negative Urine-Specific [place] 1.010 1.000-1 .030 Urine-WBC Negative Urobilinogen 0.2 [...] 10.4 umol/L APTT 26.0 sec APTT 1:1 DRONE SOFTWARE DEVELOPMENT ENGINEER TNP sec APTT 1:1 Saline TNP sec [...] % 60-150 Protein S-Functional 42 % 63-140 Coronavirus SARS-CoV-2 SO 2018 - 0 08:10 Coronavirus Ab [Units/volume] in Serum Negative Negative Encounters ACCT No. Visit Date/Time Discharge Status Pt. Type Provider Facility Loc./Unit Complaint [id number] 01/15/2020 09:46:00 01/15/2020 23:59 :00 DIS Outpatient La Jean [id number] 07/21/2019 13:41:00 07/21/2019 23:59: 00 DIS Outpatient La Jean [id number] 06/07/2019 10:18:00 06/07/2019 23:59: 00 DIS Outpatient DANIEL CLEMENT [id number] 05/12/2019 09:15:00 05/12/2019 23:59: 00 DIS Outpatient La Jean [id number] 03/27/2019 09:04:00 03/27/2019 23:59: 00 DIS Outpatient La Jean [id number] 06/23/2019 13:06:00 Document Registration [id number] 06/19/2019 05:06:00 Document Registration [id number] 08/12/2017 09:45:33 08/12/2017 23:59:5 9 CLS Outpatient [id number] 04/30/2020 05:48:00 14:23:00 DIS Outpatient VIRGINIA GRIGSBY MD [facility] PREOP CATARACT RIGHT EYE [id number] 04/19/2020 07:28:00 10:29:00 DIS Outpatient VIRGINIA GRIGSBY MD [facility] SDC CATARACT LEFT EYE [id number] 04/16/2020 05:42:00 11:46:00 DIS Outpatient VIRGINIA GRIGSBY MD [facility] PREOP CATARACT LEFT EYE [id number] 05/16/2019 07:10:00 23:59:59 CLS Outpatient JAE PAGAN FACFranko, GOSIA ROWE CC DS [facility] CARD CAD,HTN,SOB [id number] 04/07/2019 10:05:00 23:59:59 CLS Outpatient LA JEAN MD [facility] RAD SCREENING [id number] 03/04/2019 08:03:00 13:05:00 DIS Emergency LUC TAY MD [facility] ER R LEG PAIN / SW ELLING [id number] 02/09/2019 10:33:00 019 23:59:59 CLS Outpatient DAVID VILLARREAL [facility] RAD HEADACHE [id number] 08/08/2018 14:54:00 018 23:59:59 CLS Preadmit JM MCDONALD MD [facility] RAD SCREENING [id number] 03/16/2017 06:59:00 017 17:15:00 DIS Outpatient JAE PAGAN FACC, ALI FACP CC DS [facility] CATH ABNORMAL ST RESS TEST [id number] 03/03/2017 14:37:00 017 23:59:59 CLS Outpatient JAE PAGAN FACC, GOSIA QUEZADAP CC DS [facility] RT HTN I10,SOB R06.02 [id number] 03/02/2017 08:07:00 017 23:59:59 CLS Outpatient JAE PAGAN FACC, GOSIA QUEZADAP CC DS [facility] CARD HTN I10,SOB R06.02 [id number] 02/26/2017 13:43:00 017 23:59:59 CLS Outpatient JAE PAGAN FACC, GOSIA ROWE CC DS [facility] CARD HTN I10,SOB R06.02 [id number] 02/17/2017 10:47:00 017 23:59:59 CLS Outpatient JM MCDONALD MD [facility] RAD COPD [id number] 03/18/2016 16:39:00 016 17:46:00 DIS Emergency INGRAM DO, JENNA L [facility] ER RIGHT FOOT PAIN [id number] 06/11/2015 14:44:00 015 23:59:59 CLS Outpatient DAVID VILLARREAL [facility] RAD SCREENING,COPD, TOBBACO USE [id number] 12/21/2014 11:58:00 23:59:59 CLS Preadmit JOSE ALFREDO EUBANKS MD [facility] REHAB [id number] 10/15/2014 07:18:00 08:02:00 DIS Emergency ANTONIA ARTIS MD [facility] ER SINUS CONGESTIO N/COUGH [id number] 04/27/2013 10:51:00 23:59:59 CLS Outpatient HERNAN ÁNGEL C DIVISION SERVICE MANAGER [facility] RAD [id number] 03/16/2013 08:17:00 23:59:59 CLS Outpatient JOSE ALFREDO EUBANKS MD [facility] RAD [id number] 05/03/2020 10:00:00 P LIZ GRIGSBY MD, VIRGINIA Mitchell [facility] CATARACT RIGHT EYE [id number] 10/15/2014 08:40:00 Document Registration [id number] 03/13/2011 09:07:00 Document Registration [id number] 02/19/2011 08:41:00 Document Registration [id number] 02/09/2011 03:40:00 Document Registration [id number] 12/03/2009 08:55:00 Document Registration [id number] 12/02/2009 09:34:00 Document Registration
[2020-05-03] MEDS: TETRACAINE 0.5% OPHTH SOLN 4 ML BTL (SINGLE DOSE ONLY) OU PRN ×4 (07:26→07:43)
[2020-05-03] MEDS: PHENYLEPHRINE 10% OPHTH (NEO-SYN) 5 ML BTL OU SCH ×3 (07:33→07:43)
[2020-05-03] MEDS: CYCLOPENTOLATE 1% (CYCLOGYL) 2 ML DROPS OP SCH ×3 (07:34→07:43)
--- NOTE | 2020-05-03 08:39 | Ophthalmologist Pre-Op Note ---
Pre-Operative Progress Note H&P Reviewed The H&P was reviewed, patient examined and no changes noted. Date H&P Reviewed: May 03, 2020 Time H&P Reviewed: 08:39 Pre-Op Dx Cataract, Right Eye VIRGINIA GRIGSBY MD May 03, 2020 08:39
[2020-05-03] MEDS ORDERED: acetaZOLAMIDE ER 500 MG CAP (DIAMOX SEQUELS) PO ONE (09:00)
--- NOTE | 2020-05-03 09:06 | Ophthalmology Operative Report ---
Cataract removal/placement IOL PREOPERATIVE DIAGNOSIS: Cataract Right Eye POSTOPERATIVE DIAGNOSIS: Cataract Right Eye PROCEDURE: Cataract removal and placement of posterior chamber implant, right eye SURGEON: Elfego Grigsby ANESTHESIA: Topical with sedation COMPLICATIONS: None ESTIMATED BLOOD LOSS: Minimal DESCRIPTION OF PROCEDURE: After proper informed consent was obtained, the patient, a 70 female, was taken to the Operating Room and the right eye was anesthetized with tetracaine. The right eye was then prepped and draped in the usual manner. A wire lid speculum was placed. A paracentesis was made at the left hand position. Preservative free lidocaine was injected into the anterior chamber followed by viscoelastic. A clear corneal incision was made in the temporal position. A capsulorrhexis was preformed and the central nuclear and cortical material were removed. The posterior capsule was polished and Jagdeep 22.5 [id number] IOL was placed into the capsular bag. The residual viscoelastic was aspirated and balanced saline solution was injected into the anterior chamber. Moxifloxacin was injected into the anterior chamber. The wound was checked and found to be water tight. The patient tolerated the procedure well without complications. ELFEGO GRIGSBY MD May 03, 2020 09:06
[2020-05-03 09:35] VITALS: BP 153/99
--- NOTE | 2020-05-03 13:33 | Anesthesia-General Post-Op ---
MAC Patient Condition Mental Status/LOC: Same as Preop Cardiovascular: Satisfactory Nausea/Vomiting: Absent Respiratory: Satisfactory Pain: Controlled Complications: Absent Post Op Complications Complications None Follow Up Care/Instructions Patient Instructions None needed. Anesthesiology Discharge Order Discharge Order Patient is doing well, no complaints, stable vital signs, no apparent adverse anesthesia problems. No complications reported per nursing. JOÃO PARTIDA CRNA May 03, 2020 13:32
== END 2020-05-03 09:35 | disposition home or self-care (01) ==
LOC: SDC 07:05
PROVIDERS: ATTEND Specialist
DX: H25.11 Age-related nuclear cataract, right eye (principal); I10 Essential (primary) hypertension; F32.9 Major depressive disorder, single episode, unspecified; E78.00 Pure hypercholesterolemia, unspecified; M19.90 Unspecified osteoarthritis, unspecified site; E78.5 Hyperlipidemia, unspecified; F17.210 Nicotine dependence, cigarettes, uncomplicated; Z79.899 Other long term (current) drug therapy; Z79.01 Long term (current) use of anticoagulants

== ENCOUNTER → 2020-10-30 | Outpatient (CLI) | payer MEDICARE ==
[~2020-10-30] MED LIST changes: +ASPI-1238 PO; -ASPI-983 PO; -ESCI10TA55 PO; +ESCI10TA64 PO
--- NOTE | 2020-10-30 15:17 | Diagnostic Imaging Report ---
EXAMINATION: CT Chest without contrast (lung screening). TECHNIQUE: Multiple contiguous axial images were obtained through the chest without the use of intravenous contrast according to lung cancer screening protocol. All CT scans use one or more of the following dose optimizing techniques: automated exposure control, MA and/or KvP adjustment based on a patient size and exam type, or iterative reconstruction. HISTORY: 51 pack year history of smoking. COMPARISON: 04/07/2019 FINDINGS: There is no edema or pneumonia. No pleural effusion. No pneumothorax. No suspicious nodules. There is mild mucus plugging. There is no axillary or supraclavicular lymphadenopathy. There is no mediastinal lymphadenopathy. Heart size is normal. There are moderate coronary artery calcifications. No pericardial effusion. Aorta is normal in caliber. Limited views of the upper abdomen are unremarkable. There are no suspicious osseus lesions. IMPRESSION: 1. No suspicious pulmonary nodules. LUNG-RADS CATEGORY: 1 MODIFIER: None. Dictated by: Dictated on workstation # [id number]
== END ==
LOC: RAD 13:15
PROVIDERS: ATTEND Internal Medicine Hematology & Oncology
DX: Z12.2 Encounter for screening for malignant neoplasm of respiratory organs (principal); F17.210 Nicotine dependence, cigarettes, uncomplicated
CPT/HCPCS: 71271

== ENCOUNTER 2021-08-25 04:30 | Emergency (ER) | payer MEDICARE ==
[~2021-08-25] VITALS: Ht 152 cm; Wt 55.0 kg
[~2021-08-25 04:30] MED LIST changes: +ESCI-2 PO; -ESCI10TA64 PO
--- NOTE | 2021-08-25 04:47 | ED Fall/Injury ---
General Chief Complaint: Upper Extremity Stated Complaint: FALL/RT WRIST INJURY Source: patient (LIMITED HISTORIAN / LIMITED MEMORY) History of Present Illness Date Seen by Provider: Aug 25, 2021 Time Seen by Provider: 04:33 Initial Comments PT ARRIVES VIA EMS FROM HOME PT GOT OUT OF BED TO GO TO BATHROOM AND FELL FORWARD, INJURING HER RIGHT WRIST FALL WAS NOT WITNESSED PT WAS NOT ABLE TO GET UP ON HER OWN. LIVES WITH AND SON, WHO CALLED EMS, WHO HELPED HER UP PT DOES NOT THINK SHE HIT HER HEAD, BUT DOES C/O HEADACHE DOES NOT THINK SHE HAD LOSS OF CONSCIOUSNESS HAS ONGOING "SCIATIC NERVE" PROBLEMS WITH PAIN FROM RIGHT LOWER BACK/HIP DOWN RIGHT LEG--NO DIFFERENT TODAY NO PARESTHESIAS OR MOTOR DEFICITS NO NECK PAIN NO CHEST PAIN OR SHORTNESS OF BREATH NO ABDOMINAL PAIN NO NAUSEA/VOMITING NO PRIOR HISTORY OF INJURY TO THIS WRIST/ARM PT IS RIGHT HANDED PT IS ON ELIQUIS FOR PROTEIN S DEFICIENCY PCP: DR. JEAN Allergies and Home Medications Allergies Coded Allergies: No Known Drug Allergies (Unverified , 10/15/14) Patient Home Medication List Home Medication List Reviewed: Yes Apixaban (Eliquis) 2.5 Mg Tablet, 2.5 MG PO BID, (Reported) Entered as Reported by: JOHN JONES on 04/16/20 1142 Atorvastatin Calcium (Atorvastatin Calcium) 40 Mg Tablet, 40 MG PO DAILY, (Reported) Entered as Reported by: JOHN JONES on 04/16/20 1142 Calcium Carbonate/Vitamin D3 (Calcium 600 + Vit D Caplet) 1 Each Tablet, 1 EACH PO BID, (Reported) Entered as Reported by: JOHN JONES on 04/16/20 1142 Cholecalciferol (Vitamin D3) (Vitamin D3) 50 Mcg Capsule, 50 MCG PO DAILY, (Reported) Entered as Reported by: JOHN OJNES on 04/16/20 1142 Citalopram Hydrobromide (Citalopram HBr) 20 Mg Tablet, 20 MG PO DAILY, (Reported) Entered as Reported by: JOHN JONES on 04/16/20 1142 Gabapentin (Gabapentin) 100 Mg Capsule, 100 MG PO BID, (Reported) Entered as Reported by: JOHN JONES on 04/16/20 1142 Metoprolol Tartrate (Metoprolol Tartrate) 25 Mg Tablet, 25 MG PO DAILY, (Reported) Entered as Reported by: JOHN JONES on 04/16/20 1142 Review of Systems Review of Systems Constitutional: no symptoms reported Eyes: No Symptoms Reported Ears, Nose, Mouth, Throat: no symptoms reported Respiratory: no symptoms reported Cardiovascular: no symptoms reported Gastrointestinal: no symptoms reported Genitourinary: no symptoms reported Musculoskeletal: see HPI Skin: no symptoms reported Psychiatric/Neurological: See HPI, Headache; Denies Numbness, Denies Paresthesia, Denies Weakness Past Fujjfkc-Tzyvog-Oompfm Hx Patient Social History Tobacco Use?: Yes (1/2 PPD) Tobacco type used: Cigarettes Smoking Status: Current Everyday Smoker Smokeless Tobacco Frequency: Never a User Use of E-Cig and/or Vaping Jonnathan: Never a User Substance use?: No Alcohol Use?: No Past Medical History Surgery/Hospitalization HX: CARDIAC CATH 02/[address] ROWE: MILD TO MODERATE DISEASE, NO INTERVENTION. EF 60% Surgeries: Yes (BILAT. 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) Deep Vein Thrombosis, Hypertension Neurological: Yes (trigeminal neuralgia) Reproductive Disorders: No Sexually Transmitted Disease: No Gastrointestinal: No Musculoskeletal: Yes ("SCIATIC NERVE PROBLEMS" PER PT) Endocrine: No HEENT: Yes (trigeminal neuralgia) Cancer: No Psychosocial: No Integumentary: No Blood Disorders: Yes (PROTEIN S DEFICIENCY-DVT OF LEG) Family Medical History DVT/PE Physical Exam Vital Signs Vital Signs - First Documented 08/25/21 04:32 Temp 36.5 Pulse 55 Resp 16 B/P (MAP) 172/72 (105) Pulse Ox 94 O2 Delivery Nasal Cannula O2 Flow Rate 2.00 Capillary Refill : Height, Weight, BMI Height: 5'2.00" Weight: 140lbs. 0.0oz. 63.762424ck; 24.1 BMI Method:Stated General Appearance: WD/WN, no apparent distress, thin, other (REEKS OF CIGARETTES) HEENT: PERRL/EOMI, normal ENT inspection, other (NO EXTERNAL EVIDENCE OF TRAUMA) Neck: non-tender, full range of motion, supple, normal inspection Cardiovascular: normal peripheral pulses, regular rate, rhythm, no murmur Respiratory: chest non-tender, normal breath sounds, no respiratory distress, no accessory muscle use Peripheral Pulses: 2+ Dorsalis Pedis (R), 2+ Left Dors-Pedis (L), 2+ Radial Pulses (R), 2+ Radial Pulses (L) Gastrointestinal: non tender, soft Back: normal inspection, no CVA tenderness, no vertebral tenderness Extremities: other (MILD RIGHT HUMERUS/ELBOW/FOREARM TENDERNESS, VERY TENDER TO RIGHT WRIST WITH DEFORMITY. DISTAL MOTOR/SENSORY/VASCULAR INTACT. NO HIP OR LEG TENDERNESS. ) Neurologic/Psychiatric: inspector aligning II-XII nml as tested, no motor/sensory deficits, alert, normal mood/affect, oriented x 3 (BUT SOME LIMITED MEMORY) Skin: normal color, warm/dry Dali Coma Score Best Eye Response: (4) Open Spontaneously Best Verbal Response: (5) Oriented Best Motor Response: (6) Obeys Commands Dali Total: 15 Procedures/Interventions Splinting and Joint Reduction : Arm Sling: Earth Hand-Made Type: orthoglass Splint Application: Short Arm Progress/Results/Core Measures Results/Orders My Orders Orders - PASQUALE MENDOZA DO Chest 1 View, Ap/Pa Only (08/25/21 04:41) Forearm, Right, 2 Views (08/25/21 04:41) Humerus, Right, 2 Views (08/25/21 04:41) Hand, Right, 3 Views (08/25/21 04:41) Pelvis With Right Hip 2-3views (08/25/21 04:41) Ct Head/Cervical Spine Wo (08/25/21 04:41) Ct Thoracic/Lumbar Spine Wo (08/25/21 04:41) Ed Ortho/Other Supplies Order (08/25/21 05:50) Ortho Glass (08/25/21 05:50) Vital Signs/I&O 08/25/21 04:32 Temp 36.5 Pulse 55 Resp 16 B/P (MAP) 172/72 (105) Pulse Ox 94 O2 Delivery Nasal Cannula O2 Flow Rate 2.00 Progress Progress Note : Progress Note UNEVENTFUL ER STAY PT HAS TRAMADOL AT HOME FOR PAIN PT HAS AND SON AT HOME AND 2 DAUGHTERS WHO CAN ALSO STAY WITH PATIENT Diagnostic Imaging Comments CT SCANS--PER RADIOLOGIST REPORTS AT 0547: CT HEAD/CERVICAL SPINE-- FINDINGS: CT head: No large acute territorial ischemia, mass, or hemorrhage. No midline shift or mass effect. Decreased attenuation is seen in the periventricular and subcortical white matter. The ventricles and cortical sulci are mildly prominent. The basilar cisterns are patent and unremarkable. The calvarium is intact. The visualized paranasal sinuses are clear. CT cervical spine: No acute fracture or dislocation is seen in the cervical spine. No focal osseous lesions. There is reversal of the normal lordotic curvature of the cervical spine centered at the C5-C6 level. Vertebral body heights are well-maintained. The craniocervical junction is well-maintained. Mild degenerative changes are seen in the cervical spine with disc osteophyte complexes and uncovertebral arthropathy. There is asymmetric prominence of the right internal jugular vein. The included lung apices are clear. IMPRESSION: 1. No hemorrhage or focal intra-axial mass. No CT evidence of large acute territorial ischemia. 2. No acute fracture or dislocation in the cervical spine. CT THORACIC/LUMBAR SPINE-- FINDINGS: No acute fracture or dislocation is seen in the thoracic and lumbar spine. Stable chronic height loss is seen in the superior endplate of T12. No focal suspicious osseous lesions are seen. There is focal left convexity curvature of the upper thoracic spine. There is right convexity curvature of the lumbar spine. No evidence of acute spinal canal stenosis. The included lungs are clear. The paraspinal soft tissues are unremarkable. IMPRESSION: 1. No acute fracture or dislocation is seen in the thoracic and lumbar spine. 2. S-shaped curvature of the thoracolumbar spine. XRAYS--ALL PER RADIOLOGIST REPORTS AT 0613 CXR-- FINDINGS: The lung volumes are normal. No focal consolidation is seen. No large pleural effusion or pneumothorax is seen. The cardiomediastinal silhouette is normal in size and contour. No acute osseous abnormality is seen. S-shaped curvature of the thoracolumbar spine is seen. IMPRESSION: 1. No acute pleuroparenchymal process. PELVIS XRAY-- FINDINGS: There is no acute fracture or dislocation of the pelvis and right hip. Alignment is anatomic. The imaged joint spaces are preserved. IMPRESSION: 1. No acute fracture or dislocation of the pelvis and right hip. RIGHT HUMERUS-- FINDINGS: There is no acute fracture or dislocation of the right humerus. Alignment is anatomic. No focal osseous lesion is seen. IMPRESSION: 1. No acute fracture or dislocation in the right humerus. RIGHT FOREARM- FINDINGS: Fracture is seen involving the distal metaphysis of the right radius. No fracture is seen in the right ulna. No radiopaque foreign body. IMPRESSION: 1. Acute impacted fracture involving the distal metaphysis of the right radius. RIGHT HAND-- FINDINGS: Acute impacted fracture is seen involving the distal right radius with extension into the right radiocarpal joint. There is a fracture involving the right ulnar styloid. The carpal bones demonstrate normal alignment. No fracture seen in the right hand. IMPRESSION: 1. Acute impacted fracture involving the distal right radius with intra-articular extension into the right radiocarpal joint. 2. Fracture involving the right ulnar styloid. Reviewed: Reviewed by Me Departure Impression Primary Impression: Fall from standing Additional Impressions: RIGHT DISTAL RADIUS FRACTURE ANTICOAGULATION THERAPY Fracture of right ulnar styloid Disposition: 01 HOME, SELF-CARE Condition: Stable Departure-Patient Inst. Decision time for Depature: 06:05 Referrals: ANGELICA SORIANO MD, LISA A MD (PCP/Family) Primary Care Physician Patient Instructions: Forearm and Wrist Fractures ED, How to Use a Shoulder Sling ED, Preventing Falls ED, SPLINT CARE Add. Discharge Instructions: SPLINT AND SLING AT ALL TIMES ICE TO AREA AT 20 MINUTE INTERVALS ELEVATE ARM MUCH POSSIBLE TAKE YOUR TRAMADOL EVERY 4-6 HOURS NEEDED FOR PAIN FOLLOW UP WITH DR. SORIANO THIS WEEK FOR FURTHER CARE--CALL TODAY FOR APPOINTMENT All discharge instructions reviewed with patient and/or family. Voiced understanding. PASQUALE MENDOZA DO Aug 25, 2021 04:47
--- NOTE | 2021-08-25 05:33 | Diagnostic Imaging Report ---
PROCEDURE: CT head and CT cervical spine without contrast. TECHNIQUE: Multiple contiguous axial images were obtained through the brain and cervical spine without the use of intravenous contrast. Sagittal and coronal reformations through the cervical spine were then performed. Auto Exposure Controls were utilized during the CT exam to meet ALARA standards for radiation dose reduction. INDICATION: Fall. Head and neck pain. COMPARISON: 02/09/2019. FINDINGS: CT head: No large acute territorial ischemia, mass, or hemorrhage. No midline shift or mass effect. Decreased attenuation is seen in the periventricular and subcortical white matter. The ventricles and cortical sulci are mildly prominent. The basilar cisterns are patent and unremarkable. The calvarium is intact. The visualized paranasal sinuses are clear. CT cervical spine: No acute fracture or dislocation is seen in the cervical spine. No focal osseous lesions. There is reversal of the normal lordotic curvature of the cervical spine centered at the C5-C6 level. Vertebral body heights are well-maintained. The craniocervical junction is well-maintained. Mild degenerative changes are seen in the cervical spine with disc osteophyte complexes and uncovertebral arthropathy. There is asymmetric prominence of the right internal jugular vein. The included lung apices are clear. IMPRESSION: 1. No hemorrhage or focal intra-axial mass. No CT evidence of large acute territorial ischemia. 2. No acute fracture or dislocation in the cervical spine. Dictated by: Dictated on workstation # [id number]
--- NOTE | 2021-08-25 05:37 | Diagnostic Imaging Report ---
PROCEDURE: CT thoracic and lumbar spine without contrast. TECHNIQUE: Multiple contiguous axial images were obtained through the thoracic and lumbar spine without the use of intravenous contrast. Sagittal and coronal reformations were then performed. All CT scans use one or more of the following dose optimizing techniques: automated exposure control, MA and/or KvP adjustment based on a patient size and exam type, or iterative reconstruction. INDICATION: Fall. Back pain. COMPARISON: 10/30/2020. FINDINGS: No acute fracture or dislocation is seen in the thoracic and lumbar spine. Stable chronic height loss is seen in the superior endplate of T12. No focal suspicious osseous lesions are seen. There is focal left convexity curvature of the upper thoracic spine. There is right convexity curvature of the lumbar spine. No evidence of acute spinal canal stenosis. The included lungs are clear. The paraspinal soft tissues are unremarkable. IMPRESSION: 1. No acute fracture or dislocation is seen in the thoracic and lumbar spine. 2. S-shaped curvature of the thoracolumbar spine. Dictated by: Dictated on workstation # [id number]
--- NOTE | 2021-08-25 06:07 | Diagnostic Imaging Report ---
EXAMINATION: Chest 1 view HISTORY: FALL COMPARISON: None available. FINDINGS: The lung volumes are normal. No focal consolidation is seen. No large pleural effusion or pneumothorax is seen. The cardiomediastinal silhouette is normal in size and contour. No acute osseous abnormality is seen. S-shaped curvature of the thoracolumbar spine is seen. IMPRESSION: 1. No acute pleuroparenchymal process. Dictated by: Dictated on workstation # [id number]
--- NOTE | 2021-08-25 06:08 | Diagnostic Imaging Report ---
CLINICAL HISTORY: Fall COMPARISON: None. TECHNIQUE: 2 views of the right forearm. FINDINGS: Fracture is seen involving the distal metaphysis of the right radius. No fracture is seen in the right ulna. No radiopaque foreign body. IMPRESSION: 1. Acute impacted fracture involving the distal metaphysis of the right radius. Dictated by: Dictated on workstation # [id number]
--- NOTE | 2021-08-25 06:09 | Diagnostic Imaging Report ---
CLINICAL HISTORY: Fall. Right arm pain. COMPARISON: None. TECHNIQUE: 2 views of the right humerus. FINDINGS: There is no acute fracture or dislocation of the right humerus. Alignment is anatomic. No focal osseous lesion is seen. IMPRESSION: 1. No acute fracture or dislocation in the right humerus. Dictated by: Dictated on workstation # [id number]
--- NOTE | 2021-08-25 06:12 | Diagnostic Imaging Report ---
CLINICAL HISTORY: Fall. Pelvic and right hip pain. COMPARISON: 04/27/2013. TECHNIQUE: 3 views of the pelvis and right hip. FINDINGS: There is no acute fracture or dislocation of the pelvis and right hip. Alignment is anatomic. The imaged joint spaces are preserved. IMPRESSION: 1. No acute fracture or dislocation of the pelvis and right hip. Dictated by: Dictated on workstation # [id number]
--- NOTE | 2021-08-25 06:12 | Diagnostic Imaging Report ---
CLINICAL HISTORY: Fall. Right wrist pain. COMPARISON: None. TECHNIQUE: 3 views of the right hand. FINDINGS: Acute impacted fracture is seen involving the distal right radius with extension into the right radiocarpal joint. There is a fracture involving the right ulnar styloid. The carpal bones demonstrate normal alignment. No fracture seen in the right hand. IMPRESSION: 1. Acute impacted fracture involving the distal right radius with intra-articular extension into the right radiocarpal joint. 2. Fracture involving the right ulnar styloid. Dictated by: Dictated on workstation # [id number]
[2021-08-25 06:44] VITALS: BP 139/85
== END 2021-08-25 06:46 | disposition home or self-care (01) ==
LOC: EDUNIT# 04:30 → ER 04:31
DX: S52.571A Other intraarticular fracture of lower end of right radius, initial encounter for closed fracture (principal); S52.611A Displaced fracture of right ulna styloid process, initial encounter for closed fracture; I10 Essential (primary) hypertension; F17.210 Nicotine dependence, cigarettes, uncomplicated; Z86.718 Personal history of other venous thrombosis and embolism; Z79.01 Long term (current) use of anticoagulants; Z79.899 Other long term (current) drug therapy; W18.30XA Fall on same level, unspecified, initial encounter
CPT/HCPCS: 29105; 70450; 71045; 72125; 72128; 72131; 73060; 73090; 73130

== ENCOUNTER → 2021-08-26 | Outpatient (CLI) | payer MEDICARE ==
[~2021-08-26] MED LIST changes: +OXYC1TAB11 PO
--- NOTE | 2021-08-26 17:05 | Diagnostic Imaging Report ---
INDICATION: Right wrist pain COMPARISON: 08/25/2021 TECHNIQUE: 3 radiographs of the right wrist dated 08/26/2021. FINDINGS: Splint material has been placed since the prior examination. Previously noted comminuted distal radial fracture is again identified. Mild posterior displacement with significant dorsal tilt is present. The posterior aspect of the fracture appears impacted. No additional fracture or dislocation. IMPRESSION: Interval splinting of previously noted distal radial fracture with persistent posterior displacement and significant dorsal tilt remaining. Dictated by: Dictated on workstation # [id number]
== END ==
LOC: ORTHO 14:05
PROVIDERS: ATTEND Orthopaedic Surgery
DX: M25.531 Pain in right wrist (principal)
CPT/HCPCS: 73110; 99203

== ENCOUNTER 2021-08-27 05:38 | Outpatient (CLI) | payer MEDICARE ==
[~2021-08-27] VITALS: Ht 157.5 cm; Wt 55.3 kg
[~2021-08-27 05:38] MED LIST changes: -OXYC1TAB11 PO
[2021-08-27] MEDS ORDERED: OXYC1TAB11 PO (13:13)
== END 2021-08-27 14:52 | disposition home or self-care (01) ==
LOC: PREOP 05:38
PROVIDERS: ATTEND Orthopaedic Surgery
DX: Z01.818 Encounter for other preprocedural examination (principal)

== ENCOUNTER 2021-08-28 05:55 | Day surgery (SDC) | payer MEDICARE ==
[2021-08-28] VITALS (12 sets, daily range): BP systolic 112–206; BP diastolic 73–98
[~2021-08-28] VITALS: Ht 157 cm; Wt 55.3 kg
[~2021-08-28 05:55] MED LIST changes: +OXYC1TAB11 PO
[2021-08-28] MEDS ORDERED: ceFAZolin INJECTION 1,000 MG ONE (06:40)
[2021-08-28] MEDS ORDERED: ceFAZolin INJECTION 1,000 MG VIAL IV ONE (06:45)
[2021-08-28] MEDS ORDERED: BUPIVACAINE 0.25% 30 ML (SENSORCAINE) VIAL ONE (06:45)
[2021-08-28] MEDS ORDERED: NEO/POLY/BAC (NEOSPORIN) OINT 15 GM TUBE ONE (06:45)
[2021-08-28] MEDS ORDERED: LACTATED RINGERS 1,000 ML IV PRN (06:45)
--- NOTE | 2021-08-28 07:16 | Progress Note-Pre Operative ---
Pre-Operative Progress Note H&P Reviewed The H&P was reviewed, patient examined and no changes noted. Date Seen by Provider: Aug 28, 2021 Time Seen by Provider: 07:11 Date H&P Reviewed: Aug 28, 2021 Time H&P Reviewed: 07:11 Pre-Operative Diagnosis: Right Intra-articular Distal Radius Fracture ANGELICA SORIANO MD Aug 28, 2021 07:15
--- NOTE | 2021-08-28 08:52 | Anesthesia-General Post-Op ---
General Patient Condition Mental Status/LOC: Same as Preop Cardiovascular: Satisfactory Nausea/Vomiting: Absent Respiratory: Satisfactory Pain: Controlled Complications: Absent Post Op Complications Complications None Follow Up Care/Instructions Patient Instructions None needed. Anesthesia/Patient Condition Patient Condition Patient is doing well, no complaints, stable vital signs, no apparent adverse anesthesia problems. No complications reported per nursing. TERRENCE MAHER CRNA Aug 28, 2021 08:52
--- NOTE | 2021-08-28 08:59 | Operative Report - Ortho ---
Operative Report Surgeon (s)/Pointer Helper (s) Surgeon ANGELICA SORIANO MD Pointer Helper n/a Pre-Operative Diagnosis Right Intra-articular Distal Radius Fracture Post-Operative Diagnosis same Operative Report Date of Procedure: Aug 28, 2021 Name of Procedure Performed: Open Reduction and Internal Fixation of Right Intra-Articular Distal Radius Fracture Description & Findings After obtaining informed consent, the patient was taken to the operating room. General anesthesia was induced. Surgical timeout was taken. The right upper extremity was prepped and draped in the usual sterile fashion. Incision was made over the volar side of the wrist. Radial artery was identified and protected. Fascia was divided, retractors were placed, and the pronator was reflected. Fracture site was exposed. Reduction maneuver was performed using traction, wrist flexion, and ulnar deviation. A [employer] distal radius plate was selected and position against the bone using C-arm. A nonlocking screw was placed in the slot of the plate. A nonlocking screw was then placed in the most distal row of the plate. Plate position and reduction were confirmed in the AP and lateral planes. 2 locking screws were placed in the distal portion of the plate. Position of these screws was confirmed using C-arm. The radial styloid locking screws were then placed distally and their positions were confirmed on C-arm. 2 diaphyseal locking screws were placed. Images were obtained in the AP and lateral and demonstrated adequate reduction of the fracture including the intraarticular portion and appropriate position of the hardware. Final images were transferred to PACS. Wound was irrigated with normal saline. Subcutaneous layer was closed with 3-0 vicryl. Skin was closed with 4-0 nylon. Wound was injected locally with marcaine. Arm was dressed with xeroform, 4x4s, trace, webril, volar splint, and MARTHA wrap. Patient tolerated the procedure well and was stable to the recovery room. Anesthesia Type Genral Estimated Blood Loss less than 20 mL Specimen(s) collected/removed None ANGELICA SORIANO MD Aug 28, 2021 08:59
[2021-08-28] MEDS ORDERED: ONDANSETRON 4 MG/2 ML (SDV) Z0FRAN IVP PRN (09:00)
[2021-08-28] MEDS ORDERED: morphine INJ 10 MG/ML 1ML (SYR OR VIAL) IVP ONE (09:00)
[2021-08-28] MEDS ORDERED: meTOprolol 5 MG/5 ML (LOPRESSOR) VIAL IV ONE (09:30)
--- NOTE | 2021-08-28 09:34 | Diagnostic Imaging Report ---
Indication: Distal radial fracture Intraoperative fluoroscopy views obtained with portable intensifier in surgery during ORIF of distal radial fracture. 2 views are obtained. 34.3 seconds of fluoroscopy time was used. Fluoroscopic views demonstrate anatomic alignment distal radial fracture with plate and screws in place. IMPRESSION: Anatomic alignment of distal radial fracture status post ORIF. Dictated by: Dictated on workstation # [id number]
== END 2021-08-28 10:50 ==
LOC: SDC 05:55
PROVIDERS: ATTEND Orthopaedic Surgery
DX: S52.571A Other intraarticular fracture of lower end of right radius, initial encounter for closed fracture (principal); I10 Essential (primary) hypertension; E78.5 Hyperlipidemia, unspecified; W01.0XXA Fall on same level from slipping, tripping and stumbling without subsequent striking against object, initial encounter; F32.A Depression, unspecified; F41.9 Anxiety disorder, unspecified; F17.210 Nicotine dependence, cigarettes, uncomplicated; Z79.01 Long term (current) use of anticoagulants; Z90.710 Acquired absence of both cervix and uterus; Z79.899 Other long term (current) drug therapy; Z79.891 Long term (current) use of opiate analgesic
CPT/HCPCS: 76000; 87081

== ENCOUNTER → 2021-09-11 | Outpatient (CLI) | payer MEDICARE | LOC: ORTHO 08:45 | PROVIDERS: ATTEND Orthopaedic Surgery | DX: Z47.89 Encounter for other orthopedic aftercare (principal); I25.10 Atherosclerotic heart disease of native coronary artery without angina pectoris; I10 Essential (primary) hypertension; Z98.890 Other specified postprocedural states ==

== ENCOUNTER 2021-09-25 13:00 | Outpatient (RCR) | payer MEDICARE | END 2021-09-26 | disposition home or self-care (01) | PROVIDERS: ATTEND Orthopaedic Surgery | DX: S52.91XD Unspecified fracture of right forearm, subsequent encounter for closed fracture with routine healing (principal); W19.XXXD Unspecified fall, subsequent encounter ==

== ENCOUNTER → 2021-10-02 | Outpatient (CLI) | payer MEDICARE ==
--- NOTE | 2021-10-02 11:00 | Diagnostic Imaging Report ---
EXAMINATION: Right forearm at 10:04 a.m. INDICATION: Follow-up fracture. AP and lateral views were obtained. FINDINGS: The prior exam of 08/25/2021 noted an impacted slightly comminuted, slightly displaced fracture of the distal radial metaphysis. In the interval since the prior study, the patient has undergone a surgical procedure. There is now an orthopedic plate and screw fixation device along the volar aspect of the distal radius. The orthopedic hardware appears to be in good position, and the main fracture fragments are near anatomic in alignment. The fracture line is still visible, however, indicating that the fracture has not healed completely. There is no acute abnormality noted. The soft tissues are unremarkable. IMPRESSION: There are postoperative and post-traumatic changes involving the distal radius. The orthopedic hardware appears to be in good position, and the main fracture fragments are near anatomic in alignment. However, the fracture has not healed completely yet. Dictated by: Dictated on workstation # [id number]
== END ==
LOC: ORTHO 09:37
PROVIDERS: ATTEND Orthopaedic Surgery
DX: S52.501D Unspecified fracture of the lower end of right radius, subsequent encounter for closed fracture with routine healing (principal); X58.XXXD Exposure to other specified factors, subsequent encounter
CPT/HCPCS: 73090

== ENCOUNTER 2021-10-21 13:24 | Outpatient (RCR) | payer MEDICARE | END 2021-10-27 | disposition home or self-care (01) | PROVIDERS: ATTEND Orthopaedic Surgery | DX: S52.91XD Unspecified fracture of right forearm, subsequent encounter for closed fracture with routine healing (principal); W19.XXXD Unspecified fall, subsequent encounter ==

== ENCOUNTER → 2021-10-23 | Outpatient (CLI) | payer MEDICARE ==
--- NOTE | 2021-10-23 13:06 | Diagnostic Imaging Report ---
Indication: Right wrist surgery. TIME OF EXAM: 10:50 AM Correlation is made with prior radiograph from 08/26/2021. 3 views of the right wrist demonstrate a volar plate and numerous screws transfixing the comminuted impacted intra-articular distal radius fracture. Hardware is intact. Alignment is anatomic. Distal ulna as well as the carpus and metacarpals are intact. IMPRESSION: Satisfactory postoperative appearance to the right wrist. Dictated by: Dictated on workstation # [id number]
== END ==
LOC: ORTHO 10:42
PROVIDERS: ATTEND Orthopaedic Surgery
DX: Z09 Encounter for follow-up examination after completed treatment for conditions other than malignant neoplasm (principal); Z98.890 Other specified postprocedural states
CPT/HCPCS: 73110

== ENCOUNTER 2021-11-17 11:10 | Outpatient (RCR) | payer MEDICARE | END 2021-11-17 15:12 | disposition home or self-care (01) | PROVIDERS: ATTEND Orthopaedic Surgery | DX: Z09 Encounter for follow-up examination after completed treatment for conditions other than malignant neoplasm (principal); Z98.890 Other specified postprocedural states ==

== ENCOUNTER → 2021-11-18 | Outpatient (CLI) | payer MEDICARE ==
--- NOTE | 2021-11-18 09:59 | Diagnostic Imaging Report ---
CT Lung Screening INDICATION: Current smoker with a 30 pack year history. TECHNIQUE: Noncontrast, low-dose CT imaging performed according to lung cancer screening protocol. Auto Exposure Controls were utilized during the CT exam to meet ALARA standards for radiation dose reduction. COMPARISON: CT chest screening 10/30/2020, 04/07/2019 FINDINGS: HEART/MEDIASTINUM: The right internal jugular vein is distended extending into the superior vena cava. Heart size is enlarged with small pericardial effusion. Thoracic aortic contour unremarkable. No suggestion for pathologically enlarged mediastinal lymph nodes on limited, noncontrast imaging. LUNGS/MEASURED PULMONARY NODULES: Lung grover are clear without evidence for infiltrate. A few scattered micronodules are noted. No concerning pulmonary mass. Very small endobronchial filling defect in the central aspect left upper lobe (image 135 series 2) is present. Overall likely present prior study without definitive adverse change at this time. Minimal additional areas of mucosal wall thickening. OTHER: None. IMPRESSION: 1. Very small endobronchial filling defect left lower lobe. No definitive concerning pulmonary mass that meets criteria to suggest probable active lung cancer. LUNG-RADS CATEGORY: 2 LUNG SCREENING MANAGEMENT/RECOMMENDATIONS: Continued annual screening with low dose CT in 12 months. Dictated by: Dictated on workstation # [id number]
== END ==
LOC: RAD 09:45
PROVIDERS: ATTEND Family Medicine
DX: Z12.2 Encounter for screening for malignant neoplasm of respiratory organs (principal); R91.8 Other nonspecific abnormal finding of lung field; F17.210 Nicotine dependence, cigarettes, uncomplicated
CPT/HCPCS: 71271

== ENCOUNTER → 2021-11-18 | Outpatient (CLI) | payer MEDICARE | LOC: ORTHO 09:28 | PROVIDERS: ATTEND Orthopaedic Surgery | DX: Z47.89 Encounter for other orthopedic aftercare (principal); Z98.890 Other specified postprocedural states ==

== ENCOUNTER → 2022-01-15 | Outpatient (CLI) | payer MEDICARE | LOC: CARD 12:00 | PROVIDERS: ATTEND Nurse Practitioner Family | DX: I08.3 Combined rheumatic disorders of mitral, aortic and tricuspid valves (principal) | CPT/HCPCS: 93306 ==

== ENCOUNTER → 2022-01-20 | Outpatient (CLI) | payer MEDICARE ==
[~2022-01-20] VITALS: Ht 154 cm; Wt 51.0 kg
[~2022-01-20] MED LIST changes: +CATHETER FLUSH 10 ML SYR IVP PRN; +REGADENOSON 0.4 MG/5 ML SYR (LEXISCAN) IV ONE
[2022-01-20 09:28] VITALS: BP 176/85
--- NOTE | 2022-01-21 13:39 | STRESS TEST ---
DATE OF SERVICE: 01/20/2022 RESTING AND POST REGADENOSON TECHNETIUM-99M TETROFOSMIN SPECT CT IMAGING ORDERING PHYSICIAN: Swapna Reagan APRN PRIMARY PHYSICIAN: Dr. Sanchez. CLINICAL DIAGNOSIS: Coronary artery disease. Baseline images were carried out after injection of 10.56 mCi of technetium-99m Tetrofosmin. This was followed by 0.4 mg regadenoson and 29.1 mCi of technetium-99m Tetrofosmin for stress imaging. The electrocardiogram showed sinus rhythm with premature ventricular contractions at baseline. This did not change significantly with regadenoson infusion. Premature ventricular contractions were isolated. There was no ventricular tachycardia. Review of images at rest and following stress indicates a small to moderate anteroseptal perfusion defect, which appears to be transient. Gated images show normal global left ventricular systolic function with normal regional wall motion. Left ventricular ejection fraction is calculated to be 61%. SDS is 7. CONCLUSIONS: 1. This study is indicative of a small to moderate amount of anteroseptal ischemia. 2. Normal regional wall motion. 3. Normal global left ventricular systolic function with a calculated ejection fraction of 61%. Job ID: [id number] DocumentID: [id number] Dictated Date: 01/21/2022 13:01:00 Maintenance Department Manager Date: 01/21/2022 13:38:01 Dictated By: GOSIA ROWE MD, MA, FACP, FACC,
== END ==
LOC: CARD 08:15
PROVIDERS: ATTEND Nurse Practitioner Family
DX: I25.10 Atherosclerotic heart disease of native coronary artery without angina pectoris (principal)
CPT/HCPCS: 78452; 93017

== ENCOUNTER 2022-01-27 11:11 | Day surgery (SDC) | payer MEDICARE ==
[~2022-01-27] VITALS: Ht 157.5 cm; Wt 52.0 kg
[2022-01-27] VITALS (10 sets, daily range): BP systolic 115–139; BP diastolic 60–72
[~2022-01-27 11:11] MED LIST changes: -CATHETER FLUSH 10 ML SYR IVP PRN; -REGADENOSON 0.4 MG/5 ML SYR (LEXISCAN) IV ONE
[2022-01-27] MEDS ORDERED: HEParin (CATH LAB) 2,000 ML IV ONE (11:15)
[2022-01-27] MEDS ORDERED: LIDOCAINE 1% INJ 20 ML VIAL ONE (11:15)
[2022-01-27] MEDS ORDERED: NS IV 1000 ML 1,000 ML ONE (11:15)
[2022-01-27] MEDS ORDERED: NS IV 1000 ML 1,000 ML IV SCH ×2 (11:15→15:45)
[2022-01-27] MEDS ORDERED: NF-METHYLP PO (11:45)
[2022-01-27] MEDS ORDERED: AMLO5TAB4 PO (11:45)
[2022-01-27] MEDS ORDERED: METH4TAB10 PO (11:46)
[2022-01-27 11:48] LABS: HEMATOCRIT 42 % (35-52); MEAN CORPUSCULAR HEMOGLOBIN 33 pg (25-34); MEAN CORPUSCULAR HGB CONC 33 g/dL (32-36); MEAN CORPUSCULAR VOLUME 100 fL (80-99); MEAN PLATELET VOLUME 9.5 fL (9.0-12.2); PLATELET COUNT 287 10^3/uL (130-400); WHITE BLOOD COUNT 9.2 10^3/uL (4.3-11.0)
[2022-01-27 12:00] LABS: INR 0.9 (0.8-1.4); PROTHROMBIN TIME PATIENT 12.6 SEC (12.2-14.7)
[2022-01-27 12:04] LABS: ALBUMIN 4.4 GM/DL (3.2-4.5); BILIRUBIN,TOTAL 0.7 MG/DL (0.1-1.0); CALCIUM 9.5 MG/DL (8.5-10.1); CREATININE SERUM 0.82 MG/DL (0.60-1.30); POTASSIUM 3.8 MMOL/L (3.6-5.0); TOTAL PROTEIN 7.4 GM/DL (6.4-8.2)
[2022-01-27] MEDS ORDERED: fentaNYL INJ 100 MCG/2 ML AMP ONE (15:04)
[2022-01-27] MEDS ORDERED: MIDAZOLAM 5 MG/5 ML (VERSED) VIAL ONE (15:05)
--- NOTE | 2022-01-27 15:40 | Cardiac Procedure Note-CS/ASA ---
Pre-Procedure Note Pre-Op Procedure Note H&P Reviewed The H&P was reviewed, patient examined and no changes noted. Date H&P Reviewed: January 27, 2022 Time H&P Reviewed: 15:00 Conscious Sedation Pre-Proced Time 15:00 ASA Score 3 For ASA 3 and 4: Consider anesthesia and medical clearance. Also, for patients with a history of failed moderate sedation consider anesthesia. Airway Lungs Heart ASA score ASA 1: a normal healthy patient ASA 2: a patient with a mild systemic disease (mid diabetes, controlled hypertension, obesity ASA 3: a patient with a severe systemic disease that limits activity (angina, COPD, prior Myocardial infarction) ASA 4: a patient with an incapacitating disease that is a constant threat to life (CHF, renal failure) ASA 5: a moribund patient not expected to survive 24 hrs. (ruptured aneurysm) ASA 6: a declared brain- patient whose organs are being harvested. For emergent operations, add the letter E after the classification Mallampati Classification Grade 2 Sedation Plan Analgesia, Amnesia, Plan communicated to team members, Discussed options with patient/fam, Discussed risks with patient/fam The patient is an appropriate candidate to undergo the planned procedure, sedation, and anesthesia. The patient immediately re-assessed prior to indication. GOSIA ROWE MD FACP FAC CCDS January 27, 2022 15:40
[2022-01-27] MEDS ORDERED: ASPI-999 PO (15:43)
--- NOTE | 2022-01-27 15:44 | Discharge Inst-Cardiology ---
Discharge Inst-Cardiac Discharge Medications New Medications: Aspirin (Aspirin) 81 Mg Tab.chew 81 MG PO every other day, #50 TAB 3 Refills Continued Medications: Amlodipine Besylate (Norvasc) 5 Mg Tablet 5 MG PO DAILY, TAB Apixaban (Eliquis) 2.5 Mg Tablet 2.5 MG PO BID, TAB Atorvastatin Calcium (Atorvastatin Calcium) 40 Mg Tablet 40 MG PO DAILY, TAB Calcium Carbonate/Vitamin D3 (Calcium 600 + Vit D Caplet) 1 Each Tablet 1 EACH PO BID, TAB Cholecalciferol (Vitamin D3) (Vitamin D3) 50 Mcg Capsule 50 MCG PO DAILY, CAP Citalopram Hydrobromide (Citalopram HBr) 20 Mg Tablet 20 MG PO DAILY, TAB Gabapentin (Gabapentin) 100 Mg Capsule 100 MG PO FIVE TIMES DAILY, CAP Methylprednisolone (Methylprednisolone Dose Pack) 4 Mg Tab.ds.pk 4 MG PO DAILY for 6 Days, #21 PKG PER DOSE PACK INSTRUCTIONS Metoprolol Tartrate (Metoprolol Tartrate) 25 Mg Tablet 25 MG PO BID, TAB Oxycodone HCl/Acetaminophen (Oxycodone-Acetaminophen 5-325) 1 Each Tablet 1 EACH PO Q4H PRN for PAIN-SEVERE MDD 6, TAB GOSIA ROWE MD FACP FAC CCDS January 27, 2022 15:44
--- NOTE | 2022-01-27 15:44 | Discharge Inst-Post CATH ---
Discharge Inst-CATH/EP Post Cardiac Cath/EP D/C Inst Follow Up/Plan F/u with Dr Duffy in 2 weeks ACTIVITY * Go Home directly and rest. * Limit activity of the leg (or wrist if it was used) for 7 days including aerobics, swimming, jogging, bicycling, etc. * Restrict stair-climbing for 7 days if possible, if not, climb up with your n on-cath leg, then bring together on the same step. * Avoid lifting, pushing, pulling or excessive movement of the affected ex tremity for 7 days. * Customary sexual activity may be resumed after 2 days-use caution not to use a position that strains or causes pain to the affected extremity. * No driving for 24 hours. * NO SMOKING. * Avoid straining for bowel movements for 7 days. * Gentle walking on level ground is allowed. * Returning to work will depend on the type of procedure and the results. Your doctor will discuss this with you. CALL YOUR DOCTOR FOR ANY OF THE FOLLOWING: *If bleeding from the puncture site occurs- Apply gentle pressure to site with clean cloth and call your doctor or EMS. * If a knot or lump forms under the skin, increases in size, or causes pain. * If bruising appears to be worsening or moving further down your leg instead of disappearing. * Temperature above 101 F. CARE OF YOUR GROIN INCISION; * Bruising or purple discoloration of the skin near the puncture site is common. * You may shower only, no bathtub bathing for 5 days. Be careful to avoid slipping as your leg may feel stiff. * If a closure device was used on your femoral artery, please see the attached guide regarding care of the device and your leg. * Leave dressing on FOR 24 hours. CARE OF YOUR WRIST INCISION; * Bruising or purple discoloration of the skin near the puncture site is common. * You may shower. * DO NOT submerge wrist. * Leave dressing on FOR 24 hours. GOSIA DUFFY MD FACP FAC CCDS January 27, 2022 15:44
[2022-01-27] MEDS ORDERED: PATIENT MAY USE OWN MEDS, ALL PO SCH (15:45)
--- NOTE | 2022-01-27 18:29 | CARDIAC CATHETERIZATION ---
DATE OF SERVICE: 01/27/2022 CARDIAC CATHETERIZATION REPORT The patient is a 71-year-old lady, who has multiple coronary artery disease risk factors and whose was also known to have mild to moderate coronary artery disease on a previous cardiac catheterization of 02/2017. A myocardial perfusion imaging study of 01/20/2022 indicated anteroseptal ischemia. Accordingly, cardiac catheterization was recommended. Informed consent was obtained. DESCRIPTION OF PROCEDURE: She was brought to the cardiac catheterization laboratory in a fasting state. Right groin was prepared and draped in the usual sterile fashion. Lidocaine 1% was used for local anesthesia. Modified Seldinger technique was used to advance a 5-Polish sheath in right femoral artery, 5-Polish JL4 catheter was used for left coronary angiography, 5-Polish JR4 catheter was used for right coronary angiography, 5-Polish pigtail catheter was used for left heart catheterization and left ventricular angiography. Angiography of the right femoral artery was carried out through the sheath. Mynx was used to achieve hemostasis. She tolerated the procedure well. HEMODYNAMICS: Left ventricular end-diastolic pressure following coronary angiography was 20 mmHg. There is no significant pressure gradient on pullback across the aortic valve. Ascending aortic pressure was 121/65 with a mean of 89 mmHg. CORONARY ANGIOGRAPHY: Left main coronary artery does not exhibit significant disease. Left anterior descending and left circumflex artery have diffuse mild to moderate plaque. The right coronary artery has diffuse mild to moderate plaque. Right coronary artery is dominant. LEFT VENTRICULAR ANGIOGRAPHY: Left ventricular angiography was carried out in the right anterior oblique projection. Global left ventricular systolic function is normal and no regional wall motion abnormality was seen in this view. CONCLUSIONS: 1. Mild to moderate diffuse coronary artery disease without any significant focal stenoses. 2. Normal global left ventricular systolic function with ejection fraction approximately 65%. 3. Elevated left ventricular end-diastolic pressure. DISCUSSION AND RECOMMENDATIONS: Based on results of the study, it appears appropriate to continue a conservative approach. Given mild to moderate coronary artery disease, we are adding aspirin 81 mg every other day to current regimen that also includes apixaban. Risk factor modification has been reviewed. Outpatient followup is advised. Job ID: [id number] DocumentID: [id number] Dictated Date: 01/27/2022 15:51:09 Cutter Operator Tile Date: 01/27/2022 18:28:40 Dictated By: GOSIA ROWE MD, MA, FACP, FACC,
== END 2022-01-27 18:40 | disposition home or self-care (01) ==
LOC: CATH 11:11
PROVIDERS: ATTEND Internal Medicine Cardiovascular Disease
DX: I25.10 Atherosclerotic heart disease of native coronary artery without angina pectoris (principal); G89.29 Other chronic pain; M54.9 Dorsalgia, unspecified; I10 Essential (primary) hypertension; I65.23 Occlusion and stenosis of bilateral carotid arteries; I11.9 Hypertensive heart disease without heart failure; I35.0 Nonrheumatic aortic (valve) stenosis; R94.39 Abnormal result of other cardiovascular function study; F17.210 Nicotine dependence, cigarettes, uncomplicated; Z86.718 Personal history of other venous thrombosis and embolism
CPT/HCPCS: 36415; 80053; 80061; 85027; 85610; 85730; 87081; 93005; 93458

== ENCOUNTER 2022-05-04 22:21 | Emergency (ER) | payer MEDICARE ==
[~2022-05-04] VITALS: Ht 160 cm; Wt 53.4 kg
[~2022-05-04 22:21] MED LIST changes: +AMLO5TAB4 PO; +METH4TAB10 PO; +NF-METHYLP PO
[2022-05-04] MEDS ORDERED: LACTATED RINGERS 1,000 ML IV ONE (22:30)
[2022-05-04 22:46] LABS: BASOPHILS # (AUTO) 0.1 10^3/uL (0.0-0.1); BASOPHILS % (AUTO) 2 % (0-10); EOSINOPHILS # (AUTO) 0.3 10^3/uL (0.0-0.3); EOSINOPHILS % (AUTO) 6 % (0-10); HEMATOCRIT 39 % (35-52); HEMOGLOBIN 12.8 g/dL (11.5-16.0); LYMPHOCYTES % (AUTO) 55 % (12-44); MEAN CORPUSCULAR HEMOGLOBIN 32 pg (25-34); MEAN CORPUSCULAR HGB CONC 33 g/dL (32-36); MEAN CORPUSCULAR VOLUME 97 fL (80-99); MEAN PLATELET VOLUME 9.7 fL (9.0-12.2); MONOCYTES # (AUTO) 1.7 10^3/uL (0.0-1.0); MONOCYTES % (AUTO) 32 % (0-12); NEUTROPHILS # (AUTO) 0.4 10^3/uL (1.8-7.8); NEUTROPHILS % (AUTO) 7 % (42-75); PLATELET COUNT 279 10^3/uL (130-400); WHITE BLOOD COUNT 5.4 10^3/uL (4.3-11.0)
--- NOTE | 2022-05-04 22:46 | ED GI ---
General Stated Complaint: DIARRHEA X1 WEEK History of Present Illness Date Seen by Provider: May 04, 2022 Time Seen by Provider: 22:30 Initial Comments 72-year-old female presents for diarrhea that is been present for approximately 5 days. She has between 5 and 7 episodes each day. She has been eating a normal diet and denies abdominal pain, nausea or vomiting. Symptoms are not worse tonight, her son was concerned because she hasn't gotten better and is taking Immodium up to 4 tablets daily with no relief. She tried to see her PCP today but did not get a call back from the office nurse. She denies any changes in her diet, travel or household members with similar symptoms. Colonoscopy approx 10 year ago, and neg cologard in the last year. Denies any blood in her stools. No history of diverticulitis, Crohn's disease or ulcerative chronic colitis. Timing/Duration: 5-6 Days Severity/Quality: Moderate Associated Symptoms: Denies Symptoms (CARMEN ESCOBAR) Allergies and Home Medications Allergies Coded Allergies: No Known Drug Allergies (Unverified , 08/28/21) Patient Home Medication List Home Medication List Reviewed: Yes (CARMEN ESCOBAR) Amlodipine Besylate (Norvasc) 5 Mg Tablet, 5 MG PO DAILY, (Reported) Entered as Reported by: DARON FISCHER on 01/27/22 1145 Apixaban (Eliquis) 2.5 Mg Tablet, 2.5 MG PO BID, (Reported) Entered as Reported by: JOHN JONES on 04/16/20 1142 Aspirin (Aspirin) 81 Mg Tab.chew, 81 MG PO every other day Prescribed by: GOSIA ROWE on 01/27/22 1543 Atorvastatin Calcium (Atorvastatin Calcium) 40 Mg Tablet, 40 MG PO DAILY, (Reported) Entered as Reported by: JOHN JONES on 04/16/20 1142 Calcium Carbonate/Vitamin D3 (Calcium 600 + Vit D Caplet) 1 Each Tablet, 1 EACH PO BID, (Reported) Entered as Reported by: JOHN JONES on 04/16/20 1142 Cholecalciferol (Vitamin D3) (Vitamin D3) 50 Mcg Capsule, 50 MCG PO DAILY, (Reported) Entered as Reported by: JOHN JONES on 04/16/20 1142 Citalopram Hydrobromide (Citalopram HBr) 20 Mg Tablet, 20 MG PO DAILY, (Reporte d) Entered as Reported by: JOHN JONES on 04/16/20 1142 Gabapentin (Gabapentin) 100 Mg Capsule, 100 MG PO FIVE TIMES DAILY, (Reported) Entered as Reported by: JOHN JONES on 04/16/20 1142 Hyoscyamine Sulfate (Levsin-Sl) 0.125 Mg Tab.subl, 0.125 MG SL Q4H PRN for CRAMPS Prescribed by: LUC LAZO on 05/05/22 0011 Methylprednisolone (Methylprednisolone Dose Pack) 4 Mg Tab.ds.pk, 4 MG PO DAILY, (Reported) Entered as Reported by: DARON FISCHER on 01/27/22 1146 Metoprolol Tartrate (Metoprolol Tartrate) 25 Mg Tablet, 25 MG PO BID, (Reported) Entered as Reported by: JOHN JONES on 04/16/20 1142 Oxycodone HCl/Acetaminophen (Oxycodone-Acetaminophen 5-325) 1 Each Tablet, 1 EACH PO Q4H PRN for PAIN-SEVERE, (Reported) Entered as Reported by: CARRIE TAN on 08/27/21 1313 Review of Systems Review of Systems Constitutional: no symptoms reported, see HPI Gastrointestinal: See HPI; Denies Abdominal Pain, Denies Constipated; Diarrhea; Denies Nausea, Denies Poor Appetite, Denies Poor Fluid Intake, Denies Rectal Bleeding, Denies Vomiting (CARMEN ESCOBAR) All Other Systems Reviewed Negative Unless Noted: Yes (CARMEN ESCOBAR) Past Zzqxjfe-Swrmed-Mndbku Hx Immunizations Up To Date First/Initial COVID19 Vaccinat: OCTOBER 2020 Second COVID19 Vaccination Ras[place]: NOVEMBER 2020 (CARMEN ESCOBAR) Seasonal Allergies Seasonal Allergies: No (CARMEN ESCOBAR) Past Medical History Surgery/Hospitalization HX: CARDIAC CATH 02/[address] ROWE: MILD TO MODERATE DISEASE, NO INTERVENTION. EF 60% Surgeries: Yes (BILAT. 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, DISORDER OF CAROTID ARTERY,) Deep Vein Thrombosis, Hypertension Neurological: Yes (trigeminal neuralgia) Reproductive Disorders: No Sexually Transmitted Disease: No Genitourinary: No Gastrointestinal: No Musculoskeletal: Yes ("SCIATIC NERVE PROBLEMS" PER PT) Osteoporosis Endocrine: No HEENT: Yes (trigeminal neuralgia) Cataract Hearing Impairment: Hard of Hearing Cancer: No Psychosocial: Yes Anxiety, Depression Integumentary: No Blood Disorders: Yes (PROTEIN S DEFICIENCY-DVT OF LEG) (CARMEN ESCOBAR) Family Medical History Reviewed Nursing Family Hx (CARMEN ESCOBAR) DVT/PE (CARMEN ESCOBAR) Physical Exam Vital Signs Vital Signs - First Documented 05/04/22 22:30 Temp 36.7 Pulse 86 Resp 16 B/P (MAP) 135/73 (93) Pulse Ox 95 O2 Delivery Room Air (LUC TAY MD) Vital Signs Capillary Refill : (CARMEN ESCOBAR) Height/Weight/BMI Height: 5'2.00" Weight: 140lbs. 0.0oz. 63.798844lf; 20.96 BMI Method:Stated General Appearance: WD/WN, no apparent distress HEENT: PERRL/EOMI, normal ENT inspection Neck: non-tender, full range of motion, supple, normal inspection Respiratory: chest non-tender, lungs clear, normal breath sounds Cardiovascular: normal peripheral pulses, regular rate, rhythm Gastrointestinal: normal bowel sounds, non tender, soft Extremities: normal range of motion, non-tender, normal inspection, no pedal edema, normal capillary refill Neurologic/Psychiatric: no motor/sensory deficits, alert, normal mood/affect, oriented x 3 Skin: normal color, warm/dry (CARMEN ESCOBAR) Progress/Results/Core Measures Results/Orders Lab Results Laboratory Tests Test 05/04/22 22:39 05/04/22 23:16 Range/Units White Blood Count 5.4 4.3-11.0 10^3/uL Red Blood Count 4.00 3.80-5.11 10^6/uL Hemoglobin 12.8 11.5-16.0 g/dL Hematocrit 39 35-52 % Mean Corpuscular Volume 97 80-99 fL Mean Corpuscular Hemoglobin 32 25-34 pg Mean Corpuscular Hemoglobin Concent 33 32-36 g/dL Red Cell Distribution Width 12.3 10.0-14.5 % Platelet Count 279 130-400 10^3/uL Mean Platelet Volume 9.7 9.0-12.2 fL Immature Granulocyte % (Auto) 0 % Neutrophils (%) (Auto) 7 L 42-75 % Lymphocytes (%) (Auto) 55 H 12-44 % Monocytes (%) (Auto) 32 H 0-12 % Eosinophils (%) (Auto) 6 0-10 % Basophils (%) (Auto) 2 0-10 % Neutrophils # (Auto) 0.4 L 1.8-7.8 10^3/uL Lymphocytes # (Auto) 3.0 1.0-4.0 10^3/uL Monocytes # (Auto) 1.7 H 0.0-1.0 10^3/uL Eosinophils # (Auto) 0.3 0.0-0.3 10^3/uL Basophils # (Auto) 0.1 0.0-0.1 10^3/uL Immature Granulocyte # (Auto) 0.0 0.0-0.1 10^3/uL Neutrophils % (Manual) 9 % Lymphocytes % (Manual) 59 % Monocytes % (Manual) 25 % Eosinophils % (Manual) 7 % Blood Morphology Comment NORMAL Sodium Level 135 135-145 MMOL/L Potassium Level 3.5 L 3.6-5.0 MMOL/L Chloride Level 103 98-107 MMOL/L Carbon Dioxide Level 21 21-32 MMOL/L Anion Gap 11 5-14 MMOL/L Blood Urea Nitrogen 28 H 7-18 MG/DL Creatinine 1.18 0.60-1.30 MG/DL Estimat Glomerular Filtration Rate 48 BUN/Creatinine Ratio 24 Glucose Level 97 70-105 MG/DL Calcium Level 9.4 8.5-10.1 MG/DL Corrected Calcium 9.4 8.5-10.1 MG/DL Magnesium Level 1.6 1.6-2.4 MG/DL Total Bilirubin 0.3 0.1-1.0 MG/DL Aspartate Amino Transf (AST/SGOT) 25 5-34 U/L Alanine Aminotransferase (ALT/SGPT) 22 0-55 U/L Alkaline Phosphatase 63 40-136 U/L Total Protein 7.0 6.4-8.2 GM/DL Albumin 4.0 3.2-4.5 GM/DL Urine Color YELLOW Urine Clarity CLEAR Urine pH 5.5 5-9 Urine Specific [place] 1.025 H 1.016-1.022 Urine Protein NEGATIVE NEGATIVE Urine Glucose (UA) NEGATIVE NEGATIVE Urine Ketones NEGATIVE NEGATIVE Urine Nitrite NEGATIVE NEGATIVE Urine Bilirubin NEGATIVE NEGATIVE Urine Urobilinogen 0.2 < = 1.0 MG/DL Urine Leukocyte Esterase NEGATIVE NEGATIVE Urine RBC (Auto) 1+ H NEGATIVE Urine RBC 0-2 /HPF Urine WBC 0-2 /HPF Urine Squamous Epithelial Cells 0-2 /HPF Urine Crystals NONE /LPF Urine Bacteria TRACE /HPF Urine Casts PRESENT /LPF Urine Hyaline Casts 0-2 H /LPF Urine Mucus SMALL H /LPF Urine Culture Indicated NO (LUC TAY MD) My Orders Orders - LUC TAY MD Cbc With Automated Diff (05/04/22 22:25) Comprehensive Metabolic Panel (05/04/22 22:25) Magnesium (05/04/22 22:25) Ed Iv/Invasive Line Start (05/04/22 22:25) Lactated Ringers (Lr 1000 Ml Iv Solution (05/04/22 22:30) Manual Differential (05/04/22 22:39) Hyoscyamine Sl Tablet (Levsin Sl Tablet) (05/05/22 00:15) (LUC TAY MD) Medications Given in ED Current Medications Medications Dose Ordered Sig/Jared Route Start Time Stop Time Status Last Admin Dose Admin Hyoscyamine Sulfate 0.125 mg ONCE ONCE SL 05/05/22 00:15 05/05/22 00:16 DC 05/05/22 00:24 0.125 MG Lactated Ringer's 1,000 ml @ 0 mls/hr Q0M ONCE IV 05/04/22 22:30 05/04/22 22:31 DC 05/04/22 22:41 999 MLS/HR (LUC TAY MD) Vital Signs/I&O 05/04/22 05/05/22 22:30 00:16 Temp 36.7 Pulse 86 64 Resp 16 18 B/P (MAP) 135/73 (93) 123/64 Pulse Ox 95 94 O2 Delivery Room Air Room Air (LUC TAY MD) Progress Progress Note : Time: 22:30 Progress Note patient seen and evaluated. Will check labs, IV fluids and monitor. [address] Lazo, assumed care of patient. (CARMEN ESCOBAR) Progress Note : Progress Note Labs were reviewed and found to be unremarkable. Patient wanted to try Levsin to determine if that could help slow down her diarrhea. See discharge instructions for further discussion. ATTENDING PHYSICIAN NOTE: I was physically present as attending physician in the emergency department during the care of this patient. I reviewed reviewed labs and discharge i nstructions. Discharge instructions were edited. (LUC TAY MD) Departure Impression Primary Impression: Diarrhea Qualified Codes: R19.7 - Diarrhea, unspecified Additional Impression: Viral gastroenteritis Disposition: HOME, SELF-CARE Condition: Stable Departure-Patient Inst. Referrals: PASQUALE JEAN MD (PCP/Family) Primary Care Physician Patient Instructions: Viral Gastroenteritis, Adult (DC) Add. Discharge Instructions: Clear liquid diet for the next 8-12 hours, then bland diet. You can take 2 Immodium after every episode of diarrhea, do not exceed more than 8 tables per 24 hours. You can take an over the counter probiotic. Increase water and pedialyte or gatorade. Follow up with your primary care provider if symptoms are not improving within 24-48 hours. Return to the emergency dept for abdominal pain or weakness/dehydration or new urgent health care problems. You may try Levsin (hyoscyamine) as prescribed for cramping or diarrhea. You may also try a dose before eating or drinking to prevent diarrhea. Follow-up on your stool culture results with your primary care provider in a few days. Scripts Hyoscyamine Sulfate (Levsin-Sl) 0.125 Mg Tab.subl 0.125 MG SL Q4H PRN for CRAMPS, #10 TAB 0 Refills For cramps and/or diarrhea. May be used prophylactically before eating or drinking. Prov: LUC TAY MD 05/05/22 Copy Copies To 1: PASQUALE JEAN MD, AMY ARNP May 04, 2022 22:46 LUC TAY MD May 04, 2022 22:52
[2022-05-04 23:15] LABS: EOSINOPHILS % (MANUAL) 7 %; LYMPHOCYTES % (MANUAL) 59 %; MONOCYTES % (MANUAL) 25 %; NEUTROPHILS % (MANUAL) 9 %; RBC MORPH NORMAL
[2022-05-04 23:27] LABS: BILIRUBIN,URINE NEGATIVE (NEGATIVE); CLARITY,URINE CLEAR; COLOR,URINE YELLOW; GLUCOSE, URINE (UA) NEGATIVE (NEGATIVE); KETONES,URINE NEGATIVE (NEGATIVE); LEUKOCYTE ESTERASE ,URINE NEGATIVE (NEGATIVE); NITRITE,URINE NEGATIVE (NEGATIVE); PH,URINE 5.5 (5-9); PROTEIN,URINE NEGATIVE (NEGATIVE)
[2022-05-04 23:34] LABS: POTASSIUM 3.5 MMOL/L (3.6-5.0)
[2022-05-04 23:35] LABS: CALCIUM 9.4 MG/DL (8.5-10.1)
[2022-05-04 23:38] LABS: BILIRUBIN,TOTAL 0.3 MG/DL (0.1-1.0)
[2022-05-04 23:39] LABS: BACTERIA,URINE TRACE /HPF; HYALINE CASTS, URINE 0-2 /LPF; RBC,URINE 0-2 /HPF; SQUAMOUS EPITHELIAL CELL,UR 0-2 /HPF; WBC,URINE 0-2 /HPF
[2022-05-04 23:40] LABS: CREATININE SERUM 1.18 MG/DL (0.60-1.30)
[2022-05-04 23:43] LABS: MAGNESIUM 1.6 MG/DL (1.6-2.4)
[2022-05-05] MEDS ORDERED: HYOS0.1283 SL (00:11)
[2022-05-05] MEDS ORDERED: HYOSCYAMINE 0.125 MG (LEVSIN) TAB SL ONE (00:15)
[2022-05-05 00:16] VITALS: BP 123/64
== END 2022-05-05 00:25 | disposition home or self-care (01) ==
LOC: EDUNIT# 22:21 → ER 22:22
DX: A08.4 Viral intestinal infection, unspecified (principal); Z86.718 Personal history of other venous thrombosis and embolism; Z79.01 Long term (current) use of anticoagulants
CPT/HCPCS: 36415; 80053; 81000; 83735; 85007; 85027; 87015; 87045; 87046; 87324; 87449; 87899

== ENCOUNTER 2022-05-29 13:00 | Outpatient (CLI) | payer MEDICARE ==
[~2022-05-29] VITALS: Ht 152.4 cm; Wt 52.2 kg
[~2022-05-29 13:00] MED LIST changes: +HYOS0.1283 SL
[2022-05-29] MEDS ORDERED: ASPI-999 PO (13:49)
[2022-05-29] MEDS ORDERED: SERT-413 PO (13:49)
== END 2022-05-29 13:50 | disposition home or self-care (01) ==
LOC: PREOP 13:00
PROVIDERS: ATTEND Surgery
DX: Z01.818 Encounter for other preprocedural examination (principal)

== ENCOUNTER 2022-06-03 12:48 | Day surgery (SDC) | payer MEDICARE ==
[~2022-06-03] VITALS: Ht 152 cm; Wt 52.2 kg
[~2022-06-03 12:48] MED LIST changes: +SERT-413 PO
[2022-06-03] MEDS ORDERED: GLYCOPYRROLATE 0.2 MG/ML (ROBINUL) 2 ML VIAL IJ ONE (12:49)
[2022-06-03] MEDS ORDERED: LACTATED RINGERS 1,000 ML IV ONE (12:55)
[2022-06-03] MEDS ORDERED: LACTATED RINGERS 1,000 ML IV STA (12:59)
[2022-06-03] MEDS ORDERED: LIDOCAINE JELLY 2% 6 ML SYRINGE MM PRN (13:00)
--- NOTE | 2022-06-03 13:02 | Progress Note-Pre Operative ---
Pre-Operative Progress Note Date of Available H&P: Jun 03, 2022 Date H&P Reviewed: Jun 03, 2022 Time H&P Reviewed: 13:00 History & Physical: No changes noted Pre-Operative Diagnosis: screening o FERNANDO BACON MD Jun 03, 2022 13:01
--- NOTE | 2022-06-03 13:03 | Discharge Inst-Surgical ---
D/C Lap Instructions-JORDI Follow Up Activity as tolerated High Fiber Diet 25g or more per day Avoid Alcohol, Caffeine, Spicy [place] and Acid foods. Drink 64 fluid oz or more of fluids per day. Symptoms to Report: Fever over 101 degree F, Nausea/Vomiting If any problems/questions: Contact your physician or go to Emergency Room FERNANDO BACON MD Jun 03, 2022 13:03
[2022-06-03 13:15] VITALS: BP 130/64
[2022-06-03] MEDS ORDERED: ONDANSETRON 4 MG (ZOFRAN) ORAL DISSOLVE TAB PO PRN (13:15)
[2022-06-03] MEDS ORDERED: ONDANSETRON 4 MG/2 ML (SDV) Z0FRAN IVP PRN (13:15)
--- NOTE | 2022-06-03 13:56 | Progress Note-Pre Operative ---
Pre-Operative Progress Note Date of Available H&P: Jun 03, 2022 Date H&P Reviewed: Jun 03, 2022 Time H&P Reviewed: 13:30 History & Physical: No changes noted Pre-Operative Diagnosis: screening colo FERNANDO BACON MD Jun 03, 2022 13:55
[2022-06-03] MEDS ORDERED: PROPOFOL INJECTION 50 ML IV ONE (14:38)
[2022-06-03 15:28] VITALS: BP 111/58
--- NOTE | 2022-06-03 15:29 | Progress Note-Post Operative ---
Post-Operative Progess Note Surgeon (s)/Ski Lift Mechanic (s) Surgeon FERNANDO BACON MD Ski Lift Mechanic: none Pre-Operative Diagnosis screening colo Post-Operative Diagnosis chronic stage 2 ext and int hemorrhoids, moderate sigmoid diverticulosis. Procedure & Operative Findings Date of Procedure 06/03/22 Procedure Performed/Findings colonoscopy Anesthesia Type mac Estimated Blood Loss Estimated blood loss (mL): minimal Specimens/Packing Specimens Removed none FERNANDO BACON MD Jun 03, 2022 15:29
[2022-06-03 15:33] VITALS: BP 114/55
[2022-06-03 15:38] VITALS: BP 127/60
[2022-06-03 15:40] VITALS: BP 127/64
[2022-06-03 16:05] VITALS: BP 127/64
--- NOTE | 2022-06-04 01:39 | OPERATIVE REPORT ---
DATE OF SERVICE: 06/03/2022 ATTENDING PRIMARY CARE PHYSICIAN: Dr. La Dawn. PREOPERATIVE DIAGNOSIS: Screening colonoscopy. POSTOPERATIVE DIAGNOSES: Chronic stage II external and internal hemorrhoids, moderate sigmoid diverticulosis. PROCEDURE: Colonoscopy. SURGEON: Fernando Bacon MD. ANESTHESIA: Monitored anesthesia care. ESTIMATED BLOOD LOSS: Minimal. FINDINGS: Chronic stage II external and internal hemorrhoids, moderate sigmoid diverticulosis. DISPOSITION: The patient tolerated the procedure well. INDICATIONS: The patient is a 72-year-old female who was referred over to us for screening colonoscopy. Her last colonoscopy was approximately 10 years ago and at that time she states that she reports this to be normal. She did have a Cologuard test 3 years ago and this was normal as well. She states that she did have diarrhea approximately one month ago and this was pretty significant, and she went to the Emergency Department and she did have culture sent, which were negative for any enteropathogenic bacteria. She does not recall any red blood per rectum nor any dark tarry stools. She also does not report any family history of colon cancer. DESCRIPTION OF PROCEDURE: The patient was brought to the endoscopy suite, laid in left lateral decubitus position. After adequate IV pain and sedative medications and monitored anesthesia care, a digital rectal examination was performed, which revealed chronic stage II external and internal hemorrhoids, not actively edematous nor inflamed and no bleeding. Normal sphincter tone was felt and there were no palpable masses. The endoscope was then intubated to the anus and rectum gently insufflated. The endoscope was then advanced to the valves of [place] of the rectum with no polyps or any neoplasms identified. Through the sigmoid colon, a moderate sigmoid diverticulosis identified. We then proceeded to the remainder of the descending, transverse and ascending colon to the cecum, which were normal. There were no polyps or any neoplasms identified throughout the colon or the rectum. Endoscope was then slowly withdrawn while taking a second look and suctioning of residual air with no additional findings. The patient tolerated the procedure well. We will recommend the necessary lifestyle and dietary accommodation including the addition of a fiber supplement, which should equal or exceed 25 grams daily to promote soft consistency stools on a daily basis. If she is asymptomatic, she does not need another colonoscopy for another 10 years. Job ID: [id number] DocumentID: [id number] Dictated Date: 06/03/2022 15:25:58 Greens Keeper Date: 06/04/2022 01:38:35 Dictated By: FERNANDO BACON MD
--- NOTE | 2022-06-11 13:31 | Anesthesia-General Post-Op ---
MAC Patient Condition Mental Status/LOC: Same as Preop Cardiovascular: Satisfactory Nausea/Vomiting: Absent Respiratory: Satisfactory Pain: Controlled Complications: Absent Post Op Complications Complications None Follow Up Care/Instructions Patient Instructions None needed. Anesthesiology Discharge Order Discharge Order Patient is doing well, no complaints, stable vital signs, no apparent adverse anesthesia problems. No complications reported per nursing. MARCELA MERCEDES CRNA Jun 11, 2022 13:31
== END 2022-06-03 16:05 | disposition home or self-care (01) ==
LOC: ENDO 12:48
PROVIDERS: ATTEND Surgery
DX: Z12.11 Encounter for screening for malignant neoplasm of colon (principal); K57.30 Diverticulosis of large intestine without perforation or abscess without bleeding; K64.1 Second degree hemorrhoids; K64.4 Residual hemorrhoidal skin tags; F17.210 Nicotine dependence, cigarettes, uncomplicated; Z79.82 Long term (current) use of aspirin; Z79.01 Long term (current) use of anticoagulants

== ENCOUNTER 2022-07-01 11:47 | Observation (INO) | payer MEDICARE ==
[~2022-07-01] VITALS: Ht 154.9 cm; Wt 94.6 kg
--- NOTE | 2022-07-01 12:06 | ED Chest Pain ---
General Chief Complaint: Chest Pain Stated Complaint: CHEST/BACK/ARM PAIN Source: patient Exam Limitations: no limitations (AASHISH GUAJARDO APRN) History of Present Illness Date Seen by Provider: Jul 01, 2022 Time Seen by Provider: 12:06 Initial Comments This is a 72 yo female with history of HTN, CAD, DVT, who presented to the ER for c/o burning pain in abdomen and chest. Pain started earlier this morning and persistent through day. No aggravating or alleviating factors. Rates 10/10, and constant. No fever, chills, nausea, vomiting. Has had persistent diarrhea x 2 weeks. No reports of recent antibiotic use. (AASHISH GUAJARDO APRN) Allergies and Home Medications Allergies Uncoded Allergies: zithromycin (Allergy, Intermediate, Shortness of Breath, 07/02/22) Patient Home Medication List Home Medication List Reviewed: Yes (AASHISH GUAJARDO APRN) Apixaban (Eliquis) 2.5 Mg Tablet, 2.5 MG PO BID, (Reported) Entered as Reported by: JOHN JONES on 04/16/20 1142 Last Action: Continued Aspirin (Aspirin) 81 Mg Tab.chew, 81 MG PO Q48H, (Reported) Entered as Reported by: JOHN JONES on 05/29/22 1349 Last Action: Continued Atorvastatin Calcium (Atorvastatin Calcium) 40 Mg Tablet, 40 MG PO DAILY, (Reported) Entered as Reported by: JOHN JONES on 04/16/20 1142 Last Action: Continued Calcium Carbonate/Vitamin D3 (Calcium 600 + Vit D Caplet) 1 Each Tablet, 1 EACH PO BID, (Reported) Entered as Reported by: JOHN JONES on 04/16/20 1142 Last Action: Held Cephalexin (Cephalexin) 500 Mg Tablet, 500 MG PO BID Prescribed by: DORIAN VALDES on 07/03/22 1126 Gabapentin (Neurontin) 300 Mg Capsule, 300 MG PO TID, (Reported) Entered as Reported by: TYREE CERDA on 07/02/22 0911 Last Action: Continued Lactobacillus Combo No.10 (Probiotic) 20 Billion Cell Capsule, 1 EACH PO DAILY, (Reported) Entered as Reported by: TYREE CERDA on 07/02/22 09 Last Action: Converted Metoprolol Tartrate (Metoprolol Tartrate) 25 Mg Tablet, 25 MG PO BID, (Reported) Entered as Reported by: JOHN JONES on 04/16/20 1142 Last Action: Continued Sertraline HCl (Sertraline HCl) 50 Mg Tablet, 25 MG PO DAILY, (Reported) Entered as Reported by: JOHN JONES on 05/29/22 1349 Last Action: Continued Discontinued Medications Amlodipine Besylate (Norvasc) 5 Mg Tablet, 5 MG PO DAILY, (Reported) Discontinued Reason: Duplicate Order Entered as Reported by: DARON FISCHER on 01/27/22 1145 Last Action: Discontinued Amlodipine Besylate (Amlodipine Besylate) 5 Mg Tablet, 5 MG PO DAILY, (Reported) Entered as Reported by: TYREE CERDA on 07/02/22 0911 Last Action: Held Gabapentin (Gabapentin) 100 Mg Capsule, 100 MG PO FIVE TIMES DAILY, (Reported) Discontinued Reason: Duplicate Order Entered as Reported by: JOHN JONES on 04/16/20 1142 Last Action: Discontinued Review of Systems Review of Systems Constitutional: see HPI (AASHISH GUAJARDO LEASING PROFESSIONAL) Past Adajyxr-Tagwrj-Qglfor Hx Patient Social History Tobacco Use?: Yes Tobacco type used: Cigarettes Smoking Status: Current Everyday Smoker Substance use?: No Alcohol Use?: No Pt feels they are or have been: No (AASHISH GUAJARDO APRN) Immunizations Up To Date Tetanus Booster (TDap): Unknown Influenza Vaccine Up-to-Date: Yes; Up-to-Date First/Initial COVID19 Vaccinat: OCTOBER 2020 Second COVID19 Vaccination Rashel: NOVEMBER 2020 Third COVID19 Vaccination Date: OCTOBER 2021 (AASHISH GUAJARDO LEASING PROFESSIONAL) Seasonal Allergies Seasonal Allergies: No (AASHISH GUAJARDO APRN) Past Medical History Surgery/Hospitalization HX: CARDIAC CATH 02/[address] ROWE:MILD TO MODERATE DISEASE, NO INTERVENTION. EF 60% HTN, S-DEFICIENCY, HLD Surgeries: Yes (BILAT. 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, DISORDER OF CAROTID ARTERY,) Deep Vein Thrombosis, High Cholesterol, Hypertension Neurological: Yes (trigeminal neuralgia) Reproductive Disorders: No Sexually Transmitted Disease: No Genitourinary: Yes (congenital unilateral kidney right) Gastrointestinal: No Musculoskeletal: Yes ("SCIATIC NERVE PROBLEMS" PER PT) Osteoporosis, Scoliosis Endocrine: No HEENT: Yes (trigeminal neuralgia) Cataract Hearing Impairment: Hard of Hearing Cancer: No Psychosocial: Yes Anxiety, Depression Integumentary: No Blood Disorders: Yes (PROTEIN S DEFICIENCY-DVT OF LEG) (AASHISH GUAJARDO APRN) Family Medical History DVT/PE (AASHISH GUAJARDO APRN) Physical Exam Vital Signs Vital Signs - First Documented 07/01/22 07/01/22 11:50 12:50 Temp 37.0 Pulse 69 Resp 20 B/P (MAP) 123/59 (80) Pulse Ox 99 O2 Delivery Nasal Cannula O2 Flow Rate 2.00 (LUC TAY MD) Vital Signs Capillary Refill : (AASHISH GUAJARDO APRN) Height, Weight, BMI Height: 5'2.00" Weight: 140lbs. 0.0oz. 63.524857xq; 22.59 BMI Method:Stated General Appearance: No Apparent Distress, WD/WN HEENT: PERRL/EOMI, Normal ENT Inspection, Pharynx Normal Neck: Full Range of Motion, Normal Inspection Respiratory: No Accessory Muscle Use, No Respiratory Distress, Rales Cardiovascular: No Gallop, Normal Peripheral Pulses Gastrointestinal: Soft, Tenderness (diffuse ) Extremity: Normal Capillary Refill, Normal Inspection, Normal Range of Motion Neurologic/Psychiatric: Alert, Oriented x3, No Motor/Sensory Deficits, Normal Mood/Affect Skin: Normal Color, Warm/Dry (AASHISH GUAJARDO APRN) Focused Exam Lactate Level 07/01/22 14:18: Lactic Acid Level 1.00 (LUC TAY MD) Lactic Acid Level Laboratory Tests Test 07/01/22 14:18 Lactic Acid Level 1.00 MMOL/L (0.50-2.00) (LUC TAY MD) Progress/Results/Core Measures Results/Orders Lab Results Laboratory Tests Test 07/01/22 11:58 07/01/22 12:55 07/01/22 14:18 Range/Units White Blood Count 18.7 H 4.3-11.0 10^3/uL Red Blood Count 4.19 3.80-5.11 10^6/uL Hemoglobin 13.3 11.5-16.0 g/dL Hematocrit 41 35-52 % Mean Corpuscular Volume 97 80-99 fL Mean Corpuscular Hemoglobin 32 25-34 pg Mean Corpuscular Hemoglobin Concent 33 32-36 g/dL Red Cell Distribution Width 13.6 10.0-14.5 % Platelet Count 276 130-400 10^3/uL Mean Platelet Volume 10.2 9.0-12.2 fL Immature Granulocyte % (Auto) 1 % Neutrophils (%) (Auto) 83 H 42-75 % Lymphocytes (%) (Auto) 8 L 12-44 % Monocytes (%) (Auto) 6 0-12 % Eosinophils (%) (Auto) 3 0-10 % Basophils (%) (Auto) 0 0-10 % Neutrophils # (Auto) 15.4 H 1.8-7.8 10^3/uL Lymphocytes # (Auto) 1.5 1.0-4.0 10^3/uL Monocytes # (Auto) 1.2 H 0.0-1.0 10^3/uL Eosinophils # (Auto) 0.5 H 0.0-0.3 10^3/uL Basophils # (Auto) 0.0 0.0-0.1 10^3/uL Immature Granulocyte # (Auto) 0.1 0.0-0.1 10^3/uL Neutrophils % (Manual) 82 % Lymphocytes % (Manual) 10 % Monocytes % (Manual) 6 % Eosinophils % (Manual) 2 % Blood Morphology Comment NORMAL Prothrombin Time 16.2 H 12.2-14.7 SEC INR Comment 1.3 0.8-1.4 Activated Partial Thromboplast Time 40 H 24-35 SEC D-Dimer 1.54 H 0.00-0.49 UG/ML Sodium Level 139 135-145 MMOL/L Potassium Level 3.4 L 3.6-5.0 MMOL/L Chloride Level 103 98-107 MMOL/L Carbon Dioxide Level 25 21-32 MMOL/L Anion Gap 11 5-14 MMOL/L Blood Urea Nitrogen 18 7-18 MG/DL Creatinine 0.86 0.60-1.30 MG/DL Estimat Glomerular Filtration Rate 71 BUN/Creatinine Ratio 21 Glucose Level 125 H 70-105 MG/DL Calcium Level 9.2 8.5-10.1 MG/DL Corrected Calcium 9.3 8.5-10.1 MG/DL Magnesium Level 1.5 L 1.6-2.4 MG/DL Total Bilirubin 1.5 H 0.1-1.0 MG/DL Aspartate Amino Transf (AST/SGOT) 32 5-34 U/L Alanine Aminotransferase (ALT/SGPT) 19 0-55 U/L Alkaline Phosphatase 70 40-136 U/L Total Creatine Kinase 55 29-168 U/L Creatine Kinase MB 1.1 <6.6 NG/ML Myoglobin 68.4 10.0-92.0 NG/ML Troponin I < 0.028 <0.028 NG/ML B-Type Natriuretic Peptide 62.4 <100.0 PG/ML Total Protein 6.9 6.4-8.2 GM/DL Albumin 3.9 3.2-4.5 GM/DL Lipase 21 8-78 U/L Influenza Type A (RT-PCR) Not Detected Not Detecte Influenza Type B (RT-PCR) Not Detected Not Detecte SARS-CoV-2 RNA (RT-PCR) Not Detected Not Detecte Lactic Acid Level 1.00 0.50-2.00 MMOL/L (LUC TAY MD) Micro Results Microbiology 07/01/22 Blood Culture - Preliminary, Resulted No growth 07/01/22 Blood Culture - Preliminary, Resulted No growth (LUC TAY MD) Vital Signs/I&O 07/01/22 07/01/22 11:50 12:50 Temp 37.0 Pulse 69 Resp 20 B/P (MAP) 123/59 (80) Pulse Ox 99 O2 Delivery Nasal Cannula O2 Flow Rate 2.00 (LUC TAY MD) Initial ECG Impression Date: Jul 01, 2022 Initial ECG Impression Time: 12:00 Initial ECG Rate: 69 Initial ECG Rhythm: Normal Sinus Initial ECG Impression: Nonspecific Changes Initial ECG Comparisson: Unchanged (AASHISH GUAJARDO APRN) Diagnostic Imaging Diagonstic Imaging: Xray Comments [facility], [place] NAME: KURTIS CHONG [facility] REC#: [id number] PT STATUS: REG ER : 1950 PHYSICIAN: AASHISH GUAJARDO APRN ADMIT DATE: 07/01/22/ER Signed Date of Exam:07/01/22 CHEST 1 VIEW, AP/PA ONLY INDICATION: Chest pain. EXAMINATION: Portable chest at 01:30 p.m. FINDINGS: Heart size and pulmonary vascularity are both mildly increased. There is some infiltrate in the perihilar region of the right lung. There is no effusion or pneumothorax. IMPRESSION: Congestive heart failure. Superimposed infiltrate in the perihilar region of the right lung could be pneumonia. Dictated by: Dictated on workstation # [id number] Dict: 07/01/22 1334 Trans: 07/01/227 AS6 [id number] Interpreted by: ANTONIA REID MD Electronically signed by: ANTONIA REID MD 07/01/221516 Diagonstic Imaging: CT Comments [facility], [place] NAME: [facility] REC#: [id number] PT STATUS: REG ER : 1950 PHYSICIAN: AASHISH GUAJARDO APRN ADMIT DATE: 07/01/22/ER Signed Date of Exam:07/01/22 CT ALEKSANDRA CHEST/NOANG ABD-PELV W EXAMINATION: CT angiography of the chest, CT of the abdomen and pelvis. TECHNIQUE: Contrast enhanced thin section helical images were obtained through the chest, abdomen and pelvis with intravenous contrast timed for the optimal opacification of the arterial structures of the chest per CTA protocol. Post-processing, reconstructions and interpretation of angiographic images of the vessels was performed. 3D MIP reconstructions were performed and reviewed. All CT scans use one or more of the following dose optimizing techniques: automated exposure control, MA and/or KvP adjustment based on a patient size and exam type, or iterative reconstruction. HISTORY: Elevated d dimer, low oxygen saturation, abdominal pain COMPARISON: 11/18/2021. FINDINGS: Vascular: No filling defects within the pulmonary arteries. Thoracic aorta is normal in caliber. Calcification of the aorta and coronary vessels. Thyroid: The thyroid is normal. Mediastinum: Heart size is normal without significant pericardial effusion. No suspicious lymphadenopathy. Lungs and airways: There are patchy groundglass opacities seen throughout both lungs. No pleural effusion or pneumothorax. The airways are normal. Solid organs: The liver is normal without focal lesion. The gallbladder is normal. There is no biliary ductal dilation. Pancreas is normal. Spleen is normal. Adrenal glands are normal. The right kidney is unremarkable without hydronephrosis. The left kidney is located ectopically within the pelvis without hydronephrosis. Bowel: The stomach and small bowel are normal without obstruction. There is scattered colonic diverticulosis. The appendix is normal. Peritoneum: There is no intraperitoneal free fluid or free air. No suspicious lymphadenopathy. Vasculature: Calcification of the aorta without aneurysm. Musculoskeletal: Degenerative changes of the spine without suspicious osseous lesion or compression fracture. Pelvis: The uterus is surgically absent. No adnexal mass. The urinary bladder is normal. IMPRESSION: 1. Patchy groundglass opacities throughout the lungs which can be seen with a multifocal pneumonia. 2. No findings of pulmonary embolus. 3. No acute abnormality in the abdomen or pelvis. Dictated by: Dictated on workstation # [id number] Dict: 07/01/221411 Trans: 07/01/221428 AS6 [id number] Interpreted by: FREEDOM REID DO Electronically signed by: FREEDOM REID DO 07/01/22 1429 (AASHISH GUAJARDO APRN) Departure Communication (Admissions) Time/Spoke to Admitting Phy: 14:38 Dr. Valdes (AASHISH GUAJARDO APRN) Impression Primary Impression: Multifocal pneumonia Additional Impression: Hypoxia Disposition: ADMITTED INPATIENT Condition: Stable Admissions Decision to Admit Reason: Admit from ER (General) Decision to Admit/Date: Jul 01, 2022 Time/Decision to Admit Time: 14:27 (AASHISH GUAJARDO APRN) Departure-Patient Inst. Referrals: PASQUALE JEAN MD (PCP/Family) Primary Care Physician Scripts Cephalexin (Cephalexin) 500 Mg Tablet 500 MG PO BID, #6 TAB Prov: DORIAN VALDES MD 07/03/22 ATTENDING PHYSICIAN NOTE: I was physically present as attending physician in the emergency department during the care of this patient, but I was not directly involved in the decision making or delivery of care for this patient. (LUC TAY MD) AASHISH GUAJARDO APRN Jul 01, 2022 12:06 LUC TAY MD Jul 06, 2022 07:48
[2022-07-01 12:10] LABS: BASOPHILS % (AUTO) 0 % (0-10); EOSINOPHILS # (AUTO) 0.5 10^3/uL (0.0-0.3); EOSINOPHILS % (AUTO) 3 % (0-10); HEMATOCRIT 41 % (35-52); HEMOGLOBIN 13.3 g/dL (11.5-16.0); LYMPHOCYTES # (AUTO) 1.5 10^3/uL (1.0-4.0); LYMPHOCYTES % (AUTO) 8 % (12-44); MEAN CORPUSCULAR HEMOGLOBIN 32 pg (25-34); MEAN CORPUSCULAR HGB CONC 33 g/dL (32-36); MEAN CORPUSCULAR VOLUME 97 fL (80-99); MEAN PLATELET VOLUME 10.2 fL (9.0-12.2); MONOCYTES # (AUTO) 1.2 10^3/uL (0.0-1.0); MONOCYTES % (AUTO) 6 % (0-12); NEUTROPHILS # (AUTO) 15.4 10^3/uL (1.8-7.8); NEUTROPHILS % (AUTO) 83 % (42-75); PLATELET COUNT 276 10^3/uL (130-400); WHITE BLOOD COUNT 18.7 10^3/uL (4.3-11.0)
[2022-07-01] MEDS ORDERED: ONDANSETRON 4 MG/2 ML (SDV) Z0FRAN IVP ONE (12:15)
[2022-07-01] MEDS ORDERED: ASPIRIN 81 MG CHEW (CHILDREN'S ASA) PO ONE (12:15)
[2022-07-01 12:25] LABS: ALBUMIN 3.9 GM/DL (3.2-4.5); POTASSIUM 3.4 MMOL/L (3.6-5.0)
[2022-07-01 12:26] LABS: CALCIUM 9.2 MG/DL (8.5-10.1)
[2022-07-01 12:27] LABS: TOTAL PROTEIN 6.9 GM/DL (6.4-8.2)
[2022-07-01 12:28] LABS: INR 1.3 (0.8-1.4); PROTHROMBIN TIME PATIENT 16.2 SEC (12.2-14.7)
[2022-07-01 12:29] LABS: BILIRUBIN,TOTAL 1.5 MG/DL (0.1-1.0)
[2022-07-01 12:31] LABS: CREATININE SERUM 0.86 MG/DL (0.60-1.30)
[2022-07-01 12:33] LABS: MAGNESIUM 1.5 MG/DL (1.6-2.4)
[2022-07-01 12:41] LABS: CREATINE KINASE MB 1.1 NG/ML (<6.6)
[2022-07-01 12:48] LABS: EOSINOPHILS % (MANUAL) 2 %; LYMPHOCYTES % (MANUAL) 10 %; MONOCYTES % (MANUAL) 6 %; NEUTROPHILS % (MANUAL) 82 %; RBC MORPH NORMAL
--- NOTE | 2022-07-01 13:40 | Diagnostic Imaging Report ---
INDICATION: Chest pain. EXAMINATION: Portable chest at 01:30 p.m. FINDINGS: Heart size and pulmonary vascularity are both mildly increased. There is some infiltrate in the perihilar region of the right lung. There is no effusion or pneumothorax. IMPRESSION: Congestive heart failure. Superimposed infiltrate in the perihilar region of the right lung could be pneumonia. Dictated by: Dictated on workstation # [id number]
[2022-07-01] MEDS ORDERED: NS 100 ML (IVPB) BAG IV ONE (13:45)
[2022-07-01] MEDS ORDERED: HOLD METFORMIN - RECEIVED CONTRAST 20 ML VIAL IV SCH (13:45)
[2022-07-01] MEDS ORDERED: IOHEXOL 350 MG/ML 100 ML (OMNIPAQUE 350) VIAL IV ONE (13:45)
[2022-07-01] MEDS ORDERED: CATHETER FLUSH 10 ML SYR IV PRN (13:45)
--- NOTE | 2022-07-01 14:20 | Diagnostic Imaging Report ---
EXAMINATION: CT angiography of the chest, CT of the abdomen and pelvis. TECHNIQUE: Contrast enhanced thin section helical images were obtained through the chest, abdomen and pelvis with intravenous contrast timed for the optimal opacification of the arterial structures of the chest per CTA protocol. Post-processing, reconstructions and interpretation of angiographic images of the vessels was performed. 3D MIP reconstructions were performed and reviewed. All CT scans use one or more of the following dose optimizing techniques: automated exposure control, MA and/or KvP adjustment based on a patient size and exam type, or iterative reconstruction. HISTORY: Elevated d dimer, low oxygen saturation, abdominal pain COMPARISON: 11/18/2021. FINDINGS: Vascular: No filling defects within the pulmonary arteries. Thoracic aorta is normal in caliber. Calcification of the aorta and coronary vessels. Thyroid: The thyroid is normal. Mediastinum: Heart size is normal without significant pericardial effusion. No suspicious lymphadenopathy. Lungs and airways: There are patchy groundglass opacities seen throughout both lungs. No pleural effusion or pneumothorax. The airways are normal. Solid organs: The liver is normal without focal lesion. The gallbladder is normal. There is no biliary ductal dilation. Pancreas is normal. Spleen is normal. Adrenal glands are normal. The right kidney is unremarkable without hydronephrosis. The left kidney is located ectopically within the pelvis without hydronephrosis. Bowel: The stomach and small bowel are normal without obstruction. There is scattered colonic diverticulosis. The appendix is normal. Peritoneum: There is no intraperitoneal free fluid or free air. No suspicious lymphadenopathy. Vasculature: Calcification of the aorta without aneurysm. Musculoskeletal: Degenerative changes of the spine without suspicious osseous lesion or compression fracture. Pelvis: The uterus is surgically absent. No adnexal mass. The urinary bladder is normal. IMPRESSION: 1. Patchy groundglass opacities throughout the lungs which can be seen with a multifocal pneumonia. 2. No findings of pulmonary embolus. 3. No acute abnormality in the abdomen or pelvis. Dictated by: Dictated on workstation # [id number]
[2022-07-01] MEDS ORDERED: CEFEPIME INJECTION 1,000 MG in NS (IVPB) 50 ML IV ONE (14:45)
[2022-07-01 15:53] VITALS: BP 125/60
[2022-07-01] MEDS ORDERED: MELATONIN 3 MG TABLET PO PRN (16:15)
[2022-07-01] MEDS ORDERED: BENZONATATE 100 MG (TESSALON) CAPSULE PO PRN (16:15)
[2022-07-01] MEDS ORDERED: ANTACID SUSP 30 ML UDC (MYLANTA) PO PRN (16:15)
[2022-07-01] MEDS ORDERED: NICOTINE 7 MG (NICODERM) PATCH TD NR (16:15)
[2022-07-01] MEDS ORDERED: MILK OF MAGNESIA 400 MG/5 ML 30 ML UDC PO PRN (16:15)
[2022-07-01] MEDS ORDERED: ONDANSETRON 4 MG/2 ML (SDV) Z0FRAN IV PRN (16:15)
--- NOTE | 2022-07-01 16:21 | History & Physical ---
PATRICIA SMITH 07/01/22 1621: History of Present Illness History of Present Illness Reason for visit/HPI Reason for visit: Hypoxia with bilateral pneumonia HPI: Michelle is a 72yo F with a past medical history of HTN, HLD, CAD, previous DVT, protein S deficiency, osteoporosis, scoliosis, trigeminal neuralgia, sciatica, congenital unilateral kidney, anxiety, and depression. She presented to the emergency room today with a chief complaint of right sided pain that she rates a 10/10. She describes the pain as a constant burning sensation in her right abdomen and right lower back. Patient was also hypoxic when she presented to the ER and was put on nasal cannula 2L/min. She is not on oxygen at baseline. She felt congested yesterday and then this morning she woke up around 5:00 with the right side pain and SOB. Patient denies trying any medications at home for the pain. Denies that anything makes the pain worse or better. The patient vomited 3 times this morning. The patient has also been having diarrhea the past three weeks where she feels the urge to go but is unable to make it to the re stroom on time. The patient had a cardiac catheterization done in January that showed EF of 65 and moderate CAD. In the ER she had an WBC of 18.7, K of 3.4, and Mg 1.5. Her d-dimer was elevated at 1.[address] angiogram did not show any signs of PE. A chest X-ray and CT angiogram showed signs of lung infiltrates. Michelle was admitted for sepsis and multifocal pneumonia. Patient was lying in bed awake at the beginning of the interview. She states that the right sided abdominal pain and back pain is a 3/10 now. Patient is still feeling congested today and feels SOB while sitting in bed. Patient denies fever, chills, nausea, cough, and sputum production. Date of Admission Jul 01, 2022 at 15:28 Date Seen by a Provider: Jul 01, 2022 Time Seen by a Provider: 15:00 I consulted on this patient on 07/01/22 16:11 Attending Physician La Jean MD Admitting Physician Admitting Physician: Dorian Johnston MD Attending Physician: Dorian Johnston MD Consult Allergies and Home Medications Allergies Coded Allergies: No Known Drug Allergies (Unverified , 08/28/21) Patient Home Medication List Home Medication List Reviewed: Yes Amlodipine Besylate (Amlodipine Besylate) 5 Mg Tablet, 5 MG PO DAILY, (Reported) Entered as Reported by: TYREE CERDA on 07/02/22910 Last Action: Reviewed Apixaban (Eliquis) 2.5 Mg Tablet, 2.5 MG PO BID, (Reported) Entered as Reported by: JOHN JONES on 04/16/20 1142 Last Action: Reviewed Aspirin (Aspirin) 81 Mg Tab.chew, 81 MG PO Q48H, (Reported) Entered as Reported by: JOHN JONES on 05/29/22 1349 Last Action: Reviewed Atorvastatin Calcium (Atorvastatin Calcium) 40 Mg Tablet, 40 MG PO DAILY, (Reported) Entered as Reported by: JOHN JONES on 04/16/20 114 Last Action: Reviewed Calcium Carbonate/Vitamin D3 (Calcium 600 + Vit D Caplet) 1 Each Tablet, 1 EACH PO BID, (Reported) Entered as Reported by: JOHN JONES on 04/16/20 114 Last Action: Reviewed Gabapentin (Neurontin) 300 Mg Capsule, 300 MG PO TID, (Reported) Entered as Reported by: TYREE CERDA on 07/02/22910 Last Action: Reviewed Lactobacillus Combo No.10 (Probiotic) 20 Billion Cell Capsule, 1 EACH PO DAILY, (Reported) Entered as Reported by: TYREE CERDA on 07/02/22910 Last Action: Reviewed Metoprolol Tartrate (Metoprolol Tartrate) 25 Mg Tablet, 25 MG PO BID, (Reported) Entered as Reported by: JOHN JONES on 04/16/20 1142 Last Action: Reviewed Sertraline HCl (Sertraline HCl) 50 Mg Tablet, 25 MG PO DAILY, (Reported) Entered as Reported by: JOHN JONES on 05/29/22 1349 Last Action: Reviewed Discontinued Medications Amlodipine Besylate (Norvasc) 5 Mg Tablet, 5 MG PO DAILY, (Reported) Discontinued Reason: Duplicate Order Entered as Reported by: DARON FISCHER on 01/27/22 1145 Last Action: Discontinued Gabapentin (Gabapentin) 100 Mg Capsule, 100 MG PO FIVE TIMES DAILY, (Reported) Discontinued Reason: Duplicate Order Entered as Reported by: JOHN JONES on 04/16/20 1142 Last Action: Discontinued Past Mbotlqf-Kavamc-Wtljjj Hx Patient Social History Marrital Status: Living Status: Lives at home with her Employed/Student: retired Tobacco Use?: Yes Tobacco type used: Cigarettes (15 pack years) Smoking Status: Current Everyday Smoker Substance use?: No Alcohol Use?: No Pt feels they are or have been: No Immunizations Up To Date Date of Influenza Vaccine: Aug 28, 2021 First/Initial COVID19 Vaccinat: OCTOBER 2020 Second COVID19 Vaccination Rashel: NOVEMBER 2020 Tetanus Booster (TDap): More Than 5 Years Date of Pneumonia Vaccine: Mar 16, 2014 Seasonal Allergies Seasonal Allergies: No Current Status Advance Directives: No Communicates: Verbally Primary Language: Greenlandic Preferred Spoken Language: Greenlandic Sensory deficits: Vision impairment Past Medical History Surgeries: Cardiac (Heart catheterization), Eye Surgery (Cataract surgery), Hysterectomy, Orthopedic (Plate in her right arm from an accident) Currently Using CPAP: No Currently Using BIPAP: No Deep Vein Thrombosis, High Cholesterol, Hypertension Sexually Transmitted Disease: No Osteoporosis, Scoliosis Cataract Hearing Impairment: Hard of Hearing Anxiety, Depression Blood Disorders: Yes (PROTEIN S DEFICIENCY-DVT OF LEG) Family Medical History DVT/PE (Mother of a PE) Review of Systems Constitutional: No chills, No diaphoresis, No dizziness, No fever, No weakness, No weight gain, No weight loss EENTM: nose congestion; No hearing loss, No vision loss, No throat pain Respiratory: No cough, No orthopnea, No phlegm; short of breath Cardiovascular: No chest pain, No edema, No palpitations, No syncope Gastrointestinal: abdominal pain (RLQ), diarrhea (Duration of 3 weeks); No nausea Genitourinary: No dysuria, No frequency Musculoskeletal: No joint pain, No joint swelling, No muscle pain Skin: No change in color, No rash Psychiatric/Neurological: Denies Anxiety, Denies Depressed, Denies Headache; Numbness (Sciatica), Tingling (Sciatica); Denies Tremors, Denies Weakness Physical Exam Vital Signs Vital Signs - First Documented 07/01/22 07/01/22 07/01/22 11:50 12:50 16:31 Temp 37.0 Pulse 69 Resp 20 B/P (MAP) 123/59 (80) Pulse Ox 99 O2 Delivery Nasal Cannula O2 Flow Rate 2.00 FiO2 28 Capillary Refill : Height, Weight, BMI Height: 5'2.00" Weight: 140lbs. 0.0oz. [id number]; 20.96 BMI Method:Stated General Appearance: No Apparent Distress, WD/WN HEENT: Pharynx Normal, Moist Mucous Membranes Neck: Full Range of Motion, Normal Inspection, Non Tender, Supple Respiratory: Chest Non Tender, No Accessory Muscle Use, No Respiratory Distress, Crackles (In bilateral lower lung lobes), Wheezing (Wheezing with inhalation) Cardiovascular: Regular Rate, Rhythm, No Edema, No JVD, No Murmur, Normal Peripheral Pulses (3+ bilateral radial and dorsalis pedis pulses) Gastrointestinal: No Organomegaly, No Pulsatile Mass, Soft, Tenderness (Tenderness in RLQ and R costovertebral angle) Back: No Vertebral Tenderness, CVA Tenderness (R) Extremity: Normal Capillary Refill, Normal Range of Motion, Non Tender, No Calf Tenderness, No Pedal Edema Neurologic/Psychiatric: Alert, Oriented x3, No Motor/Sensory Deficits, Normal Mood/Affect Skin: Normal Color, Warm/Dry Assessment/Plan Assessment and Plan 1) Sepsis No signs of end organ damage and lactic acid is not elevated Blood cultures and sputum cultures ordered and pending Abx have been started to treat the source of infection which is most likely the bilateral pneumonia 2) Community acquired multifocal pneumonia IV Rocephin 1g 1xD and IV Azithromycin 500mg 1xD was started today Patient should be using incentive spirometer 3) Hypoxia Patient currently on 1L/min, will take the patient off of oxygen tomorrow and see how she tolerates room air Albuterol/Ipratropium 3ml Q2hrs 4) Hypokalemia Due to the patient having diarrhea the past few weeks, IV potassium chloride 20mEq Q3hrs and IV magnesium 1g over 1 hour 5) Elevated d-dimer Ruled out a PE with CT angiogram Patient has had a prior DVT but is not presenting with any sign or symptoms today and patient is already taking Apixaban 6) Previous DVT and DVT prophylaxis Restart home medication Apixaban 2.5mg BID 7) HLD Restart home medication Atorvastatin 40mg 1xD 8)Coronary artery disease Restart home medication Aspirin 81mg Q48hrs 9) Sciatica Restart home medication gabapentin 100mg 5xD 10) HTN Hold home medication since the patient is septic and at risk for hypotension 11) Anxiety and depression Restart home medication Sertraline 50mg 1xD 12) Nicotine addiction Nicotine patch 7mg Admission Diagnosis Admission Status: Inpatient Order (span 2 midnights) Reason for Inpatient Admission: Patient is on oxygen currently and can not be sent home until she is able to maintain an oxygen saturation of at least 90 on room air Clinical Quality Measures AMI/AHF: ASA po Prior to arrival: No Copy Copies To 1: LA JEAN MD,DORIAN Palafox MD 07/02/22 1013: Allergies and Home Medications Allergies Coded Allergies: No Known Drug Allergies (Unverified , 08/28/21) Patient Home Medication List Home Medication List Reviewed: Yes Amlodipine Besylate (Amlodipine Besylate) 5 Mg Tablet, 5 MG PO DAILY, (Reported) Entered as Reported by: TYREE CERDA on 07/02/22910 Last Action: Reviewed Apixaban (Eliquis) 2.5 Mg Tablet, 2.5 MG PO BID, (Reported) Entered as Reported by: JOHN JONES on 04/16/20 1142 Last Action: Reviewed Aspirin (Aspirin) 81 Mg Tab.chew, 81 MG PO Q48H, (Reported) Entered as Reported by: JOHN JONES on 05/29/22 1349 Last Action: Reviewed Atorvastatin Calcium (Atorvastatin Calcium) 40 Mg Tablet, 40 MG PO DAILY, (Reported) Entered as Reported by: JOHN JONES on 04/16/20 1142 Last Action: Reviewed Calcium Carbonate/Vitamin D3 (Calcium 600 + Vit D Caplet) 1 Each Tablet, 1 EACH PO BID, (Reported) Entered as Reported by: JOHN JONES on 04/16/20 1142 Last Action: Reviewed Gabapentin (Neurontin) 300 Mg Capsule, 300 MG PO TID, (Reported) Entered as Reported by: TYREE CERDA on 07/02/22 09 Last Action: Reviewed Lactobacillus Combo No.10 (Probiotic) 20 Billion Cell Capsule, 1 EACH PO DAILY, (Reported) Entered as Reported by: TYREE CERDA on 07/02/22910 Last Action: Reviewed Metoprolol Tartrate (Metoprolol Tartrate) 25 Mg Tablet, 25 MG PO BID, (Reported) Entered as Reported by: JOHN JONES on 04/16/20 1142 Last Action: Reviewed Sertraline HCl (Sertraline HCl) 50 Mg Tablet, 25 MG PO DAILY, (Reported) Entered as Reported by: JOHN JONES on 05/29/22 1349 Last Action: Reviewed Discontinued Medications Amlodipine Besylate (Norvasc) 5 Mg Tablet, 5 MG PO DAILY, (Reported) Discontinued Reason: Duplicate Order Entered as Reported by: DARON FISCHER on 01/27/22 1145 Last Action: Discontinued Gabapentin (Gabapentin) 100 Mg Capsule, 100 MG PO FIVE TIMES DAILY, (Reported) Discontinued Reason: Duplicate Order Entered as Reported by: JOHN JONSE on 04/16/20 1142 Last Action: Discontinued Assessment/Plan Assessment and Plan Patient is being mended to the hospital secondary to sepsis due to community- acquired pneumonia with acute hypoxic respiratory failure. She was satting in the 80s when she arrived to the emergency department. She is placed on a couple liters of oxygen and improved. She was found to have a white blood cell count of over 18,000 with multifocal pneumonia on imaging. She is being treated with IV antibiotics and will be weaned off of oxygen as able. We will await her blood cultures as well. She has no known history of COPD but is a current smoker and wheezing on exam so likely has underlying structural lung disease so will at MAT Protocol and have a low threshold for steroids is wheezing persistents. Clinical Quality Measures Smoking Cessation Counseling: Counseling-Symptomatic: 3-10 Minutes (Not yet ready to quit smoking due to issues with sciatica but hoping to attempt cessation in the next couple of months. States she knows it would make Dr Jean and Dr Duffy happy if she did. No interestedin pharmacological options at this time.) Copy Copies To 1: LA JEAN MD Supervisory-Addendum Brief Verification & Attestation Participated in pt care: history, MDM, physical Personally performed: exam, history, MDM, supervision of care Care discussed with: Medical Student Procedures: n/a Results interpretation: Verified all documentation Verification and Attestation of Medical Student E/M Service A medical student performed and documented this service in my presence. I reviewed and verified all information documented by the medical student and made modifications to such information, when appropriate. I personally performed the physical exam and medical decision making. Dorian Johnston, Jul 02, 2022,10:09 PATRICIA SMITH Jul 01, 2022 16:21 DORIAN JOHNSTON MD Jul 02, 2022 10:13
[2022-07-01 16:31] VITALS: BP 123/59
[2022-07-01] MEDS ORDERED: RT-ALBUTEROL/IPRATROPIUM 3 ML (DUONEB) VIAL INH PRN (17:00)
[2022-07-01] MEDS ORDERED: AZITHROMYCIN INJECTION 500 MG/5 ML VIAL ONE (17:21)
[2022-07-01] MEDS: cefTRIAXone 1 GM PRE-MIX 50 ML IV SCH (17:30)
[2022-07-01] MEDS ORDERED: AZITHROMYCIN INJECTION 500 MG in NS (IVPB) 250 ML IV SCH (17:30)
[2022-07-01 18:23] VITALS: BP 168/72
[2022-07-01] MEDS: RT-ALBUTEROL/IPRATROPIUM 3 ML (DUONEB) VIAL INH SCH (18:27)
[2022-07-01] MEDS ORDERED: diphenhydrAMINE 25 MG TAB (BENADRYL) PO PRN (18:45)
[2022-07-01] MEDS ORDERED: methylPREDNISolone 125 MG (Solu-MEDROL) VIAL IVP NR (18:45)
[2022-07-01] MEDS ORDERED: ACETAMINOPHEN 500 MG TAB (TYLENOL) ONE (19:41)
[2022-07-01] MEDS: ACETAMINOPHEN 500 MG TAB (TYLENOL) PO PRN (19:43)
[2022-07-01 19:59] VITALS: BP 141/64
[2022-07-01 23:10] VITALS: BP 127/61
[2022-07-02 03:27] VITALS: BP 113/57
[2022-07-02 05:42] LABS: BASOPHILS % (AUTO) 0 % (0-10); EOSINOPHILS % (AUTO) 0 % (0-10); HEMATOCRIT 39 % (35-52); HEMOGLOBIN 12.5 g/dL (11.5-16.0); LYMPHOCYTES # (AUTO) 0.8 10^3/uL (1.0-4.0); LYMPHOCYTES % (AUTO) 5 % (12-44); MEAN CORPUSCULAR HEMOGLOBIN 31 pg (25-34); MEAN CORPUSCULAR HGB CONC 32 g/dL (32-36); MEAN CORPUSCULAR VOLUME 96 fL (80-99); MEAN PLATELET VOLUME 10.5 fL (9.0-12.2); MONOCYTES # (AUTO) 0.4 10^3/uL (0.0-1.0); MONOCYTES % (AUTO) 3 % (0-12); NEUTROPHILS # (AUTO) 14.2 10^3/uL (1.8-7.8); NEUTROPHILS % (AUTO) 92 % (42-75); PLATELET COUNT 266 10^3/uL (130-400); WHITE BLOOD COUNT 15.6 10^3/uL (4.3-11.0)
[2022-07-02 05:51] LABS: ALBUMIN 3.7 GM/DL (3.2-4.5); POTASSIUM 3.5 MMOL/L (3.6-5.0)
[2022-07-02 05:52] LABS: CALCIUM 8.7 MG/DL (8.5-10.1)
[2022-07-02 05:53] LABS: TOTAL PROTEIN 6.6 GM/DL (6.4-8.2)
[2022-07-02 05:55] LABS: BILIRUBIN,TOTAL 0.4 MG/DL (0.1-1.0)
[2022-07-02 05:57] LABS: CREATININE SERUM 0.81 MG/DL (0.60-1.30)
[2022-07-02] MEDS: ACETAMINOPHEN 500 MG TAB (TYLENOL) PO PRN ×2 (06:00→15:01)
[2022-07-02] MEDS: RT-ALBUTEROL/IPRATROPIUM 3 ML (DUONEB) VIAL INH SCH ×4 (07:15→19:41)
[2022-07-02 07:51] VITALS: BP 143/72
[2022-07-02] MEDS: NICOTINE PATCH REMOVAL TP SCH (08:31)
[2022-07-02] MEDS: NICOTINE 7 MG (NICODERM) PATCH TD SCH (08:31)
[2022-07-02] MEDS ORDERED: LACT1CAP72 PO (09:11)
[2022-07-02] MEDS ORDERED: GABA300C PO (09:11)
[2022-07-02] MEDS ORDERED: AMLO-250 PO (09:11)
--- NOTE | 2022-07-02 11:35 | Physical Therapy Evaluation ---
PT Evaluation-General Medical Diagnosis Admission Date Jul 01, 2022 at 15:28 Medical Diagnosis: PNA Onset Date: Jul 01, 2022 Therapy Diagnosis Therapy Diagnosis: impaired mobility, strength Height/Weight Height (Feet): 5 Height (Inches): 2.00 Weight (Pounds): 140 Weight (Ounces): 0.0 Precautions Precautions/Isolations: Fall Prevention, Standard Precautions Weight Bear Status Right Lower Extremity: Right Full Weight Bearing Left Lower Extremity: Left Full Weight Bearing Referral Physician: Lucio Reason for Referral: Evaluation/Treatment Medical History History of Falls (past yr): Unknown Prior Surgery (last 100 days): Unknown Additional Medical History Past Medical History Surgeries: Cardiac (Heart catheterization), Eye Surgery (Cataract surgery), Hysterectomy, Orthopedic (Plate in her right arm from an accident) Currently Using CPAP: No Currently Using BIPAP: No Deep Vein Thrombosis, High Cholesterol, Hypertension Sexually Transmitted Disease: No Osteoporosis, Scoliosis Cataract Hearing Impairment: Hard of Hearing Anxiety, Depression Blood Disorders: Yes (PROTEIN S DEFICIENCY-DVT OF LEG) Reviewed History: Yes Social History Current Living Status: Spouse Entry Into Home: Stairs With Railing PT Steps Into Home: 5 Prior Prior Level of Function SCALE: Activities may be completed with or without assistive devices. 4-Ikeiqltfww-uungkzh completes the activity by him/herself with no assistance from a helper. 5-Set-up or Clean-up Assistance-helper sets up or cleans up; patient completes activity. Sallis assists only prior to or following the activity. 4-Supervision or Touching Assistance-helper provides verbal cues and/or touching/steadying and/or contact guard assistance as patient completes activity. Assistance may be provided throughout the activity or intermittently. 3-Partial/Moderate Assistance-helper does LESS THAN HALF the effort. Sallis lifts, holds or supports trunk or limbs, but provides less than half the effort. 2-Substantial/Maximal Assistance-helper does MORE THAN HALF the effort. Sallis lifts or holds trunk or limbs and provides more than half the effort. 0-Wuyplnvbs-gmwucj does ALL the effort. Patient does none of the effort to complete the activity. Or, the assistance of 2 or more helpers is required for the patient to complete the activity. If activity was not attempted, code reason: 7-Patient Refused. 9-Not Applicable-not attempted and the patient did not perform the activity before the current illness, exacerbation or injury. 10-Not Attempted due to Environmental Limitations-(lack of equipment, weather restraints, etc.). 88-Not Attempted due to Medical Conditions or Safety Concerns. Bed Mobility: 6 Transfers (B,C,W/C): 6 Gait: 6 Stairs: 6 Indoor Mobility (Ambulation): Independent Stairs: Independent PT Evaluation-Current Subjective Patient in bed pre tx, agrees to PT, has 6/10 headache, patient states she has already had pain meds. Pt/Family Goals to be independent at home Objective Patient Orientation: Person, Place, Situation Attachments: Oxygen ROM/Strength ROM Lower Extremities WNL Strength Lower Extremities LLE (hip flexion 4-/5, knee flexion 4-/5, knee extension 4/5, dorsiflexion 4/5), RLE (hip flexion 4-/5, knee flexion 4-/5, knee extension 4/5, dorsiflexion 4/5) Sensory Hearing: Functional Sensation Right Lower Extremit: Intact Sensation Left Lower Extremity: Intact Transfers Roll Left to Right (QC): 6 Lying to Sitting/Side of Bed(Q: 6 Sit to Stand (QC): 4 Chair/Rwx-cv-Hlvuq Xfer(QC): 4 SBA with transfers Gait Walk 10 feet (QC): 4 Walk 50 ft with 2 Turns(QC): 4 Walk 150 ft (QC): 4 Distance: 150' Gait Assistive Device: FWW Comments/Gait Description SBA, slow ambulation, no LOB Balance Sitting Static: Normal Sitting Dynamic: Normal Standing Static: Good Standing Dynamic: Good Treatment BLE seated exercises x20 (AP, LAQ) Assessment/Needs Patient in recliner post tx with nurse call, phone, tray, all needs met. Patient has impaired mobility but is able to ambulate with SBA without using an assistive device. Rehab Potential: Fair PT Wrapper Stemmer Hand Goals Wrapper Stemmer Hand Goals PT Wrapper Stemmer Hand Goals Time Frame: Jul 09, 2022 Roll Left & Right (QC): 6 Sit to Lying (QC): 6 Lying-Sitting on Side/Bed(QC): 6 Sit to Stand (QC): 6 Chair/Twe-ia-Jbeiq Xfer(QC): 6 Walk 10 feet (QC): 6 Walk 50ft with 2 Turns (QC): 6 Walk 150 ft (QC): 6 PT Plan Problem List Problem List: Activity Tolerance, Functional Strength, Safety, Balance, Gait, Transfer Treatment/Plan Treatment Plan: Continue Plan of Care Treatment Plan: Education, Functional Activity Nadir, Functional Strength, Gait, Safety, Therapeutic Exercise, Transfers Treatment Duration: Jul 09, 2022 Frequency: 6 times per week Estimated Hrs Per Day: .25 hour per day Patient and/or Family Agrees t: Yes Safety Risks/Education Patient Education: Gait Training, Transfer Techniques, Correct Positioning, Safety Issues Teaching Recipient: Patient Teaching Methods: Demonstration, Discussion Response to Teaching: Reinforcement Needed Discharge Recommendations Plan Patient will perform bed mobility and transfer training, balance and endurance training, functional strengthening, stair training, gait training, and education, to improve functional mobility and independence at home. Therapy Discharge Recommendati: Home & Family, Post Acute PT Time/GCodes Time In: 1108 Time Out: 1122 Total Billed Treatment Time: 14 Total Billed Treatment 1 visit EVL 14' JIM GOMEZ PT Jul 02, 2022 11:35
[2022-07-02 11:46] VITALS: BP 137/61
--- NOTE | 2022-07-02 12:11 | Progress Note ---
PATRICIA SMITH 07/02/22 1211: Subjective Date Seen by a Provider: Jul 02, 2022 Time Seen by a Provider: 09:30 Subjective/Events-last exam Patient was sitting up in bed awake at the beginning of the interview. When the Azithromycin was started yesterday she developed nausea, felt lightheaded, and felt pressure in her chest. The Azithromycin was stopped and listed as an allergy. The patient did receive the first dose of Ceftriaxone. After she had the reaction to the Abx she developed a pounding headache across the top of her forehead and down to her right jaw. She was given tylenol which reduced the pain. Patient reports still having a pounding headache today along with a cough that is producing clear phlegm and SOB while eating. Denies having any more chest pain since yesterday. Patient is wanting to get up and move around on her own. Review of Systems General: No Chills, No Night Sweats, No Fatigue; Appetite HEENT: Head Aches; No Visual Changes; Sinus Congestion; No Post Nasal Drip, No Sore Throat Pulmonary: Cough Cardiovascular: No: Chest Pain, Palpitations, Edema, Lt Headedness Gastrointestinal: Diarrhea, Constipation; No: Nausea, Vomiting, Abdominal Pain Genitourinary: No Dysuria, No Frequency Neurological: No: Weakness, Confusion Focused Exam Lactate Level 07/01/22 14:18: Lactic Acid Level 1.00 Objective Exam Last Set of Vital Signs Vital Signs Date Time Temp Pulse Resp B/P (MAP) Pulse Ox O2 Delivery O2 Flow Rate FiO2 07/02/22 11:46 37.0 87 19 137/61 (86) 95 Nasal Cannula 2.00 07/01/22 16:31 28 Capillary Refill : I&O Intake and Output 07/02/22 00:00 Intake Total 700 ml Balance 700 ml Intake Oral 600 ml IV Total 100 ml # Voids 3 Daily Weight Change No General: Alert, Oriented X3, Cooperative, No Acute Distress HEENT: Atraumatic, Mucous Memb Moist/[place] Neck: Supple, No JVD Lungs: Other (Wheezing heard with exhalation) Heart: Regular Rate, Normal S1, Normal S2, No Murmurs Abdomen: Soft, No Tenderness, No Hepatosplenomegaly Extremities: No Edema, Normal Pulses (3+ Radial and dorsalis pedis) Skin: No Rashes Neuro: Normal Speech Results Lab Laboratory Tests 07/01/22 12:55: Influenza Type A (RT-PCR) Not Detected, Influenza Type B (RT-PCR) Not Detected, SARS-CoV-2 RNA (RT-PCR) Not Detected 07/01/22 14:18: Lactic Acid Level 1.00 07/01/22 19:43: Troponin I < 0.028 07/02/22 05:21: Troponin I < 0.028, White Blood Count 15.6H, Red Blood Count 4.02, Hemoglobin 12.5, Hematocrit 39, Mean Corpuscular Volume 96, Mean Corpuscular Hemoglobin 31, Mean Corpuscular Hemoglobin Concent 32, Red Cell Distribution Width 13.4, Platelet Count 266, Mean Platelet Volume 10.5, Immature Granulocyte % (Auto) 1, Neutrophils (%) (Auto) 92H, Lymphocytes (%) (Auto) 5L, Monocytes (%) (Auto) 3, Eosinophils (%) (Auto) 0, Basophils (%) (Auto) 0, Neutrophils # (Auto) 14.2H, Lymphocytes # (Auto) 0.8L, Monocytes # (Auto) 0.4, Eosinophils # (Auto) 0.0, Basophils # (Auto) 0.0, Immature Granulocyte # (Auto) 0.1, Sodium Level 138, Potassium Level 3.5L, Chloride Level 105, Carbon Dioxide Level 23, Anion Gap 10, Blood Urea Nitrogen 16, Creatinine 0.81, Estimat Glomerular Filtration Rate 76, BUN/Creatinine Ratio 20, Glucose Level 165H, Calcium Level 8.7, Corrected Calcium 8.9, Total Bilirubin 0.4, Aspartate Amino Transf (AST/SGOT) 34, Alanine Aminotransferase (ALT/SGPT) 39, Alkaline Phosphatase 88, Total Protein 6.6, Albumin 3.7 Assessment/Plan Assessment/Plan Assess & Plan/Chief Complaint 1) Sepsis No signs of end organ damage and lactic acid is not elevated Blood cultures and sputum cultures ordered and pending WBC has trended down since starting the Ceftriaxone 2) Community acquired multifocal pneumonia On day 2 of IV Rocephin 1g 1xD Patient should be using incentive spirometer 3) Hypoxia Patient currently on 2L/min with an improved oxygen saturation, will try to decrease oxygen and monitor Albuterol/Ipratropium 3ml Q2hrs 4) Hypokalemia Potassium has improved to 3.5 IV potassium chloride 20mEq Q3hrs and IV magnesium 1g over 1 hour 5) Elevated d-dimer Ruled out a PE with CT angiogram Patient has had a prior DVT but is not presenting with any sign or symptoms today and patient is already taking Apixaban 6) Previous DVT and DVT prophylaxis Restart home medication Apixaban 2.5mg BID 7) HLD Restart home medication Atorvastatin 40mg 1xD 8)Coronary artery disease Restart home medication Aspirin 81mg Q48hrs 9) Sciatica Restart home medication gabapentin 100mg 5xD 10) HTN Hold home medication since the patient is septic and at risk for hypotension 11) Anxiety and depression Restart home medication Sertraline 50mg 1xD 12) Nicotine addiction Nicotine patch 7mg Clinical Quality Measures Admission Status Admission Dx 1) Sepsis No signs of end organ damage and lactic acid is not elevated Blood cultures and sputum cultures ordered and pending Abx have been started to treat the source of infection which is most likely the bilateral pneumonia 2) Community acquired multifocal pneumonia IV Rocephin 1g 1xD and IV Azithromycin 500mg 1xD was started today Patient should be using incentive spirometer 3) Hypoxia Patient currently on 1L/min, will take the patient off of oxygen tomorrow and see how she tolerates room air Albuterol/Ipratropium 3ml Q2hrs 4) Hypokalemia Due to the patient having diarrhea the past few weeks, IV potassium chloride 20mEq Q3hrs and IV magnesium 1g over 1 hour 5) Elevated d-dimer Ruled out a PE with CT angiogram Patient has had a prior DVT but is not presenting with any sign or symptoms today and patient is already taking Apixaban 6) Previous DVT and DVT prophylaxis Restart home medication Apixaban 2.5mg BID 7) HLD Restart home medication Atorvastatin 40mg 1xD 8)Coronary artery disease Restart home medication Aspirin 81mg Q48hrs 9) Sciatica Restart home medication gabapentin 100mg 5xD 10) HTN Hold home medication since the patient is septic and at risk for hypotension 11) Anxiety and depression Restart home medication Sertraline 50mg 1xD 12) Nicotine addiction Nicotine patch 7mg AMI/AHF: ASA po Prior to arrival: No Smoking Cessation Counseling: Counseling-Symptomatic: 3-10 Minutes (Not yet ready to quit smoking due to issues with sciatica but hoping to attempt cessation in the next couple of months. States she knows it would make Dr Dawn and Dr Duffy happy if she did. No interestedin pharmacological options at this time.) DORIAN VALDES MD 07/04/22 1159: Assessment/Plan Assessment/Plan Assess & Plan/Chief Complaint Patient is doing well. She remains on oxygen so we will attempt to titrate this down. We will continue on IV antibiotics. She has having a fluttering sensation in her heart. I will restart her metoprolol and discussed this with her primary microscopist, Dr. Byrd. We will continue with physical therapy and Occupational Therapy and hopefully be able to discharge home tomorrow. Supervisory-Addendum Brief Verification & Attestation Participated in pt care: history, MDM, physical Personally performed: exam, history, MDM, supervision of care Care discussed with: Medical Student Procedures: n/a Results interpretation: Verified all documentation Verification and Attestation of Medical Student E/M Service A medical student performed and documented this service in my presence. I reviewed and verified all information documented by the medical student and made modifications to such information, when appropriate. I personally performed the physical exam and medical decision making. Dorian Valdes, Jul 04, 2022,11:58 PATRICIA SMITH Jul 02, 2022 12:11 DORIAN VALDES MD Jul 04, 2022 11:59
[2022-07-02] MEDS ORDERED: ASPIRIN 81 MG CHEW (CHILDREN'S ASA) PO SCH (15:15)
[2022-07-02] MEDS: GABAPENTIN 300 MG (NEURONTIN) CAP PO SCH ×2 (15:37→20:34)
[2022-07-02 15:58] VITALS: BP 142/56
[2022-07-02] MEDS: cefTRIAXone 1 GM PRE-MIX 50 ML IV SCH (16:53)
[2022-07-02 20:00] VITALS: BP 127/59
[2022-07-02] MEDS: APIXABAN 2.5 MG (ELIQUIS) TABLET PO SCH (20:34)
[2022-07-02] MEDS ORDERED: GABAPENTIN 300 MG (NEURONTIN) CAP PO SCH (21:00)
[2022-07-03] VITALS: BP 119/57
[2022-07-03 04:00] VITALS: BP 113/57
[2022-07-03 05:32] LABS: BASOPHILS # (AUTO) 0.1 10^3/uL (0.0-0.1); BASOPHILS % (AUTO) 0 % (0-10); EOSINOPHILS # (AUTO) 0.7 10^3/uL (0.0-0.3); EOSINOPHILS % (AUTO) 4 % (0-10); HEMATOCRIT 33 % (35-52); HEMOGLOBIN 10.6 g/dL (11.5-16.0); LYMPHOCYTES # (AUTO) 2.3 10^3/uL (1.0-4.0); LYMPHOCYTES % (AUTO) 13 % (12-44); MEAN CORPUSCULAR HEMOGLOBIN 31 pg (25-34); MEAN CORPUSCULAR HGB CONC 33 g/dL (32-36); MEAN CORPUSCULAR VOLUME 96 fL (80-99); MEAN PLATELET VOLUME 10.4 fL (9.0-12.2); MONOCYTES # (AUTO) 1.1 10^3/uL (0.0-1.0); MONOCYTES % (AUTO) 6 % (0-12); NEUTROPHILS # (AUTO) 14.3 10^3/uL (1.8-7.8); NEUTROPHILS % (AUTO) 77 % (42-75); PLATELET COUNT 274 10^3/uL (130-400); WHITE BLOOD COUNT 18.4 10^3/uL (4.3-11.0)
[2022-07-03 05:42] LABS: ALBUMIN 3.2 GM/DL (3.2-4.5); POTASSIUM 3.2 MMOL/L (3.6-5.0)
[2022-07-03 05:43] LABS: CALCIUM 8.8 MG/DL (8.5-10.1)
[2022-07-03 05:44] LABS: TOTAL PROTEIN 5.8 GM/DL (6.4-8.2)
[2022-07-03 05:46] LABS: BILIRUBIN,TOTAL 0.3 MG/DL (0.1-1.0)
[2022-07-03 05:48] LABS: CREATININE SERUM 0.65 MG/DL (0.60-1.30)
[2022-07-03] MEDS: RT-ALBUTEROL/IPRATROPIUM 3 ML (DUONEB) VIAL INH SCH (06:54)
[2022-07-03 08:25] VITALS: BP 133/59
--- NOTE | 2022-07-03 08:36 | Consultation-Cardiology ---
HPI-Cardiology Cardiology Consultation: Date of Consultation 07/03/22 Time Seen by a Provider: 08:40 Date of Admission 07-02-22 Attending Physician La Dawn MD Admitting Physician Admitting Physician: Dorian Valdes MD Attending Physician: Dorian Valdes MD Consulting Physician Godfrey Duffy MD HPI: Chief Complaint: Tachycardia Ms. Chong is a 72 yr old female admitted to [facility] from the ED with pneumonia and tachycardia. She reports she has had diarrhea for approx the last 3 weeks prior to this admission. She reports on Wednesday she felt weak and tired. She reports she has had some increasing SOB over the last few days. She reports she has had a cold for the last few days which she has been treating with OTC medications. Her symptoms were worsening. She reports she did feel like her heart was racing when would exert herself along with feeling SOB. She denies any cough. She denies any fever or chills. She continues to smoke cigs. She denies any n/v. She states she did require oxygen overnight, but they have removed it as of this morning. She reports she is feeling much better today. Review of Systems-Cardiology Review of Systems Constitutional: No chills, No fever; malaise Eyes: No vision change Ears/Nose/Throat: No epistaxis, No recent hearing loss Respiratory: As described under HPI Cardiovascular: As described under HPI Genitourinary: No dysuria, No hematuria Skin: No rash on exposed areas, No ulcerations on exposed areas Psychiatric/Neurological: No anxiety, No depression, No seizure, No focal weakness, No syncope Hematologic: No bleeding abnormalities [id number] Hx Patient Social History Marrital Status: Living Status: Lives at home with her Employed/Student: retired Smoking Status: Current Everyday Smoker 2nd Hand Smoke Exposure: Yes Have you traveled recently?: No Alcohol Use?: No Pt feels they are or have been: No Tobacco type used: Cigarettes Immunizations Up To Date Tetanus Booster (TDap): Unknown Date of Pneumonia Vaccine: Mar 16, 2014 Date of Influenza Vaccine: Aug 28, 2021 Past Medical History PMH As described under Assessment. Family Medical History Family Medical History: No reported family h/o CAD. Allergies and Home Medications Allergies Uncoded Allergies: zithromycin (Allergy, Intermediate, Shortness of Breath, 07/02/22) Patient Home Medication List Apixaban (Eliquis) 2.5 Mg Tablet, 2.5 MG PO BID, (Reported) Entered as Reported by: JOHN JONES on 04/16/20 114 Last Action: Continued Aspirin (Aspirin) 81 Mg Tab.chew, 81 MG PO Q48H, (Reported) Entered as Reported by: JOHN JONES on 05/29/22 1349 Last Action: Continued Atorvastatin Calcium (Atorvastatin Calcium) 40 Mg Tablet, 40 MG PO DAILY, (Reported) Entered as Reported by: JOHN JONES on 04/16/20 114 Last Action: Continued Calcium Carbonate/Vitamin D3 (Calcium 600 + Vit D Caplet) 1 Each Tablet, 1 EACH PO BID, (Reported) Entered as Reported by: JOHN JONES on 04/16/20 114 Last Action: Held Cephalexin (Cephalexin) 500 Mg Tablet, 500 MG PO BID Prescribed by: DORIAN VALDES on 07/03/22 1126 Gabapentin (Neurontin) 300 Mg Capsule, 300 MG PO TID, (Reported) Entered as Reported by: TYREE ECRDA on 07/02/22 09 Last Action: Continued Lactobacillus Combo No.10 (Probiotic) 20 Billion Cell Capsule, 1 EACH PO DAILY, (Reported) Entered as Reported by: TYREE CERDA on 07/02/22910 Last Action: Converted Metoprolol Tartrate (Metoprolol Tartrate) 25 Mg Tablet, 25 MG PO BID, (Reported) Entered as Reported by: JOHN JONES on 04/16/20 114 Last Action: Continued Sertraline HCl (Sertraline HCl) 50 Mg Tablet, 25 MG PO DAILY, (Reported) Entered as Reported by: JOHN JONES on 05/29/22 1349 Last Action: Continued Discontinued Medications Amlodipine Besylate (Norvasc) 5 Mg Tablet, 5 MG PO DAILY, (Reported) Discontinued Reason: Duplicate Order Entered as Reported by: DARON FISCHER on 01/27/22 1145 Last Action: Discontinued Amlodipine Besylate (Amlodipine Besylate) 5 Mg Tablet, 5 MG PO DAILY, (Reported) Entered as Reported by: TYREE CERDA on 07/02/22 09 Last Action: Held Gabapentin (Gabapentin) 100 Mg Capsule, 100 MG PO FIVE TIMES DAILY, (Reported) Discontinued Reason: Duplicate Order Entered as Reported by: JOHN JONES on 04/16/20 1014 Last Action: Discontinued Physical Exam-Cardiology Physical Exam Vital Signs/I&O 07/03/22 07/03/22 07/03/22 07/03/22 04:00 06:56 08:00 08:25 Temp 36.4 36.8 Pulse 66 90 Resp 18 18 B/P (MAP) 113/57 (75) 133/59 (83) Pulse Ox 98 98 93 92 O2 Delivery Nasal Cannula Nasal Cannula Nasal Cannula Nasal Cannula O2 Flow Rate 2.00 2.00 2.00 2.00 07/03/22 07/03/22 07/03/22 07/03/22 09:28 11:22 12:14 12:35 Temp 36.1 Pulse 96 95 77 Resp 19 B/P (MAP) 119/62 (81) Pulse Ox 93 95 O2 Delivery Room Air Room Air 07/03/22 13:33 Temp 36.1 Pulse 77 Resp 19 B/P (MAP) 119/62 Pulse Ox 95 O2 Delivery Room Air 07/03/22 00:00 Intake Total 1370 ml Balance 1370 ml Capillary Refill : Constitutional: AAO x 3, other (thin) HEENT: hearing is well preserved Neck: No carotid bruit; carotid pulses are 2 + bilaterally Respiratory: No accessory muscle use, No respiratory distress; chest expansion is symmetric, chest is bilaterally symmetric, rhonchi (scattered), other (coarse, diminished breath sounds lower lobes bilat) Cardiovascular: regular rate-rhythm; No JVD; S1 and S2 Gastrointestinal: No tender; soft, audible bowel sounds Extremities: no lower extremity edema bilateral Neurologic/Psychiatric: grossly intact (moves all extremities) Skin: No rash on exposed areas, No ulcerations on exposed areas Data Review Labs Laboratory Tests 07/03/22 05:10: White Blood Count 18.4H, Red Blood Count 3.40L, Hemoglobin 10.6L, Hematocrit 33L , Mean Corpuscular Volume 96, Mean Corpuscular Hemoglobin 31, Mean Corpuscular Hemoglobin Concent 33, Red Cell Distribution Width 13.6, Platelet Count 274, Mean Platelet Volume 10.4, Immature Granulocyte % (Auto) 0, Neutrophils (%) (Auto) 77H, Lymphocytes (%) (Auto) 13, Monocytes (%) (Auto) 6, Eosinophils (%) (Auto) 4, Basophils (%) (Auto) 0, Neutrophils # (Auto) 14.3H, Lymphocytes # (Auto) 2.3, Monocytes # (Auto) 1.1H, Eosinophils # (Auto) 0.7H, Basophils # (Auto) 0.1, Immature Granulocyte # (Auto) 0.1, Sodium Level 141, Potassium Level 3.2L, Chloride Level 108H, Carbon Dioxide Level 24, Anion Gap 9, Blood Urea Nitrogen 11, Creatinine 0.65, Estimat Glomerular Filtration Rate 92, BUN/Creatinine Ratio 17, Glucose Level 101, Calcium Level 8.8, Corrected Calcium 9.4, Total Bilirubin 0.3, Aspartate Amino Transf (AST/SGOT) 20, Alanine Aminotransferase (ALT/SGPT) 27, Alkaline Phosphatase 69, Total Protein 5.8L, Albumin 3.2 Microbiology 07/01/22 Blood Culture - Preliminary, Resulted No growth Radiology NAME: KURTIS CHONG [facility] REC#: [id number] PT STATUS: REG ER : 1950 PHYSICIAN: AASHISH GUAJARDO [employer] ATTENDANT ADMIT DATE: 07/01/22/ER Signed Date of Exam:07/01/22 CHEST 1 VIEW, AP/PA ONLY INDICATION: Chest pain. EXAMINATION: Portable chest at 01:30 p.m. FINDINGS: Heart size and pulmonary vascularity are both mildly increased. There is some infiltrate in the perihilar region of the right lung. There is no effusion or pneumothorax. IMPRESSION: Congestive heart failure. Superimposed infiltrate in the perihilar region of the right lung could be pneumonia. Dictated by: Dictated on workstation # [id number] Dict: 07/01/22 1334 Trans: 07/01/221516 [id number] [id number] Interpreted by: ANTONIA REID MD Electronically signed by: ANTONIA REID MD 07/01/221516 NAME: KURTIS CHONG [facility] REC#: [id number] PT STATUS: REG ER : 1950 PHYSICIAN: AASHISH GUAJARDO [employer] ATTENDANT ADMIT DATE: 07/01/22/ER Signed Date of Exam:07/01/22 CT ALEKSANDRA CHEST/NOANG ABD-PELV W EXAMINATION: CT angiography of the chest, CT of the abdomen and pelvis. TECHNIQUE: Contrast enhanced thin section helical images were obtained through the chest, abdomen and pelvis with intravenous contrast timed for the optimal opacification of the arterial structures of the chest per CTA protocol. Post-processing, reconstructions and interpretation of angiographic images of the vessels was performed. 3D MIP reconstructions were performed and reviewed. All CT scans use one or more of the following dose optimizing techniques: automated exposure control, MA and/or KvP adjustment based on a patient size and exam type, or iterative reconstruction. HISTORY: Elevated d dimer, low oxygen saturation, abdominal pain COMPARISON: 11/18/2021. FINDINGS: Vascular: No filling defects within the pulmonary arteries. Thoracic aorta is normal in caliber. Calcification of the aorta and coronary vessels. Thyroid: The thyroid is normal. Mediastinum: Heart size is normal without significant pericardial effusion. No suspicious lymphadenopathy. Lungs and airways: There are patchy groundglass opacities seen throughout both lungs. No pleural effusion or pneumothorax. The airways are normal. Solid organs: The liver is normal without focal lesion. The gallbladder is normal. There is no biliary ductal dilation. Pancreas is normal. Spleen is normal. Adrenal glands are normal. The right kidney is unremarkable without hydronephrosis. The left kidney is located ectopically within the pelvis without hydronephrosis. Bowel: The stomach and small bowel are normal without obstruction. There is scattered colonic diverticulosis. The appendix is normal. Peritoneum: There is no intraperitoneal free fluid or free air. No suspicious lymphadenopathy. Vasculature: Calcification of the aorta without aneurysm. Musculoskeletal: Degenerative changes of the spine without suspicious osseous lesion or compression fracture. Pelvis: The uterus is surgically absent. No adnexal mass. The urinary bladder is normal. IMPRESSION: 1. Patchy groundglass opacities throughout the lungs which can be seen with a multifocal pneumonia. 2. No findings of pulmonary embolus. 3. No acute abnormality in the abdomen or pelvis. Dictated by: Dictated on workstation # [id number] Dict: 07/01/222 Trans: 07/01/221428 AS6 [id number] Interpreted by: FREEDOM REID DO Electronically signed by: FREEDOM REID DO 07/01/22 142 ECG Impression ECG Comment Sinus tachycardia with PVC's A/P-Cardiology Assessment/Admission Diagnosis Pneumonia - management per medical services Episode of sinus tachycardia - likely r/t acute illness and hypoxia Electrolyte abnormalities - likely d/t diarrhea R Trigeminal neuralgia, - diagnosed in January 2019, managed by Dr Dawn H/O R DVT - apparently unprovoked, diagnosed in February 2019, managed by Dr Dawn (reports protein deficiency, managed by hematology services, Dr. Maier in [place], [place]) CAD - MPI of 01-20-2022: small to mod amt of anteroseptal ischemia. LVEF 61% - Cardiac cath of 01-27-22: Mild to moderate diffuse coronary artery disease without any significant focal stenoses. Normal global left ventricular systolic function with ejection fraction approximately 65%. Elevated left ventricular end-diastolic pressure. - Echocardiogram of 01-15-22: LVEF 65-70%. Mild MR. Trivial AoR HTN - uncontrolled CT Chest w/o contrast on 02/17/17: no acute process, old compression fracture of T2 Chronic tobacco use - cessation advised Probable COPD Carotid u/s of 01-08-22 showed minimal bilat plaque Fam early CAD Discussion and Recomendations Pneumonia - management per medical services Tachycardia - likely d/t acute illness and hypoxia - ECG today - telemetry - continue home BB - adjust dose as indicated Monitor lab - replace potassium and mag today Further recs will be based on her hospital course We would like to thank Dr. Valdes for this consult Clinical Quality Measures AMI/AHF: ASA po Prior to arrival: No Smoking Cessation Counseling: Counseling-Symptomatic: 3-10 Minutes (Not yet ready to quit smoking due to issues with sciatica but hoping to attempt cessation in the next couple of months. States she knows it would make Dr Dawn and Dr Duffy happy if she di d. No interestedin pharmacological options at this time.) FILIBERTO VERDUGO Jul 03, 2022 08:36
[2022-07-03] MEDS: GABAPENTIN 300 MG (NEURONTIN) CAP PO SCH ×2 (08:39→12:12)
[2022-07-03] MEDS: NICOTINE 7 MG (NICODERM) PATCH TD SCH (08:39)
[2022-07-03] MEDS: APIXABAN 2.5 MG (ELIQUIS) TABLET PO SCH (08:39)
[2022-07-03] MEDS: NICOTINE PATCH REMOVAL TP SCH (08:39)
[2022-07-03] MEDS ORDERED: LACTOBACILLUS COMBO NO 10 PO SCH (09:00)
[2022-07-03] MEDS ORDERED: LACTOBACILLUS ACIDOPHILUS (PROBIOTIC) CAPSULE PO SCH (09:00)
[2022-07-03] MEDS ORDERED: meTOprolol TARTRATE 25 MG (LOPRESSOR) TABLET PO SCH (09:00)
[2022-07-03] MEDS ORDERED: SERTRALINE 50 MG (ZOLOFT) TABLET PO SCH (09:00)
[2022-07-03] MEDS ORDERED: KCL 20 MEQ TAB (K-DUR) PO NR ×2 (09:00→12:00)
[2022-07-03] MEDS: MAGNESIUM 1 GM/100 ML IVPB 100 ML IV SCH ×2 (09:31→10:35)
--- NOTE | 2022-07-03 10:11 | Consultation-Cardiology ---
HPI-Cardiology Cardiology Consultation: Date of Consultation 07/03/22 Time Seen by a Provider: 09:50 Date of Admission Attending Physician La Dawn MD Admitting Physician Admitting Physician: Saloni Valdes MD Attending Physician: Saloni Valdes MD Consulting Physician GOSIA DUFFY MD, MA, FACP, FACC, [facility] [place], CCDS HPI: Chief Complaint: Reason for Card consult: Palpitations, feeling of rapid heart beat Ms. Harvey is a 72 yr old female admitted to [facility] from the ED with pneumonia and tachycardia. She reports she has had diarrhea for approx the last 3 weeks prior to this admission. She reports on Wednesday she felt weak and tired. She reports she has had some increasing SOB over the last few days. She reports she has had a cold for the last few days which she has been treating with OTC medications. Her symptoms were worsening. She reports she did feel like her heart was racing when would exert herself along with feeling SOB. She denies any cough. She denies any fever or chills. She continues to smoke cigs. She denies any n/v. She states she did require oxygen overnight, but they have removed it as of this morning. She reports she is feeling much better today. Review of Systems-Cardiology Review of Systems Constitutional: No chills, No fever; malaise Eyes: No vision change Ears/Nose/Throat: No epistaxis, No recent hearing loss Respiratory: As described under HPI Cardiovascular: As described under HPI Genitourinary: No dysuria, No hematuria Skin: No rash on exposed areas, No ulcerations on exposed areas Psychiatric/Neurological: No anxiety, No depression, No seizure, No focal weakness, No syncope Hematologic: No bleeding abnormalities [id number] Hx Patient Social History Marrital Status: Living Status: Lives at home with her Employed/Student: retired Smoking Status: Current Everyday Smoker 2nd Hand Smoke Exposure: Yes Have you traveled recently?: No Alcohol Use?: No Pt feels they are or have been: No Tobacco type used: Cigarettes Immunizations Up To Date Tetanus Booster (TDap): Unknown Date of Pneumonia Vaccine: Mar 16, 2014 Date of Influenza Vaccine: Aug 28, 2021 Past Medical History PMH As described under Assessment. Family Medical History Family Medical History: No reported family h/o CAD. Allergies and Home Medications Allergies Uncoded Allergies: zithromycin (Allergy, Intermediate, Shortness of Breath, 07/02/22) Patient Home Medication List Home Medication List Reviewed: Yes Amlodipine Besylate (Amlodipine Besylate) 5 Mg Tablet, 5 MG PO DAILY, (Reported) Entered as Reported by: TYREE CERDA on 07/02/22910 Last Action: Held Apixaban (Eliquis) 2.5 Mg Tablet, 2.5 MG PO BID, (Reported) Entered as Reported by: JOHN JONES on 04/16/20 114 Last Action: Continued Aspirin (Aspirin) 81 Mg Tab.chew, 81 MG PO Q48H, (Reported) Entered as Reported by: JOHN JONES on 05/29/22 134 Last Action: Continued Atorvastatin Calcium (Atorvastatin Calcium) 40 Mg Tablet, 40 MG PO DAILY, (Reported) Entered as Reported by: JOHN JONES on 04/16/20 114 Last Action: Continued Calcium Carbonate/Vitamin D3 (Calcium 600 + Vit D Caplet) 1 Each Tablet, 1 EACH PO BID, (Reported) Entered as Reported by: JOHN JONES on 04/16/20 114 Last Action: Held Gabapentin (Neurontin) 300 Mg Capsule, 300 MG PO TID, (Reported) Entered as Reported by: TYREE CERDA on 07/02/22910 Last Action: Continued Lactobacillus Combo No.10 (Probiotic) 20 Billion Cell Capsule, 1 EACH PO DAILY, (Reported) Entered as Reported by: TYREE CERDA on 07/02/22910 Last Action: Converted Metoprolol Tartrate (Metoprolol Tartrate) 25 Mg Tablet, 25 MG PO BID, (Reported) Entered as Reported by: JOHN JONES on 04/16/20 114 Last Action: Continued Sertraline HCl (Sertraline HCl) 50 Mg Tablet, 25 MG PO DAILY, (Reported) Entered as Reported by: JOHN JONES on 05/29/22 1349 Last Action: Continued Discontinued Medications Amlodipine Besylate (Norvasc) 5 Mg Tablet, 5 MG PO DAILY, (Reported) Discontinued Reason: Duplicate Order Entered as Reported by: DARON FISCHER on 01/27/22 1145 Last Action: Discontinued Gabapentin (Gabapentin) 100 Mg Capsule, 100 MG PO FIVE TIMES DAILY, (Reported) Discontinued Reason: Duplicate Order Entered as Reported by: JOHN JONES on 04/16/20 1142 Last Action: Discontinued Physical Exam-Cardiology Physical Exam Vital Signs/I&O 07/03/22 07/03/22 07/03/22 07/03/22 00:00 04:00 06:56 08:25 Temp 36.2 36.4 36.8 Pulse 98 66 90 Resp 20 18 18 B/P (MAP) 119/57 (77) 113/57 (75) 133/59 (83) Pulse Ox 98 98 98 92 O2 Delivery Nasal Cannula Nasal Cannula Nasal Cannula Nasal Cannula O2 Flow Rate 2.00 2.00 2.00 2.00 07/03/22 09:28 Pulse 96 07/03/22 00:00 Intake Total 1370 ml Balance 1370 ml Capillary Refill : Constitutional: AAO x 3, other (thin) HEENT: hearing is well preserved Neck: No carotid bruit; carotid pulses are 2 + bilaterally Respiratory: No accessory muscle use, No respiratory distress; chest expansion is symmetric, chest is bilaterally symmetric, rhonchi (scattered), other (coarse, diminished breath sounds lower lobes bilat) Cardiovascular: regular rate-rhythm; No JVD; S1 and S2 Gastrointestinal: No tender; soft, audible bowel sounds Extremities: no lower extremity edema bilateral Neurologic/Psychiatric: other (moves all limbs equally) Skin: No rash on exposed areas, No ulcerations on exposed areas Data Review Labs Laboratory Tests 07/03/22 05:10: White Blood Count 18.4H, Red Blood Count 3.40L, Hemoglobin 10.6L, Hematocrit 33L , Mean Corpuscular Volume 96, Mean Corpuscular Hemoglobin 31, Mean Corpuscular Hemoglobin Concent 33, Red Cell Distribution Width 13.6, Platelet Count 274, Mean Platelet Volume 10.4, Immature Granulocyte % (Auto) 0, Neutrophils (%) (Auto) 77H, Lymphocytes (%) (Auto) 13, Monocytes (%) (Auto) 6, Eosinophils (%) (Auto) 4, Basophils (%) (Auto) 0, Neutrophils # (Auto) 14.3H, Lymphocytes # (Auto) 2.3, Monocytes # (Auto) 1.1H, Eosinophils # (Auto) 0.7H, Basophils # (Auto) 0.1, Immature Granulocyte # (Auto) 0.1, Sodium Level 141, Potassium Level 3.2L, Chloride Level 108H, Carbon Dioxide Level 24, Anion Gap 9, Blood Urea Nitrogen 11, Creatinine 0.65, Estimat Glomerular Filtration Rate 92, BUN/Creatinine Ratio 17, Glucose Level 101, Calcium Level 8.8, Corrected Calcium 9.4, Total Bilirubin 0.3, Aspartate Amino Transf (AST/SGOT) 20, Alanine Aminotransferase (ALT/SGPT) 27, Alkaline Phosphatase 69, Total Protein 5.8L, Albumin 3.2 Microbiology 07/01/22 Blood Culture - Preliminary, Resulted No growth Laboratory Tests 07/01/22 11:58 07/02/22 05:21 A/P-Cardiology Assessment/Admission Diagnosis Pneumonia - management per medical services Intermittent sinus tachycardia - likely r/t acute illness and hypoxia - ECGs during this admission: sinus rhythm, incomp RBBB, episodes of sinus tach, rare occ PVC Electrolyte abnormalities - likely d/t diarrhea R Trigeminal neuralgia, - diagnosed in January 2019, managed by Dr Dawn H/O R DVT - apparently unprovoked, diagnosed in February 2019, managed by Dr Dawn (reports protein deficiency, managed by hematology services, Dr. Maier in [place], [place]) CAD - MPI of 01-20-2022: small to mod amt of anteroseptal ischemia. LVEF 61% - Cardiac cath of 01-27-22: Mild to moderate diffuse coronary artery disease without any significant focal stenoses. Normal global left ventricular systolic function with ejection fraction approximately 65%. Elevated left ventricular end-diastolic pressure. - Echocardiogram of 01-15-22: LVEF 65-70%. Mild MR. Trivial AoR HTN - controlled CT Chest w/o contrast on 02/17/17: no acute process, old compression fracture of T2 Chronic tobacco use - cessation advised Probable COPD Carotid u/s of 01-08-22 showed minimal bilat plaque Fam early CAD Discussion and Recomendations Pneumonia - management per medical services Tachycardia - likely d/t acute illness and hypoxia - ECG today (done) - telemetry (done) - continue home BB - adjust dose as indicated Monitor lab - replace potassium and mag today Ok for d/c from cardiac standpoint when stable from the standpoint of the Hospitalist team We would like to thank Dr. Valdes for this consult Clinical Quality Measures AMI/AHF: ASA po Prior to arrival: No Smoking Cessation Counseling: Counseling-Symptomatic: 3-10 Minutes (Not yet ready to quit smoking due to issues with sciatica but hoping to attempt cessation in the next couple of months. States she knows it would make Dr Dawn and Dr Duffy happy if she did. No interestedin pharmacological options at this time.) GOSIA DUFFY MD FACP FAC CCDS Jul 03, 2022 10:10
[2022-07-03] MEDS ORDERED: CEPH500T PO (11:26)
--- NOTE | 2022-07-03 11:27 | Discharge Inst-Simple/Standard ---
Discharge Inst-Standard Discharge Medications New, Converted or Re-Newed RX: Transmitted to Pharmacy Patient Instructions/Follow Up Plan of Care/Instructions/FU: Please continue to take your medications as written. Please follow up with your primary care doctor to follow up this hospital stay. Activity as Tolerated: Yes Discharge Diet: No Restrictions Return to The Hospital For: Chest pain, shortness of breath, fever, weakness, if you feel you are getting worse. DORIAN JOHNSTON MD Jul 03, 2022 11:27
--- NOTE | 2022-07-03 12:07 | Discharge Summary ---
PATRICIA SMITH 07/03/22 1207: Diagnosis/Chief Complaint Date of Admission Jul 01, 2022 at 15:28 Date of Discharge Jul 03, 2022 Discharge Date: Jul 03, 2022 Admission Diagnosis Hypoxia with multifocal pneumonia Primary Care La Dawn MD Discharge Diagnosis Hypoxia with multifocal pneumonia Discharge Summary Discharge Physical Exam Allergies: Uncoded Allergies: zithromycin (Allergy, Intermediate, Shortness of Breath, 07/02/22) Vitals & I&Os Vital Signs Date Time Temp Pulse Resp B/P (MAP) Pulse Ox O2 Delivery O2 Flow Rate FiO2 07/03/22 11:22 93 Room Air 07/03/22 09:28 96 07/03/22 08:25 36.8 18 133/59 (83) 2.00 07/01/22 16:31 28 General Appearance: No Apparent Distress, WD/WN HEENT: Pharynx Normal, Moist Mucous Membranes Respiratory: No Accessory Muscle Use, No Respiratory Distress, Wheezing (Slight wheezing with inhalation) Cardiovascular: Regular Rate, Rhythm, No Edema, No Murmur, Normal Peripheral Pulses (3+ bilateral radialis and dorsalis pedis) Gastrointestinal: No Organomegaly, No Pulsatile Mass, Non Tender, Soft Extremity: Normal Capillary Refill, Normal Range of Motion, Non Tender, No Calf Tenderness, No Pedal Edema Skin: Normal Color, Warm/Dry Neurologic/Psychiatric: Alert, Oriented x3, Normal Mood/Affect Hospital Course Was the Problem List Reviewed?: Yes Michelle is a 72yo F with a past medical history of HTN, HLD, CAD, previous DVT, protein S deficiency, osteoporosis, scoliosis, trigeminal neuralgia, sciatica, congenital unilateral kidney, anxiety, and depression. The patient had a cardiac catheterization done in January that showed EF of 65 and moderate CAD. She presented to the emergency room with a chief complaint of right sided pain that she rates a 10/10. She described the pain as a constant burning sensation in her right abdomen and right lower back. Patient was also hypoxic when she presented to the ER and was put on nasal cannula 2L/min. She is not on oxygen at baseline. She felt congested earlier this week and then woke up with the right side pain and SOB. The patient vomited 3 times the morning she came into the ER. The patient has also been having diarrhea the past three weeks where she feels the urge to go but is unable to make it to the restroom on time. In the ER she had an WBC of 18.7, K of 3.4, and Mg 1.5. Her d-dimer was elevated at 1.[address] angiogram did not show any signs of PE. A chest X-ray and CT angiogram showed signs of lung infiltrates. Michelle was admitted for sepsis and multifocal pneumonia. She was on nasal cannula oxygen 2L/min while in the hospital and her oxygen saturation was initially in the low 90's but today she is on room air with oxygen saturations in the mid 90s. Patient will have a home oxygen study performed before she leaves. She received IV rocephin to treat her pneumonia and will be sent home with oral cefpodoxime to finish her treatment. Patient was diagnosed with sepsis and her blood cultures did not grow anything. Patient had hypokalemia which improved with IV and oral potassium and magnesium. She experienced some palpitations and SOB while in the hospital so she was consulted by cardiology. Patient states she is feeling much better today and is wanting to go home. She will be discharged home this afternoon. Labs (last 24 hrs) Laboratory Tests 07/03/22 05:10: White Blood Count 18.4H, Red Blood Count 3.40L, Hemoglobin 10.6L, Hematocrit 33L , Mean Corpuscular Volume 96, Mean Corpuscular Hemoglobin 31, Mean Corpuscular Hemoglobin Concent 33, Red Cell Distribution Width 13.6, Platelet Count 274, Mean Platelet Volume 10.4, Immature Granulocyte % (Auto) 0, Neutrophils (%) (Auto) 77H, Lymphocytes (%) (Auto) 13, Monocytes (%) (Auto) 6, Eosinophils (%) (Auto) 4, Basophils (%) (Auto) 0, Neutrophils # (Auto) 14.3H, Lymphocytes # (Auto) 2.3, Monocytes # (Auto) 1.1H, Eosinophils # (Auto) 0.7H, Basophils # (Auto) 0.1, Immature Granulocyte # (Auto) 0.1, Sodium Level 141, Potassium Level 3.2L, Chloride Level 108H, Carbon Dioxide Level 24, Anion Gap 9, Blood Urea Nitrogen 11, Creatinine 0.65, Estimat Glomerular Filtration Rate 92, BUN/Creatinine Ratio 17, Glucose Level 101, Calcium Level 8.8, Corrected Calcium 9.4, Total Bilirubin 0.3, Aspartate Amino Transf (AST/SGOT) 20, Alanine Aminotransferase (ALT/SGPT) 27, Alkaline Phosphatase 69, Total Protein 5.8L, Albumin 3.2 Microbiology 07/01/22 Blood Culture - Preliminary, Resulted No growth Patient resulted labs reviewed. Pending Labs Laboratory Tests 07/03/22 05:10: White Blood Count 18.4, Red Blood Count 3.40, Hemoglobin 10.6, Hematocrit 33, Mean Corpuscular Volume 96, Mean Corpuscular Hemoglobin 31, Mean Corpuscular He moglobin Concent 33, Red Cell Distribution Width 13.6, Platelet Count 274, Mean Platelet Volume 10.4, Immature Granulocyte % (Auto) 0, Neutrophils (%) (Auto) 77, Lymphocytes (%) (Auto) 13, Monocytes (%) (Auto) 6, Eosinophils (%) (Auto) 4, Basophils (%) (Auto) 0, Neutrophils # (Auto) 14.3, Lymphocytes # (Auto) 2.3, Monocytes # (Auto) 1.1, Eosinophils # (Auto) 0.7, Basophils # (Auto) 0.1, Immature Granulocyte # (Auto) 0.1, Sodium Level 141, Potassium Level 3.2, Chloride Level 108, Carbon Dioxide Level 24, Anion Gap 9, Blood Urea Nitrogen 11, Creatinine 0.65, Estimat Glomerular Filtration Rate 92, BUN/Creatinine Ratio 17, Glucose Level 101, Calcium Level 8.8, Corrected Calcium 9.4, Total Bilirubin 0.3, Aspartate Amino Transf (AST/SGOT) 20, Alanine Aminotransferase (ALT/SGPT) 27, Alkaline Phosphatase 69, Total Protein 5.8, Albumin 3.2 Discussion & Recommendations Discharge Planning: >30 minutes discharge planning Discharge Home Medications: Active Scripts Active Cephalexin 500 Mg Tablet 500 Mg PO BID Reported Probiotic (Lactobacillus Combo No.10) 20 Billion Cell Capsule 1 Each PO DAILY Amlodipine Besylate 5 Mg Tablet 5 Mg PO DAILY Neurontin (Gabapentin) 300 Mg Capsule 300 Mg PO TID Sertraline HCl 50 Mg Tablet 25 Mg PO DAILY TAKES OF A 50MG TAB Aspirin 81 Mg Tab.chew 81 Mg PO Q48H Atorvastatin Calcium 40 Mg Tablet 40 Mg PO DAILY Metoprolol Tartrate 25 Mg Tablet 25 Mg PO BID Calcium 600 + Vit D Caplet (Calcium Carbonate/Vitamin D3) 1 Each Tablet 1 Each PO BID Eliquis (Apixaban) 2.5 Mg Tablet 2.5 Mg PO BID Instructions to patient/family Please see electronic discharge instructions given to patient. Clinical Quality Measures Admission Status Admission Dx 1) Sepsis No signs of end organ damage and lactic acid is not elevated Blood cultures grew nothing Abx have been started to treat the source of infection which is most likely the bilateral pneumonia 2) Community acquired multifocal pneumonia Discharged with Cefpodoxime 200mg 2xD for 5 days Patient should be using incentive spirometer 3) Hypoxia Patient is tolerating room air well, will monitor oxygen while she works with PT and OT this afternoon Albuterol/Ipratropium 3ml Q2hrs 4) Hypokalemia Due to the patient having diarrhea the past few weeks, IV potassium chloride 20mEq Q3hrs and IV magnesium 1g over 1 hour 5) Elevated d-dimer Ruled out a PE with CT angiogram Patient has had a prior DVT but is not presenting with any sign or symptoms today and patient is already taking Apixaban 6) Previous DVT and DVT prophylaxis Restart home medication Apixaban 2.5mg BID 7) HLD Restart home medication Atorvastatin 40mg 1xD 8)Coronary artery disease Restart home medication Aspirin 81mg Q48hrs 9) Sciatica Restart home medication gabapentin 100mg 5xD 10) HTN Hold home medication since the patient is septic and at risk for hypotension 11) Anxiety and depression Restart home medication Sertraline 50mg 1xD 12) Nicotine addiction Nicotine patch 7mg 13) Trigeminal neuralgia Gapapentin 100mg 5xD AMI/AHF: ASA po Prior to arrival: No Smoking Cessation Counseling: Counseling-Symptomatic: 3-10 Minutes (Not yet ready to quit smoking due to issues with sciatica but hoping to attempt cessation in the next couple of months. States she knows it would make Dr Dawn and Dr Duffy happy if she did. No interestedin pharmacological options at this time.) DORIAN VALDES MD 07/03/22 1309: Discharge Summary Discharge Physical Exam Allergies: Uncoded Allergies: zithromycin (Allergy, Intermediate, Shortness of Breath, 07/02/22) Supervisory-Addendum Brief Verification & Attestation Participated in pt care: history, MDM, physical Personally performed: exam, history, MDM, supervision of care Care discussed with: Medical Student Procedures: n/a Results interpretation: Verified all documentation Verification and Attestation of Medical Student E/M Service A medical student performed and documented this service in my presence. I reviewed and verified all information documented by the medical student and made modifications to such information, when appropriate. I personally performed the physical exam and medical decision making. Dorian Valdes, Jul 03, 2022,13:09 PATRICIA SMITH Jul 03, 2022 12:07 DORIAN VALDES MD Jul 03, 2022 13:09
[2022-07-03 12:14] VITALS: BP 119/62
[2022-07-03 13:33] VITALS: BP 119/62
== END 2022-07-03 13:45 | disposition home or self-care (01) ==
LOC: EDUNIT# 11:47 → ER 11:49 → 4TH 15:28
PROVIDERS: ADMIT Family Medicine; ATTEND Family Medicine
DX: A41.9 Sepsis, unspecified organism (principal); J18.9 Pneumonia, unspecified organism; J96.01 Acute respiratory failure with hypoxia; I10 Essential (primary) hypertension; I25.10 Atherosclerotic heart disease of native coronary artery without angina pectoris; E87.6 Hypokalemia; F17.210 Nicotine dependence, cigarettes, uncomplicated; D68.59 Other primary thrombophilia; Z20.822 Contact with and (suspected) exposure to COVID-19; M41.9 Scoliosis, unspecified; F41.9 Anxiety disorder, unspecified; M81.0 Age-related osteoporosis without current pathological fracture; F32.A Depression, unspecified; E78.5 Hyperlipidemia, unspecified; Q60.0 Renal agenesis, unilateral; G50.0 Trigeminal neuralgia; M54.30 Sciatica, unspecified side; Z86.718 Personal history of other venous thrombosis and embolism; Z79.01 Long term (current) use of anticoagulants; Z79.82 Long term (current) use of aspirin; Z88.1 Allergy status to other antibiotic agents
CPT/HCPCS: 36415; 71045; 71275; 74177; 80053; 82550; 82553; 83605; 83690; 83735; 83874; 83880; 84484; 85007; 85025; 85027; 85379; 85610; 85730; 87040; 87636; 93005; 93041; 94640; 94664; 94760; 94761; 96366; 96374; 96375; G0378